=== PATIENT | male | born 1970 | race Caucasian/White ===

== ENCOUNTER 2017-06-06 21:29 | Emergency (ER) | payer MEDICARE, SELFPAY ==
[2017-06-06 21:32] VITALS: BP 166/101; PULSE 103; RESP 14; TEMP 36.6; O2SAT 100; BMI 24.8
--- NOTE | 2017-06-06 21:40 | XR_ITS ---
EXAM: XR cervical spine 5V HISTORY: Neck pain ITS.REASON: pain ORDERING PHYSICIAN: Lebron Pearson MD PATIENT AGE: 46 years COMPARISON: None FINDINGS: Mild degenerative disc disease at C4-C5 with decrease in the disc space and end plate osteophytes. C7 is not well delineated. Swimmer's view shows a faint outline of C7 which is normal in alignment. The foramina are patent. No fracture or dislocation. No lytic or blastic change. There are postsurgical changes of the facial bones. IMPRESSION: Degenerative disc disease C4-C5 otherwise negative cervical spine
--- NOTE | 2017-06-06 21:40 | XR_ITS ---
EXAM: XR lumbar spine min 4V HISTORY: Low back pain ITS.REASON: pain ORDERING PHYSICIAN: Lebron Pearson MD PATIENT AGE: 46 years COMPARISON: None FINDINGS: Normal alignment. No fracture or dislocation. No lytic or blastic change. No significant degenerative change. The disc spaces are preserved. IMPRESSION: Negative lumbar spine
--- NOTE | 2017-06-06 21:40 | XR_ITS ---
EXAM: XR thoracic spine 3V HISTORY: Mid back pain ITS.REASON: pain COMPARISON: None FINDINGS: There is normal alignment. No acute fracture or dislocation is evident. There is mild multilevel degenerative disc disease with ankylosis of the mid thoracic spine anteriorly. No obvious lytic or blastic change. There is increased soft tissue density in the left paratracheal region at the T3 level with mild tracheal deviation to the right. Paratracheal mass or aneurysm is considered. IMPRESSION: 1. Degenerative changes of the thoracic spine with mid thoracic lordosis. 2. Left paratracheal mass versus aneurysm/vascular ectasia. Consider chest CT with contrast for further evaluation.
[2017-06-06 21:53] LABS: Microscopic, Urine URINE MICROSCOPIC (MICROSCOPIC)
--- NOTE | 2017-06-06 21:53 | HMH.EDBACK ---
ED Disposition Clinical Impression: Lumbar radiculopathy Thoracic back pain Qualifiers: Chronicity: acute Back pain laterality: bilateral Qualified Code(s): M54.6 - Pain in thoracic spine Disposition: Home, Self-Care Condition on Discharge: Good Instructions: DI for Back Pain With Sciatica Additional Instructions: call pcp in am Referrals: Ekaterina Hurtado MD [Primary Care Provider] - - Critical Care Critical Care Time: No Attestation: On , the high probability of a clinically significant, sudden or life threatening deterioration of the following system(s) required my full and direct attention, intervention and personal management. The time I documented below is in addition to time spent performing reported procedures but includes the following listed in this critical care notation. Medical Decision Making - Medical Records Medical records reviewed: Yes: I reviewed the patient's medical records. - Scooter Inquiry Pt receiving controlled substance: No Vital Signs: 06/06/17 21:32 Temperature 97.8 F Temperature Source Oral Pulse Rate [Right Radial] 103 H Respiratory Rate 14 Blood Pressure [Right Arm] 166/101 Blood Pressure Mean [Right Arm] 122 Blood Pressure Source [Right Arm] Automatic Cuff Blood Pressure Position [Right Arm] Sitting 02 Sat by Pulse Oximetry 100 Oxygen Delivery Method Room Air - Lab Data Lab Results 06/06/17 21:35: Urine Color Yellow, Urine Appearance Clear, Urine pH 6.0, Ur Specific [place] <= 1.005, Urine Protein Negative, Urine Glucose (UA) 3+, Urine Ketones Negative, Urine Blood Negative, Urine Nitrate Negative, Urine Bilirubin Negative, Urine Urobilinogen 0.2, Ur Leukocyte Esterase Negative, Urine Bacteria Trace Orders (Tests/Meds): ORDERS Category Date Time Status XR cervical spine 5V Stat Exams 06/06/17 21:40 Taken XR lumbar spine min 4V Stat Exams 06/06/17 21:40 Taken XR thoracic spine 3V Stat Exams 06/06/17 21:40 Taken - Radiology Data #1 Image(s): T-Spine, L-Spine Image Reviewed: Yes I reviewed the patient's radiology image Preliminary Findings: No Fracture Seen Back Pain HPI - General Chief Complaint: Back Pain/Injury Stated Complaint: back pain Time Seen by Provider: 06/06/17 21:53 Mode of Arrival: Ambulatory Source of Information: Patient, Medical Record Limitations: No Limitations Description of Symptoms (Recalled from ER Triage Doc. by RN): last night with whole back pain , saw Dr Hurtado and took one dose of steroid he was ordered - History of Present Illness HPI Narrative: pt with bilat back pain w/o fever or rash and no trauma - saw pcp today on medrol dose raghavendra ARANGO Complaint: back pain Onset (ago): day(s) Duration: constant Similar Symptoms Previously: No Location: lumbar spine, thoracic spine Severity: moderate Quality: sharp Radiation: none Exacerbating factors: movement Context: unknown Associated symptoms: denies other symptoms - Related Data Home Medications Medication Instructions Recorded Confirmed Insulin Glargine,Hum.rec.anlog 20 unit SQ HS 06/06/17 06/06/17 [Lantus Insulin 100units/mL 10mL vial] Lisinopril [Lisinopril 5mg Tablet] 5 mg PO DAILY 06/06/17 06/06/17 Metformin HCl [Metformin 500mg 500 mg PO BID 06/06/17 06/06/17 Tablet] Allergies Allergy/AdvReac Type Severity Reaction Status Date / Time Fish Containing Products Allergy Mild Verified 06/06/17 21:41 [FISH CONTAINING PRODUCTS] [facility] History I have reviewed the patient's past medical history: Yes Medical History: Reports:: Diabetes Mellitus Type 2 Denies:: Cancer, Diabetes Mellitus Type 1, MRSA Amputation: No Fractures: No - Social History Smoking Status: Current every day smoker Tobacco Type: cigarettes # Packs/Day (cigarettes): 2 Alcohol Intake: never - Psychiatric History Expresses thoughts of harming self/others: None Suicide Plan Description: No Plan ROS Obtained: Yes All systems reviewed & no additi
[2017-06-06 21:54] LABS: Appearance,Urine CLEAR (Clear); Bilirubin,Urine Negative (Negative); Blood, Urine Negative (Negative); Color,Urine YELLOW (Yellow); Glucose,Urine (UA) 3+ (Negative); Ketones,Urine Negative (Negative); Leukocyte Esterase,Urine Negative (Negative); Nitrate,Urine Negative (Negative); Protein,Urine Negative (Negative); Specific Gravity, Urine <= 1.005 (1.005-1.030); Urobilinogen,Urine 0.2 EU/dl (0.2)
[2017-06-06 22:00] LABS: Bacteria,Urine Trace /lpf
[2017-06-06 22:46] VITALS: BP 158/96; PULSE 95; RESP 15; TEMP 37; O2SAT 94
== END 2017-06-06 22:49 | disposition home or self-care (01) ==
PROVIDERS: Emergency Provider Emergency Medicine; Family Provider Family Medicine; PCP Family Medicine
DX: M54.16 Radiculopathy, lumbar region (principal); M54.6 Pain in thoracic spine; E11.9 Type 2 diabetes mellitus without complications; Z79.4 Long term (current) use of insulin; Z79.84 Long term (current) use of oral hypoglycemic drugs; F17.210 Nicotine dependence, cigarettes, uncomplicated
CPT/HCPCS: 72050; 72072; 72110; 81001; 99282

== ENCOUNTER → 2018-04-11 12:03 | Outpatient (CLI) | payer MEDICARE, MEDICAID, SELFPAY ==
--- NOTE | 2018-04-11 12:06 | CA_ITS ---
PROCEDURE: 2-D M-mode and color Doppler study INDICATIONS FOR THE TEST: Chest pain COPD Heart Murmur Tobacco SmokingX Palpitations Fatigue Syncope Edema HypertensionXDiabetes Mellitus Rheumatic Fever SOB DOEXObesity HyperlipidemiaX Family History HD Additional History CVA L SIDED PARALYSIS LIMITED VIEWS IN PSAX SECONDARY TO IMMOBILITY PATIENT INFORMATION HEIGHT: 72 WEIGHT:160 GENDER: Male B/P:159/96 2-D/M-MODE INTERPRETATION: 2-D MEASUREMENTS OBSERVED VALUES IN CMS Right Ventricular Dimension (RVDd) 1.7 Interventricular Septum (Thickness)(IVsd) 1.0 Left Ventricular Internal Dimensions(LVIDd) 5.8 Left Ventricular Posterior Wall (Thickness)(LVPWd) 1.1 Aortic Root 4.3 Aortic Cusp Separation 1.9 Left Atrial Dimensions (LAD) 2.3 2D 1. Technically difficult study because of the patient's factor and poor acoustic windows 2. The left atrium is mildly enlarged, left ventricle is mildly dilated, there is reduced left ventricular systolic function, visually estimated ejection fraction approximately 30%, there is marked hypokinesis involving the mid to distal septum, anteroapical and apical wall. 3. The right atrium and right ventricle are normal size and contractility. 4. The aortic valve is minimally thickened and fibrosed. 5. The mitral and tricuspid valve leaflets are minimally thickened 6. The pulmonic valve is poorly visualized. 7. No significant pericardial effusion noted. DOPPLER INTERROGATION: Doppler interrogation of the aortic, mitral and tricuspid valvular presence of mild mitral and tricuspid regurgitation, tricuspid regurgitation jet velocity is inadequate for calculation of the right ventricular systolic pressure, grade 1 diastolic dysfunction seen with tissue Doppler evidence of raised left atrial pressure. CONCLUSION: 1. Technically difficult study because of the patient's factor and poor acoustic windows 2. Mildly left atrium, mildly dilated left ventricle, there is reduced left ventricular systolic function, visually estimated ejection fraction approximately 30% with segmental wall motion abnormality described above, grade 1 diastolic dysfunction seen with tissue Doppler evidence of raised left atrial pressure. 3. Mild mitral and tricuspid regurgitation 4. No significant pericardial effusion noted.
[2018-04-11 13:50] LABS: Anion Gap 14.6 mEq/L (5-15); Blood Urea Nitrogen 10 mg/dL (7-18); Calcium 9.3 mg/dL (8.5-10.1); Carbon Dioxide 26 mmol/L (21.0-32.0); Chloride 96 mmol/L (98-107); Creatinine,Serum 0.63 mg/dL (0.70-1.30); Estimated Glomerular Filt Rate 137 ml/min (>60); GFR (African American) 165 ML/MIN (>60); Glucose 255 mg/dL (74-106); Potassium 4.6 mmoL/L (3.5-5.1); Sodium 132 mmol/L (136-145)
[2018-04-12 10:23] LABS: Basophils # 0.1 K/mm3 (0-0.2); Basophils % 0.5 % (0.1-2.0); Eosinophils # 0.3 K/mm3 (0.0-0.4); Eosinophils % 3.1 % (0.1-12.0); Hematocrit 39.2 % (42.0-52.0); Hemoglobin 12.4 g/dL (14.1-18.0); Lymphocytes # 1.7 K/mm3 (0.7-4.5); Lymphocytes % 15.7 % (10-50); Mean Corpuscular HGB Conc 31.8 g/dL (31.8-35.4); Mean Corpuscular Hemoglobin 30.5 pg (27.0-31.2); Mean Platelet Volume 8.8 fl (7.4-10.4); Monocytes # 0.8 K/mm3 (0.1-1.0); Monocytes % 7.1 % (1.7-9.3); Neutrophils # 8.2 K/mm3 (1.8-7.8); Neutrophils % 73.6 % (37.0-80.0); Platelet Count 303 K/mm3 (142-424); Red Blood Count 4.08 M/mm3 (4.60-6.20); Red Cell Distribution Width 15.1 % (11.5-17.5); White Blood Count 11.1 K/mm3 (4.8-10.8)
== END ==
PROVIDERS: PCP Emergency Medicine; Visit Provider Internal Medicine Cardiovascular Disease
DX: I50.9 Heart failure, unspecified; E11.8 Type 2 diabetes mellitus with unspecified complications; R06.09 Other forms of dyspnea; I63.531 Cerebral infarction due to unspecified occlusion or stenosis of right posterior cerebral artery; I63.9 Cerebral infarction, unspecified; R53.1 Weakness
CPT/HCPCS: 36415; 80048; 83880; 85025; 93306

== ENCOUNTER → 2018-04-22 10:27 | Outpatient (CLI) | payer MEDICARE, MEDICAID, SELFPAY ==
--- NOTE | 2018-04-22 | US_ITS ---
US Arterial Ankle Brachial Ind History: Pulseless right arm, CVA, current smoker, diabetes ORDERING PHYSICIAN: Madelaine Norman PATIENT AGE: 47 years TECHNIQUE: Segmental pressures obtained of both right and left leg. These are compared to brachial blood pressure to yield index at each level sampled including summary ZHANE. The data sheets from the procedure are available in PACS FINDINGS Rest study only performed today No prior studies available for comparison. Blood pressures reported are in millimeters mercury. RIGHT ARM RBI = 1.0 . RIGHT ARM DBI=1.0 Brachial BP: 77 Forearm BP: 70 Radial BP: 73 Ulnar BP: 84 Digit =77 LEFT upper extremity not performed due to patient's spouse request Pulses and waveforms: Diminished IMPRESSION: The right radial brachial index is normal at 1.0. Left side was not performed. Pulses and waveforms are diminished. The brachial pressure is low at 77. Recommend correlation with patient's left side. If the left-sided is normal then, a stenosis in the right subclavian or axillary artery would be considered
== END ==
PROVIDERS: PCP Emergency Medicine; Visit Provider Nurse Practitioner Family
DX: R09.89 Other specified symptoms and signs involving the circulatory and respiratory systems (principal)
CPT/HCPCS: 93922

== ENCOUNTER → 2018-05-01 14:58 | Outpatient (POV) | payer MEDICARE, SELFPAY | PROVIDERS: Visit Provider Emergency Medicine | DX: Z00.00 Encounter for general adult medical examination without abnormal findings (principal) ==

== ENCOUNTER → 2018-05-14 14:03 | Outpatient (CLI) | payer MEDICARE, SELFPAY | PROVIDERS: Visit Provider Urology | DX: R33.9 Retention of urine, unspecified (principal) | CPT/HCPCS: 87077; 87086; 87088; 87186 ==

== ENCOUNTER → 2018-07-15 07:15 | Outpatient (CLI) | payer MEDICARE, MEDICAID, SELFPAY ==
--- NOTE | 2018-07-15 07:18 | CA_ITS ---
PROCEDURE: Limited echocardiogram was performed INDICATIONS FOR THE TEST: Chest pain + COPD Heart Murmur Tobacco Smoking+ Palpitations Fatigue Syncope Edema Hypertension+Diabetes Mellitus+ Rheumatic Fever SOB+FIELDS Obesity Hyperlipidemia Family History HD Additional History ABN EKG, CVA, WHEELCHAIR BOUND, LIMITED US WINDOWS PATIENT INFORMATION HEIGHT: 72 WEIGHT:178 GENDER: Male B/P:83/56 2-D/M-MODE INTERPRETATION: 2-D MEASUREMENTS OBSERVED VALUES IN CMS Right Ventricular Dimension (RVDd) Interventricular Septum (Thickness)(IVsd) Left Ventricular Internal Dimensions(LVIDd) Left Ventricular Posterior Wall (Thickness)(LVPWd) Aortic Root Aortic Cusp Separation Left Atrial Dimensions (LAD) 2D 1. Technically very difficult study, because of the patient's factors and poor acoustic windows 2. Left atrium is normal size, left ventricle is normal size, mild concentric left ventricular hypertrophy, visually estimated ejection fraction approximately 40-45% in the obtained views, left ventricle appears to be globally hypokinetic. 3. The right atrium and right ventricle are relatively normal size and function. 4. The aortic valve is minimally thickened and fibrosed. 5. The mitral and tricuspid valve leaflets are minimally thickened . 6. No significant pericardial effusion noted. DOPPLER INTERROGATION: Doppler interrogation of the aortic, mitral and tricuspid valvular presence of mild mitral and tricuspid regurgitation, tricuspid regurgitation jet velocity is inadequate for calculation of the right ventricular systolic pressure, grade 1 diastolic dysfunction seen with tissue Doppler evidence of raised left atrial pressure. CONCLUSION: 1. Technically very difficult study as described above, limited views were obtained. 2. Normal left ventricular size, mild concentric left ventricular hypertrophy, visually estimated ejection fraction 40-45% in the obtained views, left ventricle is globally hypokinetic, Doppler evidence of raised left atrial pressure. Grade 1 diastolic dysfunction seen. 3. Mild mitral and tricuspid regurgitation 4. No significant pericardial effusion noted.
== END ==
PROVIDERS: PCP Emergency Medicine; Visit Provider Internal Medicine Cardiovascular Disease
DX: I63.9 Cerebral infarction, unspecified (principal); I11.9 Hypertensive heart disease without heart failure; I42.9 Cardiomyopathy, unspecified; I25.10 Atherosclerotic heart disease of native coronary artery without angina pectoris; I63.531 Cerebral infarction due to unspecified occlusion or stenosis of right posterior cerebral artery; I50.20 Unspecified systolic (congestive) heart failure
CPT/HCPCS: 93306; 93308

== ENCOUNTER → 2018-11-06 14:30 | Outpatient (POV) | payer MEDICARE, MEDICAID, SELFPAY | DX: Z00.00 Encounter for general adult medical examination without abnormal findings (principal) ==

== ENCOUNTER → 2019-02-03 10:15 | Outpatient (CLI) | payer MEDICARE, MEDICAID, SELFPAY ==
--- NOTE | 2019-02-03 10:19 | MR_ITS ---
PROCEDURE: MR LUMBAR SPINE WO CON CLINICAL INDICATION: LOW BACK PAIN Low back pain COMPARISON: [id number] XR lumbar spine min 4V from 06/06/2017 TECHNIQUE: Standard multiplanar multiecho sequences are performed without contrast. 3-D MIP and myelographic images are also rendered and reviewed FINDINGS: There is normal alignment. The spinal cord ends at the T12-L1 level. There is a moderate amount of motion artifact on the axial images. T12-L5 has an unremarkable appearance. L5-S1: There is some mild disc desiccation with slight decrease in the disc height. There is a mild concentric bulging disc eccentric to the right with a small right paracentral disc osteophyte complex. This abuts the right S1 nerve root with mild right lateral recess narrowing and minimal left lateral recess narrowing. There is mild facet hypertrophic change with mild bilateral foraminal narrowing. No extruded herniated disc evident. IMPRESSION: 1. Degenerative disc disease at L5-S1 with bulging disc and small right paracentral disc osteophyte complex abutting the right S1 nerve root along with facet ligamentum hypertrophy with bilateral lateral recess and foraminal narrowing right greater than left 2. No extruded herniated disc. Dictated by: Hudson Magaña MD 02/05/2019 06:07 Electronically signed by Hudson Magaña MD in [place] 02/05/2019 06:07
== END ==
PROVIDERS: PCP Emergency Medicine; Visit Provider Orthopaedic Surgery
DX: M54.5 Low back pain (principal)
CPT/HCPCS: 72148; 76376

== ENCOUNTER → 2019-04-03 11:45 | Outpatient (CLI) | payer MEDICARE, MEDICAID, SELFPAY ==
[2019-04-03 12:59] LABS: Occult Blood,Stool Negative (Negative)
== END ==
PROVIDERS: Visit Provider Emergency Medicine
DX: Z12.11 Encounter for screening for malignant neoplasm of colon (principal)
CPT/HCPCS: 82272; G0328

== ENCOUNTER → 2019-04-24 22:41 | Outpatient (CLI) | payer MEDICARE, MEDICAID, SELFPAY | PROVIDERS: PCP Emergency Medicine; Visit Provider Emergency Medicine | DX: J11.1 Influenza due to unidentified influenza virus with other respiratory manifestations (principal) | CPT/HCPCS: 87275; 87276 ==

== ENCOUNTER 2019-04-25 15:31 | Observation (INO) ==
--- NOTE | 2019-04-25 16:02 | Emergency Department Note ---
ED Disposition Clinical Impression: Viral infection, Bronchitis, Viral pneumonitis, Persistent cough, Dehydration, Elevated lactic acid level, SOB (shortness of breath) Disposition: Admitted as Observation Condition on Discharge: Fair Referrals: Lebron Pearson MD [Primary Care Provider] - Time of Disposition: 19:53 - Critical Care Critical Care Time: No Attestation: On 04/25/19, the high probability of a clinically significant, sudden or life threatening deterioration of the following system(s) required my full and direct attention, intervention and personal management. The time I documented below is in addition to time spent performing reported procedures but includes the following listed in this critical care notation. Medical Decision Making - Scooter Inquiry Pt receiving controlled substance: No Vital Signs: 04/25/19 15:31 04/25/19 17:00 04/25/19 17:30 Temperature 98.9 F Temperature Source Oral Pulse Rate Pulse Rate [Right Radial] 94 H 86 Respiratory Rate 16 Blood Pressure [Right Arm] 101/61 L 129/74 160/81 H Blood Pressure Mean [Right Arm] 74 92 107 Blood Pressure Source [Right Arm] Automatic Cuff Automatic Cuff Automatic Cuff Blood Pressure Position [Right Arm] Sitting Sitting Sitting 02 Sat by Pulse Oximetry 94 L 96 Oxygen Delivery Method Room Air Room Air 04/25/19 17:52 04/25/19 18:30 Temperature Temperature Source Pulse Rate 96 H Pulse Rate [Right Radial] 107 H Respiratory Rate 22 Blood Pressure [Right Arm] 167/83 H Blood Pressure Mean [Right Arm] 111 Blood Pressure Source [Right Arm] Automatic Cuff Blood Pressure Position [Right Arm] Sitting 02 Sat by Pulse Oximetry 92 L Oxygen Delivery Method Room Air - Lab Data Lab results reviewed: Yes: I reviewed the patient's lab results. Lab Results 04/25/19 16:02: VBG pH 7.36, VBG pCO2 46.7, VBG pO2 27.2 L, VBG HCO3 25.8, VBG Total CO2 27.2 H, VBG O2 Saturation 48.0 L, VBG Base Excess 0.3 04/25/19 17:05: WBC 9.2, RBC 4.46 L, Hgb 14.0 L, Hct 41.4 L, MCV 92.8, MCH 31.3 H, MCHC 33.8, RDW 13.2, Plt Count 210, MPV 7.9, Neut % (Auto) 71.8, Lymph % (Aut o) 11.7, Otoe % (Auto) 14.1 H, Eos % (Auto) 1.2, Baso % (Auto) 1.1, Neut # (Auto) 6.6, Lymph # (Auto) 1.1, Otoe # (Auto) 1.3 H, Eos # (Auto) 0.1, Baso # (Auto) 0.1 04/25/19 17:05: Sodium 128 L, Potassium 4.1, Chloride 92 L, Carbon Dioxide 27, Anion Gap 13.1, BUN 12, Creatinine 1.00, Estimated Creat Clear 104, Estimated GFR 80, Est GFR ( Amer) 97, Glucose 165 H, Calcium 9.1, Total Bilirubin 0.6, AST 45 H, ALT 46, Alkaline Phosphatase 75, Total Protein 6.8, Albumin 3.3 L , Globulin 3.5 H, Albumin/Globulin Ratio 0.9 L 04/25/19 17:05: Lactate 2.8 H 04/25/19 17:05: B-Natriuretic Peptide 21 Result diagrams: 04/25/19 17:05 04/25/19 17:05 Orders (Tests/Meds): ED MEDICATIONS Generic Name Dose Route Start Last Admin Trade Name Freq PRN Reason Stop Dose Admin Sodium Chloride 10 ml 04/25/19 16:22 Saline Flush 10ml Syringe IV 04/26/19 04:23 NEEDED PRN Maintain IV Site Discontinued Medications Generic Name Dose Route Start Last Admin Trade Name Freq PRN Reason Stop Dose Admin Albuterol/Ipratropium 3 ml 04/25/19 17:33 04/25/19 17:48 Duoneb 3ml Neb IH 04/25/19 17:34 3 ml ONCE ONE Administration Sodium Chloride 1,000 mls @ 999 mls/hr 04/25/19 16:30 04/25/19 17:09 Sod Chlor 0.9% 1000ml Bag IV 04/25/19 17:30 999 mls/hr .Q1H1M SAPPHIRE Administration ORDERS Category Date Time Status Blood Culture Stat Micro 04/25/19 17:05 Received - Radiology Data #1 Image(s): Chest Image Reviewed: Yes I reviewed the patient's radiology image INDINGS: The lung arnett are fairly well expanded and appear clear of infiltrate. There is mild generalized cardiomegaly however is no pulmonary congestion and there is no pleural fluid. IMPRESSION: Mild cardiomegaly, no acute chest pathology noted Dictated by: Dr. Ap Mg MD 04/25/2019 16:[address] Ap Mg MD in [place] 04/25/2019 16:5 - Physician Consults Physician Consulted: Dr. Gomez Time: 20:00 Reason -: Admission Comment/Response: D/W Dr. Gomez, regarding the pt and planned to admit the pt to the floor. - Reevaluation(s) Time: 19:30 Reevaluation #1: Pt was still having persistent coughing and was having shortness of breath. Plan to discuss the case with the primary care regarding possible admission for 24 hours observation. General Adult HPI - General Chief complaint: Upper Respiratory Infection Stated complaint: FLU Time Seen by Provider: 04/25/19 16:00 Mode of Arrival: EMS Limitations: No Limitations Description of Symptoms (Recalled from ER Triage Doc. by RN): PT BROUGHT TO ED VIA EMS FROM LONG TERM, WHERE STAFF REPORT THAT PT WAS DX WITH FLU A THIS MORNING AND NURSE IS CONCERNED WITH POSSIBLE ASPIRATION. - History of Present Illness HPI narrative: 48-year-old male was sent in from the long-term having increasing cough and congestion. The nursing staff were concerned that the patient may be having aspiration pneumonia. Patient was in the emergency department yesterday and was positive for influenza A. According to the staff the patient has been coughing a lot today. Patient denies having any acute symptoms otherwise. - Related Data Home Medications Medication Instructions Recorded Confirmed Aspirin [Aspirin 81mg EC Tab] 81 mg PO DAILY 03/25/19 04/21/19 Atorvastatin Calcium [Atorvastatin 40 mg PO HS 03/25/19 04/21/19 40mg Tab] Clopidogrel Bisulfate [Plavix 75mg 75 mg PO DAILY 03/25/19 04/21/19 Tab] Cyclobenzaprine HCl 5 mg PO TID 03/25/19 04/21/19 [Cyclobenzaprine 5mg Tab] Divalproex Sodium [Depakote 500 mg PO TID 03/25/19 04/21/19 Sprinkle 125mg capsule] Fluoxetine HCl 20 mg PO DAILY 03/25/19 04/21/19 Gabapentin 1 tab PO TID 03/25/19 04/21/19 Hydrocodone/Acetaminophen 1 tab PO TID 03/25/19 04/21/19 [Hydrocodone-Acetamin 7.5-325] Insulin Aspart [Novolog] 0 unit SQ TID 03/25/19 04/21/19 Insulin Glargine,Hum.rec.anlog 30 units SQ HS 03/25/19 04/21/19 [Lantus Solostar 100 Units/mL 3mL flexpen] Lactulose [Lactulose 10gm/15ml 10 gm PO DAILY 03/25/19 04/21/19 Oral Soln] Metformin HCl [Metformin 1000mg 1,000 mg PO BID 03/25/19 04/21/19 Tablets] Metoprolol Tartrate 1 tab PO BID 03/25/19 04/21/19 Mirabegron [Myrbetriq] 1 tab PO DAILY 03/25/19 04/21/19 Omeprazole 1 tab PO HS 03/25/19 04/21/19 Pantoprazole Sodium [Protonix 40mg 40 mg PO DAILY 03/25/19 04/21/19 tablet] Sennosides/Docusate Sodium 1 tab PO DAILY 03/25/19 04/21/19 [Senna-S Tablet] Simvastatin 40 mg PO HS 03/25/19 04/21/19 Trazodone HCl 50 mg PO HS 03/25/19 04/21/19 glipiZIDE [Glucotrol] 5 mg PO DAILY 03/25/19 04/21/19 haloperidoL [Haldol 5mg tablet] 1 tab PO HS 03/25/19 04/21/19 hydroCHLOROthiazide 1 tab PO DAILY 03/25/19 04/21/19 [Hydrochlorothiazide] Allergies Allergy/AdvReac Type Severity Reaction Status Date / Time Fish Containing Products Allergy Mild Verified 04/21/19 14:37 [FISH CONTAINING PRODUCTS] [facility] History - Hepatitis A Screen Drug use history?: No High risk sexual behaviors?: No History of sexually transmitted infection?: No Currently employed?: No Childcare worker?: No Do you have indoor plumbing?: Yes Do you have electricity?: Yes Attestation statement:: This patient has been screened for Hepatitis A risk factors. I have reviewed the patient's past medical history: Yes Medical History: Reports:: Congestive Heart Failure, Cerebrovascular Accident, Diabetes Mellitus Type 2, Hypertension, Renal Insufficiency Denies:: Cancer, Diabetes Mellitus Type 1, Internal Pacemaker, MRSA, Seizures Other Medical History: Reports: Other Comment: chronic back pain,schizophrenia Other Surgeries: Yes: Cardiac Catheterization, Cholecystectomy, Other. No: Pacemaker Amputation: No Fractures: No - Social History Smoking Status: Never smoker Tobacco Type: cigarettes # Packs/Day (cigarettes): 1 #Yrs smoked (if former smoker): 20 Alcohol Intake: never Substance Use Type: denies use Occupational Status: disabled Housing: long-term Household Members: caregiver Family Hx:: Coronary Artery Disease, Heart Attack Comment: Paternal Grandparents-CAD, [place]. Maternal Grandfather-CAD ROS Obtained: Yes All systems reviewed & no additional complaints Physical Exam - General General appearance: alert, in no apparent distress, other (Patient keeps on coughing persistently. He sounds congested on the upper airway suggestive of possible postnasal drip induced cough.) - Head Head exam: atraumatic, normocephalic, normal inspection - Eye Eye exam: Present: normal appearance, PERRL, EOMI - ENT ENT exam: Present: normal exam, normal oropharynx, mucous membranes moist, other (Bilateral congested nasal mucosa.) - Neck Neck exam: Present: normal inspection, full ROM, trachea midline - Chest Chest inspection: Present: normal inspection, symmetric chest wall rise. Absent: tenderness - Respiratory Respiratory exam: Present: normal lung sounds bilaterally. Absent: respiratory distress - Cardiovascular Cardiovascular exam: Present: regular rate, normal rhythm. Absent: JVD - Abdominal Exam Abdominal exam: Present: soft, normal bowel sounds. Absent: distention, tendern ess, guarding - Extremities Exam Extremities exam: Present: other (At baseline status) - Back Exam Back exam: Present: normal inspection. Absent: tenderness - Neurological Exam Neurological exam: Present: alert, oriented X3, CN II-XII intact - Psychiatric Psychiatric exam: Present: normal affect, normal mood - Skin Skin exam: Present: warm, dry, intact, normal color
[2019-04-25 17:14] LABS: VBG Base Excess 0.3 mmol/L (-2.4-2.3); VBG HCO3 25.8 mmol/L (23-30); VBG PCO2 46.7 mmol/L (35-51); VBG PH 7.36 mmol/L (7.31-7.41); VBG PO2 27.2 mmol/L (28-40); VBG Total CO2 27.2 mmol/L (23-27)
[2019-04-25 17:20] LABS: Basophils # 0.1 K/mm3 (0-0.2); Basophils % 1.1 % (0.1-2.0); Eosinophils # 0.1 K/mm3 (0.0-0.4); Eosinophils % 1.2 % (0.1-12.0); Hematocrit 41.4 % (42.0-52.0); Lymphocytes # 1.1 K/mm3 (0.7-4.5); Lymphocytes % 11.7 % (10-50); Mean Corpuscular HGB Conc 33.8 g/dL (31.8-35.4); Mean Corpuscular Volume 92.8 fl (80-94); Mean Platelet Volume 7.9 fl (7.4-10.4); Monocytes # 1.3 K/mm3 (0.1-1.0); Monocytes % 14.1 % (1.7-9.3); Neutrophils # 6.6 K/mm3 (1.8-7.8); Neutrophils % 71.8 % (37.0-80.0); Platelet Count 210 K/mm3 (142-424); Red Blood Count 4.46 M/mm3 (4.60-6.20); Red Cell Distribution Width 13.2 % (11.5-17.5); White Blood Count 9.2 K/mm3 (4.8-10.8)
[2019-04-25 17:28] LABS: Albumin Level 3.3 gm/dL (3.4-5.0); Albumin/Globulin Ratio 0.9 (1.1-1.8); Anion Gap 13.1 mEq/L (5-15); Bilirubin,Total 0.6 mg/dL (0.2-1.0); Calcium 9.1 mg/dL (8.5-10.1); Globulin 3.5 gm/dl (1.3-3.2); Total Protein,Serum 6.8 gm/dL (6.4-8.2)
[2019-04-26 07:14] LABS: Basophils % 0.5 % (0.1-2.0); Eosinophils # 0.1 K/mm3 (0.0-0.4); Eosinophils % 0.9 % (0.1-12.0); Hematocrit 37.4 % (42.0-52.0); Hemoglobin 12.8 g/dL (14.1-18.0); Lymphocytes % 15.1 % (10-50); Mean Corpuscular HGB Conc 34.3 g/dL (31.8-35.4); Mean Corpuscular Volume 90.8 fl (80-94); Mean Platelet Volume 7.5 fl (7.4-10.4); Monocytes # 1.1 K/mm3 (0.1-1.0); Monocytes % 16.7 % (1.7-9.3); Neutrophils # 4.5 K/mm3 (1.8-7.8); Neutrophils % 66.7 % (37.0-80.0); Platelet Count 166 K/mm3 (142-424); Red Blood Count 4.11 M/mm3 (4.60-6.20); Red Cell Distribution Width 13.1 % (11.5-17.5); White Blood Count 6.7 K/mm3 (4.8-10.8)
[2019-04-26 07:24] LABS: Calcium 8.9 mg/dL (8.5-10.1)
--- NOTE | 2019-04-26 08:48 | H&P/Discharge Summary ---
General - General Admission date:: 04/25/19 Discharge date: 04/26/19 *Admission Date: 04/25/19 *Chief complaint: Cough/congestion *History of present illness: 48-year-old disabled male who lives at the [facility], who his mother is very involved in his care, had influenza last week at the nursing facility and has finished Tamiflu treatment. He is also been on amoxicillin because of some dental infection issues. He was sent to the emergency department last night because of cough, congestion and worries about aspiration pneumonia. In the ER chest x-ray was unremarkable, but patient was noted to have minimally elevated lactate levels and coughing with some evidence of bronchitis. He was admitted to hospital for further evaluation, diagnostic testing, etc. [facility] History I have reviewed the patient's past medical history: Yes Medical History: Reports:: Congestive Heart Failure, Coronary Artery Disease, Cerebrovascular Accident, Diabetes Mellitus Type 2, Hypertension, Peripheral Vascular Disease, Renal Insufficiency Denies:: Cancer, Diabetes Mellitus Type 1, Internal Pacemaker, MRSA, Seizures *Have you ever received a pneumonia vaccine?: Yes *Have you received a flu vaccine this season?: Yes Other Medical History: Reports: Other Other Surgeries: Yes: Cardiac Catheterization, Cholecystectomy, Other. No: Pacemaker Amputation: No Fractures: No - *Social History Educational Level: Completed High School Smoking Status: Current every day smoker Tobacco Type: cigarettes # Packs/Day (cigarettes): 1 #Yrs smoked (if former smoker): 20 Alcohol Intake: never Substance Use Type: denies use *Occupational Status:: disabled Housing: retirement Household Members: caregiver *Travel in the last 8 weeks: None Family Hx:: Cancer, Coronary Artery Disease, Heart Attack, Hyperlipidemia, Hypertension, Kidney Disease, Thyroid Disorder, Mental illness Review of Systems - Review of Systems Review of systems:: pertinent systems reviewed and negative unless documented below Patient reports that breathing is good, he reports cough that hurts his stomach but otherwise has no complaints of pain. Otherwise review of systems negative except for minimal diarrhea from his antibiotics. Exam Vital signs and Labs for Last 24 Hours: Temp Pulse Resp BP Pulse Ox 97.8 F 92 H 19 108/84 L 91 L 04/26/19 04:00 04/26/19 04:00 04/26/19 04:00 04/26/19 04:00 04/26/19 04:00 Laboratory Results - last 24 hr 04/25/19 16:02: VBG pH 7.36, VBG pCO2 46.7, VBG pO2 27.2 L, VBG HCO3 25.8, VBG Total CO2 27.2 H, VBG O2 Saturation 48.0 L, VBG Base Excess 0.3 04/25/19 17:05: WBC 9.2, RBC 4.46 L, Hgb 14.0 L, Hct 41.4 L, MCV 92.8, MCH 31.3 H, MCHC 33.8, RDW 13.2, Plt Count 210, MPV 7.9, Neut % (Auto) 71.8, Lymph % (Auto) 11.7, [place] % (Auto) 14.1 H, Eos % (Auto) 1.2, Baso % (Auto) 1.1, Neut # (Auto) 6.6, Lymph # (Auto) 1.1, [place] # (Auto) 1.3 H, Eos # (Auto) 0.1, Baso # (Auto) 0.1 04/25/19 17:05: Sodium 128 L, Potassium 4.1, Chloride 92 L, Carbon Dioxide 27, Anion Gap 13.1, BUN 12, Creatinine 1.00, Estimated Creat Clear 104, Estimated GFR 80, Est GFR ( Amer) 97, Glucose 165 H, Calcium 9.1, Total Bilirubin 0.6, AST 45 H, ALT 46, Alkaline Phosphatase 75, Total Protein 6.8, Albumin 3.3 L , Globulin 3.5 H, Albumin/Globulin Ratio 0.9 L 04/25/19 17:05: Lactate 2.8 H 04/25/19 17:05: B-Natriuretic Peptide 21 04/25/19 20:50: Lactate 2.5 H 04/25/19 23:11: Lactate 1.8 04/26/19 06:30: WBC 6.7 D, RBC 4.11 L, Hgb 12.8 L, Hct 37.4 L, MCV 90.8, MCH 31.1, MCHC 34.3, RDW 13.1, Plt Count 166, MPV 7.5, Neut % (Auto) 66.7, Lymph % (Auto) 15.1, [place] % (Auto) 16.7 H, Eos % (Auto) 0.9, Baso % (Auto) 0.5, Neut # (Auto) 4.5, Lymph # (Auto) 1.0, [place] # (Auto) 1.1 H, Eos # (Auto) 0.1, Baso # (Auto) 0.0 04/26/19 06:30: Sodium 134 L, Potassium 4.0, Chloride 98, Carbon Dioxide 26, Anion Gap 14.0, BUN 12, Creatinine 0.85, Estimated Creat Clear 103, Estimated GFR 96, Est GFR ( Amer) 116, Glucose 145 H, Calcium 8.9 04/26/19 06:39: POC Glucose 165 H I & O for Last 24 hours: Intake & Output 04/23/19 04/24/19 04/25/19 04/26/19 11:59 11:59 11:59 11:59 Intake Total 1889 Balance 1889 Weight 151 lb 5 oz Narrative: Previously noted spasticity and hyperreflexia from his hemiplegia from his stroke. Oropharynx moist, dental disease noted. Lungs have good air movement, minimal rhonchi. Heart rate regular. Abdomen soft. Skin turgor is good, no dehydration evident. Hospital Course Hospital Course: Patient was admitted, given 1 dose of Levaquin overnight for the possibility of post influenza pneumonitis. He did well and vital signs were normal. Maintain acceptable oxygen saturations on room air. He will be transferred back to [place] today. I will discontinue amoxicillin, substitute levofloxacin for better lung coverage. Other medications will continue. He will also be prescribed a cough syrup. He will follow-up with his regular providers at [facility]. Results Labs on day of discharge: Labs from last 24 hours 04/26/19 04/26/19 04/26/19 06:39 06:30 06:30 WBC 6.7 D RBC 4.11 L Hgb 12.8 L Hct 37.4 L MCV 90.8 MCH 31.1 MCHC 34.3 RDW 13.1 Plt Count 166 MPV 7.5 Neut % (Auto) 66.7 Lymph % (Auto) 15.1 [place] % (Auto) 16.7 H Eos % (Auto) 0.9 Baso % (Auto) 0.5 Neut # (Auto) 4.5 Lymph # (Auto) 1.0 [place] # (Auto) 1.1 H Eos # (Auto) 0.1 Baso # (Auto) 0.0 VBG pH VBG pCO2 VBG pO2 VBG HCO3 VBG Total CO2 VBG O2 Saturation VBG Base Excess Sodium 134 L Potassium 4.0 Chloride 98 Carbon Dioxide 26 Anion Gap 14.0 BUN 12 Creatinine 0.85 Estimated Creat Clear 103 Estimated GFR 96 Est GFR ( Amer) 116 Glucose 145 H POC Glucose 165 H Lactate Calcium 8.9 Total Bilirubin AST ALT Alkaline Phosphatase B-Natriuretic Peptide Total Protein Albumin Globulin Albumin/Globulin Ratio 04/25/19 04/25/19 04/25/19 23:11 20:50 17:05 WBC RBC Hgb Hct MCV MCH MCHC RDW Plt Count MPV Neut % (Auto) Lymph % (Auto) [place] % (Auto) Eos % (Auto) Baso % (Auto) Neut # (Auto) Lymph # (Auto) [place] # (Auto) Eos # (Auto) Baso # (Auto) VBG pH VBG pCO2 VBG pO2 VBG HCO3 VBG Total CO2 VBG O2 Saturation VBG Base Excess Sodium Potassium Chloride Carbon Dioxide Anion Gap BUN Creatinine Estimated Creat Clear Estimated GFR Est GFR ( Amer) Glucose POC Glucose Lactate 1.8 2.5 H Calcium Total Bilirubin AST ALT Alkaline Phosphatase B-Natriuretic Peptide 21 Total Protein Albumin Globulin Albumin/Globulin Ratio 04/25/19 04/25/19 04/25/19 17:05 17:05 17:05 WBC 9.2 RBC 4.46 L Hgb 14.0 L Hct 41.4 L MCV 92.8 MCH 31.3 H MCHC 33.8 RDW 13.2 Plt Count 210 MPV 7.9 Neut % (Auto) 71.8 Lymph % (Auto) 11.7 [place] % (Auto) 14.1 H Eos % (Auto) 1.2 Baso % (Auto) 1.1 Neut # (Auto) 6.6 Lymph # (Auto) 1.1 [place] # (Auto) 1.3 H Eos # (Auto) 0.1 Baso # (Auto) 0.1 VBG pH VBG pCO2 VBG pO2 VBG HCO3 VBG Total CO2 VBG O2 Saturation VBG Base Excess Sodium 128 L Potassium 4.1 Chloride 92 L Carbon Dioxide 27 Anion Gap 13.1 BUN 12 Creatinine 1.00 Estimated Creat Clear 104 Estimated GFR 80 Est GFR ( Amer) 97 Glucose 165 H POC Glucose Lactate 2.8 H Calcium 9.1 Total Bilirubin 0.6 AST 45 H ALT 46 Alkaline Phosphatase 75 B-Natriuretic Peptide Total Protein 6.8 Albumin 3.3 L Globulin 3.5 H Albumin/Globulin Ratio 0.9 L 04/25/19 16:02 WBC RBC Hgb Hct MCV MCH MCHC RDW Plt Count MPV Neut % (Auto) Lymph % (Auto) [place] % (Auto) Eos % (Auto) Baso % (Auto) Neut # (Auto) Lymph # (Auto) [place] # (Auto) Eos # (Auto) Baso # (Auto) VBG pH 7.36 VBG pCO2 46.7 VBG pO2 27.2 L VBG HCO3 25.8 VBG Total CO2 27.2 H VBG O2 Saturation 48.0 L VBG Base Excess 0.3 Sodium Potassium Chloride Carbon Dioxide Anion Gap BUN Creatinine Estimated Creat Clear Estimated GFR Est GFR ( Amer) Glucose POC Glucose Lactate Calcium Total Bilirubin AST ALT Alkaline Phosphatase B-Natriuretic Peptide Total Protein Albumin Globulin Albumin/Globulin Ratio DS: Diagnosis - Discharge Diagnosis (1) Bronchitis Status: Acute (2) Dehydration Status: Acute (3) Elevated lactic acid level Status: Acute (4) Viral pneumonitis Status: Acute Discharge Plan - Patient Discharge Instructions ACTIVITY: Continue current activity DIET: continue same diet Patient Instructions: DI for Dehydration -- Adult, DI for Acute Bronchitis, DI for Influenza -- Adult, DI for Shortness of Breath - Follow up Plan Follow up with: Rose Marie Garza APRN [Advanced Practice Nurse] - Disposition: er [facility] Home Medications: Home Medications Medication Instructions Recorded Confirmed Type Aspirin [Aspirin 81mg EC Tab] 81 mg PO DAILY 03/25/19 04/25/19 History Atorvastatin Calcium [Atorvastatin 40 mg PO HS 03/25/19 04/25/19 History 40mg Tab] Clopidogrel Bisulfate [Plavix 75mg 75 mg PO DAILY 03/25/19 04/25/19 History Tab] Cyclobenzaprine HCl 5 mg PO TID 03/25/19 04/25/19 History [Cyclobenzaprine 5mg Tab] Divalproex Sodium [Depakote 500 mg PO TID 03/25/19 04/25/19 History Sprinkle 125mg capsule] Gabapentin 800 mg PO TID 03/25/19 04/25/19 History Hydrocodone/Acetaminophen 1 tab PO TID 03/25/19 04/25/19 History [Hydrocodone-Acetamin 7.5-325] Lactulose [Lactulose 10gm/15ml 10 gm PO DAILY 03/25/19 04/25/19 History Oral Soln] Metoprolol Tartrate 1 tab PO BID 03/25/19 04/25/19 History Mirabegron [Myrbetriq] 1 tab PO DAILY 03/25/19 04/25/19 History Omeprazole 1 tab PO HS 03/25/19 04/25/19 History Sennosides/Docusate Sodium 1 tab PO DAILY 03/25/19 04/25/19 History [Senna-S Tablet] haloperidoL [Haldol 5mg tablet] 1 tab PO BID 03/25/19 04/25/19 History hydroCHLOROthiazide 1 tab PO DAILY 03/25/19 04/25/19 History [Hydrochlorothiazide] Acetaminophen 500 mg PO Q4HP PRN 04/25/19 04/25/19 History Acetaminophen [Acetaminophen 325mg 650 mg PO TID 04/25/19 04/25/19 History tab] Amoxicillin [Amoxicillin 500mg Tab] 500 mg PO TID 04/25/19 04/25/19 History Bisacodyl [Bisacodyl 10mg Supp] 10 mg RC DAILYP PRN 04/25/19 04/25/19 History Loperamide HCl [Loperamide] 2 mg PO NEEDED PRN 04/25/19 04/25/19 History Mag Carb/Aluminum Hydrox/Algin 30 ml PO Q4HP PRN 04/25/19 04/25/19 History [Acid Gone Antacid Liquid] Melatonin 5 mg PO HS 04/25/19 04/25/19 History Oseltamivir Phosphate [Tamiflu 75 mg PO BID 04/25/19 04/25/19 History 75mg Capsule] Polyethylene Glycol 3350 [Miralax 17 gm PO DAILYP PRN 04/25/19 04/25/19 History Powder] Sod Phos,M-B/Na Phos,Di-Ba [Fleet 133 ml RC NEEDED PRN 04/25/19 04/25/19 History Enema] Tamsulosin HCl 0.4 mg PO HS 04/25/19 04/25/19 History lisinopriL [Lisinopril 10mg Tab] 10 mg PO DAILY 04/25/19 04/25/19 History Promethazine/Dextromethorphan 5 ml PO Q6HP PRN #240 ml 04/26/19 Rx [Promethazine-Dm Syrup] levoFLOXacin [Levaquin 500mg 500 mg PO DAILY #7 tab 04/26/19 Rx tab] predniSONE [Deltasone 20mg 20 mg PO BID 7 Days #14 tab 04/26/19 Rx tablet] Prescriptions/Medication Reconciliation: New predniSONE [Deltasone 20mg tablet] 20 mg PO BID 7 Days #14 tab levoFLOXacin [Levaquin 500mg tab] 500 mg PO DAILY #7 tab Promethazine/Dextromethorphan [Promethazine-Dm Syrup] 5 ml PO Q6HP PRN #240 ml PRN Reason: Cough Continued Atorvastatin Calcium [Atorvastatin 40mg Tab] 40 mg PO HS Gabapentin 800 mg PO TID Lactulose [Lactulose 10gm/15ml Oral Soln] 10 gm PO DAILY Clopidogrel Bisulfate [Plavix 75mg Tab] 75 mg PO DAILY Loperamide HCl [Loperamide] 2 mg PO NEEDED PRN PRN Reason: . Acetaminophen 500 mg PO Q4HP PRN PRN Reason: Mild Pain,Fever,Headache Acetaminophen [Acetaminophen 325mg tab] 650 mg PO TID Oseltamivir Phosphate [Tamiflu 75mg Capsule] 75 mg PO BID Polyethylene Glycol 3350 [Miralax Powder] 17 gm PO DAILYP PRN PRN Reason: . haloperidoL [Haldol 5mg tablet] 1 tab PO BID Mirabegron [Myrbetriq] 1 tab PO DAILY hydroCHLOROthiazide [Hydrochlorothiazide] 1 tab PO DAILY Hydrocodone/Acetaminophen [Hydrocodone-Acetamin 7.5-325] 1 tab PO TID Omeprazole 1 tab PO HS Metoprolol Tartrate 1 tab PO BID Divalproex Sodium [Depakote Sprinkle 125mg capsule] 500 mg PO TID Sennosides/Docusate Sodium [Senna-S Tablet] 1 tab PO DAILY Cyclobenzaprine HCl [Cyclobenzaprine 5mg Tab] 5 mg PO TID Aspirin [Aspirin 81mg EC Tab] 81 mg PO DAILY Sod Phos,M-B/Na Phos,Di-Ba [Fleet Enema] 133 ml RC NEEDED PRN PRN Reason: Constipation Bisacodyl [Bisacodyl 10mg Supp] 10 mg RC DAILYP PRN PRN Reason: Constipation Mag Carb/Aluminum Hydrox/Algin [Acid Gone Antacid Liquid] 30 ml PO Q4HP PRN PRN Reason: Indigestion Tamsulosin HCl 0.4 mg PO HS Melatonin 5 mg PO HS lisinopriL [Lisinopril 10mg Tab] 10 mg PO DAILY Discontinued Amoxicillin [Amoxicillin 500mg Tab] 500 mg PO TID - Problem Reconciliation Problems Reviewed?: Yes
== END 2019-04-26 12:57 ==
LOC: ER 15:31 → 2ND 15:31
PROVIDERS: ADMIT Internal Medicine Adolescent Medicine; ATTEND Emergency Medicine
DX: I25.10 Atherosclerotic heart disease of native coronary artery without angina pectoris; E86.0 Dehydration; J20.9 Acute bronchitis, unspecified; Z79.899 Other long term (current) drug therapy; J12.89 Other viral pneumonia; J10.08 Influenza due to other identified influenza virus with other specified pneumonia; I50.9 Heart failure, unspecified; I11.0 Hypertensive heart disease with heart failure
CPT/HCPCS: 36415; 71010; 71045; 80048; 80053; 82803; 82962; 83605; 83880; 85025; 87040; 96365; 99284; G0378; J1956

== ENCOUNTER → 2019-06-13 11:14 | Outpatient (CLI) | payer MEDICARE, MEDICAID, SELFPAY ==
[2019-06-13 11:20] LABS: Microscopic, Urine URINE MICROSCOPIC (MICROSCOPIC)
[2019-06-13 11:38] LABS: Basophils # 0.1 K/mm3 (0-0.2); Basophils % 0.8 % (0.1-2.0); Eosinophils # 0.4 K/mm3 (0.0-0.4); Eosinophils % 4.9 % (0.1-12.0); Hematocrit 42.2 % (42.0-52.0); Hemoglobin 14.1 g/dL (14.1-18.0); Lymphocytes # 1.6 K/mm3 (0.7-4.5); Lymphocytes % 18.7 % (10-50); Mean Corpuscular HGB Conc 33.4 g/dL (31.8-35.4); Mean Platelet Volume 7.4 fl (7.4-10.4); Monocytes % 10.9 % (1.7-9.3); Neutrophils # 5.7 K/mm3 (1.8-7.8); Neutrophils % 64.7 % (37.0-80.0); Platelet Count 202 K/mm3 (142-424); Red Blood Count 4.54 M/mm3 (4.60-6.20); White Blood Count 8.8 K/mm3 (4.8-10.8)
[2019-06-13 12:20] LABS: Appearance,Urine CLEAR (Clear); Bilirubin,Urine Negative (Negative); Blood, Urine Negative (Negative); Color,Urine YELLOW (Yellow); Glucose,Urine (UA) Negative (Negative); Ketones,Urine Negative (Negative); Leukocyte Esterase,Urine 1+ (Negative); Nitrate,Urine Negative (Negative); PH,Urine 7.5 (5.0-8.5); Protein,Urine Negative (Negative); Specific Gravity, Urine 1.015 (1.005-1.030); Urobilinogen,Urine 0.2 EU/dl (0.2)
[2019-06-13 12:38] LABS: Bacteria,Urine Trace /lpf; Squamous Epithelial Cell,Urine Occasional #/hpf (0-5)
[2019-06-13 13:12] LABS: Chloride 96 mmol/L (98-107); Sodium 133 mmol/L (136-145)
[2019-06-13 13:13] LABS: Potassium 4.8 mmoL/L (3.5-5.1)
[2019-06-13 13:15] LABS: Alanine Aminotransferase 26 U/L (12-78); Albumin Level 3.8 g/dl (3.5-5.0); Albumin/Globulin Ratio 1.7 (1.1-1.8); Alkaline Phosphatase 73 U/L (38-126); Anion Gap 12.8 mEq/L (5-15); Aspartate Amino Transferase 27 U/L (17-59); Bilirubin,Total 0.3 mg/dl (0.2-1.3); Blood Urea Nitrogen 3 mg/dl (9-20); Carbon Dioxide 29 mmol/L (22.0-30.0); Estimated Glomerular Filt Rate 120 ml/min (>60); GFR (African American) 146 ML/MIN (>60); Globulin 2.3 g/dL (1.3-3.2); Total Protein,Serum 6.1 g/dl (6.3-8.2)
[2019-06-13 13:16] LABS: Calcium 9.8 mg/dl (8.4-10.2); Glucose 142 mg/dl (74-100)
== END ==
PROVIDERS: Visit Provider Emergency Medicine
DX: R05 Cough (principal); M62.81 Muscle weakness (generalized); Z74.09 Other reduced mobility; Z87.820 Personal history of traumatic brain injury; R82.90 Unspecified abnormal findings in urine
CPT/HCPCS: 80053; 81001; 85025; 87086

== ENCOUNTER → 2019-08-27 13:05 | Outpatient (POV) | payer MEDICARE, MEDICAID, SELFPAY | PROVIDERS: PCP Emergency Medicine | DX: Z00.00 Encounter for general adult medical examination without abnormal findings (principal) ==

== ENCOUNTER → 2020-02-12 17:40 | Outpatient (CLI) | payer MEDICARE, MEDICAID, SELFPAY ==
[2020-02-12 17:47] LABS: Microscopic, Urine URINE MICROSCOPIC (MICROSCOPIC)
[2020-02-12 18:24] LABS: Bilirubin,Urine Negative (Negative); Blood, Urine Negative (Negative); Glucose,Urine (UA) Negative (Negative); Ketones,Urine Negative (Negative); Leukocyte Esterase,Urine TRACE (Negative); Nitrate,Urine Negative (Negative); PH,Urine 6.5 (5.0-8.5); Protein,Urine Negative (Negative)
[2020-02-12 18:29] LABS: Appearance,Urine Cloudy (Clear); Color,Urine Dark Yellow (Yellow)
[2020-02-12 18:42] LABS: Bacteria,Urine 1+ /lpf; Mucus,Urine 1+ /lpf; Squamous Epithelial Cell,Urine Occasional #/hpf (0-5)
== END ==
PROVIDERS: Visit Provider Emergency Medicine
DX: N39.0 Urinary tract infection, site not specified (principal)
CPT/HCPCS: 81001; 87086; 87088; 87186

== ENCOUNTER 2020-02-14 14:47 | Observation (INO) | payer MEDICARE, MEDICAID, SELFPAY ==
[2020-02-14] VITALS (7 sets, daily range): BP systolic 66–118; BP diastolic 44–88; PULSE 83–104; RESP 16–20; TEMP 36.7–36.9; O2SAT 94–100; BMI 29.7; BMI 29.8
--- NOTE | 2020-02-14 | ECG_ITS ---
APPROVED REPORT Exam: Resting ECG HR:82 bpm ECG Measurements Heart Rate 82 AXES WI 190 P 35 QRSd 96 QRS 69 QT 410 T 22 QTc 479 Conclusion Normal sinus rhythm Nonspecific IV conductiion delay Poor r wave progression Abnormal ECG Electronically signed by : Mckay Gomez, 02/16/2020 07:25:59
[2020-02-14 15:06] LABS: Basophils # 0.1 K/mm3 (0-0.2); Eosinophils # 0.4 K/mm3 (0.0-0.4); Eosinophils % 4.1 % (0.1-12.0); Hematocrit 42.2 % (42.0-52.0); Hemoglobin 13.6 g/dL (14.1-18.0); Lymphocytes # 2.5 K/mm3 (0.7-4.5); Lymphocytes % 25.7 % (10-50); Mean Corpuscular HGB Conc 32.2 g/dL (31.8-35.4); Mean Corpuscular Volume 93.1 fl (80-94); Monocytes # 1.1 K/mm3 (0.1-1.0); Monocytes % 11.7 % (1.7-9.3); Neutrophils # 5.5 K/mm3 (1.8-7.8); Neutrophils % 57.6 % (37.0-80.0); Platelet Count 206 K/mm3 (142-424); Red Blood Count 4.53 M/mm3 (4.60-6.20); Red Cell Distribution Width 14.5 % (11.5-17.5); White Blood Count 9.6 K/mm3 (4.8-10.8)
[2020-02-14 15:11] LABS: Alanine Aminotransferase 22 U/L (12-78); Albumin/Globulin Ratio 1.5 (1.1-1.8); Alkaline Phosphatase 82 U/L (38-126); Anion Gap 14.3 mEq/L (5-15); Aspartate Amino Transferase 25 U/L (17-59); Bilirubin,Total 0.6 mg/dl (0.2-1.3); Blood Urea Nitrogen 17 mg/dl (9-20); Calcium 9.8 mg/dl (8.4-10.2); Carbon Dioxide 28 mmol/L (22.0-30.0); Chloride 92 mmol/L (98-107); Creatinine Clearance Estimated 115 mL/min (50-200); Estimated Glomerular Filt Rate 71 ml/min (>60); GFR (African American) 86 ML/MIN (>60); Globulin 2.6 g/dL (1.3-3.2); Glucose 162 mg/dl (74-100); Potassium 4.3 mmoL/L (3.5-5.1); Sodium 130 mmol/L (136-145); Total Protein,Serum 6.6 g/dl (6.3-8.2)
[2020-02-14 15:14] LABS: Lactic Acid 2.1 mmol/L (0.7-2.1)
--- NOTE | 2020-02-14 15:30 | HMH.EDAMS ---
ED Disposition Clinical Impression: UTI (urinary tract infection) Qualifiers: Urinary tract infection type: acute cystitis Hematuria presence: with hematuria Qualified Code(s): N30.01 - Acute cystitis with hematuria Disposition: Admitted As Inpatient Condition on Discharge: Serious Instructions: DI for Altered Mental Status Referrals: Provider,Referral, [Referring] - - Critical Care Critical Care Time: No Attestation: On 02/14/20, the high probability of a clinically significant, sudden or life threatening deterioration of the following system(s) required my full and direct attention, intervention and personal management. The time I documented below is in addition to time spent performing reported procedures but includes the following listed in this critical care notation. Medical Decision Making - Medical Records Medical records reviewed: Yes: I reviewed the patient's medical records. - Scooter Inquiry Pt receiving controlled substance: No Vital Signs: 02/14/20 14:47 02/14/20 15:46 02/14/20 16:52 Temperature 98.5 F Temperature Source Oral Pulse Rate [Left Radial] 84 83 85 Respiratory Rate 19 Blood Pressure [Right Arm] 66/44 L 78/48 L 95/66 L Blood Pressure Mean [Right Arm] 51 58 75 Blood Pressure Source [Right Arm] Automatic Cuff Automatic Cuff Automatic Cuff Blood Pressure Position [Right Arm] Sitting Sitting Sitting 02 Sat by Pulse Oximetry 94 L 97 100 Oxygen Delivery Method Room Air Nasal Cannula Room Air - Lab Data Lab results reviewed: Yes: I reviewed the patient's lab results. Lab Results 02/14/20 14:51: WBC 9.6, RBC 4.53 L, Hgb 13.6 L, Hct 42.2, MCV 93.1, MCH 30.0, MCHC 32.2, RDW 14.5, Plt Count 206, MPV 7.0 L, Neut % (Auto) 57.6, Lymph % (Auto) 25.7, [place] % (Auto) 11.7 H, Eos % (Auto) 4.1, Baso % (Auto) 1.0, Neut # (Auto) 5.5, Lymph # (Auto) 2.5, [place] # (Auto) 1.1 H, Eos # (Auto) 0.4, Baso # (Auto) 0.1 02/14/20 14:51: Sodium 130 L, Potassium 4.3, Chloride 92 L, Carbon Dioxide 28, Anion Gap 14.3, BUN 17, Creatinine 1.10, Estimated Creat Clear 115, Estimated GFR 71, Est GFR ( Amer) 86, Glucose 162 H, Calcium 9.8, Total Bilirubin 0.6, AST 25, ALT 22, Alkaline Phosphatase 82, Total Protein 6.6, Albumin 4.0, Globulin 2.6, Albumin/Globulin Ratio 1.5 02/14/20 14:51: Lactate 2.1 02/14/20 14:51: SARS-CoV-2 IgG Ab (Rapid) Positive A, SARS-CoV-2 IgM Ab (Rapid) Negative 02/14/20 15:00: Urine Color Yellow, Urine Appearance Sl cloudy, Urine pH 6.0, Ur Specific [place] 1.020, Urine Protein Negative, Urine Glucose (UA) Negative, Urine Ketones Trace, Urine Blood Negative, Urine Nitrate Negative, Urine Bilirubin Negative, Urine Urobilinogen 1.0, Ur Leukocyte Esterase 2+ A, Urine RBC None, Urine WBC 20-50, Ur Squamous Epith Cells 5-10, Amorphous Sediment 1+, Urine Bacteria None, Urine Sperm 1+ Result diagrams: 02/14/20 14:51 02/14/20 14:51 Orders (Tests/Meds): ED MEDICATIONS Generic Name Dose Route Start Last Admin Trade Name Freq PRN Reason Stop Dose Admin Sodium Chloride 2,000 mls @ 999 mls/hr 02/14/20 15:15 02/14/20 15:11 Sod Chlor 0.9% 1000ml Bag IV 02/14/20 17:15 999 mls/hr .Q2H1M SAPPHIRE Administration ORDERS Category Date Time Status Chest XR -- portable [XR chest portable] Stat Exams 02/14/20 15:35 Taken Blood Culture Stat Micro 02/14/20 14:51 Received Urine Culture Stat Micro 02/14/20 15:00 Received - Radiology Data #1 Image(s): Chest Image Reviewed: Yes I reviewed the patient's radiology image Preliminary Findings: Normal/NAD - ECG Data Tracing #1 ECG initial impression date: 02/14/20 ECG initial impression time: 15:15 ECG normal with no acute: arrhythmias, ischemia, conduction abnormalities, chamber hypertrophy ([id number]) Normal Sinus Rhythm: Yes Altered Mental Status HPI - General Chief Complaint: Altered Mental Status Stated Complaint: AMS Time Seen by Provider: 02/14/20 15:20 Mode of Arrival: EMS Source of Information: Patient, Medical
--- NOTE | 2020-02-14 15:35 | XR_ITS ---
PROCEDURE: XR CHEST PORTABLE Referring Doctor: Lebron Hurd Patient Age:49Y CLINICAL HISTORY: dyspnea short of breath long-term patient unable to take deep inspiration COMPARISON: CR CXR2 XR chest AP from 04/17/2018 CR XR CHEST PORTABLE from 03/25/[address] ANGIO CHEST from 03/25/2019 CR XR CHEST PORTABLE from 04/25/2019 FINDINGS: AP portable supine CXR. Appear to be fairly large patient and there is suboptimal inspiration at both right and left chest but the diaphragm is only down to the anterior 4th rib and bilaterally. Actually at right chest diaphragm is only down but did between the anterior 3rd and 4th rib but this reflects suboptimal inspiration and does account for slight crowding markings bilaterally. Previously the diaphragm is down to the anterior 5th rib on prior portable studies but No definitive pneumonia nor consolidation. However there is slight crowding markings and question subtle appearance at the left infrahilar region more so than right infrahilar region-I favor and suspect this reflects the suboptimal inspiration and mild atelectasis. Doubt but difficult to exclude minimal totally early ground-glass infiltrate. The heart appears upper normal to slightly enlarged but again be accentuated by the suboptimal inspiration. The prominence of central markings again reflecting likely the suboptimal inspiration with upper normal mild prominence appearance of central vascularity likely reflecting the same... I would also note that the supine projection also will accentuate upper lobe vascularity appearance. No pleural effusions no pneumothorax. monitor worker leads are in place. Chest wall unremarkable. [place] and mediastinal structures satisfactory given the supine portable projection IMPRESSION: Suboptimal inspiration limits the study. The diaphragm is only is barely down to the anterior 4th rib end rib. This crowds and accentuates lung markings bilaterally. No definitive pneumonia nor consolidation. More likely the poor inspiration slightly accentuates markings infrahilar regions bilaterally-but difficult to totally exclude subtle early ground-glass infiltrate Mild vascular engorgement-but more likely the generous pulmonary vascularity appearance accentuated by the poor inspiration along with supine positioning. Borderline cardiomegaly Dictated by: Gearrdo Guillen MD 02/14/2020 17:44 Gerardo Guillen MD in [place] 02/14/2020 17:44
[2020-02-14 15:37] LABS: Coronavirus 19 IgG Antibody Positive (Negative); Coronavirus 19 IgM Antibody Negative (Negative)
[2020-02-14 16:43] LABS: Appearance,Urine SL CLOUDY (Clear); Bilirubin,Urine Negative (Negative); Blood, Urine Negative (Negative); Color,Urine YELLOW (Yellow); Glucose,Urine (UA) Negative (Negative); Ketones,Urine TRACE (Negative); Leukocyte Esterase,Urine 2+ (Negative); Microscopic, Urine URINE MICROSCOPIC (MICROSCOPIC); Nitrate,Urine Negative (Negative); Protein,Urine Negative (Negative)
[2020-02-14 16:50] LABS: WBC,Urine 20-50 #/hpf (0-3)
[2020-02-14 16:51] LABS: Amorphous Sediment,Urine 1+ /lpf; Sperm,Urine 1+ /lpf
--- NOTE | 2020-02-14 16:58 | PC.NURSE ---
Dr Hurd speaking with Dr Delarosa who is records section supervisor for Dr Pearson
--- NOTE | 2020-02-14 17:09 | PC.NURSE ---
notified live in housekeeper nanny of admission
[2020-02-14 19:04] LABS: Reflex Lactic Add Lactic Reflex
--- NOTE | 2020-02-14 19:37 | PC.WOUNDNOTE ---
Wound Location: Length: Width: Depth: Undermining Y/N: Tunneling cm: Granulation %: Slough/necrotic tissue %: Inflammation/swelling Y/N: Pain and/or tenderness Y/N: Exudate: Serosanguinous Sanguinous Serosanguinous Seropurulent Purulent Color: Clear [place] Cloudy/milky [place] Red Green Yellow Brown [place] Blue Consistency: Thick Thin Amount: None Scant Small Moderate Large Odor Y/N: right hand
--- NOTE | 2020-02-14 19:39 | PC.WOUNDNOTE ---
Wound Location: Length: Width: Depth: Undermining Y/N: Tunneling cm: Granulation %: Slough/necrotic tissue %: Inflammation/swelling Y/N: Pain and/or tenderness Y/N: Exudate: Serosanguinous Sanguinous Serosanguinous Seropurulent Purulent Color: Clear [place] Cloudy/milky [place] Red Green Yellow Brown [place] Blue Consistency: Thick Thin Amount: None Scant Small Moderate Large Odor Y/N: left toes
--- NOTE | 2020-02-14 19:39 | PC.WOUNDNOTE ---
Wound Location: Length: Width: Depth: Undermining Y/N: Tunneling cm: Granulation %: Slough/necrotic tissue %: Inflammation/swelling Y/N: Pain and/or tenderness Y/N: Exudate: Serosanguinous Sanguinous Serosanguinous Seropurulent Purulent Color: Clear [place] Cloudy/milky [place] Red Green Yellow Brown [place] Blue Consistency: Thick Thin Amount: None Scant Small Moderate Large Odor Y/N: anterior left ankle
[2020-02-14 19:41] LABS: POC Glucose,Bedside 120 (70-110)
[2020-02-14 19:49] LABS: Lactic Acid Follow Up (RFLX 1) 1.4 mmol/L (0.7-2.1)
[2020-02-15 04:00] VITALS: BP 115/64; PULSE 90; RESP 20; TEMP 37.1; O2SAT 95
--- NOTE | 2020-02-15 04:16 | PC.NURSE ---
Addendum entered by Kamini Palma RN 02/15/20 04:49: lung sounds diminished Original Note: no acute changes since prior assessmnt, pt has rested well t/o shift, woodson draining cloudy, yellow urine, pt is AxOx4, is flaccid on left side from previous CVA, pt has had no complaints of SOA, chest pain, N/V/D, or pain, has remained afebrile, HR 90-104, mother has remained at bedside, said she thought pt was SOA at 0400 vitals, pt O2 sat 95% at this time, and respirations were 20, pt did not complain of any SOA
[2020-02-15 04:58] VITALS: BMI 29.7
[2020-02-15 05:39] LABS: POC Glucose,Bedside 121 (70-110)
[2020-02-15 08:00] VITALS: BP 88/68; PULSE 93; RESP 18; TEMP 36.8; O2SAT 94
--- NOTE | 2020-02-15 10:16 | P.CONPHA_ITS ---
[facility] Pharmacy VTE Monitoring - Patient Demographics Admission date: 02/14/20 Report Date: 02/15/20 Time: 10:16 Allergies/Adverse Reactions: Patient Allergies Fish Containing Products [FISH CONTAINING PRODUCTS] Allergy (Mild, Verified 02/15/20 08:22) Unknown allergy reaction Height: 1.83 m Weight: 99.45 kg Patient Problems: Current Active Problems UTI (urinary tract infection) (Acute) - VTE Risk Labs: VTE Related Lab Results Hgb 13.6 g/dL (14.1-18.0) L 02/14/20 14:51 Hct 42.2 % (42.0-52.0) 02/14/20 14:51 Plt Count 206 K/mm3 (142-424) 02/14/20 14:51 BUN 17 mg/dl (9-20) 02/14/20 14:51 Creatinine 1.10 mg/dl (0.66-1.25) 02/14/20 14:51 Estimated Creat Clear 115 mL/min (50-200) 02/14/20 14:51 VTE Score: 4 VTE Risk Level: Low Risk - Prophylaxis VTE Prophylaxis Ordered?: Yes Types of VTE Prophylaxis: TEDS Knee High Location of Applied Device: Bilateral Lower Extremeties
--- NOTE | 2020-02-15 11:23 | HMH.PHAINT ---
HOME MEDICATIONS RECONCILED FROM [facility]
[2020-02-15 11:59] LABS: POC Glucose,Bedside 203 (70-110)
--- NOTE | 2020-02-15 14:09 | HMH.HP ---
*Admission Date: 02/14/20 *Chief complaint: uti and altered mentation *History of present illness: This is a 49-year-old male presents from [facility] facility which he is admitted due to left hemiparesis following a thrombotic CVA. Per nursing report patient has been confused and very somnolent and sleeping most of the day. Also noted blood pressure was low. Initial ported that his SPO2 was in the 80s however upon arrival patient is maintaining saturations in the upper 90s without O2 support. Patient just reports being very somnolent. He is alert and oriented but denies any current pain. He reports no fever or chills. No cough or shortness of breath. No chest pain or orthopnea. Workup included labs and cxr IMPRESSION: Suboptimal inspiration limits the study. The diaphragm is only is barely down to the anterior 4th rib end rib. This crowds and accentuates lung markings bilaterally. No definitive pneumonia nor consolidation. More likely the poor inspiration slightly accentuates markings infrahilar regions bilaterally-but difficult to totally exclude subtle early ground-glass infiltrate Mild vascular engorgement-but more likely the generous pulmonary vascularity appearance accentuated by the poor inspiration along with supine positioning. Borderline cardiomegaly Dictated by: Gerardo Guillen MD 02/14/2020 17:44 Had a recent ua done at [facility]. UA here is suggestive of UTI. Lactic acid borderline at 2.1, subsequently normalized. Holding beta beti this morning. Evelio sbp 66 on arrival. Decent overnite and 88 this morning. Saturations have been good on RA. UC from [facility] from 02-12-20 cultured out Morganella morganii. Resistant to augmentin/amp/cefazolin/macrobid Sensitive to rocephin/cipro/levaquin/ertapenum/bactrim [facility] History Medical History: Reports:: Congestive Heart Failure, Coronary Artery Disease, Cerebrovascular Accident, Diabetes Mellitus Type 2, Hyperlipidemia, Hypertension, Peripheral Vascular Disease, Renal Insufficiency, Transient Ischemic Attacks (TIA) Denies:: Cancer, Diabetes Mellitus Type 1, Internal Pacemaker, MRSA, Seizures *Have you ever received a pneumonia vaccine?: Yes *Have you received a flu vaccine this season?: Yes Other Medical History: Reports: Arthritis, Other Other Surgeries: Yes: No Previous Surgery, Cardiac Catheterization, Cholecystectomy, Other. No: Pacemaker Amputation: No Fractures: No - *Social History Last grade of school completed: High school graduate Smoking Status: Current every day smoker Tobacco Type: cigarettes # Packs/Day (cigarettes): 1 #Yrs smoked (if former smoker): 20 Alcohol Intake: never Substance Use Type: denies use *Occupational Status:: disabled Housing: [facility] Household Members: caregiver *Travel in the last 8 weeks: None Family Hx:: Cancer, Coronary Artery Disease, Heart Attack, Hyperlipidemia, Hypertension, Kidney Disease, Thyroid Disorder, Mental illness Review of Systems - Constitutional Reports daytime sleepiness, Reports malaise, Reports weakness - Eyes Denies change in vision - ENT Denies change in voice - *Cardiovascular Denies chest pain - *Respiratory Denies change in phlegm color, Denies chest congestion - *Gastrointestinal Denies abdominal pain - *Genitourinary Reports difficulty urinating, Reports urinary frequency - *Musculoskeletal Reports abnormal walking, Reports decreased muscle mass, Reports muscle weakness - Integumentary/Breasts Reports lesions, Reports sores Comments: sacral decub, stage 2 near gluteal fold ulcer left anterior distal calf - *Neurologic Reports abnormal walking, Reports behavioral changes, Reports localized weakness, Reports lack of coordination - Psychiatric Reports lack of enjoyment, Reports anxiety - Endocrine Reports increased urination - Hematologic/Lymphatic Denies easy bleeding - Allergic/Immunologic Denies hives Meds Home Medicat
[2020-02-15 15:05] LABS: Ammonia < 9 umol/L (9-30)
[2020-02-15 15:56] VITALS: BP 138/78; PULSE 96; RESP 20; TEMP 36.8; O2SAT 96
[2020-02-15 16:50] LABS: POC Glucose,Bedside 211 (70-110)
--- NOTE | 2020-02-15 17:43 | PC.NURSE ---
PT IS RESTING IN BED. PT DID NOT EAT ANY SUPPER B/C HE STATED HIS STOMACH WAS UPSET. ALERT AND ORIENTED X4. 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 TURNED AND REPOSITIONED IN THE BED. MINIMAL ASSISTANCE WITH FEEDING. ACCORDING TO PT HE CAN USUALLY STAND WITH ASSISTANCE BUT ACCORDING TO A NURSE THAT TAKES CARE OF HIM AT [place] THEY ALWAYS GET HIM IN AND OUT OF BED WITH A LIFT. PT HAS A SMALL AREA NOTED TO THE RT BUTTOCKS. ABRASIONS NOTED TO FINGERS. HEELS ELEVATED WITH PILLOWS. METOROLOL WAS HELD THIS MORNING B/C MANUAL BP WAS LOW. NOTIFIED PHYSICIAN INFRASTRUCTURE TECHNICIAN TO GET PT SOMETHING FOR AN UPSET STOMACH. ZOFRAN 4 MG IV Q6 PRN WAS ORDERED. WILL CONTINUE TO MONITOR.
[2020-02-15 20:00] VITALS: BP 126/77; PULSE 87; RESP 14; TEMP 36.9; O2SAT 97
[2020-02-15 20:30] VITALS: PULSE 87; RESP 14; O2SAT 97
[2020-02-15 20:49] LABS: POC Glucose,Bedside 262 (70-110)
[2020-02-15 23:27] VITALS: BP 108/79
[2020-02-16 03:46] VITALS: BP 108/64; PULSE 74; RESP 16; TEMP 37.1; O2SAT 94
[2020-02-16 05:52] VITALS: BMI 29.2
--- NOTE | 2020-02-16 05:52 | PC.NURSE ---
pt has rested well t/o shift, no acute changes since prior assessment, pt has remained on room air with O2 sats 94-97%, systolic BP 108-126, HR 74-87, patient has not complained of any SOA or chest pain, N/V/D, woodson patent and draining clear yellow urine
[2020-02-16 05:54] LABS: POC Glucose,Bedside 200 (70-110)
[2020-02-16 07:34] LABS: Basophils % 0.4 % (0.1-2.0); Eosinophils # 0.2 K/mm3 (0.0-0.4); Eosinophils % 2.8 % (0.1-12.0); Hematocrit 38.5 % (42.0-52.0); Hemoglobin 13.3 g/dL (14.1-18.0); Lymphocytes # 1.3 K/mm3 (0.7-4.5); Lymphocytes % 16.1 % (10-50); Mean Corpuscular HGB Conc 34.7 g/dL (31.8-35.4); Mean Corpuscular Hemoglobin 31.2 pg (27.0-31.2); Mean Corpuscular Volume 89.8 fl (80-94); Mean Platelet Volume 7.8 fl (7.4-10.4); Monocytes # 0.9 K/mm3 (0.1-1.0); Monocytes % 10.7 % (1.7-9.3); Neutrophils # 5.7 K/mm3 (1.8-7.8); Neutrophils % 69.9 % (37.0-80.0); Platelet Count 198 K/mm3 (142-424); Red Blood Count 4.28 M/mm3 (4.60-6.20); Red Cell Distribution Width 14.5 % (11.5-17.5); White Blood Count 8.1 K/mm3 (4.8-10.8)
[2020-02-16 07:40] LABS: Chloride 97 mmol/L (98-107); Sodium 130 mmol/L (136-145)
[2020-02-16 07:41] VITALS: BP 109/76; PULSE 82; RESP 18; TEMP 36.9; O2SAT 99
[2020-02-16 07:41] LABS: Potassium 4.3 mmoL/L (3.5-5.1)
[2020-02-16 07:43] LABS: Alanine Aminotransferase 20 U/L (12-78); Albumin/Globulin Ratio 1.5 (1.1-1.8); Alkaline Phosphatase 75 U/L (38-126); Aspartate Amino Transferase 26 U/L (17-59); Bilirubin,Total 0.5 mg/dl (0.2-1.3); Blood Urea Nitrogen 5 mg/dl (9-20); Creatinine Clearance Estimated 206 mL/min (50-200); Estimated Glomerular Filt Rate 143 ml/min (>60); GFR (African American) 173 ML/MIN (>60); Globulin 2.6 g/dL (1.3-3.2); Total Protein,Serum 6.6 g/dl (6.3-8.2)
[2020-02-16 07:44] LABS: Anion Gap 10.3 mEq/L (5-15); Calcium 9.3 mg/dl (8.4-10.2); Carbon Dioxide 27 mmol/L (22.0-30.0); Glucose 198 mg/dl (74-100)
--- NOTE | 2020-02-16 09:58 | HMH.PTEV ---
Physical Therapy Evaluation Rehab PT IP Evaluation Start: 02/15/20 14:41 Freq: ONCE Status: Active Protocol: Document 02/16/20 09:52 SABRINA (Rec: 02/16/20 09:57 SBARINA [id number]) Subjective/History History History This is the initial PT eval for Alejandro Craft - eval is for possible decubitus on buttocks. - CWS saw no such wound on sacrum or either gluteal muscles. Pt did have small top layer skin tear measuring 0.5 cm in lenght on sacrum but this was only partial thickness of just top layer of epidermis. Pt also had healed wound on anterior L ankle w/ full epithelialization Subjective Subjective NSG notified to maintain pressure relief for pt - pt instructed to provide self pressure relief every hour - NSG instructed to maintain watch on these wounds and follow up w/ CWS if concerns r changes arise Rehab PT IP Eval Objective Appearance Patient Behavior Appropriate Patient Orientation Person,Place,Time Difficulty following instructions none Speech Pattern Clear Ambulation Patient Able to Ambulate No Balance Ability to Arise Unable Rehab PT IP prob,goals,plan Problems Date of Evaluation: 02/16/20 Discharge Plan PT Discharge Plan Pt to dc back to SNF once medically stable - no wound care needs at this time G -code Required No Eval Complexity Eval Charge Codes 98406 - Low Complexity G Codes PT Current Status Self Care PT Current Status Modifier CL-At least 60% but less than 80% impaired, limited or restricted PT Goal Status Self Care PT Goal Status Modifer CL-At least 60% but less than 80% impaired, limited or restricted PHYSICIAN CERTIFICATION: I certify the specified therapy services for Alejandro Craft JR are required, authorized, and reviewed every 30 days.
--- NOTE | 2020-02-16 10:30 | SW/DCPLANNER ---
Addendum entered by Mary Zavala 02/18/20 11:02: I have informed Sara this patient will be ready for discharge today pending negative COVID swab. COVID swab has been ordered. Addendum entered by Mary Zavala 02/16/20 10:33: This patient will require a COVID swab prior to discharge. Original Note: This patient currently resides at [facility]. I have spoke with Juan at [facility] and she has stated that patient is [facility] level of care and they will accept this patient back once medically stable for discharge.
--- NOTE | 2020-02-16 13:31 | HMH.ACPN2 ---
Internal Medicine - PN: Subj *Date: 02/16/20 *Time: 08:10 Interval history: pt laying in bed, mother at bedside. Mother states pt has been awake all night. pt states he is tired Exam Vital signs and Labs for Last 24 Hours: Temp Pulse Resp BP Pulse Ox 98.5 F 82 18 109/76 L 99 02/16/20 07:41 02/16/20 07:41 02/16/20 07:41 02/16/20 07:41 02/16/20 07:41 Laboratory Results - last 24 hr 02/14/20 15:00: Urine Color Yellow, Urine Appearance Sl cloudy, Urine pH 6.0, Ur Specific [place] 1.020, Urine Protein Negative, Urine Glucose (UA) Negative, Urine Ketones Trace, Urine Blood Negative, Urine Nitrate Negative, Urine Bilirubin Negative, Urine Urobilinogen 1.0, Ur Leukocyte Esterase 2+ A, Urine RBC None, Urine WBC 20-50, Ur Squamous Epith Cells 5-10, Amorphous Sediment 1+, Urine Bacteria None, Urine Sperm 1+ 02/15/20 14:50: Ammonia < 9 L 02/15/20 16:27: POC Glucose 211 H 02/15/20 20:42: POC Glucose 262 H 02/16/20 05:43: POC Glucose 200 H 02/16/20 06:30: WBC 8.1, RBC 4.28 L, Hgb 13.3 L, Hct 38.5 L, MCV 89.8, MCH 31.2, MCHC 34.7, RDW 14.5, Plt Count 198, MPV 7.8, Neut % (Auto) 69.9, Lymph % (Auto) 16.1, [place] % (Auto) 10.7 H, Eos % (Auto) 2.8, Baso % (Auto) 0.4, Neut # (Auto) 5.7, Lymph # (Auto) 1.3, [place] # (Auto) 0.9, Eos # (Auto) 0.2, Baso # (Auto) 0.0 02/16/20 06:30: Sodium 130 L, Potassium 4.3, Chloride 97 L, Carbon Dioxide 27, Anion Gap 10.3, BUN 5 L D, Creatinine 0.60 L D, Estimated Creat Clear 206, Estimated GFR 143, Est GFR ( Amer) 173 D, Glucose 198 H, Calcium 9.3, Total Bilirubin 0.5, AST 26, ALT 20, Alkaline Phosphatase 75, Total Protein 6.6, Albumin 4.0, Globulin 2.6, Albumin/Globulin Ratio 1.5 I & O for Last 24 hours: Intake & Output 02/14/20 02/15/20 02/16/20 02/17/20 11:59 11:59 11:59 11:59 Intake Total 360 / 360 4564 / 4564 480 / 480 Output Total 3575 / 3575 78655 / 25267 2800 / 2800 Balance -3215 / -3215 -6861 / -6861 -2320 / -2320 Weight 219 lb 4 oz 215 lb 9 oz Microbiology Reports for the Last 24 Hours: Microbiology 02/14/20 15:00 Urine,Catheterized Urine Culture - Preliminary Gram Negative Rods - Constitutional no acute distress, chronically ill appearing - *Routine HEENT Exam Head: Present: normocephalic Eye: Present: PERRL ENT: Present: mucous membranes moist - *Routine Neck Exam Present: supple. Absent: lymphadenopathy - *Routine Respiratory Exam Present: CTA bilaterally - *Routine Cardiovascular Exam Present: RRR - *Routine Abdominal Exam Present: soft, normoactive bowel sounds. Absent: tenderness - *Routine Extremities Exam Absent: cyanosis, clubbing, edema - *Routine Skin Exam Present: warm, wounds. Absent: rash Comments: toes on brittany feet black areas - *Routine Neurological Exam Present: alert, oriented X3 weakness to lt side upper and lower Assessment and Plan (1) UTI (urinary tract infection) Status: Acute Qualifiers: Urinary tract infection type: acute cystitis Hematuria presence: with hematuria Qualified Code(s): N30.01 - Acute cystitis with hematuria Category: Medical Code(s): N39.0 - Urinary tract infection, site not specified (2) Elevated lactic acid level Status: Acute Category: Medical Code(s): R79.89 - Other specified abnormal findings of blood chemistry (3) CAD (coronary artery disease) Status: Chronic Qualifiers: Coronary Disease-Associated Artery/Lesion type: [place] artery [place] vs. transplanted heart: [place] heart Associated angina: without angina Qualified Code(s): I25.10 - Atherosclerotic heart disease of [place] coronary artery without angina pectoris Category: Medical Code(s): I25.10 - Atherosclerotic heart disease of [place] coronary artery without angina pectoris (4) Carotid artery stenosis Status: Chronic Qualifiers: Laterality: left Qualified Code(s): I65.22 - Occlusion and stenosis of left carotid artery Category: Medical
[2020-02-16 14:48] VITALS: BMI 29.2
[2020-02-16 16:00] VITALS: BP 127/87; PULSE 86; RESP 18; TEMP 36.8; O2SAT 97
[2020-02-16 17:24] LABS: POC Glucose,Bedside 228 (70-110)
[2020-02-16 17:24] LABS: POC Glucose,Bedside 272 (70-110)
--- NOTE | 2020-02-16 17:26 | PC.NURSE ---
HE IS AO*4. ABLE TO MAKE NEEDS KNOWN TO STAFF, HAS TOLERATED RA WELL WITH NO COMPLAINTS. LUA CATH IN PLACE DRAINING CLEAR YELLOW URINE, CONTACTED DR LEYVA OFFICE REGARDING ELEVATED PT OUTPUT, NO NEW ORDERS, PT IS FLACCID ON LEFT SIDE R/T CVA IN THE PAST, PT CAN FEED SELF AND HAS NO ISSUES WITH SWALLOWING FOOD OR MEDICINE, HE HAS USED THE BEDPAN BUT NO BM NOTED, NO NEEDS AT THIS TIME, WILL CONTINUE TO MONITOR.
[2020-02-16 20:00] VITALS: BP 124/82; PULSE 67; RESP 14; TEMP 36.7; O2SAT 100
[2020-02-16 20:45] VITALS: PULSE 67; RESP 14; O2SAT 100
[2020-02-16 23:17] LABS: POC Glucose,Bedside 255 (70-110)
--- NOTE | 2020-02-17 02:18 | PC.NURSE ---
pt has complained of constipation and requested prn miralax, given per MAY, no complaints of SOA or chest pain, VSS, woodson catheter patent and draining clear pale urine
[2020-02-17 04:00] VITALS: BP 112/75; PULSE 74; RESP 14; TEMP 36.6; O2SAT 99
[2020-02-17 05:48] LABS: POC Glucose,Bedside 221 (70-110)
[2020-02-17 05:50] VITALS: BMI 28.8
[2020-02-17 07:23] LABS: Chloride 93 mmol/L (98-107)
[2020-02-17 07:24] LABS: Potassium 3.8 mmoL/L (3.5-5.1); Sodium 127 mmol/L (136-145)
[2020-02-17 07:26] LABS: Blood Urea Nitrogen 8 mg/dl (9-20); Creatinine Clearance Estimated 175 mL/min (50-200); Estimated Glomerular Filt Rate 120 ml/min (>60); GFR (African American) 145 ML/MIN (>60)
[2020-02-17 07:27] LABS: Anion Gap 12.8 mEq/L (5-15); Calcium 9.3 mg/dl (8.4-10.2); Carbon Dioxide 25 mmol/L (22.0-30.0); Glucose 187 mg/dl (74-100)
[2020-02-17 07:33] LABS: Basophils # 0.1 K/mm3 (0-0.2); Basophils % 0.5 % (0.1-2.0); Eosinophils # 0.3 K/mm3 (0.0-0.4); Eosinophils % 3.8 % (0.1-12.0); Hematocrit 38.6 % (42.0-52.0); Hemoglobin 13.6 g/dL (14.1-18.0); Lymphocytes # 1.4 K/mm3 (0.7-4.5); Lymphocytes % 17.2 % (10-50); Mean Corpuscular HGB Conc 35.3 g/dL (31.8-35.4); Mean Corpuscular Hemoglobin 31.2 pg (27.0-31.2); Mean Corpuscular Volume 88.5 fl (80-94); Mean Platelet Volume 8.1 fl (7.4-10.4); Monocytes % 11.6 % (1.7-9.3); Neutrophils # 5.6 K/mm3 (1.8-7.8); Neutrophils % 66.8 % (37.0-80.0); Platelet Count 213 K/mm3 (142-424); Red Blood Count 4.36 M/mm3 (4.60-6.20); Red Cell Distribution Width 14.1 % (11.5-17.5); White Blood Count 8.3 K/mm3 (4.8-10.8)
[2020-02-17 08:00] VITALS: BP 111/75; PULSE 79; RESP 17; TEMP 36.8; O2SAT 96
--- NOTE | 2020-02-17 09:06 | HMH.ACPN2 ---
Internal Medicine - PN: Subj *Date: 02/17/20 *Time: 09:57 Interval history: 49-year-old male patient sitting up in bed, sister is in room, he reports he is feeling better. Preliminary Urine culture is showing gram-negative rods and he is receiving Rocephin IV, awaiting final culture results. Patient's condition discussed with patient and sister both verbalized understanding Exam Vital signs and Labs for Last 24 Hours: Temp Pulse Resp BP Pulse Ox 98.2 F 79 17 111/75 96 02/17/20 08:00 02/17/20 08:00 02/17/20 08:00 02/17/20 08:00 02/17/20 08:00 Laboratory Results - last 24 hr 02/16/20 11:10: POC Glucose 272 H 02/16/20 17:01: POC Glucose 228 H 02/16/20 21:13: POC Glucose 255 H 02/17/20 05:09: POC Glucose 221 H 02/17/20 06:48: WBC 8.3, RBC 4.36 L, Hgb 13.6 L, Hct 38.6 L, MCV 88.5, MCH 31.2, MCHC 35.3, RDW 14.1, Plt Count 213, MPV 8.1, Neut % (Auto) 66.8, Lymph % (Auto) 17.2, [place] % (Auto) 11.6 H, Eos % (Auto) 3.8, Baso % (Auto) 0.5, Neut # (Auto) 5.6, Lymph # (Auto) 1.4, [place] # (Auto) 1.0, Eos # (Auto) 0.3, Baso # (Auto) 0.1 02/17/20 06:48: Sodium 127 L, Potassium 3.8, Chloride 93 L, Carbon Dioxide 25, Anion Gap 12.8, BUN 8 L D, Creatinine 0.70, Estimated Creat Clear 175, Estimated GFR 120, Est GFR ( Amer) 145, Glucose 187 H, Calcium 9.3 I & O for Last 24 hours: Intake & Output 02/14/20 02/15/20 02/16/20 02/17/20 23:59 23:59 23:59 23:59 Intake Total 3724 / 3724 4400 / 4400 Output Total 1200 / 2350 8125 / 8125 06205 / 39738 2650 / 2650 Balance -1200 / -2350 -4401 / -4401 -9085 / -31993 -2650 / -2650 Weight 219 lb 2 oz 219 lb 4 oz 216 lb 0.848 oz 213 lb 3 oz Microbiology Reports for the Last 24 Hours: Microbiology 02/14/20 14:51 Blood Blood Culture - Preliminary NO GROWTH AFTER 48 HOURS 02/14/20 14:51 Blood Blood Culture - Preliminary NO GROWTH AFTER 48 HOURS 02/14/20 15:00 Urine,Catheterized Urine Culture - Preliminary Gram Negative Rods - Constitutional no acute distress - *Routine HEENT Exam Head: Present: normocephalic Eye: Present: EOMI ENT: Present: mucous membranes moist - *Routine Neck Exam Present: trachea midline. Absent: tracheal deviation - *Routine Respiratory Exam Present: CTA bilaterally. Absent: accessory muscle use - *Routine Cardiovascular Exam Present: RRR - *Routine Abdominal Exam Present: soft, normoactive bowel sounds. Absent: tenderness, firm - *Routine Extremities Exam Present: pulses intact. Absent: clubbing, edema, calf tenderness - *Routine Skin Exam Present: dry, warm. Absent: cyanosis, jaundice - *Routine Neurological Exam Present: alert, oriented X3. Absent: asterixis - Routine Psychiatric Exam Present: normal affect, normal thought process. Absent: auditory hallucinations, visual hallucinations Assessment and Plan (1) UTI (urinary tract infection) Status: Acute Qualifiers: Urinary tract infection type: acute cystitis Hematuria presence: with hematuria Qualified Code(s): N30.01 - Acute cystitis with hematuria Category: Medical Code(s): N39.0 - Urinary tract infection, site not specified (2) Elevated lactic acid level Status: Acute Category: Medical Code(s): R79.89 - Other specified abnormal findings of blood chemistry (3) CAD (coronary artery disease) Status: Chronic Qualifiers: Coronary Disease-Associated Artery/Lesion type: [place] artery [place] vs. transplanted heart: [place] heart Associated angina: without angina Qualified Code(s): I25.10 - Atherosclerotic heart disease of [place] coronary artery without angina pectoris Category: Medical Code(s): I25.10 - Atherosclerotic heart disease of [place] coronary artery without angina pectoris (4) Carotid artery stenosis Status: Chronic Qualifiers: Laterality: left Qualified Code(s): I65.22 - Occlusion and stenosis of left carotid ar
[2020-02-17 10:57] LABS: POC Glucose,Bedside 253 (70-110)
[2020-02-17 16:00] VITALS: BP 122/56; PULSE 82; RESP 20; TEMP 36.8; O2SAT 96
[2020-02-17 16:16] LABS: POC Glucose,Bedside 258 (70-110)
[2020-02-17 20:00] VITALS: BP 112/80; PULSE 77; RESP 22; TEMP 37; O2SAT 97
--- NOTE | 2020-02-17 20:32 | PC.NURSE ---
pt done well today. woodson removed, urinating per urinal and brief. pt turned q2hr. vss. will cont. to monitor
[2020-02-17 20:40] VITALS: PULSE 77; RESP 22; O2SAT 97
[2020-02-17 21:31] LABS: POC Glucose,Bedside 263 (70-110)
[2020-02-18 04:00] VITALS: BP 110/70; PULSE 55; RESP 16; TEMP 36.8; O2SAT 97
[2020-02-18 04:09] LABS: POC Glucose,Bedside 241 (70-110)
--- NOTE | 2020-02-18 05:14 | PC.NURSE ---
pt has rested well this shift, has had an episode of incontinence of urine, has also used urinal with assistance, no complaints of SOA or chest pain, VSS, mother remains at bedside
[2020-02-18 05:19] VITALS: BMI 27.6
[2020-02-18 06:14] LABS: POC Glucose,Bedside 230 (70-110)
[2020-02-18 07:46] LABS: Basophils # 0.1 K/mm3 (0-0.2); Basophils % 0.9 % (0.1-2.0); Eosinophils # 0.3 K/mm3 (0.0-0.4); Eosinophils % 3.7 % (0.1-12.0); Hematocrit 40.4 % (42.0-52.0); Hemoglobin 14.2 g/dL (14.1-18.0); Lymphocytes # 1.4 K/mm3 (0.7-4.5); Lymphocytes % 14.7 % (10-50); Mean Corpuscular HGB Conc 35.2 g/dL (31.8-35.4); Mean Corpuscular Hemoglobin 31.1 pg (27.0-31.2); Mean Corpuscular Volume 88.3 fl (80-94); Monocytes % 10.5 % (1.7-9.3); Neutrophils # 6.4 K/mm3 (1.8-7.8); Neutrophils % 70.1 % (37.0-80.0); Platelet Count 223 K/mm3 (142-424); Red Blood Count 4.57 M/mm3 (4.60-6.20); Red Cell Distribution Width 14.4 % (11.5-17.5); White Blood Count 9.2 K/mm3 (4.8-10.8)
[2020-02-18 08:00] VITALS: BP 98/62; PULSE 80; RESP 20; TEMP 36.8; O2SAT 88
[2020-02-18 08:06] LABS: Chloride 90 mmol/L (98-107); Sodium 126 mmol/L (136-145)
[2020-02-18 08:09] LABS: Anion Gap 12.7 mEq/L (5-15); Blood Urea Nitrogen 10 mg/dl (9-20); Carbon Dioxide 27 mmol/L (22.0-30.0); Creatinine Clearance Estimated 195 mL/min (50-200); Estimated Glomerular Filt Rate 143 ml/min (>60); GFR (African American) 173 ML/MIN (>60); Glucose 219 mg/dl (74-100); Potassium 3.7 mmoL/L (3.5-5.1)
[2020-02-18 08:30] VITALS: O2SAT 97
--- NOTE | 2020-02-18 08:30 | PC.NURSE ---
NOTIFIED DR MARROQUIN OF 9LB WEIGHT LOSS AND LOW BP DURING MORNING ROUNDS. NO NEW ORDERS.
--- NOTE | 2020-02-18 08:47 | HMH.DCSUM ---
General - General Admission date:: 02/14/20 Discharge date: 02/18/20 HPI HPI: This is a 49-year-old male [facility] admitted due to left hemiparesis following a thrombotic CVA. Per nursing report patient has been confused and very somnolent and sleeping most of the day. Also noted blood pressure was low. Initial ported that his SPO2 was in the 80s however upon arrival patient is maintaining saturations in the upper 90s without O2 support. Patient just reports being very somnolent. He is alert and oriented but denies any current pain. He reports no fever or chills. No cough or shortness of breath. No chest pain or orthopnea. Workup included labs and cxr IMPRESSION: Suboptimal inspiration limits the study. The diaphragm is only is barely down to the anterior 4th rib end rib. This crowds and accentuates lung markings bilaterally. No definitive pneumonia nor consolidation. More likely the poor inspiration slightly accentuates markings infrahilar regions bilaterally-but difficult to totally exclude subtle early ground-glass infiltrate Mild vascular engorgement-but more likely the generous pulmonary vascularity appearance accentuated by the poor inspiration along with supine positioning. Borderline cardiomegaly Dictated by: Gerardo Guillen MD 02/14/2020 17:44 Had a recent ua done at [facility]. UA here is suggestive of UTI. Lactic acid borderline at 2.1, subsequently normalized. Holding beta beti this morning. Evelio sbp 66 on arrival. Decent overnite and 88 this morning. Saturations have been good on RA. UC from [facility] from 02-12-20 cultured out Morganella morganii. Resistant to augmentin/amp/cefazolin/macrobid Sensitive to rocephin/cipro/levaquin/ertapenum/bactrim Hospital Course Hospital Course: This is a 49-year-old male presents from [facility] which he is admitted due to left hemiparesis following a thrombotic CVA. Per nursing report patient has been confused and very somnolent and sleeping most of the day. Also noted blood pressure was low. Initial ported that his SPO2 was in the 80s however upon arrival patient is maintaining saturations in the upper 90s without O2 support. Patient just reports being very somnolent. He is alert and oriented but denies any current pain. He reports no fever or chills. No cough or shortness of breath. No chest pain or orthopnea. Workup included labs and cxr 02/14/20 CXR: IMPRESSION: Suboptimal inspiration limits the study. The diaphragm is only is barely down to the anterior 4th rib end rib. This crowds and accentuates lung markings bilaterally. No definitive pneumonia nor consolidation. More likely the poor inspiration slightly accentuates markings infrahilar regions bilaterally-but difficult to totally exclude subtle early ground-glass infiltrate Mild vascular engorgement-but more likely the generous pulmonary vascularity appearance accentuated by the poor inspiration along with supine positioning. Borderline cardiomegaly Dictated by: Mindy, Had a recent ua done at [facility]. UA here is suggestive of UTI. Lactic acid borderline at 2.1, subsequently normalized. Holding beta beti this morning. Evelio sbp 66 on arrival. Decent overnite and 88 this morning. Saturations have been good on RA. Lab work today sodium 126, potassium 3.7, BUN 10, creatinine 0.6, GFR 143, and calcium 9.0 Urinary culture is grew Morganella Morganii and is susceptible to Rocephin as the patient has been on during his stay and Levaquin which she will be discharged with Patient sitting up in bed no respiratory distress noted, he reports he had a very good night mother at bedside. Explained to patient and mother urine culture results are are completed and organism identified, antibiotics will be prescribed accordingly both verbalized understanding. Patient will be disc
--- NOTE | 2020-02-18 09:44 | HMH.ACPN ---
Internal Medicine - PN: Subj *Date: 02/18/20 *Time: 09:44 Exam Vital signs and Labs for Last 24 Hours: Temp Pulse Resp BP Pulse Ox 98.2 F 80 20 98/62 L 88 L 02/18/20 08:00 02/18/20 08:00 02/18/20 08:00 02/18/20 08:00 02/18/20 08:00 Laboratory Results - last 24 hr 02/17/20 10:43: POC Glucose 253 H 02/17/20 16:06: POC Glucose 258 H 02/17/20 20:19: POC Glucose 263 H 02/18/20 03:59: POC Glucose 241 H 02/18/20 05:38: POC Glucose 230 H 02/18/20 07:35: WBC 9.2, RBC 4.57 L, Hgb 14.2, Hct 40.4 L, MCV 88.3, MCH 31.1, MCHC 35.2, RDW 14.4, Plt Count 223, MPV 8.0, Neut % (Auto) 70.1, Lymph % (Auto) 14.7, [place] % (Auto) 10.5 H, Eos % (Auto) 3.7, Baso % (Auto) 0.9, Neut # (Auto) 6.4, Lymph # (Auto) 1.4, [place] # (Auto) 1.0, Eos # (Auto) 0.3, Baso # (Auto) 0.1 02/18/20 07:35: Sodium 126 L, Potassium 3.7, Chloride 90 L, Carbon Dioxide 27, Anion Gap 12.7, BUN 10, Creatinine 0.60 L, Estimated Creat Clear 195, Estimated GFR 143, Est GFR ( Amer) 173, Glucose 219 H, Calcium 9.0 I & O for Last 24 hours: Intake & Output 02/15/20 02/16/20 02/17/20 02/18/20 23:59 23:59 23:59 23:59 Intake Total 3724 / 3724 4400 / 4400 240 / 240 120 / 120 Output Total 8125 / 8125 07647 / 97951 3200 / 3850 650 / 650 Balance -4401 / -4401 -9085 / -22371 -2960 / -3610 -530 / -530 Weight 99.45 kg 98 kg 96.7 kg 92.731 kg Microbiology Reports for the Last 24 Hours: Microbiology 02/14/20 15:00 Urine,Catheterized Urine Culture - Final Morganella morganii Assessment and Plan (1) UTI (urinary tract infection) Start date: 02/14/20 (Morganelli Morganii) Status: Acute Qualifiers: Urinary tract infection type: acute cystitis Hematuria presence: with hematuria Qualified Code(s): N30.01 - Acute cystitis with hematuria Category: Medical Code(s): N39.0 - Urinary tract infection, site not specified (2) Elevated lactic acid level Status: Acute Category: Medical Code(s): R79.89 - Other specified abnormal findings of blood chemistry (3) CAD (coronary artery disease) Status: Chronic Qualifiers: Coronary Disease-Associated Artery/Lesion type: [place] artery [place] vs. transplanted heart: [place] heart Associated angina: without angina Qualified Code(s): I25.10 - Atherosclerotic heart disease of [place] coronary artery without angina pectoris Category: Medical Code(s): I25.10 - Atherosclerotic heart disease of [place] coronary artery without angina pectoris (4) Carotid artery stenosis Status: Chronic Qualifiers: Laterality: left Qualified Code(s): I65.22 - Occlusion and stenosis of left carotid artery Category: Medical Code(s): I65.29 - Occlusion and stenosis of unspecified carotid artery (5) Diabetes Status: Chronic Qualifiers: Diabetes mellitus type: type 2 Diabetes mellitus technology advisor insulin use: with technology advisor use Diabetes mellitus complication status: with other specified complication Qualified Code(s): E11.69 - Type 2 diabetes mellitus with other specified complication; Z79.4 - care home (current) use of insulin Category: Medical Code(s): E11.9 - Type 2 diabetes mellitus without complications (6) HLD (hyperlipidemia) Status: Chronic Qualifiers: Hyperlipidemia type: mixed hyperlipidemia Qualified Code(s): E78.2 - Mixed hyperlipidemia Category: Medical Code(s): E78.5 - Hyperlipidemia, unspecified (7) HTN (hypertension), benign Status: Chronic Category: Medical Code(s): I10 - Essential (primary) hypertension (8) Hx of traumatic brain injury Status: Chronic Category: Medical Code(s): Z87.820 - Personal history of traumatic brain injury (9) Left-sided weakness Status: Chronic Category: Medical Code(s): R53.1 - Weakness (10) Tobacco abuse Status: Chronic Category: Medical Code(s): Z72.0 - Tobacco use (11) Decubital ulcer Status: Chronic Qualifiers: Pressure injury location: [facility]
[2020-02-18 10:57] LABS: Adenovirus,PCR Not Detected (NotDetected); Coronavirus 19, PCR Not Detected (NotDetected); Coronavirus 229E Not Detected (NotDetected); Coronavirus NL63 Not Detected (NotDetected); Coronavirus OC43 Not Detected (NotDetected); Coronovirus HKU1,PCR Not Detected (NotDetected); Human Metapneumovirus Not Detected (NotDetected); Influenza A, PCR Not Detected (NotDetected); Influenza AH1, 2009 Not Detected (NotDetected); Influenza AH1, PCR Not Detected (NotDetected); Influenza AH3,PCR Not Detected (NotDetected); Influenza B, PCR Not Detected (NotDetected); Parainfluenza 1, PCR Not Detected (NotDetected); Parainfluenza 2, PCR Not Detected (NotDetected); Parainfluenza 3, PCR Not Detected (NotDetected); Parainfluenza 4, PCR Not Detected (NotDetected); Respiratory Syncytial Virus Not Detected (NotDetected); Rhinovirus/Enterovirus Not Detected (NotDetected)
[2020-02-18 10:58] LABS: Bordetella Pertussis Not Detected (NotDetected); Chlamydophila Pneumoniae, PCR Not Detected (NotDetected); Mycoplasma Pneumoniae, PCR Not Detected (NotDetected)
[2020-02-18 11:22] LABS: POC Glucose,Bedside 302 (70-110)
--- NOTE | 2020-02-18 12:00 | PC.NURSE ---
Attempted to call [facility] to give report and they said they would call back shortly.
--- NOTE | 2020-02-18 12:37 | PC.NURSE ---
Called report to Tevin Reyes RN at [facility].
--- NOTE | 2020-02-18 12:39 | PC.NURSE ---
Attempted to call [facility] to transfer pt but they didn't answer. Will try again shortly.
--- NOTE | 2020-02-18 13:30 | PC.NURSE ---
IVs removed with catheter intact. Koban and 4x4s applied. Pt tolerated well.
--- NOTE | 2020-02-18 13:45 | PC.NURSE ---
Called [facility] to notify them of transfer to [facility].
== END 2020-02-18 14:10 ==
LOC: ER 17:05 → 2ND 18:35
PROVIDERS: Family Medicine; Nurse Practitioner Family; Admitting Provider Family Medicine; Emergency Provider Emergency Medicine; PCP Emergency Medicine; Visit Provider Emergency Medicine
DX: N39.0 Urinary tract infection, site not specified (principal); I25.10 Atherosclerotic heart disease of native coronary artery without angina pectoris; Z72.0 Tobacco use; I11.0 Hypertensive heart disease with heart failure; I50.9 Heart failure, unspecified; L89.152 Pressure ulcer of sacral region, stage 2; I65.22 Occlusion and stenosis of left carotid artery; M54.16 Radiculopathy, lumbar region; Z79.01 Long term (current) use of anticoagulants; Z79.4 Long term (current) use of insulin; Z79.82 Long term (current) use of aspirin; Z79.899 Other long term (current) drug therapy; I69.359 Hemiplegia and hemiparesis following cerebral infarction affecting unspecified side
CPT/HCPCS: 36415; 71045; 80048; 80053; 80165; 81001; 82140; 82962; 83605; 85025; 86328; 87040; 87086; 87088; 87186; 87581; 87633; 87798; 93005; 96365; 97161; 99284; G0378; J1335; J2405; U0003

== ENCOUNTER 2020-02-28 16:06 | Observation (INO) | payer MEDICARE, MEDICAID, SELFPAY ==
[2020-02-28] VITALS (10 sets, daily range): BP systolic 77–132; BP diastolic 52–89; PULSE 72–92; RESP 16–20; TEMP 36.4–36.7; O2SAT 94–99; BMI 29.8; BMI 29.2
--- NOTE | 2020-02-28 16:10 | XR_ITS ---
PROCEDURE: XR CHEST PORTABLE CLINICAL HISTORY: general weakness COMPARISON: CT CT ANGIO CHEST from 03/25/2019 CR XR CHEST PORTABLE from 03/25/2019 CR XR CHEST PORTABLE from 04/25/2019 CR XR CHEST PORTABLE from 02/14/2020 FINDINGS: Is a poor inspiratory effort. The lung arnett appear grossly clear of infiltrate, there is crowding of the vascular markings at the lung bases. There is borderline cardiomegaly but no pulmonary congestion. There monitor lines overlying the chest. IMPRESSION: Poor inspiration, no definite acute chest pathology noted Dictated by: Dr. Ap Mg MD 02/28/2020 19:04 Dr. Ap Mg MD in [facility] 02/28/2020 19:04
--- NOTE | 2020-02-28 16:10 | ECG_ITS ---
APPROVED REPORT Exam: Resting ECG HR:77 bpm ECG Measurements Heart Rate 77 AXES HI 192 P 45 QRSd 90 QRS 72 QT 418 T 35 QTc 473 Conclusion Normal sinus rhythm Nonspecific LV conduction delay Late r wave progression Abnormal ECG Electronically signed by : Mckay Gomez, 02/29/2020 18:31:28
--- NOTE | 2020-02-28 16:10 | PC.NURSE ---
EMS INFUSED A 500ML BAG OF NS ENROUTE TO HOSPITAL
[2020-02-28 16:36] LABS: Basophils # 0.1 K/mm3 (0-0.2); Basophils % 1.2 % (0.1-2.0); Eosinophils # 0.5 K/mm3 (0.0-0.4); Eosinophils % 5.8 % (0.1-12.0); Hematocrit 41.2 % (42.0-52.0); Hemoglobin 14.2 g/dL (14.1-18.0); Lymphocytes # 2.1 K/mm3 (0.7-4.5); Lymphocytes % 25.7 % (10-50); Mean Corpuscular HGB Conc 34.5 g/dL (31.8-35.4); Mean Corpuscular Hemoglobin 31.6 pg (27.0-31.2); Mean Corpuscular Volume 91.5 fl (80-94); Mean Platelet Volume 8.2 fl (7.4-10.4); Monocytes # 0.8 K/mm3 (0.1-1.0); Monocytes % 9.7 % (1.7-9.3); Neutrophils # 4.7 K/mm3 (1.8-7.8); Neutrophils % 57.6 % (37.0-80.0); Platelet Count 254 K/mm3 (142-424); Red Blood Count 4.51 M/mm3 (4.60-6.20); Red Cell Distribution Width 14.9 % (11.5-17.5); White Blood Count 8.1 K/mm3 (4.8-10.8)
[2020-02-28 16:37] LABS: Microscopic, Urine URINE MICROSCOPIC (MICROSCOPIC)
[2020-02-28 16:39] LABS: Appearance,Urine CLEAR (Clear); Bilirubin,Urine Negative (Negative); Blood, Urine Negative (Negative); Color,Urine YELLOW (Yellow); Glucose,Urine (UA) Negative (Negative); Ketones,Urine Negative (Negative); Leukocyte Esterase,Urine TRACE (Negative); Nitrate,Urine Negative (Negative); PH,Urine 7.5 (5.0-8.5); Protein,Urine Negative (Negative); Specific Gravity, Urine 1.015 (1.005-1.030)
--- NOTE | 2020-02-28 16:39 | HMH.EDGENADL ---
ED Disposition Clinical Impression: Hypotension, Sepsis Disposition: Admitted as Observation Condition on Discharge: Serious - Critical Care Critical Care Time: Yes (45 minutes) Attestation: On 02/28/20, the high probability of a clinically significant, sudden or life threatening deterioration of the following system(s) required my full and direct attention, intervention and personal management. The time I documented below is in addition to time spent performing reported procedures but includes the following listed in this critical care notation. Vital system(s) involved:: Circulatory Failure, Metabolic Failure, Renal Failure, Shock (Septic) My critical care processes included: Assessment & monitoring of V/S, Initial and Re-exams, Data Review/Interpretation, Coordinating Care, Medication Orders and management, Documentation Medical Decision Making - Medical Records Medical records reviewed: Yes: I reviewed the patient's medical records. - Scooter Inquiry Pt receiving controlled substance: No Vital Signs: 02/28/20 16:07 02/28/20 16:33 02/28/20 16:58 Temperature 97.8 F Temperature Source Oral Pulse Rate Pulse Rate [Left Apical] 72 75 73 Respiratory Rate 16 Blood Pressure Blood Pressure [Right Arm] 77/52 L 85/61 L 89/59 L Blood Pressure Mean [Right Arm] 60 69 69 Blood Pressure Source [Right Arm] Automatic Cuff Automatic Cuff Automatic Cuff Blood Pressure Position [Right Arm] Sitting Sitting Sitting 02 Sat by Pulse Oximetry 94 L 94 L 94 L Oxygen Delivery Method Room Air Room Air Room Air 02/28/20 17:31 02/28/20 18:00 02/28/20 18:50 Temperature Temperature Source Pulse Rate Pulse Rate [Left Apical] 72 73 77 Respiratory Rate 20 Blood Pressure Blood Pressure [Right Arm] 99/65 L 114/78 132/89 Blood Pressure Mean [Right Arm] 76 90 103 Blood Pressure Source [Right Arm] Automatic Cuff Automatic Cuff Automatic Cuff Blood Pressure Position [Right Arm] Sitting Sitting Sitting 02 Sat by Pulse Oximetry 96 96 98 Oxygen Delivery Method Room Air Room Air Room Air 02/28/20 19:44 Temperature 97.8 F Temperature Source Pulse Rate 76 Pulse Rate [Left Apical] Respiratory Rate 16 Blood Pressure 128/76 Blood Pressure [Right Arm] Blood Pressure Mean [Right Arm] Blood Pressure Source [Right Arm] Blood Pressure Position [Right Arm] 02 Sat by Pulse Oximetry Oxygen Delivery Method Room Air - Lab Data Lab Results 02/28/20 16:20: WBC 8.1, RBC 4.51 L, Hgb 14.2, Hct 41.2 L, MCV 91.5, MCH 31.6 H, MCHC 34.5, RDW 14.9, Plt Count 254, MPV 8.2, Neut % (Auto) 57.6, Lymph % (Auto) 25.7, Kingfisher % (Auto) 9.7 H, Eos % (Auto) 5.8, Baso % (Auto) 1.2, Neut # (Auto) 4.7, Lymph # (Auto) 2.1, Kingfisher # (Auto) 0.8, Eos # (Auto) 0.5 H, Baso # (Auto) 0.1 02/28/20 16:20: Sodium 133 L, Potassium 4.4, Chloride 98, Carbon Dioxide 27, Anion Gap 12.4, BUN 11, Creatinine 1.00, Estimated Creat Clear 126, Estimated GFR 79, Est GFR ( Amer) 96, Glucose 89, Calcium 9.2, Troponin I < 0.01 02/28/20 16:20: Lactate 2.1 02/28/20 16:20: SARS-CoV-2 IgG Ab (Rapid) Negative, SARS-CoV-2 IgM Ab (Rapid) Negative 02/28/20 16:30: Urine Color Yellow, Urine Appearance Clear, Urine pH 7.5, Ur Specific Trafford 1.015, Urine Protein Negative, Urine Glucose (UA) Negative, Urine Ketones Negative, Urine Blood Negative, Urine Nitrate Negative, Urine Bilirubin Negative, Urine Urobilinogen 4.0, Ur Leukocyte Esterase Trace, Urine RBC Occasional, Urine WBC Occasional 02/28/20 16:56: VBG pH 7.33, VBG pCO2 46.4, VBG pO2 32.8, VBG HCO3 23.7, VBG Total CO2 25.2, VBG O2 Saturation 56.4, VBG Base Excess -2.2 02/28/20 19:30: Troponin I < 0.01 02/28/20 19:30: Lactate 1.6 Result diagrams: 02/28/20 16:20 02/28/20 16:20 Orders (Tests/Meds): ED MEDICATIONS Generic Name Dose Route Start Last Admin Trade Name Freq PRN Reason Stop Dose Admin Sodium Chloride 1,000 mls @ 999 mls/hr 02/28/20 19:59 Sod Chlor 0.9% 1000ml Bag IV 02/28/20 20:59 .Q1H1M SAPPHIRE
[2020-02-28 16:42] LABS: Chloride 98 mmol/L (98-107); Potassium 4.4 mmoL/L (3.5-5.1); Sodium 133 mmol/L (136-145)
[2020-02-28 16:45] LABS: Anion Gap 12.4 mEq/L (5-15); Blood Urea Nitrogen 11 mg/dl (9-20); Calcium 9.2 mg/dl (8.4-10.2); Carbon Dioxide 27 mmol/L (22.0-30.0); Creatinine Clearance Estimated 126 mL/min (50-200); Estimated Glomerular Filt Rate 79 ml/min (>60); GFR (African American) 96 ML/MIN (>60); Glucose 89 mg/dl (74-100)
[2020-02-28 16:47] LABS: Lactic Acid 2.1 mmol/L (0.7-2.1)
[2020-02-28 16:54] LABS: RBC,Urine Occasional #/hpf (0-3); WBC,Urine Occasional #/hpf (0-3)
[2020-02-28 16:57] LABS: VBG Base Excess -2.2 mmol/L (-2.4-2.3); VBG HCO3 23.7 mmol/L (23-30); VBG Oxygen Saturation 56.4 % (50-70); VBG PCO2 46.4 mmol/L (35-51); VBG PH 7.33 mmol/L (7.31-7.41); VBG PO2 32.8 mmol/L (28-40); VBG Total CO2 25.2 mmol/L (23-27)
[2020-02-28 17:00] LABS: Troponin I < 0.01 ng/ml (0.00-0.034)
--- NOTE | 2020-02-28 18:22 | PC.NURSE ---
copy camera operator paging Dr. Back who is liquefaction plant operator for Dr. Pearson
--- NOTE | 2020-02-28 18:48 | PC.NURSE ---
notified warehouse forklift operator of admission
[2020-02-28 19:13] LABS: Coronavirus 19 IgG Antibody Negative (Negative); Coronavirus 19 IgM Antibody Negative (Negative)
[2020-02-28 19:14] LABS: Reflex Lactic Add Lactic Reflex
--- NOTE | 2020-02-28 19:39 | PC.NURSE ---
patient up to floor via stretcher.
[2020-02-28 19:55] LABS: Lactic Acid Follow Up (RFLX 1) 1.6 mmol/L (0.7-2.1)
[2020-02-28 20:08] LABS: Troponin I < 0.01 ng/ml (0.00-0.034)
[2020-02-28 21:03] LABS: POC Glucose,Bedside 122 (70-110)
[2020-02-29] VITALS (11 sets, daily range): BP systolic 95–126; BP diastolic 71–86; PULSE 89–97; RESP 16–22; TEMP 36.3–36.9; O2SAT 95–99; BMI 292323.4
--- NOTE | 2020-02-29 05:54 | PC.NURSE ---
patient has rested throughout the night after receiving night time medication. breath sounds clear throughout. denies nausea, vomiting or diarrhea. woodson draining draining pale urine. blood pressure has been on lower side of acceptable parameters while sleeping.
[2020-02-29 07:24] LABS: Chloride 101 mmol/L (98-107); Potassium 4.4 mmoL/L (3.5-5.1); Sodium 134 mmol/L (136-145)
[2020-02-29 07:27] LABS: Alanine Aminotransferase 22 U/L (12-78); Albumin Level 3.9 g/dl (3.5-5.0); Albumin/Globulin Ratio 1.4 (1.1-1.8); Alkaline Phosphatase 106 U/L (38-126); Aspartate Amino Transferase 26 U/L (17-59); Bilirubin,Total 0.5 mg/dl (0.2-1.3); Blood Urea Nitrogen 9 mg/dl (9-20); Carbon Dioxide 27 mmol/L (22.0-30.0); Creatinine Clearance Estimated -72 mL/min (50-200); Estimated Glomerular Filt Rate 120 ml/min (>60); GFR (African American) 145 ML/MIN (>60); Globulin 2.8 g/dL (1.3-3.2); Total Protein,Serum 6.7 g/dl (6.3-8.2)
[2020-02-29 07:28] LABS: Anion Gap 10.4 mEq/L (5-15); Calcium 9.3 mg/dl (8.4-10.2); Glucose 179 mg/dl (74-100)
[2020-02-29 07:30] LABS: Basophils # 0.1 K/mm3 (0-0.2); Basophils % 1.1 % (0.1-2.0); Eosinophils # 0.4 K/mm3 (0.0-0.4); Eosinophils % 4.7 % (0.1-12.0); Hematocrit 43.1 % (42.0-52.0); Hemoglobin 14.8 g/dL (14.1-18.0); Lymphocytes # 1.4 K/mm3 (0.7-4.5); Lymphocytes % 16.3 % (10-50); Mean Corpuscular HGB Conc 34.3 g/dL (31.8-35.4); Mean Corpuscular Hemoglobin 31.4 pg (27.0-31.2); Mean Corpuscular Volume 91.5 fl (80-94); Mean Platelet Volume 7.5 fl (7.4-10.4); Monocytes % 11.7 % (1.7-9.3); Neutrophils # 5.7 K/mm3 (1.8-7.8); Neutrophils % 66.1 % (37.0-80.0); Platelet Count 245 K/mm3 (142-424); Red Blood Count 4.71 M/mm3 (4.60-6.20); White Blood Count 8.7 K/mm3 (4.8-10.8)
[2020-02-29 10:16] LABS: POC Glucose,Bedside 180 (70-110)
[2020-02-29 10:44] LABS: POC Glucose,Bedside 222 (70-110)
--- NOTE | 2020-02-29 10:55 | P.CONPHA_ITS ---
[facility] Pharmacy VTE Monitoring - Patient Demographics Admission date: 02/29/20 Report Date: 02/29/20 Time: 10:55 Allergies/Adverse Reactions: Patient Allergies Fish Containing Products Adverse Reaction (Severe, Verified 02/28/20 20:53) Height: 55.78 cm Weight: 97.778 kg Patient Problems: Current Active Problems Hypotension (Acute) Sepsis (Acute) - VTE Risk Labs: VTE Related Lab Results Hgb 14.8 g/dL (14.1-18.0) 02/29/20 07:00 Hct 43.1 % (42.0-52.0) 02/29/20 07:00 Plt Count 245 K/mm3 (142-424) 02/29/20 07:00 BUN 9 mg/dl (9-20) 02/29/20 07:00 Creatinine 0.70 mg/dl (0.66-1.25) D 02/29/20 07:00 Estimated Creat Clear -72 mL/min (50-200) L 02/29/20 07:00 VTE Score: 6 VTE Risk Level: Moderate Risk - Prophylaxis Types of VTE Prophylaxis: TEDS Knee High (FRANKIE HOSE ORDER PLACED) Location of Applied Device: Not Applicable
--- NOTE | 2020-02-29 14:34 | HMH.HP ---
*Admission Date: 02/29/20 *Chief complaint: hypotension and sepsis *History of present illness: The patient is a 49-year-old male with a history of ischemic stroke with significant residual deficits currently [facility] in a prison. Patient was recently seen here at [facility] and was septic from urinary tract infection. He is currently taking Levaquin for this. He was at his prison today when he was found to be diaphoretic and hypotensive. Patient thinks he may have had too much blood pressure medication or pain medication. Currently states he feels generally unwell, however has no specific symptoms. No other complaints. The patient is a 49-year-old male with a history of stroke who resides in a prison who presents the emergency department today with hypotension, weakness, and generally feeling unwell. Primarily concern for sepsis versus overmedication. Broad labs ordered, vancomycin, Zosyn blood cultures, chest x-ray ordered. Given 2 L of IV fluids for hypotension with systolics in the 80s on arrival. No obvious etiology for the patient's hypotension at this time. Septic without a source. Differential still includes infection versus overmedication. Blood pressure improved after IV fluid resuscitation. Admit Above is from ER report. Known to our service from recent admission. Young man with history of cva and residual L hemiparesis. Family relays that this was a vascular occlusive issue and not an embolic issue. He has been followed by Dr Salcido. During most recent admit he cultured morganella, which was sensitive to rocephin and levaquin. He was dc'd on Levaquin at an approp dosage. Blood cultures were negative at last admission. Evelio pressure 77/52 in ER, has been normotensive this morning. He is somnolent at baseline, awakens and answers questions appropriately. He is emotionally labile as a sequel to his cerebrovascular event. Previous cardiac imaging has shown hypokinesis with an ef 30 pct. He has also been cath'd. Of note flomax is on his MAR from the facility. Lactate was normal at 1.6 Previously covid Ig-g positive, now negative IgG/IgM HMH History Medical History: Reports:: Congestive Heart Failure, Coronary Artery Disease, Cerebrovascular Accident, Diabetes Mellitus Type 2, Hyperlipidemia, Hypertension, Peripheral Vascular Disease, Renal Insufficiency, Transient Ischemic Attacks (TIA) Denies:: Cancer, Diabetes Mellitus Type 1, Internal Pacemaker, MRSA, Seizures *Have you ever received a pneumonia vaccine?: Yes *Have you received a flu vaccine this season?: Yes Other Medical History: Reports: Arthritis, Other Other Surgeries: Yes: No Previous Surgery, Cardiac Catheterization, Cholecystectomy, Other. No: Pacemaker Amputation: No Fractures: No - *Social History Last grade of school completed: High school graduate Smoking Status: Current every day smoker Tobacco Type: cigarettes # Packs/Day (cigarettes): 1 #Yrs smoked (if former smoker): 20 Alcohol Intake: never Substance Use Type: denies use *Occupational Status:: disabled Housing: prison Household Members: caregiver *Travel in the last 8 weeks: None Family Hx:: Cancer, Coronary Artery Disease, Heart Attack, Hyperlipidemia, Hypertension, Kidney Disease, Thyroid Disorder, Mental illness Review of Systems - Constitutional Reports lack of energy, Reports malaise, Denies chills - Eyes Denies change in vision - ENT Denies abnormal hearing - *Cardiovascular Reports leg swelling, Reports foot swelling, Denies chest pain, Denies chest pain with activity, Denies shortness of breath when lying down - *Respiratory Denies chest congestion - *Gastrointestinal Denies abdominal pain - *Genitourinary Reports difficulty urinating - *Musculoskeletal Reports decreased muscle mass, Reports limited joint movement, Reports muscle weakness - Integumentary/Breasts Reports lesions, Denies yellowing of the skin, Denies new le
[2020-02-29 15:46] LABS: Ammonia 13 umol/L (9-30)
[2020-02-29 15:55] LABS: NT Pro Brain Natriuretic Pep. 403 pg/mL (0-125)
[2020-02-29 17:22] LABS: POC Glucose,Bedside 240 (70-110)
--- NOTE | 2020-02-29 18:29 | PC.NURSE ---
Pt has slept at intervals. Is A&O x4. Neurologically @ baseline, flaccid to left upper and lower extremities. Remains on room air. Lungs CTA. HR regular. Abdomen soft, non-tender w/ active BS in all quads. Large BM this shift. Epifanio DC'd per MD orders, has not voided yet since removal. Ulcer noted to top of L foot. Pt is total care and requires turning and repositioning Q2H. Has had a good appetite this shift and has finished most of all his trays. Mother remains at bedside throughout shift. Call chiu is w/in reach. No needs voiced.
[2020-02-29 20:23] LABS: POC Glucose,Bedside 238 (70-110)
--- NOTE | 2020-02-29 23:11 | PC.NURSE ---
patient awake, stat order received for lactic acid, blood drawn and sent for analysis. results reviewed.
[2020-03-01] VITALS (9 sets, daily range): BP systolic 105–144; BP diastolic 76–93; PULSE 80–90; RESP 17–20; TEMP 36.3–36.9; O2SAT 95–97; BMI 29.1; BMI 29.2
[2020-03-01 05:24] LABS: POC Glucose,Bedside 172 (70-110)
--- NOTE | 2020-03-01 05:36 | PC.NURSE ---
patient has been much more alert tonight since holding pain medications last pm. complaining of back pain this am. gave pm dose of norco this am. voiding clear yellow urine per urinal. breath sounds clear throughout.
--- NOTE | 2020-03-01 06:00 | CA_ITS ---
APPROVED REPORT EXAM: Comprehensive 2D, Doppler, and color-flow Echocardiogram Senior Living Sales Counselor: Diamond Bowden CRT Ht: 6 ft 0 in Wt: 215lbs BSA: 2.20 BP: 100/50 mmHg Indications: CM,CAD,HYPOTENTION,SEPSIS,H/O CVA,CHF 2D Dimensions LVOT 1.90 cm (M/F) 1.5-2.5 M-Mode Dimensions RVDd 0.81 cm (0.9-2.6) LA Diam 3.79 cm (1.9-4.0) LVDd 5.17 cm (3.5-5.7) Ao Diam 3.43 cm (2.0-3.7) LVDs 3.51 cm (3.5-5.7) IVSd 0.77 cm (0.6-1.1) PWd 0.77 cm (0.6-1.1) EF (Teich) 59.90% FS 32.10% EDV (Teich) 127.80 mL ESV (Teich) 51.20 mL LV Diastology E Decel Time 193.00 (160-240 msec) E/A Ratio 0.7 MED E' 5.10 (< 7 cm/sec) E'/MED E' Ratio 11.18 (>14) LAT E' 5.40 (<10 cm/sec) E/LAT E' Ratio 10.56 (>14) Mitral Valve MV E Max Isiah. 57.00 (40-130 cm/s) MV A Velocity 84.00 (40-130 cm/s) E/A Ratio 0.68 MV Decel. Time 193.00 (160-240 ms) MV PHT 57.00 ms Left Ventricle Technically difficult study because of the patient factors and poor acoustic windows. Left atrium is mildly enlarged, left ventricle is normal size, left ventricle wall thickness is upper limits of the normal, visually estimated ejection fraction approximately 50%, there appears to be moderate hypokinesis involving the distal septum and apical wall. Grade 1 diastolic dysfunction seen without tissue Doppler evidence of raise left atrial pressure. Right Ventricle Right atrium and right ventricle are normal size and contractility. Aortic Valve Aortic valve is minimally thickened and fibrosed, there is no aortic stenosis or aortic insufficiency. Mitral Valve Mitral valve is grossly normal, there is mild mitral regurgitation. Tricuspid Valve Tricuspid valve is grossly normal, there is mild tricuspid regurgitation, tricuspid regurgitation jet velocity is inadequate for calculation of the right ventricular systolic pressure. Pulmonic Valve Pulmonic valve is poorly visualized. Great Vessels Aortic root is normal size. Pericardium No significant pericardial effusion noted. Conclusion 1. Technically difficult study because of the patient factors and poor acoustic windows 2. Mildly enlarged left atrium, normal left ventricular size, visually estimated ejection fraction 50% with segmental wall motion abnormality described above, grade 1 diastolic dysfunction seen without tissue Doppler evidence of raise left atrial pressure. 3. Mild mitral and tricuspid regurgitation. 4. No significant pericardial effusion noted. Electronically signed by : Marcos Roman, 03/02/2020 05:56:44
[2020-03-01 06:02] LABS: Basophils # 0.1 K/mm3 (0-0.2); Basophils % 0.8 % (0.1-2.0); Eosinophils # 0.3 K/mm3 (0.0-0.4); Eosinophils % 4.2 % (0.1-12.0); Hematocrit 39.1 % (42.0-52.0); Lymphocytes # 1.9 K/mm3 (0.7-4.5); Lymphocytes % 23.8 % (10-50); Mean Corpuscular HGB Conc 34.1 g/dL (31.8-35.4); Mean Corpuscular Hemoglobin 31.7 pg (27.0-31.2); Mean Corpuscular Volume 92.9 fl (80-94); Mean Platelet Volume 7.6 fl (7.4-10.4); Monocytes # 0.8 K/mm3 (0.1-1.0); Monocytes % 9.8 % (1.7-9.3); Neutrophils % 61.4 % (37.0-80.0); Platelet Count 223 K/mm3 (142-424); Red Blood Count 4.21 M/mm3 (4.60-6.20); Red Cell Distribution Width 14.7 % (11.5-17.5); White Blood Count 8.1 K/mm3 (4.8-10.8)
[2020-03-01 06:03] LABS: Hemoglobin 13.3 g/dL (14.1-18.0)
[2020-03-01 06:08] LABS: Alanine Aminotransferase 17 U/L (12-78); Albumin Level 3.5 g/dl (3.5-5.0); Albumin/Globulin Ratio 1.3 (1.1-1.8); Alkaline Phosphatase 68 U/L (38-126); Anion Gap 12.9 mEq/L (5-15); Aspartate Amino Transferase 23 U/L (17-59); Bilirubin,Total 0.6 mg/dl (0.2-1.3); Blood Urea Nitrogen 7 mg/dl (9-20); Calcium 8.9 mg/dl (8.4-10.2); Carbon Dioxide 22 mmol/L (22.0-30.0); Chloride 98 mmol/L (98-107); Creatinine Clearance Estimated 247 mL/min (50-200); Estimated Glomerular Filt Rate 177 ml/min (>60); GFR (African American) 214 ML/MIN (>60); Globulin 2.8 g/dL (1.3-3.2); Glucose 168 mg/dl (74-100); Potassium 3.9 mmoL/L (3.5-5.1); Sodium 129 mmol/L (136-145); Total Protein,Serum 6.3 g/dl (6.3-8.2)
--- NOTE | 2020-03-01 09:25 | HMH.CNCARD ---
History of Present Illness Consult date: 03/01/20 Requesting physician: Jamal Copeland Consult reason: hypotension Chief complaint: confusion, low BP Additional Medical History:: 1. Nonischemic cardiomyopathy [facility], 2018,ANGIOGRAPHIC RESULTS: 1. The left main artery normal 2. The left anterior descending artery has proximal 40-50% stenosis which appears more like an anatomical twisted and tortuosity than atherosclerotic plaque. The first diagonal artery system is less than 1 mm in diameter is small vessel and severely diffusely diseased. No identifiable diagonal arteries are present throughout the entire course of the LAD. The LAD does wrap the apex. All septal perforators are very small and vascular 3. The circumflex artery is nondominant and has proximal 20% stenoses with small vessel very distal vasculopathic appearance with no focal stenosis 4. The right coronary artery is a dominant vessel and has proximal 30% stenosis mid vessel 20% stenoses. The posterior descending artery has a proximal 50% and mid vessel 40% stenosis. All vessels are small distally with poor myocardial blushing and small vasculopathic vessels 5. The NEFF ventriculogram reveals left ventricular dilatation with severely reduced ejection fraction estimated at 20% 6. The left ventricular end-diastolic pressure 20 mmHg IMPRESSION: Moderate disease in the proximal LAD which does not account for patient's severe left ventricular dysfunction. 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 Echo, 03/2018, LVEF 30% with mild left atrial enlargement and LV dilatation with grade 1 diastolic dysfunction. C. Limited echo, 06/2018, normal LV size, mild conc LVH. EF 40-45% with global hypokinesis. Grade 1 diastolic dysfunction seen. Mild MR and TR. D. History of CHF 2. Diabetes mellitus 3. History of CVA with left-sided paralysis, 01/2018 A. DAPT with ASA and plavix 4. Tobacco use, continued A. Paraseptal emphysema on CTA of the chest, 03/2019 5. History of UTI and subsequent hospitalization, 01/2020 6. Hypertension 7. Hyperlipidemia 8. Carotid artery stenosis, pt reports one artery over 70% during [facility] evaluation in 2018 9. Abnormal EKG (IVCD, PRWP anteriorly) History of present illness: The patient is a 49-year-old male with a history of ischemic stroke with significant residual deficits currently residing in a [facility]. Patient was recently seen here at [facility] and was septic from urinary tract infection. He is currently taking Levaquin for this. He was at his [facility] today when he was found to be diaphoretic and hypotensive. Patient thinks he may have had too much blood pressure medication or pain medication. Currently states he feels generally unwell, however has no specific symptoms. No other complaints. The patient is a 49-year-old male with a history of stroke who resides in a [facility] who presents the emergency department today with hypotension, weakness, and generally feeling unwell. Primarily concern for sepsis versus overmedication. Broad labs ordered, vancomycin, Zosyn blood cultures, chest x-ray ordered. Given 2 L of IV fluids for hypotension with systolics in the 80s on arrival. No obvious etiology for the patient's hypotension at this time. Septic without a source. Differential still includes infection versus overmedication. Blood pressure improved after IV fluid resuscitation. Admit Above is from ER report. Known to our service from recent admission. Young man with history of cva and residual L hemiparesis. Family relays that this was a vascular occlusive issue and not an embolic issue. He has been followed by Dr Salcido. During most recent admit he cultured morganella, which was sensitive to rocephin and levaquin. He was dc'd on Levaquin at
--- NOTE | 2020-03-01 09:47 | SW/DCPLANNER ---
Addendum entered by Mary Zavala 03/02/20 13:38: NEGATIVE COVID results have been faxed to Sara at [facility]. This patient will discharge back today. Original Note: This patient currently resides at [facility]. I have spoke with Sara at [facility] and she has stated that patient is [facility] level of care. Updated patient information has been faxed to [facility]. I will continue to follow up with Sara until patient is medically stable for discharge.
--- NOTE | 2020-03-01 09:58 | CT_ITS ---
PROCEDURE: CT ANGIO CHEST CLINCIAL INDICATION: Hypotension, confusion Weakness and shortness of air COMPARISON: CT CT ANGIO CHEST from 03/25/2019 CR XR CHEST PORTABLE from 02/28/2020 TECHNIQUE: IV Contrast: 70ML Isovue 370 Axial images obtained with sagittal and coronal reformats. All CT scans at the facility use one or more dose reduction, viz: automated exposure control, ma/kV adjustment per patient size (including targeted exams where dose is matched to indication, i.e. head), or iterative reconstruction technique. FINDINGS: HEART AND MEDIASTINAL STRUCTURES: No evidence of aortic aneurysm or dissection. No evidence of pulmonary embolus. No mediastinal or hilar mass. There are few scattered small mediastinal and hilar lymph nodes not significantly changed. Coronary artery calcifications are noted. There is some minimal thickening of the pericardium LUNGS AND PLEURAL SPACES: In the mid and upper lung zones there is mild diffuse ground-glass attenuation. This could be related to poor inspiration. This is slightly more prominent along the posterior aspect of the upper lobes. There are atelectatic changes in both lower lobes posteriorly with trace effusions. BONY STRUCTURES: Degenerative changes thoracic spine UPPER ABDOMEN: Borderline splenomegaly. There are few small nodes in the upper abdomen and portal region. ADDITIONAL FINDINGS: No other significant abnormalities. IMPRESSION: 1. No evidence of pulmonary embolus 2. Poor inspiration/low lung volumes with mild ground-glass attenuation in the upper lobes which may be secondary to the poor inspiration. Small airway disease would also be included in the differential diagnosis. The opacities slightly worse along the posterior aspect of the upper lobes. Cannot exclude underlying infection 3. Bilateral lower lobe atelectasis with trace effusions Dictated by: Hudson Magaña MD 03/01/2020 17:13 Hudson Magaña MD in [facility] 03/01/2020 17:13
--- NOTE | 2020-03-01 10:00 | CA_ITS ---
APPROVED REPORT Caul Dresser: Lilian Juarez RVT Laterality: Bilateral Study Quality: Adequate Indications: confusion, remote CVA Risk Factors Hypertension: TIA/CVA History Hyperlipidemia Diabetes Doppler Spectral Velocity Analysis ECA (R) 157.70/22.30 cm/s ECA (L) 92.90/12.90 cm/s dICA (R) 129.40/12.90 cm/s dICA (L) 134.00/18.80 cm/s Josue (R) 137.10/16.30 cm/s Josue (L) 134.00/25.90 cm/s pICA (R) 55.90/4.50 cm/s pICA (L) 119.90/27.00 cm/s dCCA (R) 80.50/7.70 cm/s dCCA (L) 90.50/17.60 cm/s pCCA (R) 60.80/5.10 cm/s pCCA (L) 104.60/10.60 cm/s Vert (R) 62.30/17.60 cm/s Vert (L) 25.70/9.40 cm/s ICA/CCA 1.70 ICA/CCA 1.48 Findings Study suggests 20-49% stensois of the right internal cartoid artery. Study suggests 20-49% stenosis of the left internal cartoid artery. Antegrade flow seen in the left vertebral artery. Retrograde flow is seen in the right vertebral artery. Conclusion Study suggests 20-49% stensois of the right internal cartoid artery. Study suggests 20-49% stenosis of the left internal cartoid artery. Antegrade flow seen in the left vertebral artery. Retrograde flow is seen in the right vertebral artery. Electronically signed by : Hudson Magaña MD 03/01/2020 17:03:08
--- NOTE | 2020-03-01 13:05 | HMH.ACPN2 ---
Internal Medicine - PN: Subj *Date: 03/02/20 *Time: 06:38 Interval history: doing better -bp improved Exam Vital signs and Labs for Last 24 Hours: Temp Pulse Resp BP Pulse Ox 97.3 F L 86 20 105/76 L 95 03/01/20 11:12 03/01/20 11:12 03/01/20 11:12 03/01/20 11:12 03/01/20 11:12 Laboratory Results - last 24 hr 02/28/20 16:30: Urine Color Yellow, Urine Appearance Clear, Urine pH 7.5, Ur Specific [place] 1.015, Urine Protein Negative, Urine Glucose (UA) Negative, Urine Ketones Negative, Urine Blood Negative, Urine Nitrate Negative, Urine Bilirubin Negative, Urine Urobilinogen 4.0, Ur Leukocyte Esterase Trace, Urine RBC Occasional, Urine WBC Occasional 02/29/20 15:30: Ammonia 13 02/29/20 15:30: NT-Pro-B Natriuret Pep 403 H 02/29/20 15:56: POC Glucose 240 H 02/29/20 20:12: POC Glucose 238 H 02/29/20 22:45: Lactate 2.0 03/01/20 05:09: POC Glucose 172 H 03/01/20 05:31: WBC 8.1, RBC 4.21 L, Hgb 13.3 L D, Hct 39.1 L, MCV 92.9, MCH 31.7 H, MCHC 34.1, RDW 14.7, Plt Count 223, MPV 7.6, Neut % (Auto) 61.4, Lymph % (Auto) 23.8, [place] % (Auto) 9.8 H, Eos % (Auto) 4.2, Baso % (Auto) 0.8, Neut # (Auto) 5.0, Lymph # (Auto) 1.9, [place] # (Auto) 0.8, Eos # (Auto) 0.3, Baso # (Auto) 0.1 03/01/20 05:31: Sodium 129 L, Potassium 3.9, Chloride 98, Carbon Dioxide 22, Anion Gap 12.9, BUN 7 L, Creatinine 0.50 L D, Estimated Creat Clear 247, Estimated GFR 177, Est GFR ( Amer) 214 D, Glucose 168 H, Calcium 8.9, Total Bilirubin 0.6, AST 23, ALT 17, Alkaline Phosphatase 68, Total Protein 6.3, Albumin 3.5 D, Globulin 2.8, Albumin/Globulin Ratio 1.3 I & O for Last 24 hours: Intake & Output 02/28/20 02/29/20 03/01/20 03/02/20 11:59 11:59 11:59 11:59 Intake Total 5000 / 5000 1000 / 1000 Output Total 4625 / 4625 4160 / 4160 Balance 375 / 375 -3160 / -3160 Weight 215 lb 9 oz 215 lb 5 oz Microbiology Reports for the Last 24 Hours: Microbiology 02/28/20 16:30 Urine,Catheterized Urine Culture - Preliminary Gram Positive Bacilli - Constitutional no acute distress - *Routine HEENT Exam Head: Present: normocephalic Eye: Present: EOMI, PERRL ENT: Present: mucous membranes dry - *Routine Neck Exam Absent: JVD - *Routine Respiratory Exam Present: decreased breath sounds - *Routine Cardiovascular Exam Present: RRR - *Routine Abdominal Exam Present: soft - *Routine Extremities Exam Absent: calf tenderness - *Routine Skin Exam Comments: soft rt heel - *Routine Neurological Exam Present: alert - Routine Psychiatric Exam Present: normal affect Assessment and Plan (1) Hypotension Status: Acute Category: Medical Code(s): I95.9 - Hypotension, unspecified (2) CHF (congestive heart failure) Status: Chronic Qualifiers: Heart failure type: unspecified Heart failure chronicity: chronic Qualified Code(s): I50.9 - Heart failure, unspecified Category: Medical Code(s): I50.9 - Heart failure, unspecified (3) CVA (cerebral vascular accident) Status: Chronic Qualifiers: CVA mechanism: unspecified Qualified Code(s): I63.9 - Cerebral infarction, unspecified Category: Medical Code(s): I63.9 - Cerebral infarction, unspecified (4) Cardiomyopathy Status: Chronic Qualifiers: Cardiomyopathy type: unspecified Qualified Code(s): I42.9 - Cardiomyopathy, unspecified Category: Medical Code(s): I42.9 - Cardiomyopathy, unspecified (5) Diabetes Status: Chronic Qualifiers: Diabetes mellitus type: type 2 Diabetes mellitus buttermaker continuous churn insulin use: with buttermaker continuous churn use Diabetes mellitus complication status: with other specified complication Qualified Code(s): E11.69 - Type 2 diabetes mellitus with other specified complication; Z79.4 - exterminator termite (current) use of insulin Category: Medical Code(s): E11.9 - Type 2 diabetes mellitus without complications (6) Edema Status: Chronic Qualifiers: Edema type: localize
[2020-03-01 13:57] LABS: POC Glucose,Bedside 237 (70-110)
[2020-03-01 16:37] LABS: POC Glucose,Bedside 268 (70-110)
--- NOTE | 2020-03-01 19:02 | PC.NURSE ---
Pt alert and oriented x 3 person, place and situation. CB in reach and family member at bedside intermittently. Did hold some of afternoon meds r/t sleeping. VSS. Lungs cta, bs x 4 S1,S2. No c/o at this time. Continue with IV ABT.
--- NOTE | 2020-03-01 20:30 | PC.NURSE ---
nurse made aware of blood pressure
[2020-03-01 21:15] LABS: POC Glucose,Bedside 286 (70-110)
[2020-03-02] VITALS: BP 123/75; PULSE 80; PULSE 85; RESP 18; TEMP 36.9; O2SAT 98
[2020-03-02 04:00] VITALS: BP 130/78; PULSE 83; PULSE 90; RESP 18; TEMP 36.9; O2SAT 94
--- NOTE | 2020-03-02 04:44 | PC.NURSE ---
No acute changes. Pt's heels floated on pillow and pt turned Q2H to prevent skin breakdown. BP has been WDL. Pt A&Ox3. Family present at bedside throughout shift.
[2020-03-02 05:00] VITALS: BMI 28.2
[2020-03-02 06:35] LABS: POC Glucose,Bedside 200 (70-110)
[2020-03-02 07:37] VITALS: BP 121/90; PULSE 84; RESP 16; TEMP 36.4; O2SAT 96
--- NOTE | 2020-03-02 07:43 | HMH.PNCARD ---
Subjective Date: 03/02/20 Time: 07:43 Principal diagnosis: Hypotension Interval history: 49 yo WM in bed in NAD. No complaints of chest pain or SOA. Results of CTA of chest and carotid u/s reviewed with pt and mother. Tolerating low dose lisinopril and metoprolol. Exam Vital signs and Labs for Last 24 Hours: Temp Pulse Resp BP Pulse Ox 97.6 F 84 16 121/90 96 03/02/20 07:37 03/02/20 07:37 03/02/20 07:37 03/02/20 07:37 03/02/20 07:37 Laboratory Results - last 24 hr 02/28/20 16:30: Urine Color Yellow, Urine Appearance Clear, Urine pH 7.5, Ur Specific [place] 1.015, Urine Protein Negative, Urine Glucose (UA) Negative, Urine Ketones Negative, Urine Blood Negative, Urine Nitrate Negative, Urine Bilirubin Negative, Urine Urobilinogen 4.0, Ur Leukocyte Esterase Trace, Urine RBC Occasional, Urine WBC Occasional 03/01/20 11:42: POC Glucose 237 H 03/01/20 16:06: POC Glucose 268 H 03/01/20 21:03: POC Glucose 286 H 03/02/20 06:08: POC Glucose 200 H I & O for Last 24 hours: Intake & Output 02/28/20 02/29/20 03/01/20 03/02/20 11:59 11:59 11:59 11:59 Intake Total 5000 / 5000 1000 / 1000 2222 / 2222 Output Total 4625 / 4625 4160 / 4160 3825 / 3825 Balance 375 / 375 -3160 / -3160 -1603 / -1603 Weight 215 lb 9 oz 215 lb 5 oz 208 lb 5 oz Microbiology Reports for the Last 24 Hours: Microbiology 02/28/20 16:30 Urine,Catheterized Urine Culture - Final Corynebacterium striatum 02/28/20 16:20 Blood Blood Culture - Preliminary NO GROWTH AFTER 48 HOURS 02/28/20 16:20 Blood Blood Culture - Preliminary NO GROWTH AFTER 48 HOURS - Constitutional no acute distress - *Routine HEENT Exam Head: Present: normocephalic Eye: Present: EOMI, PERRL ENT: Present: mucous membranes moist - *Routine Neck Exam Present: supple. Absent: lymphadenopathy - *Routine Respiratory Exam Present: CTA bilaterally - *Routine Cardiovascular Exam Present: RRR - *Routine Abdominal Exam Present: soft, normoactive bowel sounds. Absent: tenderness - *Routine Extremities Exam Absent: cyanosis, clubbing, edema - *Routine Skin Exam Present: warm. Absent: rash - *Routine Neurological Exam Present: alert, oriented X3 Progress Note: A&P (1) Hypotension Status: Acute (2) CHF (congestive heart failure) Status: Chronic (3) CVA (cerebral vascular accident) Status: Chronic (4) Cardiomyopathy Status: Chronic (5) Diabetes Status: Chronic (6) Edema Status: Chronic (7) HHD (hypertensive heart disease) Status: Chronic (8) LV dysfunction Status: Chronic (9) Left-sided weakness Status: Chronic (10) Systolic CHF Status: Chronic (11) Hyponatremia Status: Acute Assessment and Plan for All Diagnoses:: 1. Hypotension, resolved with IVF and holding meds temporarily. Tolerating low dose cardiac meds at this time. 2. NICM with LVEF 50% at this time. Continue low dose lisinopril and metoprolol. Will hold off on diuretic at this time since fluids at minimal dose and he still has negative fluid balance, but ok to use PRN. 3. History of CVA with Left sided weakness, on ASA and plavix. 4. SAMUEL with u/s showing bilateral 20-49% ICA stenosis. 5. DM, per PCP 6. HLD, on statin. Nothing further to add. Please call if needed. Follow up in our office in 2-4 wks.
[2020-03-02 08:00] VITALS: PULSE 90; O2SAT 96
--- NOTE | 2020-03-02 08:32 | HMH.DCSUM ---
General - General Admission date:: 02/28/20 Discharge date: 03/02/20 HPI HPI: The patient is a 49-year-old male with a history of ischemic stroke with significant residual deficits currently residing in a group home. Patient was recently seen here at [facility] and was septic from urinary tract infection. He is currently taking Levaquin for this. He was at his group home today when he was found to be diaphoretic and hypotensive. Patient thinks he may have had too much blood pressure medication or pain medication. Currently states he feels generally unwell, however has no specific symptoms. No other complaints. The patient is a 49-year-old male with a history of stroke who resides in a group home who presents the emergency department today with hypotension, weakness, and generally feeling unwell. Primarily concern for sepsis versus overmedication. Broad labs ordered, vancomycin, Zosyn blood cultures, chest x-ray ordered. Given 2 L of IV fluids for hypotension with systolics in the 80s on arrival. No obvious etiology for the patient's hypotension at this time. Septic without a source. Differential still includes infection versus overmedication. Blood pressure improved after IV fluid resuscitation. Admit Above is from ER report. Known to our service from recent admission. Young man with history of cva and residual L hemiparesis. Family relays that this was a vascular occlusive issue and not an embolic issue. He has been followed by Dr Salcido. During most recent admit he cultured morganella, which was sensitive to rocephin and levaquin. He was dc'd on Levaquin at an approp dosage. Blood cultures were negative at last admission. Evelio pressure 77/52 in ER, has been normotensive this morning. He is somnolent at baseline, awakens and answers questions appropriately. He is emotionally labile as a sequel to his cerebrovascular event. Previous cardiac imaging has shown hypokinesis with an ef 30 pct. He has also been cath'd. Of note flomax is on his MAR from the facility. Lactate was normal at 1.6 Previously covid Ig-g positive, now negative IgG/IgM Hospital Course Hospital Course: The patient is a 49-year-old male with a history of ischemic stroke with significant residual deficits currently residing in a group home. Patient was recently seen here at [facility] and was septic from urinary tract infection. He is currently taking Levaquin for this. He was at his group home today when he was found to be diaphoretic and hypotensive. Patient thinks he may have had too much blood pressure medication or pain medication. Currently states he feels generally unwell, however has no specific symptoms. No other complaints. The patient is a 49-year-old male with a history of stroke who resides in a group home who presents the emergency department today with hypotension, weakness, and generally feeling unwell. Primarily concern for sepsis versus overmedication. Broad labs ordered, vancomycin, Zosyn blood cultures, chest x-ray ordered. Given 2 L of IV fluids for hypotension with systolics in the 80s on arrival. No obvious etiology for the patient's hypotension at this time. Septic without a source. Differential still includes infection versus overmedication. Blood pressure improved after IV fluid resuscitation. Admit Above is from ER report. Known to our service from recent admission. Young man with history of cva and residual L hemiparesis. Family relays that this was a vascular occlusive issue and not an embolic issue. He has been followed by Dr Salcido. During most recent admit he cultured morganella, which was sensitive to rocephin and levaquin. He was dc'd on Levaquin at an approp dosage. Blood cultures were negative at last admission. Evelio pressure 77/52 in ER, has been normotensive this morning. He is somnolent at baseline, awakens and answers questions appropriately. He is
[2020-03-02 09:41] LABS: Adenovirus,PCR Not Detected (NotDetected); Bordetella Pertussis Not Detected (NotDetected); Chlamydophila Pneumoniae, PCR Not Detected (NotDetected); Coronavirus 19, PCR Not Detected (NotDetected); Coronavirus 229E Not Detected (NotDetected); Coronavirus NL63 Not Detected (NotDetected); Coronavirus OC43 Not Detected (NotDetected); Coronovirus HKU1,PCR Not Detected (NotDetected); Human Metapneumovirus Not Detected (NotDetected); Influenza A, PCR Not Detected (NotDetected); Influenza AH1, 2009 Not Detected (NotDetected); Influenza AH1, PCR Not Detected (NotDetected); Influenza AH3,PCR Not Detected (NotDetected); Influenza B, PCR Not Detected (NotDetected); Mycoplasma Pneumoniae, PCR Not Detected (NotDetected); Parainfluenza 1, PCR Not Detected (NotDetected); Parainfluenza 2, PCR Not Detected (NotDetected); Parainfluenza 3, PCR Not Detected (NotDetected); Parainfluenza 4, PCR Not Detected (NotDetected); Respiratory Syncytial Virus Not Detected (NotDetected); Rhinovirus/Enterovirus Not Detected (NotDetected)
[2020-03-02 11:49] VITALS: BP 106/72; PULSE 82; RESP 18; TEMP 36.6; O2SAT 96
[2020-03-03 08:29] LABS: POC Glucose,Bedside 317 (70-110)
[2020-03-04 15:24] LABS: Free Valproic Acid (Depakote) 13.4
== END 2020-03-02 14:30 ==
LOC: ER 16:34 → 2ND 18:56
PROVIDERS: Family Medicine; Nurse Practitioner Family; Admitting Provider Internal Medicine Adolescent Medicine; Emergency Provider Emergency Medicine; PCP Emergency Medicine; Visit Provider Emergency Medicine
DX: I95.9 Hypotension, unspecified (principal); I11.0 Hypertensive heart disease with heart failure; I50.22 Chronic systolic (congestive) heart failure; E78.5 Hyperlipidemia, unspecified; Z72.0 Tobacco use; I25.10 Atherosclerotic heart disease of native coronary artery without angina pectoris; E11.9 Type 2 diabetes mellitus without complications; I42.9 Cardiomyopathy, unspecified; E87.1 Hypo-osmolality and hyponatremia; Z79.4 Long term (current) use of insulin; Z79.02 Long term (current) use of antithrombotics/antiplatelets; Z79.82 Long term (current) use of aspirin; I69.354 Hemiplegia and hemiparesis following cerebral infarction affecting left non-dominant side; N39.0 Urinary tract infection, site not specified; R26.81 Unsteadiness on feet
CPT/HCPCS: 71045; 71275; 80048; 80053; 80165; 81001; 82140; 82803; 82962; 83605; 83880; 84484; 85025; 86328; 87040; 87086; 87088; 87581; 87633; 87798; 93005; 93306; 93880; 96365; 96366; 99285; G0378; Q9967; U0003

== ENCOUNTER → 2020-04-02 20:47 | Outpatient (CLI) | payer MEDICARE, MEDICAID, SELFPAY | PROVIDERS: PCP Emergency Medicine; Visit Provider Emergency Medicine | DX: U07.1 COVID-19 (principal) | CPT/HCPCS: U0003 ==

== ENCOUNTER 2020-04-09 13:24 | Emergency (ER) | payer MEDICARE, MEDICAID, SELFPAY ==
[2020-04-09] VITALS (7 sets, daily range): BP systolic 107–180; BP diastolic 70–98; PULSE 84–98; RESP 18–20; TEMP 36.6; O2SAT 97–99; BMI 25.8
--- NOTE | 2020-04-09 13:27 | HMH.EDGENADL ---
ED Disposition Clinical Impression: Opioid overdose Qualifiers: Encounter type: initial encounter Injury intent: accidental or unintentional Qualified Code(s): T40.2X1A - Poisoning by other opioids, accidental (unintentional), initial encounter Disposition: Xfer Other Condition on Discharge: Good Additional Instructions: Please only use prescribed narcotic pain medicine for breakthrough pain. Return immediately if any new or recurrent symptoms. - Critical Care Critical Care Time: No Attestation: On , the high probability of a clinically significant, sudden or life threatening deterioration of the following system(s) required my full and direct attention, intervention and personal management. The time I documented below is in addition to time spent performing reported procedures but includes the following listed in this critical care notation. Medical Decision Making - Medical Records Medical records reviewed: Yes: I reviewed the patient's medical records. - Scooter Inquiry Pt receiving controlled substance: No Vital Signs: 04/09/20 13:24 Temperature 97.9 F Temperature Source Oral Pulse Rate [Left Radial] 98 H Respiratory Rate 18 Blood Pressure [Right Arm] 166/90 H Blood Pressure Mean [Right Arm] 115 Blood Pressure Source [Right Arm] Automatic Cuff Blood Pressure Position [Right Arm] Sitting 02 Sat by Pulse Oximetry 99 Oxygen Delivery Method Room Air - Lab Data Lab Results 04/09/20 13:25: WBC 6.1, RBC 4.43 L, Hgb 13.7 L, Hct 39.9 L, MCV 89.9, MCH 30.9, MCHC 34.4, RDW 15.0, Plt Count 147, MPV 8.1, Neut % (Auto) 60.0, Lymph % (Auto) 23.5, [place] % (Auto) 12.7 H, Eos % (Auto) 3.1, Baso % (Auto) 0.7, Neut # (Auto) 3.7, Lymph # (Auto) 1.4, [place] # (Auto) 0.8, Eos # (Auto) 0.2, Baso # (Auto) 0.0 04/09/20 13:25: Sodium 131 L, Potassium 3.7, Chloride 95 L, Carbon Dioxide 28, Anion Gap 11.7, BUN 4 L, Creatinine 0.80, Estimated GFR 103, Est GFR ( Amer) 124, Glucose 124 H, Calcium 9.6, Total Bilirubin 0.7, AST 29, ALT 18, Alkaline Phosphatase 66, Total Protein 7.2, Albumin 4.0, Globulin 3.2, Albumin/Globulin Ratio 1.3 Result diagrams: 04/09/20 13:25 04/09/20 13:25 Medical Decision Narrative: Patient is a 49-year-old male presenting after suspected opioid overdose. Patient is prescribed opioid medicine for chronic back pain. He states he may have taken too much earlier today. EMS arrived he did have pinpoint pupils with agonal respiration with immediate response to 2 mg IV Narcan. At this time, patient is hemodynamically stable and will be kept on cardiac monitors and observed throughout emergency department stay. Basic lab test will be checked to ensure no hematologic or metabolic derangement. Lab work unremarkable. Patient observed for 3+ hours in the ER without any decreased respirations/hypoxia. He is fully coherent tolerates p.o. fluids without difficulty. At this time, I do believe patient is safe to be discharged back to his facility. He agrees. He will take his prescribed pain medicine as prescribed only for breakthrough pain. He will immediate return if any new or worsening symptoms. Patient agrees with the above listed plan. Report called to facility and all parties are in agreement for transfer back to facility. Assessment: Opioid overdose Chronic back pain Disposition: Back to [facility] General Adult HPI - General Stated complaint: lethargic Time Seen by Provider: 04/09/20 13:24 - History of Present Illness HPI narrative: Patient is a 49-year-old man history of chronic back pain on oxycodone presenting with lethargy. Patient presents from [facility] after being minimally responsive. He does take oxycodone for pain medicine and on EMS arrival he did have pinpoint pupils and agonal respiration. Patient was given 2 mg of IV Narcan and had immediate improvement in his mental status. He now currently is answering questions and states he thinks he may have taken to
[2020-04-09 13:38] LABS: Basophils % 0.7 % (0.1-2.0); Eosinophils # 0.2 K/mm3 (0.0-0.4); Eosinophils % 3.1 % (0.1-12.0); Hematocrit 39.9 % (42.0-52.0); Hemoglobin 13.7 g/dL (14.1-18.0); Lymphocytes # 1.4 K/mm3 (0.7-4.5); Lymphocytes % 23.5 % (10-50); Mean Corpuscular HGB Conc 34.4 g/dL (31.8-35.4); Mean Corpuscular Hemoglobin 30.9 pg (27.0-31.2); Mean Corpuscular Volume 89.9 fl (80-94); Mean Platelet Volume 8.1 fl (7.4-10.4); Monocytes # 0.8 K/mm3 (0.1-1.0); Monocytes % 12.7 % (1.7-9.3); Neutrophils # 3.7 K/mm3 (1.8-7.8); Platelet Count 147 K/mm3 (142-424); Red Blood Count 4.43 M/mm3 (4.60-6.20); White Blood Count 6.1 K/mm3 (4.8-10.8)
[2020-04-09 13:47] LABS: Chloride 95 mmol/L (98-107); Potassium 3.7 mmoL/L (3.5-5.1); Sodium 131 mmol/L (136-145)
[2020-04-09 13:49] LABS: Alanine Aminotransferase 18 U/L (12-78); Aspartate Amino Transferase 29 U/L (17-59); Blood Urea Nitrogen 4 mg/dl (9-20); Estimated Glomerular Filt Rate 103 ml/min (>60); GFR (African American) 124 ML/MIN (>60)
[2020-04-09 13:50] LABS: Albumin/Globulin Ratio 1.3 (1.1-1.8); Alkaline Phosphatase 66 U/L (38-126); Anion Gap 11.7 mEq/L (5-15); Bilirubin,Total 0.7 mg/dl (0.2-1.3); Calcium 9.6 mg/dl (8.4-10.2); Carbon Dioxide 28 mmol/L (22.0-30.0); Globulin 3.2 g/dL (1.3-3.2); Glucose 124 mg/dl (74-100); Total Protein,Serum 7.2 g/dl (6.3-8.2)
--- NOTE | 2020-04-09 16:00 | PC.NURSE ---
SPOKE WITH PT'S MOTHER (IRINA) AND WENT OVER PT'S D/C INSTRUCTIONS.
--- NOTE | 2020-04-09 16:25 | PC.NURSE ---
Report called to Mirta at [facility]
== END 2020-04-09 17:16 | disposition other institution (70) ==
PROVIDERS: Emergency Provider Emergency Medicine; PCP Emergency Medicine
DX: T40.2X1A Poisoning by other opioids, accidental (unintentional), initial encounter (principal); M54.5 Low back pain; F20.9 Schizophrenia, unspecified; E11.9 Type 2 diabetes mellitus without complications; I25.10 Atherosclerotic heart disease of native coronary artery without angina pectoris; E78.5 Hyperlipidemia, unspecified; I10 Essential (primary) hypertension; Z79.899 Other long term (current) drug therapy; F17.210 Nicotine dependence, cigarettes, uncomplicated
CPT/HCPCS: 80053; 85025; 99284

== ENCOUNTER → 2020-08-10 14:23 | Outpatient (CLI) | payer MEDICARE, MEDICAID, SELFPAY ==
[2020-08-10 14:52] LABS: Hemoglobin A1C 7.9 % (4.0-6.0)
== END ==
PROVIDERS: Visit Provider Emergency Medicine
DX: E11.9 Type 2 diabetes mellitus without complications (principal); Z79.4 Long term (current) use of insulin
CPT/HCPCS: 83036

== ENCOUNTER → 2020-09-28 13:45 | Outpatient (CLI) | payer MEDICARE, MEDICAID, SELFPAY ==
[2020-09-30 12:57] LABS: Adenovirus F 40/41, stool Not Detected (NotDetected); Astrovirus Not Detected (NotDetected); Campylobacter Not Detected (NotDetected); Clostridium Difficile A/B, PCR Not Detected (NotDetected); Cryptosporidium Not Detected (NotDetected); Cyclospora Cayetanesis Not Detected (NotDetected); Entamoeba histolytica Not Detected (NotDetected); Enteroaggregative E coli Not Detected (NotDetected); Enterotoxigenic E coli Not Detected (NotDetected); Giardia lamblia Not Detected (NotDetected); Norovirus Not Detected (NotDetected); Plesimonas Shigalloides, PCR Not Detected (NotDetected); Rotavirus A Not Detected (NotDetected); Salmonella, PCR Not Detected (NotDetected); Sapovirus Not Detected (NotDetected); Shiga-like toxin E coli Not Detected (NotDetected); Shigella Enterovasive E coli Not Detected (NotDetected); Vibrio Cholerae Not Detected (NotDetected); Vibrio, PCR Not Detected (NotDetected); Yersinia Entercolitica, PCR Not Detected (NotDetected)
[2020-10-05 13:37] LABS: Enteropathogenic E coli Detected (NotDetected)
== END ==
PROVIDERS: Visit Provider Emergency Medicine
DX: R19.7 Diarrhea, unspecified (principal); A04.0 Enteropathogenic Escherichia coli infection
CPT/HCPCS: 87506

== ENCOUNTER → 2020-10-06 18:16 | Outpatient (CLI) | payer MEDICARE, MEDICAID, SELFPAY | PROVIDERS: Visit Provider Emergency Medicine | DX: R05 Cough (principal) | CPT/HCPCS: 87070; 87077; 87186; 87205 ==

== ENCOUNTER → 2020-11-24 13:34 | Outpatient (CLI) | payer MEDICARE, MEDICAID, SELFPAY ==
--- NOTE | 2020-11-24 13:38 | XR_ITS ---
PROCEDURE: XR KNEE LT 2V CLINICAL INDICATION: left knee edema COMPARISON: No exams were available for comparison FINDINGS: No fracture or dislocation. No lytic or blastic change. There is normal mineralization. There is slight decrease in the joint space medially and at the patellofemoral joint suggesting minimal or early osteoarthritic change. Other findings:Generalized vascular calcification. IMPRESSION: Minimal osteoarthritic change otherwise negative Dictated by: Hudson Magaña MD 11/24/2020 14:27 Hudson Magaña MD in [place] 11/24/2020 14:27
== END ==
PROVIDERS: PCP Emergency Medicine; Visit Provider Urology
DX: M25.462 Effusion, left knee (principal)
CPT/HCPCS: 73560

== ENCOUNTER → 2020-12-16 14:13 | Outpatient (CLI) | payer MEDICARE, MEDICAID, SELFPAY ==
[2020-12-16 14:18] LABS: Adenovirus F 40/41, stool Not Detected (NotDetected); Astrovirus Not Detected (NotDetected); Campylobacter Not Detected (NotDetected); Clostridium Difficile A/B, PCR Not Detected (NotDetected); Cryptosporidium Not Detected (NotDetected); Cyclospora Cayetanesis Not Detected (NotDetected); Entamoeba histolytica Not Detected (NotDetected); Enteroaggregative E coli Not Detected (NotDetected); Enteropathogenic E coli Not Detected (NotDetected); Enterotoxigenic E coli Not Detected (NotDetected); Giardia lamblia Not Detected (NotDetected); Norovirus Not Detected (NotDetected); Plesimonas Shigalloides, PCR Not Detected (NotDetected); Rotavirus A Not Detected (NotDetected); Salmonella, PCR Not Detected (NotDetected); Sapovirus Not Detected (NotDetected); Shiga-like toxin E coli Not Detected (NotDetected); Shigella Enterovasive E coli Not Detected (NotDetected); Vibrio Cholerae Not Detected (NotDetected); Vibrio, PCR Not Detected (NotDetected); Yersinia Entercolitica, PCR Not Detected (NotDetected)
== END ==
PROVIDERS: Visit Provider Family Medicine
DX: R19.7 Diarrhea, unspecified (principal)
CPT/HCPCS: 87506

== ENCOUNTER → 2020-12-20 12:37 | Outpatient (CLI) | payer MEDICARE, MEDICAID, SELFPAY ==
[2020-12-20 13:09] LABS: Basophils # 0.1 K/mm3 (0-0.2); Basophils % 0.9 % (0.1-2.0); Eosinophils # 0.1 K/mm3 (0.0-0.4); Eosinophils % 0.7 % (0.1-12.0); Hematocrit 47.8 % (42.0-52.0); Hemoglobin 15.9 g/dL (14.1-18.0); Lymphocytes # 1.3 K/mm3 (0.7-4.5); Lymphocytes % 15.7 % (10-50); Mean Corpuscular HGB Conc 33.3 g/dL (31.8-35.4); Mean Corpuscular Hemoglobin 31.2 pg (27.0-31.2); Mean Corpuscular Volume 93.8 fl (80-94); Mean Platelet Volume 7.7 fl (7.4-10.4); Monocytes # 0.8 K/mm3 (0.1-1.0); Monocytes % 9.5 % (1.7-9.3); Neutrophils # 5.9 K/mm3 (1.8-7.8); Neutrophils % 73.3 % (37.0-80.0); Platelet Count 210 K/mm3 (142-424); Red Cell Distribution Width 15.3 % (11.5-17.5)
[2020-12-20 13:54] LABS: Alanine Aminotransferase 153 U/L (12-78); Albumin Level 4.3 g/dl (3.5-5.0); Albumin/Globulin Ratio 1.6 (1.1-1.8); Alkaline Phosphatase 213 U/L (38-126); Amylase 56 U/L (30-110); Anion Gap 17.1 mEq/L (5-15); Aspartate Amino Transferase 80 U/L (17-59); Bilirubin,Total 0.7 mg/dl (0.2-1.3); Blood Urea Nitrogen 10 mg/dl (9-20); Calcium 9.9 mg/dl (8.4-10.2); Carbon Dioxide 27 mmol/L (22.0-30.0); Chloride 102 mmol/L (98-107); Chol/HDL Ratio 6.9 (1-3.5); Cholesterol 111 mg/dl (140-200); Estimated Glomerular Filt Rate 143 ml/min (>60); GFR (African American) 173 ML/MIN (>60); Globulin 2.7 g/dL (1.3-3.2); Glucose 114 mg/dl (74-100); HDL Cholesterol 16 mg/dl (40-60); Lipase 88 U/L (23-300); Potassium 4.1 mmoL/L (3.5-5.1); Sodium 142 mmol/L (136-145)
[2020-12-20 13:58] LABS: Triglycerides 457 mg/dl (30-150)
[2020-12-20 14:05] LABS: Direct LDL Cholesterol 47.91 mg/dL (100-129)
[2020-12-20 15:07] LABS: Hemoglobin A1C 5.5 % (4.0-6.0)
== END ==
PROVIDERS: Visit Provider Family Medicine
DX: E11.9 Type 2 diabetes mellitus without complications (principal); R19.7 Diarrhea, unspecified; Z79.4 Long term (current) use of insulin
CPT/HCPCS: 36415; 80053; 80061; 82150; 83036; 83690; 84443; 85025

== ENCOUNTER 2021-05-08 12:52 | Inpatient (IN) | payer MEDICARE, MEDICAID, SELFPAY ==
[2021-05-08] VITALS (10 sets, daily range): BP systolic 92–157; BP diastolic 57–83; PULSE 79–93; RESP 16–18; TEMP 36.6–36.8; O2SAT 92–97; BMI 30.7; BMI 27.6
--- NOTE | 2021-05-08 13:02 | XR_ITS ---
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 Views: 1 or 2 views. COMPARISON: CR XR KNEE LT 2V 11/24/2020 1:40 PM FINDINGS: Bones/joints: Osteopenia of. Degenerative changes in the tarsal bones and IP joint and 1st metatarsal-phalangeal joint. There is no evidence of acute fracture.There is no evidence of malalignment or dislocation. Soft tissues: Normal. IMPRESSION: There is no evidence of acute fracture.There is no evidence of malalignment or dislocation.
--- NOTE | 2021-05-08 13:02 | XR_ITS ---
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 Views: 2 or more views. COMPARISON: CR [id number] XR shoulder LT min 2V 06/13/2018 6:39 PM FINDINGS: Bones/joints: Degenerative changes in the acromioclavicular joint and glenohumeral joint. There is no evidence of acute fracture.There is no evidence of malalignment or dislocation. Soft tissues: Normal. IMPRESSION: There is no evidence of acute fracture.There is no evidence of malalignment or dislocation.
--- NOTE | 2021-05-08 13:02 | XR_ITS ---
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 Views: 1 view. COMPARISON: CR XR CHEST PORTABLE 02/28/2020 4:34 PM FINDINGS: Lungs: Unremarkable. No consolidation. Pleural spaces: Unremarkable. No pleural effusion. No pneumothorax. Heart/Mediastinum: Unremarkable. No cardiomegaly. Bones/joints: Unremarkable. IMPRESSION: No acute findings.
--- NOTE | 2021-05-08 13:02 | XR_ITS ---
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 Views: 2 or 3 views hip with pelvis when performed. COMPARISON: CR PEL1V XR pelvis 1-2V 04/17/2018 8:03 PM FINDINGS: Bones/joints: The left femoral neck is obscured by overlying greater trochanter. There is lucency intertrochanteric region of the left hip. This may represent nondisplaced fracture Soft tissues: Soft tissue swelling of the left hip IMPRESSION: The left femoral neck is obscured by overlying greater trochanter. There is lucency intertrochanteric region of the left hip. This may represent nondisplaced fracture
--- NOTE | 2021-05-08 13:02 | CT_ITS ---
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 TECHNIQUE: Imaging protocol: Computed tomography of the head without contrast. Radiation optimization: All CT scans at this facility use at least one of these dose optimization techniques: automated exposure control; mA and/or kV adjustment per patient size (includes targeted exams where dose is matched to clinical indication); or iterative reconstruction. COMPARISON: CT CERVICAL SPINE WO CON 05/08/2021 1:24 PM FINDINGS: Brain: There is an old right MCA territory infarct. There is low attenuation abnormality in the periventricular white matter consistent with chronic microvascular ischemic changes. Cerebral ventricles: There are small foci of high density paralleling the lateral margin of the right lateral ventricle consistent with small dystrophic calcifications rather than blood products in this post trauma patient. Paranasal sinuses: There is mild sinus disease. Mastoid air cells: Visualized mastoid air cells are well aerated. Vasculature: There is moderate intracranial vascular calcification. Bones/joints: Postsurgical changes are noted involving the facial bones related to prior fractures. There is a nasal bone fracture which could be acute and should be correlated clinically. Please correlate with surgical history. Soft tissues: Unremarkable. IMPRESSION: 1. There are small foci of high density paralleling the lateral margin of the right lateral ventricle consistent with small dystrophic calcifications. The possibility of small foci of blood products in this post trauma patient is considered much less likely but cannot be reliably excluded without prior studies for comparison purposes. Direct comparison to prior exams is therefore recommended. In the absence of prior studies for comparison purposes, followup imaging is recommended. 2. There is an old right MCA territory infarct. 3. There is low attenuation abnormality in the periventricular white matter consistent with chronic microvascular ischemic changes. If an acute infarct is a clinical concern, follow-up MRI with diffusion imaging is recommended. 4. Nasal bone fracture, chronic or acute. Please correlate clinically. Postsurgical changes facial bones.
--- NOTE | 2021-05-08 13:04 | CT_ITS ---
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 TECHNIQUE: Imaging protocol: Computed tomography images of the cervical spine without contrast. Radiation optimization: All CT scans at this facility use at least one of these dose optimization techniques: automated exposure control; mA and/or kV adjustment per patient size (includes targeted exams where dose is matched to clinical indication); or iterative reconstruction. COMPARISON: CR [id number] XR cervical spine 5V 06/06/2017 9:50 PM FINDINGS: Bones/joints: No acute fracture. Discs/Spinal canal/Neural foramina: There are mild multilevel degenerative changes that include disc space narrowing, uncovertebral joint arthropathy, and hypertrophic spur formation. Lungs: Lung apices are normal. Vasculature: There are calcified atherosclerotic changes of the cervical carotid arteries. Soft tissues: Unremarkable. Other findings: Examination is limited due to patient positioning. IMPRESSION: 1. Examination is limited due to patient positioning. There may also be a degree of cervical scoliosis, please correlate clinically. Within the limitations of this exam, no acute posttraumatic abnormalities are identified. 2. There are mild multilevel degenerative changes that include disc space narrowing, uncovertebral joint arthropathy, and hypertrophic spur formation.
--- NOTE | 2021-05-08 14:00 | HMH.EDGENADL ---
ED Disposition Clinical Impression: Closed left hip fracture Qualifiers: Encounter type: initial encounter Qualified Code(s): S72.002A - Fracture of unspecified part of neck of left femur, initial encounter for closed fracture Contusion of left shoulder Qualifiers: Encounter type: initial encounter Qualified Code(s): S40.012A - Contusion of left shoulder, initial encounter Disposition: Admitted As Inpatient Condition on Discharge: Fair Referrals: Ekaterina Hurtado MD [Primary Care Provider] - - Critical Care Critical Care Time: No Attestation: On 05/08/21, the high probability of a clinically significant, sudden or life threatening deterioration of the following system(s) required my full and direct attention, intervention and personal management. The time I documented below is in addition to time spent performing reported procedures but includes the following listed in this critical care notation. Medical Decision Making - Scooter Inquiry Pt receiving controlled substance: Yes Scooter was queried for this patient: Yes Reason not queried -: Scooter login issues Risks and benefits of using a controlled substance: were not discussed with pt by me Vital Signs: 05/08/21 12:52 05/08/21 14:08 05/08/21 14:15 Temperature 98.2 F Temperature Source Oral Pulse Rate 91 H Pulse Rate [Left Radial] 87 Respiratory Rate 18 Blood Pressure 94/72 L 145/80 H Blood Pressure [Right Arm] 92/57 L Blood Pressure Mean 78 101 Blood Pressure Mean [Right Arm] 68 Blood Pressure Source [Right Arm] Automatic Cuff Blood Pressure Position [Right Arm] Sitting 02 Sat by Pulse Oximetry 93 L 94 L Oxygen Delivery Method Room Air 05/08/21 14:30 05/08/21 15:00 Temperature Temperature Source Pulse Rate Pulse Rate [Left Radial] Respiratory Rate Blood Pressure 144/83 H 139/73 Blood Pressure [Right Arm] Blood Pressure Mean Blood Pressure Mean [Right Arm] Blood Pressure Source [Right Arm] Blood Pressure Position [Right Arm] 02 Sat by Pulse Oximetry Oxygen Delivery Method - Lab Data Lab Results 05/08/21 14:35: WBC 10.6, RBC 4.90, Hgb 15.6, Hct 45.2, MCV 92.2, MCH 31.7 H, MCHC 34.4, RDW 14.1, Plt Count 230, MPV 7.8, Neut % (Auto) 81.9 H, Lymph % (Auto) 8.4 L, [place] % (Auto) 6.7, Eos % (Auto) 2.4, Baso % (Auto) 0.6, Neut # (Auto) 8.7 H, Lymph # (Auto) 0.9, [place] # (Auto) 0.7, Eos # (Auto) 0.3, Baso # (Auto) 0.1 05/08/21 14:35: Sodium 133 L, Potassium 4.1, Chloride 99, Carbon Dioxide 23, Anion Gap 15.1 H, BUN 8 L, Creatinine 0.70, Estimated Creat Clear 164, Estimated GFR 119, Est GFR ( Amer) 144, Glucose 134 H, Calcium 9.5, Total Bilirubin 1.0, AST 31, ALT 37, Alkaline Phosphatase 60, Total Protein 8.6 H, Albumin 5.2 H, Globulin 3.4 H, Albumin/Globulin Ratio 1.5 05/08/21 14:35: SARS-CoV-2 (PCR) Not detected, Influenza A Untype (PCR) Not detected, Influenza Type B (PCR) Not detected 05/08/21 14:35: Urine Color Yellow, Urine Appearance Clear, Urine pH 6.0, Ur Specific [place] 1.010, Urine Protein Negative, Urine Glucose (UA) Negative, Urine Ketones Negative, Urine Blood Negative, Urine Nitrate Negative, Urine Bilirubin Negative, Urine Urobilinogen 1.0, Ur Leukocyte Esterase Negative, Urine RBC None, Urine WBC None, Ur Squamous Epith Cells None, Urine Bacteria None Result diagrams: 05/08/21 14:35 05/08/21 14:35 Orders (Tests/Meds): ED MEDICATIONS Discontinued Medications Generic Name Dose Route Start Last Admin Trade Name Lb PRN Reason Stop Dose Admin Morphine Sulfate 4 mg 05/08/21 15:43 Morphine 4mg/Ml Syringe IV 05/08/21 15:44 ONCE ONE Ondansetron HCl 4 mg 05/08/21 15:43 Ondansetron 4mg/2ml Vial IV 05/08/21 15:44 ONCE ONE ORDERS Category Date Time Status Consult to Orthopedic Surgery [CONS] Stat Cons 05/08/21 15:41 Ordered - Radiology Data #1 Image(s): Chest, Shoulder, Hip, Foot/Toes Image Reviewed: Yes I reviewed the patient's radiology
[2021-05-08 14:42] LABS: Microscopic, Urine URINE MICROSCOPIC (MICROSCOPIC)
[2021-05-08 14:44] LABS: Coronavirus 19, PCR Not Detected (NotDetected); Influenza A, PCR Not Detected (NotDetected); Influenza B, PCR Not Detected (NotDetected)
[2021-05-08 14:49] LABS: Basophils # 0.1 K/mm3 (0-0.2); Basophils % 0.6 % (0.1-2.0); Eosinophils # 0.3 K/mm3 (0.0-0.4); Eosinophils % 2.4 % (0.1-12.0); Hematocrit 45.2 % (42.0-52.0); Hemoglobin 15.6 g/dL (14.1-18.0); Lymphocytes # 0.9 K/mm3 (0.7-4.5); Lymphocytes % 8.4 % (10-50); Mean Corpuscular HGB Conc 34.4 g/dL (31.8-35.4); Mean Corpuscular Hemoglobin 31.7 pg (27.0-31.2); Mean Corpuscular Volume 92.2 fl (80-94); Mean Platelet Volume 7.8 fl (7.4-10.4); Monocytes # 0.7 K/mm3 (0.1-1.0); Monocytes % 6.7 % (1.7-9.3); Neutrophils # 8.7 K/mm3 (1.8-7.8); Neutrophils % 81.9 % (37.0-80.0); Platelet Count 230 K/mm3 (142-424); Red Cell Distribution Width 14.1 % (11.5-17.5); White Blood Count 10.6 K/mm3 (4.8-10.8)
[2021-05-08 14:50] LABS: Chloride 99 mmol/L (98-107); Potassium 4.1 mmoL/L (3.5-5.1); Sodium 133 mmol/L (136-145)
[2021-05-08 14:53] LABS: Alanine Aminotransferase 37 U/L (12-78); Albumin Level 5.2 g/dl (3.5-5.0); Albumin/Globulin Ratio 1.5 (1.1-1.8); Alkaline Phosphatase 60 U/L (38-126); Anion Gap 15.1 mEq/L (5-15); Aspartate Amino Transferase 31 U/L (17-59); Blood Urea Nitrogen 8 mg/dl (9-20); Calcium 9.5 mg/dl (8.4-10.2); Carbon Dioxide 23 mmol/L (22.0-30.0); Creatinine Clearance Estimated 164 mL/min (50-200); Estimated Glomerular Filt Rate 119 ml/min (>60); GFR (African American) 144 ML/MIN (>60); Globulin 3.4 g/dL (1.3-3.2); Glucose 134 mg/dl (74-100); Total Protein,Serum 8.6 g/dl (6.3-8.2)
[2021-05-08 14:58] LABS: Appearance,Urine CLEAR (Clear); Bilirubin,Urine Negative (Negative); Blood, Urine Negative (Negative); Color,Urine YELLOW (Yellow); Glucose,Urine (UA) Negative (Negative); Ketones,Urine Negative (Negative); Leukocyte Esterase,Urine Negative (Negative); Nitrate,Urine Negative (Negative); Protein,Urine Negative (Negative)
--- NOTE | 2021-05-08 15:16 | ECG_ITS ---
APPROVED REPORT Exam: Resting ECG HR:86 bpm ECG Measurements Heart Rate 86 AXES ME 178 P 21 QRSd 98 QRS -10 QT 384 T 66 QTc 427 Conclusion SINUS RHYTHM SEPTAL MYOCARDIAL INFARCTION , OF INDETERMINATE AGE [40+ ms Q WAVE IN V1/V2] POSSIBLE LATERAL MYOCARDIAL INFARCTION , OF INDETERMINATE AGE [30 ms Q WAVE IN I/aVL/V5/V6] ABNORMAL ECG UNCONFIRMED REPORT Electronically signed by : Mckay Gomez MD 05/09/2021 18:00:00
--- NOTE | 2021-05-08 15:27 | PC.NURSE ---
has been paged
--- NOTE | 2021-05-08 15:32 | PC.NURSE ---
[facility] call center ortho called back at this time. Speaking with Dr. Willams
--- NOTE | 2021-05-08 15:39 | PC.NURSE ---
called for whoever is specimen accessioner for Dr. Hurtado. Awaiting call back at this time.
--- NOTE | 2021-05-08 15:42 | PC.NURSE ---
Dr. Hurtado called back at this time and is speaking with Dr. Willams
--- NOTE | 2021-05-08 15:42 | PC.NURSE ---
Spoke with house fellow about admission for Dr. Hurtado
--- NOTE | 2021-05-08 16:17 | PC.NURSE ---
report given to Alexandro MEIER
--- NOTE | 2021-05-08 19:26 | HMH.HP ---
[facility] History Medical History: Reports:: Congestive Heart Failure, Coronary Artery Disease, Cerebrovascular Accident, Diabetes Mellitus Type 2, Hyperlipidemia, Hypertension, Peripheral Vascular Disease, Renal Insufficiency, Transient Ischemic Attacks (TIA) Denies:: Cancer, Diabetes Mellitus Type 1, Internal Pacemaker, MRSA, Seizures *Have you ever received a pneumonia vaccine?: Yes *Have you received a flu vaccine this season?: Yes Other Medical History: Reports: Arthritis, Fibromyalgia, Other Other Surgeries: Yes: No Previous Surgery, Cardiac Catheterization, Cholecystectomy, Other. No: Pacemaker Amputation: No Fractures: No - *Social History Last grade of school completed: 11th or 12th Smoking Status: Current every day smoker Tobacco Type: cigarettes # Packs/Day (cigarettes): 1 #Yrs smoked (if former smoker): 20 Alcohol Intake: never Substance Use Type: denies use *Occupational Status:: disabled Housing: house Household Members: family *Travel in the last 8 weeks: None Family Hx:: Unable to obtain Review of Systems - *Neurologic Reports other (Chronic left hemiparesis) Meds Home Medications Medication Instructions Recorded Confirmed Type Ascorbic Acid [Vitamin C] 1,000 mg PO DAILY 02/29/20 05/08/21 History hydrocodone 5 mg-acetaminophen 325 1 tab PO BID PRN #60 tab 08/13/20 05/08/21 Rx mg tablet melatonin 5 mg tablet 5 mg PO HS #90 tab 10/12/20 05/08/21 Rx tamsulosin 0.4 mg capsule 0.4 mg PO HS #90 cap 10/12/20 05/08/21 Rx Aspirin [Low Dose Aspirin EC] 81 mg PO DAILY 05/08/21 05/08/21 History Atorvastatin Calcium [Lipitor 40mg 40 mg PO DAILY 05/08/21 05/08/21 History Tab] Clopidogrel Bisulfate [Plavix] 75 mg PO DAILY 05/08/21 05/08/21 History Divalproex Sodium 250 mg PO TID 05/08/21 05/08/21 History Furosemide [Furosemide 20mg Tab*] 20 mg PO DAILY 05/08/21 05/08/21 History Insulin Glargine,Hum.rec.anlog 25 unit SQ DAILY 05/08/21 05/08/21 History [Lantus Insulin 100units/mL 10mL vial] Linagliptin [Tradjenta] 5 mg PO DAILY 05/08/21 05/08/21 History Metformin HCl [Metformin 1000mg 1,000 mg PO DAILY 05/08/21 05/08/21 History Tablets] OLANZapine [Olanzapine] 20 mg PO DAILY 05/08/21 05/08/21 History Omeprazole 20 mg PO DAILY 05/08/21 05/08/21 History Trazodone HCl 50 mg PO QHS 05/08/21 05/08/21 History bisoproloL fumarate [Bisoprolol 5 mg PO QDAY 05/08/21 05/08/21 History Fumarate] calcium polycarbophiL [FiberCon 625 mg PO DAILY 05/08/21 05/08/21 History 625mg tablet] Allergies Allergy/AdvReac Type Severity Reaction Status Date / Time Fish Containing Products AdvReac Severe Verified 12/08/20 13:45 Exam Vital signs and Labs for Last 24 Hours: Temp Pulse Resp BP Pulse Ox 98.3 F 89 18 122/69 94 L 05/08/21 17:03 05/08/21 17:03 05/08/21 17:03 05/08/21 17:03 05/08/21 17:03 Laboratory Results - last 24 hr 05/08/21 14:35: WBC 10.6, RBC 4.90, Hgb 15.6, Hct 45.2, MCV 92.2, MCH 31.7 H, MCHC 34.4, RDW 14.1, Plt Count 230, MPV 7.8, Neut % (Auto) 81.9 H, Lymph % (Auto) 8.4 L, [place] % (Auto) 6.7, Eos % (Auto) 2.4, Baso % (Auto) 0.6, Neut # (Auto) 8.7 H, Lymph # (Auto) 0.9, [place] # (Auto) 0.7, Eos # (Auto) 0.3, Baso # (Auto) 0.1 05/08/21 14:35: Sodium 133 L, Potassium 4.1, Chloride 99, Carbon Dioxide 23, Anion Gap 15.1 H, BUN 8 L, Creatinine 0.70, Estimated Creat Clear 164, Estimated GFR 119, Est GFR ( Amer) 144, Glucose 134 H, Calcium 9.5, Total Bilirubin 1.0, AST 31, ALT 37, Alkaline Phosphatase 60, Total Protein 8.6 H, Albumin 5.2 H, Globulin 3.4 H, Albumin/Globulin Ratio 1.5 05/08/21 14:35: SARS-CoV-2 (PCR) Not detected, Influenza A Untype (PCR) Not detected, Influenza Type B (PCR) Not detected 05/08/21 14:35: Urine Color Yellow, Urine Appearance Clear, Urine pH 6.0, Ur Specific [place] 1.010, Urine Protein Negative, Urine Glucose (UA) Negative, Urine Ketones Negative, Urine Blood Negative, Urine Nitrate Negative, Urine Bilirubin Negative, Urine Urobilinogen 1.0, Ur Leukocyte
--- NOTE | 2021-05-08 19:27 | P.PN_ITS ---
Internal Medicine - PN: Subj *Date: 05/08/21 *Time: 19:27 Exam Vital signs and Labs for Last 24 Hours: Temp Pulse Resp BP Pulse Ox 98.3 F 89 18 122/69 94 L 05/08/21 17:03 05/08/21 17:03 05/08/21 17:03 05/08/21 17:03 05/08/21 17:03 Laboratory Results - last 24 hr 05/08/21 14:35: WBC 10.6, RBC 4.90, Hgb 15.6, Hct 45.2, MCV 92.2, MCH 31.7 H, MCHC 34.4, RDW 14.1, Plt Count 230, MPV 7.8, Neut % (Auto) 81.9 H, Lymph % (Auto) 8.4 L, [place] % (Auto) 6.7, Eos % (Auto) 2.4, Baso % (Auto) 0.6, Neut # (Auto) 8.7 H, Lymph # (Auto) 0.9, [place] # (Auto) 0.7, Eos # (Auto) 0.3, Baso # (Auto) 0.1 05/08/21 14:35: Sodium 133 L, Potassium 4.1, Chloride 99, Carbon Dioxide 23, Anion Gap 15.1 H, BUN 8 L, Creatinine 0.70, Estimated Creat Clear 164, Estimated GFR 119, Est GFR ( Amer) 144, Glucose 134 H, Calcium 9.5, Total Bilirubin 1.0, AST 31, ALT 37, Alkaline Phosphatase 60, Total Protein 8.6 H, Albumin 5.2 H , Globulin 3.4 H, Albumin/Globulin Ratio 1.5 05/08/21 14:35: SARS-CoV-2 (PCR) Not detected, Influenza A Untype (PCR) Not detected, Influenza Type B (PCR) Not detected 05/08/21 14:35: Urine Color Yellow, Urine Appearance Clear, Urine pH 6.0, Ur Specific [place] 1.010, Urine Protein Negative, Urine Glucose (UA) Negative, Urine Ketones Negative, Urine Blood Negative, Urine Nitrate Negative, Urine Bilirubin Negative, Urine Urobilinogen 1.0, Ur Leukocyte Esterase Negative, Urine RBC None, Urine WBC None, Ur Squamous Epith Cells None, Urine Bacteria None I & O for Last 24 hours: Intake & Output 05/06/21 05/07/21 05/08/21 05/09/21 11:59 11:59 11:59 11:59 Intake Total 240 / 240 Output Total 1200 / 1200 Balance -960 / -960 Weight 181 lb 8 oz
--- NOTE | 2021-05-08 19:28 | HMH.HP ---
*Admission Date: 05/08/21 *Chief complaint: Hip injury *History of present illness: This 50-year-old white male who has had a CVA with left hemiparesis is admitted from the emergency room with a left hip fracture. Apparently his mother was helping him get into the shower last night and he fell injuring his left shoulder and left hip. He has had pain in the left hip all day and he was brought to the emergency room for evaluation. He had multiple x-rays and scans in the emergency room. There was a nondisplaced intertrochanteric fracture of the left hip. The patient has a history of paranoid schizophrenia. He is on seizure medication though he is not had a seizure for quite some time. There is some uncertainty to his dosing according to our records. I have no member of his family present to verify these medical records at this time. Recently for his schizophrenia we have introduced olanzapine 20 mg a day and this has made a significant difference for him. He is also diabetic and takes Lantus. Lately his dose has been decreased to 25 units due to oral surgery and decreased oral intake. He smokes 8 to 10 cigarettes a day. He has a past history of heavy smoking. [facility] History I have reviewed the patient's past medical history: Yes Medical History: Reports:: Coronary Artery Disease, Cerebrovascular Accident (With left hemiparesis, January 2019), Diabetes Mellitus Type 2, Hyperlipidemia, Hypertension, Peripheral Vascular Disease, Renal Insufficiency, Transient Ischemic Attacks (TIA) Denies:: Cancer, Diabetes Mellitus Type 1, Internal Pacemaker, MRSA, Seizures *Have you ever received a pneumonia vaccine?: Yes *Have you received a flu vaccine this season?: Yes Other Medical History: Reports: Arthritis, Fibromyalgia, Other Other Surgeries: Yes: Cardiac Catheterization, Cholecystectomy, Other (Facial surgery for jaw fracture.). No: Pacemaker Amputation: No Fractures: No - *Social History Last grade of school completed: 11th or 12th Smoking Status: Current every day smoker Tobacco Type: cigarettes (8-10 daily) # Packs/Day (cigarettes): 1 #Yrs smoked (if former smoker): 20 Alcohol Intake: never Substance Use Type: denies use *Occupational Status:: disabled Housing: house Household Members: family (His mother is his caregiver) *Travel in the last 8 weeks: None Family Hx:: Cancer (His father has lung cancer with possible metastasis.), Hypertension (His mother has hypertension.), Stroke (His father suffered a recent stroke.), Mental illness (His father also has schizophrenia.) Review of Systems - Constitutional Denies body ache(s), Denies chills, Denies fever(s) - Eyes Denies change in vision - ENT Reports poor balance, Denies abnormal hearing, Denies change in voice - *Cardiovascular Denies chest pain - *Gastrointestinal Reports constipation, Reports other (Episode of pancreatitis 2017) - *Genitourinary Denies difficulty urinating - *Musculoskeletal Reports muscle weakness - Integumentary/Breasts Reports rash (Recurrent groin rash), Denies yellowing of the skin - *Neurologic Reports localized weakness, Reports other (Chronic left hemiparesis) - Psychiatric Reports hearing things others do not hear (He hears voices talking to him frequently.), Reports sensing things others do not sense - Endocrine Denies cold intolerance, Denies excessive sweating - Hematologic/Lymphatic Denies easy bleeding - Allergic/Immunologic Denies GI upset with certain foods, Denies throat swelling Meds Home Medications Medication Instructions Recorded Confirmed Type Ascorbic Acid [Vitamin C] 1,000 mg PO DAILY 02/29/20 05/08/21 History hydrocodone 5 mg-acetaminophen 325 1 tab PO BID PRN #60 tab 08/13/20 05/08/21 Rx mg tablet melatonin 5 mg tablet 5 mg PO HS #90 tab 10/12/20 05/08/21 Rx tamsulosin 0.4 mg capsule 0.4 mg PO HS #90 cap 10/12/20 05/08/21 Rx Aspirin [Low Dose Aspirin EC] 81 mg PO DAILY 05/08/21 05/08/21 History Atorvast
[2021-05-09] VITALS (22 sets, daily range): BP systolic 93–167; BP diastolic 53–80; PULSE 63–97; RESP 15–24; TEMP 36.3–38.1; O2SAT 90–100; BMI 27.8
--- NOTE | 2021-05-09 05:26 | PC.NURSE ---
No acute changes. Pt has c/o discomfort to (L) hip. Medicated per may. Pt is NPO at this time for consult. VSS. No concerns at this time. Will continue to monitor.
--- NOTE | 2021-05-09 08:23 | HMH.PHAVTE ---
[facility] Pharmacy VTE Monitoring - Patient Demographics Admission date: 05/08/21 Report Date: 05/09/21 Time: 08:24 Allergies/Adverse Reactions: Patient Allergies Fish Containing Products Adverse Reaction (Severe, Verified 12/08/20 13:45) Height: 1.73 m Weight: 83.416 kg Patient Problems: Current Active Problems Closed left hip fracture (Acute) Contusion of left shoulder (Acute) Paranoid schizophrenia (Acute) History of CVA (cerebrovascular accident) (Acute) Hemiparesis affecting left side as late effect of stroke (Acute) care home (current) use of insulin (Acute) Tobacco abuse (Chronic) Diabetes (Chronic) - VTE Risk Labs: VTE Related Lab Results Hgb 15.6 g/dL (14.1-18.0) 05/08/21 14:35 Hct 45.2 % (42.0-52.0) 05/08/21 14:35 Plt Count 230 K/mm3 (142-424) 05/08/21 14:35 BUN 8 mg/dl (9-20) L 05/08/21 14:35 Creatinine 0.70 mg/dl (0.66-1.25) 05/08/21 14:35 Estimated Creat Clear 164 mL/min (50-200) 05/08/21 14:35 VTE Score: 4 VTE Risk Level: Low Risk - Prophylaxis VTE Prophylaxis Ordered?: Yes Types of VTE Prophylaxis: TEDS Knee High, Pharmacological Location of Applied Device: Bilateral Lower Extremeties Pharmacologic Type: Enoxaparin
--- NOTE | 2021-05-09 08:44 | HMH.ACPN2 ---
Internal Medicine - PN: Subj *Date: 05/09/21 *Time: 08:45 Interval history: Left leg hurts. Denies chest pain and shortness of breath. Mother is at bedside side and feels he is warm. He does have a. Temperature. He is n.p.o. for an orthopedic consult. Exam Vital signs and Labs for Last 24 Hours: Temp Pulse Resp BP Pulse Ox 100.5 F H 77 18 125/59 L 98 05/09/21 08:00 05/09/21 08:00 05/09/21 08:00 05/09/21 08:00 05/09/21 08:00 Laboratory Results - last 24 hr 05/08/21 14:35: WBC 10.6, RBC 4.90, Hgb 15.6, Hct 45.2, MCV 92.2, MCH 31.7 H, MCHC 34.4, RDW 14.1, Plt Count 230, MPV 7.8, Neut % (Auto) 81.9 H, Lymph % (Auto) 8.4 L, [place] % (Auto) 6.7, Eos % (Auto) 2.4, Baso % (Auto) 0.6, Neut # (Auto) 8.7 H, Lymph # (Auto) 0.9, [place] # (Auto) 0.7, Eos # (Auto) 0.3, Baso # (Auto) 0.1 05/08/21 14:35: Sodium 133 L, Potassium 4.1, Chloride 99, Carbon Dioxide 23, Anion Gap 15.1 H, BUN 8 L, Creatinine 0.70, Estimated Creat Clear 164, Estimated GFR 119, Est GFR ( Amer) 144, Glucose 134 H, Calcium 9.5, Total Bilirubin 1.0, AST 31, ALT 37, Alkaline Phosphatase 60, Total Protein 8.6 H, Albumin 5.2 H, Globulin 3.4 H, Albumin/Globulin Ratio 1.5 05/08/21 14:35: SARS-CoV-2 (PCR) Not detected, Influenza A Untype (PCR) Not detected, Influenza Type B (PCR) Not detected 05/08/21 14:35: Urine Color Yellow, Urine Appearance Clear, Urine pH 6.0, Ur Specific [place] 1.010, Urine Protein Negative, Urine Glucose (UA) Negative, Urine Ketones Negative, Urine Blood Negative, Urine Nitrate Negative, Urine Bilirubin Negative, Urine Urobilinogen 1.0, Ur Leukocyte Esterase Negative, Urine RBC None, Urine WBC None, Ur Squamous Epith Cells None, Urine Bacteria None I & O for Last 24 hours: Intake & Output 05/06/21 05/07/21 05/08/21 05/09/21 11:59 11:59 11:59 11:59 Intake Total 240 / 240 Output Total 2200 / 2200 Balance -1959 / -1959 Weight 183 lb 14.4 oz - Constitutional no acute distress Comments: Conversant - *Routine Respiratory Exam Present: CTA bilaterally - *Routine Cardiovascular Exam Present: RRR, tachycardia - *Routine Abdominal Exam Present: soft, normoactive bowel sounds. Absent: tenderness - *Routine Extremities Exam Present: pulses intact. Absent: edema, calf tenderness - *Routine Neurological Exam Present: alert, oriented X3 Assessment and Plan (1) Closed left hip fracture Status: Acute Qualifiers: Encounter type: initial encounter Qualified Code(s): S72.002A - Fracture of unspecified part of neck of left femur, initial encounter for closed fracture Category: Medical Code(s): S72.002A - Fracture of unspecified part of neck of left femur, initial encounter for closed fracture (2) Contusion of left shoulder Status: Acute Qualifiers: Encounter type: initial encounter Qualified Code(s): S40.012A - Contusion of left shoulder, initial encounter Category: Medical Code(s): S40.012A - Contusion of left shoulder, initial encounter (3) History of CVA (cerebrovascular accident) Status: Acute Category: Medical Code(s): Z86.73 - Personal history of transient ischemic attack (TIA), and cerebral infarction without residual deficits (4) Hemiparesis affecting left side as late effect of stroke Status: Acute Category: Medical Code(s): I69.354 - Hemiplegia and hemiparesis following cerebral infarction affecting left non-dominant side (5) Paranoid schizophrenia Status: Acute Category: Medical Code(s): F20.0 - Paranoid schizophrenia (6) Diabetes Status: Chronic Qualifiers: Diabetes mellitus type: type 2 Diabetes mellitus fdc insulin use: with fdc use Diabetes mellitus complication status: with other specified complication Qualified Code(s): E11.69 - Type 2 diabetes mellitus with other specified complication Category: Medical Code(s): E11.9 - Type 2 diabetes mellitus without complications (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
--- NOTE | 2021-05-09 09:07 | CT_ITS ---
FINAL REPORT CLINICAL HISTORY: left hip fracture/ surgical planning FINDINGS: CT LEFT HIP WITHOUT CONTRAST Technique: Axial images through the left hip were performed by computed tomography. Sagittal and coronal reconstruction images were performed. This study was performed with techniques to keep radiation doses as low as reasonably achievable (ALARA). Individualized dose reduction techniques using automated exposure control or adjustment of mA and/or kV according to the patient's size were employed. 3D reconstruction images were submitted and reviewed. There is a comminuted, mildly displaced intertrochanteric fracture of the left femur. The lesser trochanter exists as a free fragment. The femoral head is in proper location. The hip joint spaces are preserved. There are mild hypertrophic changes at the acetabular margin. IMPRESSION: Comminuted, mildly displaced intertrochanteric fracture of the proximal left femur. Reviewed, Interpreted and Dictated by Bhanu Wheat MD Transcribed by Bret Kaplan Authenticated by Bhanu Wheat MD on 05/09/2021 11:17:07 AM [facility]
--- NOTE | 2021-05-09 09:38 | HMH.PHAINT ---
Home med rec
--- NOTE | 2021-05-09 10:08 | P.PN_ITS ---
[facility] Anesthesia Checklist - Patient Identification Patient Identification: Arm Band - Structural Data Admitted From: Home Planned Operative Procedure/s: Gamma nail Consent for Planned Operative Procedure(s) Verified: Yes - NPO Status Verified Time NPO: 00:00 - Airway Assessment C-Spine Mobility Assessed: Yes TMJ Mobility Assessed: Yes Dentition: Edentulous - Neurological Assessment Level of Consciousness: Awake Hx Seizures: Yes Numbness or tingling in extremities: No - Anesthesia Plan Anesthesia Risk discussed: Yes Anesthesia Plan: Verified ASA Class: IV Anesthesia Type: General [facility] History I have reviewed the patient's past medical history: Yes Medical History: Reports:: Congestive Heart Failure, Coronary Artery Disease, Cerebrovascular Accident (With left hemiparesis, January 2019), Diabetes Mellitus Type 2, Hyperlipidemia, Hypertension, Peripheral Vascular Disease, Renal Insufficiency, Transient Ischemic Attacks (TIA) Denies:: Cancer, Diabetes Mellitus Type 1, Internal Pacemaker, MRSA, Seizures *Have you ever received a pneumonia vaccine?: Yes *Have you received a flu vaccine this season?: Yes Other Medical History: Reports: Arthritis, Fibromyalgia, Other Anesthesia experience/problems:: None Other Surgeries: Yes: No Previous Surgery, Cardiac Catheterization, Cholecystectomy, Other (Facial surgery for jaw fracture.). No: Pacemaker Amputation: No Fractures: No - *Social History Last grade of school completed: 11th or 12th Smoking Status: Current every day smoker Tobacco Type: cigarettes (8-10 daily) # Packs/Day (cigarettes): 1 #Yrs smoked (if former smoker): 20 Alcohol Intake: never Substance Use Type: denies use *Occupational Status:: disabled Housing: house Household Members: family (His mother is his caregiver) *Travel in the last 8 weeks: None Family Hx:: Cancer (His father has lung cancer with possible metastasis.), Hypertension (His mother has hypertension.), Stroke (His father suffered a recent stroke.), Mental illness (His father also has schizophrenia.)
[2021-05-09 11:37] LABS: Basophils # 0.1 K/mm3 (0-0.2); Basophils % 0.8 % (0.1-2.0); Eosinophils # 0.4 K/mm3 (0.0-0.4); Eosinophils % 3.9 % (0.1-12.0); Hematocrit 38.3 % (42.0-52.0); Lymphocytes # 1.5 K/mm3 (0.7-4.5); Lymphocytes % 13.6 % (10-50); Mean Corpuscular HGB Conc 34.2 g/dL (31.8-35.4); Mean Corpuscular Hemoglobin 31.8 pg (27.0-31.2); Mean Corpuscular Volume 93.1 fl (80-94); Mean Platelet Volume 8.4 fl (7.4-10.4); Monocytes # 0.9 K/mm3 (0.1-1.0); Monocytes % 8.2 % (1.7-9.3); Neutrophils # 8.2 K/mm3 (1.8-7.8); Neutrophils % 73.6 % (37.0-80.0); Platelet Count 214 K/mm3 (142-424); Red Blood Count 4.11 M/mm3 (4.60-6.20); Red Cell Distribution Width 14.1 % (11.5-17.5); White Blood Count 11.2 K/mm3 (4.8-10.8)
--- NOTE | 2021-05-09 11:44 | HMH.ORTHOCON ---
*Admission Date: 05/08/21 <Jazmin Valle 05/09/21 11:44> *Reason for consult:: left hip fracture <Jazmin Valle 05/09/21 11:44> *History of present illness: Patient is a 50-year-old male admitted to the acute inpatient service from the [facility] ED yesterday 05/08/2021 after sustaining a fall at home. This morning his mother is present at the bedside who states that she was helping him get up for a shower and during transfer they both fell. The patient states that he had immediate pain in his left hip and was later brought to the emergency room for evaluation. Evaluation in the [facility] ER revealed a nondisplaced intertrochanteric fracture of the left hip. At baseline he is nonambulatory and lives at home with his mother who helps care for him. Today he continues to report left hip pain with any attempted movements of the left hip/leg that he states is well controlled with pain medication. He denies other injuries, dizziness, chest pain, shortness of breath, palpitations, or distal tingling/numbness. His past medical history is significant for a CVA with left-sided hemiparesis, CHF, CAD, carotid artery stenosis, hyperlipidemia, hypertension, schizophrenia, seizures, diabetes, and tobacco use. He is a smoker. He denies any other symptoms or concerns at this time. <Jazmin Valle 05/09/21 11:52> [facility] History Medical History: Reports:: Congestive Heart Failure, Coronary Artery Disease, Cerebrovascular Accident (With left hemiparesis, January 2019), Diabetes Mellitus Type 2, Hyperlipidemia, Hypertension, Peripheral Vascular Disease, Renal Insufficiency, Seizures, Transient Ischemic Attacks (TIA) Denies:: Cancer, Diabetes Mellitus Type 1, Internal Pacemaker, MRSA <Jazmin Valle 05/09/21 11:44> *Have you ever received a pneumonia vaccine?: Yes <Jazmin Valle 05/09/21 11:44> *Have you received a flu vaccine this season?: Yes <Jazmin Valle 05/09/21 11:44> Other Medical History: Reports: Arthritis, Fibromyalgia, Other <Jazmin Valle 05/09/21 11:44> Anesthesia experience/problems:: None <Jazmin Valle 05/09/21 11:44> Other Surgeries: Yes: No Previous Surgery, Cardiac Catheterization, Cholecystectomy, Other (Facial surgery for jaw fracture.). No: Pacemaker <Jazmin Valle 05/09/21 11:44> Amputation: No <Jazmin Valle 05/09/21 11:44> Fractures: No <Jazmin Valle 05/09/21 11:44> - *Social History Last grade of school completed: 11th or 12th <Jazmin Valle 05/09/21 11:44> Smoking Status: Current every day smoker <Jazmin Valle 05/09/21 11:44> Tobacco Type: cigarettes (8-10 daily) <Jazmin Valle 05/09/21 11:44> # Packs/Day (cigarettes): 1 <Jazmin Valle 05/09/21 11:44> #Yrs smoked (if former smoker): 20 <Jazmin Valle 05/09/21 11:44> Alcohol Intake: never <Jazmin Valle 05/09/21 11:44> Substance Use Type: denies use <Jazmin Valle 05/09/21 11:44> *Occupational Status:: disabled <Jazmin Valle 05/09/21 11:44> Housing: house <Jazmin Valle 05/09/21 11:44> Household Members: family (His mother is his caregiver) <Jazmin Valle 05/09/21 11:44> *Travel in the last 8 weeks: None <Jazmin Valle 05/09/21 11:44> Family Hx:: Cancer (His father has lung cancer with possible metastasis.), Hypertension (His mother has hypertension.), Stroke (His father suffered a recent stroke.), Mental illness (His father also has schizophrenia.) <Jazmin Valle 05/09/21 11:44> Review of Systems - Review of Systems Review of systems:: pertinent systems reviewed and negative unless documented below <Jazmin Valle 05/09/21 11:52> - Constitutional Denies anorexia, Denies body ache(s), Denies chills, Denies fatigue, Denies fever(s), Denies headache(s), Denies weakness <Jazmin aVlle - 05/09/21 11:52> - Eyes Denies blind spots, Denies change in vision, Denies loss of vision <Jazmin Valle - 05/09/21 11:52> - ENT Denies
[2021-05-09 11:46] LABS: Chloride 102 mmol/L (98-107)
[2021-05-09 11:47] LABS: Potassium 3.9 mmoL/L (3.5-5.1); Sodium 133 mmol/L (136-145)
[2021-05-09 11:49] LABS: Alanine Aminotransferase 25 U/L (12-78); Aspartate Amino Transferase 22 U/L (17-59); Blood Urea Nitrogen 13 mg/dl (9-20); Creatinine Clearance Estimated 104 mL/min (50-200); Estimated Glomerular Filt Rate 79 ml/min (>60); GFR (African American) 96 ML/MIN (>60)
[2021-05-09 11:50] LABS: Albumin Level 4.3 g/dl (3.5-5.0); Albumin/Globulin Ratio 1.7 (1.1-1.8); Alkaline Phosphatase 44 U/L (38-126); Anion Gap 10.9 mEq/L (5-15); Bilirubin,Total 1.1 mg/dl (0.2-1.3); Calcium 8.6 mg/dl (8.4-10.2); Carbon Dioxide 24 mmol/L (22.0-30.0); Globulin 2.5 g/dL (1.3-3.2); Glucose 134 mg/dl (74-100); Total Protein,Serum 6.8 g/dl (6.3-8.2)
[2021-05-09 12:26] LABS: Activated Partial Thrombo Time 33.5 seconds (22.8-30.6); INR 1.05 (0.9-1.1); Prothrombin Time 11.8 seconds (10.1-12.5)
--- NOTE | 2021-05-09 15:07 | XR_ITS ---
FINAL REPORT CLINICAL HISTORY: LT GAMMA 1:07 FLUORO TIME FINDINGS: FLUORO TIME PROCEDURE: Fluoroscopy in the operating room. FINDINGS: Fluoroscopy time was provided by the radiology department for the clinical service. Eighty-four films were obtained. Fluoroscopy exposure time: 1.07 minutes IMPRESSION: See above Reviewed, Interpreted and Dictated by Bhanu Wheat MD Transcribed by Carlotta Schultz Authenticated by Bhanu Wheat MD on 05/13/2021 04:00:32 PM [facility]
--- NOTE | 2021-05-09 15:38 | HMH.ANESI ---
[facility] Anesthesia Record Part I Intake, IV Amount: 600 Estimated blood loss (mL): 100 Urine output (mL): 400 Blood Pressure: 106/63 SaO2: 96 Pulse Rate: 85 Respiratory Rate: 20 Temperature: 97.3 F Patient is:: Drowsy, Oral/Nasal airway Stable to PACU at:: 15:35
[2021-05-09 15:48] LABS: POC Glucose,Bedside 165 (70-110)
--- NOTE | 2021-05-09 16:02 | HMH.OPNOTE ---
Date of procedure: 05/09/21 Pre-op Diagnosis:: Closed, comminuted intertrochanteric fracture, left hip Post-op Diagnosis:: Same Procedure performed:: Cephalomedullary nailing, left femur Surgeon:: Marquis Richey MD Mass Spec(s):: Jazmin Valle PA-C AUTO ROLLER:: Holger Orellana Anesthesia: LMA Estimated blood loss (mL): 100 Clinical Note:: Patient is a 50-year-old male who had a mechanical fall at home, sustaining an injury to the left hip yesterday. Following evaluation in the emergency room where x-ray showed a comminuted, nondisplaced intertrochanteric fracture of the left proximal femur, patient was admitted for further management. Patient has left-sided hemiparesis following a CVA few years ago. He is nonambulatory at baseline and has no functional movement in his left upper and lower extremities. However, he is complaining of severe left hip pain since the injury, worse with any attempted movements. After evaluating the patient, I have discussed the diagnosis and management options in detail including nonsurgical and surgical, with the patient. After a detailed discussion with the patient and his mother, a decision was made to fix the fracture internally with a cephalo-medullary nail. I have discussed the procedure, risks and benefits, postoperative recovery and rehabilitation and the expected outcomes. The complications discussed include but are not limited to DVT, PE, infection, bleeding, injury to nerves and blood vessels, screw cut-out/implant failure, loss of fixation, nonunion, malunion/malrotation, osteonecrosis of the femoral head, femoral shaft fracture, painful hardware, heterotopic ossification, stiffness, weakness, incomplete relief of pain, incomplete return of function or motion and the likely need for further surgery in future, and anesthetic/medical complications including heart attack, stroke, transfusion reaction or even . The patient wished to proceed with the surgical remediation. Consent form was reviewed and signed by me. The limb was appropriately marked and initialed by me. Following appropriate preoperative workup and medical clearance, patient is brought to the operating room for surgery. The surgery is indicated to stabilize the fracture, relieve pain. Patient understood the risks, agreed to proceed with surgery, signed the consent form and no guarantees or assurances were given or implied. At baseline he is nonambulatory and lives at home with his mother who helps care for him. His past medical history is significant for a CVA with left-sided hemiparesis, CHF, CAD, carotid artery stenosis, hyperlipidemia, hypertension, schizophrenia, seizures, diabetes, and tobacco use. He is a chronic smoker. He reports no other injuries at this time. Please refer to orthopedic consult note for full details. Operative findings:: Comminuted, nondisplaced intertrochanteric fracture right proximal femur as noted on the preoperative imaging. The fracture is fixed in a stable fashion with an intermediate cephalomedullary nail. Bone quality is osteoporotic/soft. Operative note:: Following appropriate preoperative workup and medical clearance, patient is brought to the operating room and a general anesthesia was administered by the knife grinder. Patient was then positioned supine on the fracture table and all the bony prominences were appropriately padded. The left foot was secured in the footplate and the footplate was attached to the fracture table. The right leg was placed out of the way in a leg harding. Under fluoroscopic guidance the fracture was noted to be nondisplaced with overall good alignment. The left hip and thigh were then prepped and draped in the usual sterile fashion. Administration of prophylactic antibiotics was confirmed with the knife grinder (IV Ancef and vancomycin were administered). We have also administered 2 doses of IV tranexamic acid-the first dose before the incision and second dose after surgery, to reduce the james
--- NOTE | 2021-05-09 16:28 | SUR.PHASEI ---
1540 BS obtained with result of 165. 1615 Detailed report given to RENEA Maravilla. Pt left in stable condition with RENEA Schmidt.
[2021-05-10] VITALS (8 sets, daily range): BP systolic 98–184; BP diastolic 59–73; PULSE 82–103; RESP 18–22; TEMP 36.7–38.8; O2SAT 90–93; BMI 27.7
[2021-05-10 07:01] LABS: Basophils # 0.1 K/mm3 (0-0.2); Basophils % 0.5 % (0.1-2.0); Eosinophils # 0.4 K/mm3 (0.0-0.4); Eosinophils % 4.3 % (0.1-12.0); Lymphocytes # 0.9 K/mm3 (0.7-4.5); Lymphocytes % 9.3 % (10-50); Mean Corpuscular HGB Conc 32.9 g/dL (31.8-35.4); Mean Corpuscular Hemoglobin 31.6 pg (27.0-31.2); Mean Corpuscular Volume 96.1 fl (80-94); Mean Platelet Volume 8.8 fl (7.4-10.4); Monocytes % 9.7 % (1.7-9.3); Neutrophils # 7.5 K/mm3 (1.8-7.8); Neutrophils % 76.3 % (37.0-80.0); Platelet Count 180 K/mm3 (142-424); Red Blood Count 3.44 M/mm3 (4.60-6.20); Red Cell Distribution Width 14.4 % (11.5-17.5); White Blood Count 9.9 K/mm3 (4.8-10.8)
[2021-05-10 07:02] LABS: Chloride 104 mmol/L (98-107); Sodium 132 mmol/L (136-145)
[2021-05-10 07:03] LABS: Potassium 3.5 mmoL/L (3.5-5.1)
[2021-05-10 07:05] LABS: Alanine Aminotransferase 26 U/L (12-78); Albumin Level 3.6 g/dl (3.5-5.0); Albumin/Globulin Ratio 1.4 (1.1-1.8); Alkaline Phosphatase 39 U/L (38-126); Anion Gap 8.5 mEq/L (5-15); Aspartate Amino Transferase 24 U/L (17-59); Bilirubin,Total 0.8 mg/dl (0.2-1.3); Blood Urea Nitrogen 6 mg/dl (9-20); Carbon Dioxide 23 mmol/L (22.0-30.0); Creatinine Clearance Estimated 148 mL/min (50-200); Estimated Glomerular Filt Rate 119 ml/min (>60); GFR (African American) 144 ML/MIN (>60); Globulin 2.6 g/dL (1.3-3.2); Total Protein,Serum 6.2 g/dl (6.3-8.2)
[2021-05-10 07:06] LABS: Calcium 7.9 mg/dl (8.4-10.2); Glucose 136 mg/dl (74-100)
--- NOTE | 2021-05-10 07:12 | P.PN_ITS ---
[facility] Anesthesia Record Part II Discharge Time: 16:18 Destination: Second Floor PACU nurse assessment reviewed?: Yes Patient Condition:: Good Anesthesia Complications:: None Swallowing reflex intact?: Yes Cyanosis?: No Blood Pressure: 98/67 Pulse Rate: 82 Temperature: 98.1 F Mental Status: Alert & Oriented Pain level:: 0 Nausea and/or vomitting:: None Intake, IV Amount: 0
[2021-05-10 07:22] LABS: Hemoglobin 10.9 g/dL (14.1-18.0)
--- NOTE | 2021-05-10 08:36 | XR_ITS ---
FINAL REPORT CLINICAL HISTORY: fever;decrease in O2 sats COMPARISON: 05/08/2021 FINDINGS: SINGLE VIEW CHEST The heart is normal in size. The mediastinum is unremarkable. The lungs are clear. There is no pneumothorax. IMPRESSION: No acute cardiopulmonary process. Reviewed, Interpreted and Dictated by Bhanu Wheat MD Transcribed by Ioana Farrell Authenticated by Bhanu Wheat MD on 05/10/2021 10:14:16 AM [facility]
--- NOTE | 2021-05-10 08:38 | HMH.ACPN2 ---
Internal Medicine - PN: Subj *Date: 05/10/21 *Time: 08:38 Interval history: Patient states he is doing well. Denies chest pain and shortness of breath. He does have an itchy right eye. He states that he is eating without problems. He continues with a Godfrey catheter to bedside drainage. Mother is at bedside and states he had a fever again. She states his O2 sats decreased into the 70s. Exam Vital signs and Labs for Last 24 Hours: Temp Pulse Resp BP Pulse Ox 98.5 F 103 H 19 113/59 L 93 L 05/10/21 08:00 05/10/21 08:00 05/10/21 08:00 05/10/21 08:00 05/10/21 08:00 Laboratory Results - last 24 hr 05/09/21 11:25: WBC 11.2 H, RBC 4.11 L, Hgb 13.0 L D, Hct 38.3 L, MCV 93.1, MCH 31.8 H, MCHC 34.2, RDW 14.1, Plt Count 214, MPV 8.4, Neut % (Auto) 73.6, Lymph % (Auto) 13.6, Cass % (Auto) 8.2, Eos % (Auto) 3.9, Baso % (Auto) 0.8, Neut # (Auto) 8.2 H, Lymph # (Auto) 1.5, Cass # (Auto) 0.9, Eos # (Auto) 0.4, Baso # (Auto) 0.1 05/09/21 11:25: Sodium 133 L, Potassium 3.9, Chloride 102, Carbon Dioxide 24, Anion Gap 10.9, BUN 13 D, Creatinine 1.00 D, Estimated Creat Clear 104, Estimated GFR 79, Est GFR ( Amer) 96 D, Glucose 134 H, Calcium 8.6, Total Bilirubin 1.1, AST 22 D, ALT 25 D, Alkaline Phosphatase 44, Total Protein 6.8, Albumin 4.3 D, Globulin 2.5, Albumin/Globulin Ratio 1.7 05/09/21 11:25: Blood Type O Positive, Antibody Screen Negative 05/09/21 11:25: PT 11.8, INR 1.05, APTT 33.5 H 05/09/21 15:41: POC Glucose 165 H 05/10/21 06:31: WBC 9.9, RBC 3.44 L, Hgb 10.9 L D, Hct 33.0 L, MCV 96.1 H, MCH 31.6 H, MCHC 32.9, RDW 14.4, Plt Count 180, MPV 8.8, Neut % (Auto) 76.3, Lymph % (Auto) 9.3 L, Cass % (Auto) 9.7 H, Eos % (Auto) 4.3, Baso % (Auto) 0.5, Neut # (Auto) 7.5, Lymph # (Auto) 0.9, Cass # (Auto) 1.0, Eos # (Auto) 0.4, Baso # (Auto) 0.1 05/10/21 06:31: Sodium 132 L, Potassium 3.5, Chloride 104, Carbon Dioxide 23, Anion Gap 8.5, BUN 6 L D, Creatinine 0.70 D, Estimated Creat Clear 148, Estimated GFR 119, Est GFR ( Amer) 144 D, Glucose 136 H, Calcium 7.9 L, Total Bilirubin 0.8, AST 24, ALT 26, Alkaline Phosphatase 39, Total Protein 6.2 L, Albumin 3.6 D, Globulin 2.6, Albumin/Globulin Ratio 1.4 I & O for Last 24 hours: Intake & Output 05/07/21 05/08/21 05/09/21 05/10/21 11:59 11:59 11:59 11:59 Intake Total 240 / 240 1703 / 1703 Output Total 2200 / 2200 1850 / 1850 Balance -1960 / -1960 -147 / -147 Weight 183 lb 14.4 oz 183 lb 1.6 oz - Constitutional no acute distress Comments: Awake and appears comfortable. Converses normally - *Routine Respiratory Exam Present: CTA bilaterally - *Routine Cardiovascular Exam Present: RRR Comments: 100/min - *Routine Abdominal Exam Present: soft, normoactive bowel sounds. Absent: tenderness - *Routine Extremities Exam Present: pulses intact. Absent: edema, calf tenderness Comments: Left hip dressing clean and dry. No surrounding erythema - *Routine Neurological Exam Present: alert, oriented X3 Assessment and Plan (1) Closed left hip fracture Status: Acute Qualifiers: Encounter type: initial encounter Qualified Code(s): S72.002A - Fracture of unspecified part of neck of left femur, initial encounter for closed fracture Category: Medical Code(s): S72.002A - Fracture of unspecified part of neck of left femur, initial encounter for closed fracture (2) Contusion of left shoulder Status: Acute Qualifiers: Encounter type: initial encounter Qualified Code(s): S40.012A - Contusion of left shoulder, initial encounter Category: Medical Code(s): S40.012A - Contusion of left shoulder, initial encounter (3) History of CVA (cerebrovascular accident) Status: Acute Category: Medical Code(s): Z86.73 - Personal history of transient ischemic attack (TIA), and cerebral infarction without residual deficits (4) Hemiparesis affecting left side as late effect of stroke Status: Acute Category: Medical Code(s):
--- NOTE | 2021-05-10 09:47 | HMH.OTEV ---
OT Inpatient Evaluation Rehab OT IP Evaluation Start: 05/09/21 15:45 Freq: ONCE Status: Complete Protocol: Document 05/10/21 09:40 GILDA (Rec: [facility]/10/21 09:[id number] Rehab OT IP Assessment Subjective History Pt oriented x 3 on arrival. Pt agreeable to engage in therapy evaluation. Pt was admitted via ED on 05/08/21 due to a fall at home resulting in a L hip fx. The following information was copied from history and physical report: This 50-year-old white male who has had a CVA with left hemiparesis is admitted from the emergency room with a left hip fracture. Apparently his mother was helping him get into the shower last night and he fell injuring his left shoulder and left hip. He has had pain in the left hip all day and he was brought to the emergency room for evaluation. He had multiple x-rays and scans in the emergency room. There was a nondisplaced intertrochanteric fracture of the left hip. The patient has a history of paranoid schizophrenia. He is on seizure medication though he is not had a seizure for quite some time. There is some uncertainty to his dosing according to our records. I have no member of his family present to verify these medical records at this time. Recently for his schizophrenia we have introduced olanzapine 20 mg a day and this has made a significant difference for him. He is also diabetic and takes Lantus. Lately his dose has been decreased to 25 units due to oral surgery and decreased oral intake. He smokes 8 to 10 cigarettes a
--- NOTE | 2021-05-10 11:19 | SW/DCPLANNER ---
Addendum entered by [facility] 05/13/21 09:47: The plan for this patient is to discharge to GRU Unit at [facility] today. This patient will NOT need an additional COVID prior to discharging. Patient will transport via ambulance. Addendum entered by [facility] 05/12/21 13:17: Accepting MD at [facility] is Dr Wharton. Addendum entered by [facility] 05/12/21 12:35: [facility] has stated that she can accept this patient to GRU Unit tomorrow. I will update Dr Hurtado. Addendum entered by [facility] 05/12/21 11:05: Bita with [facility] has stated that she is only waiting on MD signature at this time. I have informed Dr Hurtado: patient is not medically stable for discharge at this time and will still need another day of IV antibiotics. Addendum entered by [facility] 05/11/21 11:09: I have followed up with Bita regarding this patient. Addendum entered by [facility] 05/10/21 14:13: [facility] stated that this patient is a candidate for inpatient rehab and will begin the process for this patient. I will inform patients family and MD. Addendum entered by [facility] 05/10/21 13:00: [facility] is currently reviewing patient information. Original Note: I spoke with this patient and his mother regarding discharge plans once medically stable for discharge. Patient admitted with a hip fx and did have surgery yesterday. Patient stated that he has been to [facility] in the past: his mother prefers that he not return there due to not enough rehab. PT/OT evaluated this patient this AM has recommended placement. Patient and his mother are interested in rehab at [facility]. Patient information will be faxed to [facility] with [facility] this AM. Discharge date is unknown at this time. I did express to patient and his mother the importance of discussing another SNF level of care if [facility] can NOT accept this patient.
--- NOTE | 2021-05-10 11:22 | HMH.ORTHPN ---
Subjective Date: 05/10/21 <Jazmin Valle - 05/10/21 11:22> Time: 08:25 <Jazmin Valle - 05/10/21 11:22> Principal diagnosis: S/p cephalomedullary nailing, left femur <Jazmin Valle - 05/10/21 11:22> Interval history: Patient is a 50-year-old male admitted to the acute inpatient service after undergoing an uneventful left femur cephalomedullary nailing yesterday 05/09/2021. Today the patient is postop day #1. He is lying in bed comfortably this morning and his mother is present at the bedside. He continues to report pain in his left hip but states it is well controlled with pain medication. He states that he was able to get some rest last night and has been eating and drinking without difficulty. He denies any episodes of nausea or vomiting. He denies chest pain, shortness of breath, palpitations, fevers, chills, rigors, or distal tingling/numbness. His past medical history is significant for a CVA with left-sided hemiparesis, CHF, CAD, carotid artery stenosis, hyperlipidemia, hypertension, schizophrenia, seizures, diabetes, and tobacco use. He is a smoker. He denies any other symptoms or concerns at this time. <ValleJazmin bucio - 05/10/21 11:25> PN: Obj Ex Vital signs: Temp Pulse Resp BP Pulse Ox 99.3 F 95 H 18 171/72 H 91 L 05/10/21 11:31 05/10/21 11:31 05/10/21 11:31 05/10/21 11:31 05/10/21 11:31 <Marquis Richey - 05/10/21 11:49> Temp Pulse Resp BP Pulse Ox 98.5 F 103 H 19 113/59 L 93 L 05/10/21 08:00 05/10/21 08:00 05/10/21 08:00 05/10/21 08:00 05/10/21 08:00 <Jazmin Valle - 05/10/21 11:22> Narrative: Laboratory Results - last 24 hr 05/09/21 11:25: WBC 11.2 H, RBC 4.11 L, Hgb 13.0 L D, Hct 38.3 L, MCV 93.1, MCH 31.8 H, MCHC 34.2, RDW 14.1, Plt Count 214, MPV 8.4, Neut % (Auto) 73.6, Lymph % (Auto) 13.6, Bureau % (Auto) 8.2, Eos % (Auto) 3.9, Baso % (Auto) 0.8, Neut # (Auto) 8.2 H, Lymph # (Auto) 1.5, Bureau # (Auto) 0.9, Eos # (Auto) 0.4, Baso # (Auto) 0.1 05/09/21 11:25: Carbon Dioxide 24, Anion Gap 10.9, BUN 13 D, Creatinine 1.00 D, Estimated Creat Clear 104, Estimated GFR 79, Est GFR ( Amer) 96 D, Glucose 134 H, Calcium 8.6, Total Bilirubin 1.1, AST 22 D, ALT 25 D, Alkaline Phosphatase 44, Total Protein 6.8, Albumin 4.3 D, Globulin 2.5, Albumin/Globulin Ratio 1.7 05/09/21 11:25: Blood Type O Positive, Antibody Screen Negative 05/09/21 11:25: PT 11.8, INR 1.05, APTT 33.5 H 05/09/21 15:41: POC Glucose 165 H 05/10/21 06:31: WBC 9.9, RBC 3.44 L, Hgb 10.9 L D, Hct 33.0 L, MCV 96.1 H, MCH 31.6 H, MCHC 32.9, RDW 14.4, Plt Count 180, MPV 8.8, Neut % (Auto) 76.3, Lymph % (Auto) 9.3 L, Bureau % (Auto) 9.7 H, Eos % (Auto) 4.3, Baso % (Auto) 0.5, Neut # (Auto) 7.5, Lymph # (Auto) 0.9, Bureau # (Auto) 1.0, Eos # (Auto) 0.4, Baso # (Auto) 0.1 05/10/21 06:31: Sodium 132 L, Potassium 3.5, Chloride 104, Carbon Dioxide 23, Anion Gap 8.5, BUN 6 L D, Creatinine 0.70 D, Estimated Creat Clear 148, Estimated GFR 119, Est GFR ( Amer) 144 D, Glucose 136 H, Calcium 7.9 L, Total Bilirubin 0.8, AST 24, ALT 26, Alkaline Phosphatase 39, Total Protein 6.2 L, Albumin 3.6 D, Globulin 2.6, Albumin/Globulin Ratio 1.4 05/10/21 11:23: POC Glucose 238 H Intake & Output 05/07/21 05/08/21 05/09/21 05/10/21 11:59 11:59 11:59 11:59 Intake Total 240 / 240 1703 / 1703 Output Total 2200 / 2200 2150 / 2150 Balance -1960 / -1960 -447 / -447 Weight 183 lb 14.4 oz 183 lb 1.6 oz <Marquis Richey - 05/10/21 11:49> - Constitutional no acute distress, average body habitus, cooperative <Jazmin Valle - 05/10/21 11:25> - Routine HEENT Exam Head: Present: normocephalic, atraumatic <Jazmin Valle - 05/10/21 11:25> Eye: Present: EOMI, PERRL <Jazmin Valle 05/10/21 11:25> ENT: Present: mucous membranes moist <Jazmin Valle 05/10/21 11:25> - Routine Neck Exam Present: supple, full ROM, trachea midline. Absent: JVD, lymphadenopathy <Jazmin Valle 05/10/21 11:25> - Routine
--- NOTE | 2021-05-10 11:27 | HMH.PTEV ---
Physical Therapy Evaluation Rehab PT IP Evaluation Start: 05/09/21 15:45 Freq: ONCE Status: Active Protocol: Document 05/10/21 11:23 PHORNE (Rec: 05/10/21 11:27 PHORNE [id number]) Subjective/History History History 50 yowm adm to [facility] after fall at [place] with resulting L hip fx, now S/P L IMN. Pt has hx of prior CVA with L UE and LE hemiparesis and schizophrenia. He lives alone, but has significant help from family. He uses a w/c for all mobility and requires assistance with transfers at baseline. Subjective Subjective He reports pain in the L hip with mobility. Rehab PT IP Eval Objective Appearance Patient Behavior Appropriate Patient Orientation Person,Place,Time Difficulty following instructions none Speech Pattern Clear,Rambling Ambulation Patient Able to Ambulate No Balance Ability to Arise Able, uses arms to help Sitting Balance Leans or slides in chair Standing Balance Unsteady Dynamic Sitting Balance Ability Fair Dynamic Standing Balance Ability Poor Transfers Bed Transfer Ability Moderate x 2 (50% assist) Chair Transfer Ability Moderate x 2 (50% assist) Sit to Stand Bed Transfer Ability Moderate x 2 (50% assist) Sit to Stand Chair Transfer Ability Moderate x 2 (50% assist) Rehab PT IP prob,goals,plan Problems Date of Evaluation: 05/10/21 PT IP Problems Bed Mobility,Transfers,Self care Rehab Potential Rehab Potential Good Plan PT Intervention Plan Bed Mobility,Transfers,Balance ,Self care,Therapeutic Exercise PT Plan Frequency BID Duration LOS Discharge Goals Bed Transfer Ability Minimal x 2 (25% assist) Sit to Stand Chair Transfer Ability Minimal x 2 (25% assist) Discharge Plan PT Discharge Plan Pt is most appropriate for rehab placement at this time. If he does return home he will be at significant risk for further injury, debility, or wounds. G -code Required No Eval Complexity Eval Charge Codes 58295 - Moderate Complexity PHYSICIAN CERTIFICATION: I certify the specified therapy services for Alejandro Elmore Venancio MAHAN are required, aut
[2021-05-10 11:39] LABS: POC Glucose,Bedside 238 (70-110)
[2021-05-10 16:24] LABS: POC Glucose,Bedside 176 (70-110)
--- NOTE | 2021-05-10 18:52 | PC.NURSE ---
Addendum entered by Constance Fierro RN 05/10/21 18:55: Pt has been continuously educated on use of IS. IS @ best is 1000cc's. Original Note: Pt has done fine this shift. No c/o pain. Pt was febrile x1 this shift w/ a temp of 101.9 rectally. Ice packs applied to groin and axillae and PRN tylenol administered per MAY. Upon reassessment, oral temp was 993. No other acute changes or complaints, will continue to monitor.
[2021-05-11] VITALS: BP 106/67; PULSE 95; RESP 18; TEMP 36.9; O2SAT 95
[2021-05-11 04:00] VITALS: BP 104/73; PULSE 90; RESP 16; TEMP 38.3; O2SAT 90
[2021-05-11 05:06] VITALS: BMI 27.9
--- NOTE | 2021-05-11 05:54 | PC.NURSE ---
Pt voiced x2 c/o of pain in lower back and left hip, admin meds per MAR with relief. Pt has had a hard time getting comfortable in the bed, has slept on and off. Pt uses urinal with x1 assist. Pt has used IS t/o shift. Call light within reach.
--- NOTE | 2021-05-11 07:53 | HMH.ACPN2 ---
Internal Medicine - PN: Subj *Date: 05/11/21 *Time: 07:53 Interval history: Patient did not like his breakfast this morning. He feels he slept. He states his left hip hurts. He denies shortness of breath and has an occasional cough. He did work with physical therapy yesterday. He states he sat up in a chair yesterday. Right eye continues to itch. Nursing states his O2 sats dropped to in the 80s when asleep and they placed him on oxygen with increase of O2 sats in the 90s. He tries to use his incentive spirometer. Chest x-ray yesterday showed no acute cardiopulmonary process. Urinalysis was negative. He is still had a low-grade fever.Godfrey catheter was removed yesterday and he is voiding QS. Labs have just been drawn and thus are pending. Exam Vital signs and Labs for Last 24 Hours: Temp Pulse Resp BP Pulse Ox 100.9 F H 90 16 104/73 L 90 L 05/11/21 04:00 05/11/21 04:00 05/11/21 04:00 05/11/21 04:00 05/11/21 04:00 Laboratory Results - last 24 hr 05/08/21 20:25: POC Glucose 176 H 05/10/21 11:23: POC Glucose 238 H I & O for Last 24 hours: Intake & Output 05/08/21 05/09/21 05/10/21 05/11/21 11:59 11:59 11:59 11:59 Intake Total 240 / 240 1703 / 1703 600 / 600 Output Total 2200 / 2200 2150 / 2150 830 / 830 Balance -1960 / -1960 -447 / -447 -230 / -230 Weight 183 lb 14.4 oz 183 lb 1.6 oz 184 lb 8 oz - Constitutional no acute distress Comments: Conversant. Speech is clear. - *Routine HEENT Exam Eye: Present: scleral injection (Less erythema) - *Routine Respiratory Exam Present: crackles (Bibasilar crackles.) - *Routine Cardiovascular Exam Present: RRR - *Routine Abdominal Exam Present: soft, normoactive bowel sounds. Absent: tenderness, distended - *Routine Extremities Exam Present: edema, full ROM (Of the right leg.). Absent: calf tenderness Comments: Postoperative dressing on left outer thigh is clean and dry. No surrounding erythema. - *Routine Neurological Exam Present: alert, oriented X3 Assessment and Plan (1) Closed left hip fracture Status: Acute Qualifiers: Encounter type: initial encounter Qualified Code(s): S72.002A - Fracture of unspecified part of neck of left femur, initial encounter for closed fracture Category: Medical Code(s): S72.002A - Fracture of unspecified part of neck of left femur, initial encounter for closed fracture (2) Contusion of left shoulder Status: Acute Qualifiers: Encounter type: initial encounter Qualified Code(s): S40.012A - Contusion of left shoulder, initial encounter Category: Medical Code(s): S40.012A - Contusion of left shoulder, initial encounter (3) History of CVA (cerebrovascular accident) Status: Acute Category: Medical Code(s): Z86.73 - Personal history of transient ischemic attack (TIA), and cerebral infarction without residual deficits (4) Hemiparesis affecting left side as late effect of stroke Status: Acute Category: Medical Code(s): I69.354 - Hemiplegia and hemiparesis following cerebral infarction affecting left non-dominant side (5) Paranoid schizophrenia Status: Acute Category: Medical Code(s): F20.0 - Paranoid schizophrenia (6) Diabetes Status: Chronic Qualifiers: Diabetes mellitus type: type 2 Diabetes mellitus usp insulin use: with usp use Diabetes mellitus complication status: with other specified complication Qualified Code(s): E11.69 - Type 2 diabetes mellitus with other specified complication Category: Medical Code(s): E11.9 - Type 2 diabetes mellitus without complications (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
[2021-05-11 07:58] VITALS: BP 142/65; PULSE 82; RESP 17; TEMP 37.1; O2SAT 95
[2021-05-11 08:18] LABS: Chloride 100 mmol/L (98-107); Potassium 3.4 mmoL/L (3.5-5.1); Sodium 132 mmol/L (136-145)
[2021-05-11 08:19] LABS: Basophils # 0.1 K/mm3 (0-0.2); Basophils % 0.9 % (0.1-2.0); Eosinophils # 0.3 K/mm3 (0.0-0.4); Eosinophils % 3.8 % (0.1-12.0); Hematocrit 31.9 % (42.0-52.0); Hemoglobin 10.5 g/dL (14.1-18.0); Lymphocytes # 1.3 K/mm3 (0.7-4.5); Lymphocytes % 14.6 % (10-50); Mean Corpuscular Hemoglobin 31.3 pg (27.0-31.2); Mean Platelet Volume 9.3 fl (7.4-10.4); Monocytes # 0.9 K/mm3 (0.1-1.0); Monocytes % 9.8 % (1.7-9.3); Neutrophils # 6.5 K/mm3 (1.8-7.8); Platelet Count 190 K/mm3 (142-424); Red Blood Count 3.35 M/mm3 (4.60-6.20); Red Cell Distribution Width 14.1 % (11.5-17.5); White Blood Count 9.2 K/mm3 (4.8-10.8)
[2021-05-11 08:21] LABS: Anion Gap 11.4 mEq/L (5-15); Blood Urea Nitrogen 5 mg/dl (9-20); Calcium 8.2 mg/dl (8.4-10.2); Carbon Dioxide 24 mmol/L (22.0-30.0); Creatinine Clearance Estimated 149 mL/min (50-200); Estimated Glomerular Filt Rate 119 ml/min (>60); GFR (African American) 144 ML/MIN (>60); Glucose 153 mg/dl (74-100)
--- NOTE | 2021-05-11 09:06 | CT_ITS ---
FINAL REPORT TECHNIQUE: Thin section axial CT images were performed from the lung apices to the upper abdomen after the administration of IV contrast. 3-D and MIP reconstructions performed. This study was performed with techniques to keep radiation doses as low as reasonably achievable (ALARA). Individualized dose reduction techniques using automated exposure control or adjustment of mA and/or kV according to the patient''s size were employed. CLINICAL HISTORY: Hypoxia, LG fever COMPARISON: March 01, 2020 FINDINGS: Mediastinal vasculature is adequately opacified. There is no evidence for pulmonary embolism. The thoracic aorta is patent without evidence of dissection. There is no axillary adenopathy. There are prominent right hilar lymph nodes measuring up to 2.0 cm, favored to be reactive. The heart size is normal. There is no pleural or pericardial effusion. Lung window images demonstrate diffuse ground-glass opacity bilaterally. This appears similar to the prior exam, and may be due to edema. There are patchy airspace infiltrates in the posterior right upper lobe and bilateral lower lobes consistent with acute pneumonia. Limited images of the upper abdomen are unremarkable. IMPRESSION: 1. No evidence of pulmonary embolism or aortic dissection. 2. Stable diffuse ground-glass opacities bilaterally. 3. Patchy airspace infiltrates bilaterally are consistent with acute pneumonia. Reviewed, Interpreted and Dictated by Bhanu Wheat MD Transcribed by HERIBERTO Holden Authenticated by Bhanu Wheat MD on 05/11/2021 02:41:39 PM [facility]
--- NOTE | 2021-05-11 09:08 | HMH.ORTHPN ---
Subjective Date: 05/11/21 <ValleJazmin viveros - 05/11/21 09:12> Time: 08:45 <Jazmin Valle - 05/11/21 09:12> Principal diagnosis: S/p cephalomedullary nailing, left femur <Jazmin Valle - 05/11/21 09:12> Interval history: Patient is a 50-year-old male admitted to the acute inpatient service after undergoing an uneventful left femur cephalomedullary nailing on 05/09/2021. Today the patient is postop day #2. He is lying in bed comfortably this morning and his mother is present at the bedside. He continues to report pain in his left hip but states it is well controlled with pain medication and has improved since yesterday. He states that he has been eating and drinking without difficulty and denies any episodes of nausea or vomiting. He denies chest pain, shortness of breath, palpitations, fevers, chills, rigors, or distal tingling/numbness. His past medical history is significant for a CVA with left-sided hemiparesis, CHF, CAD, carotid artery stenosis, hyperlipidemia, hypertension, schizophrenia, seizures, diabetes, and tobacco use. He is a smoker. He denies any other symptoms or concerns at this time. <Jazmin Valle - 05/11/21 09:12> PN: Obj Ex Vital signs: Temp Pulse Resp BP Pulse Ox 99.3 F 85 18 181/72 H 94 L 05/11/21 15:26 05/11/21 15:26 05/11/21 15:26 05/11/21 15:26 05/11/21 15:26 <Marquis Richey - 05/11/21 18:09> Temp Pulse Resp BP Pulse Ox 98.8 F 82 17 142/65 H 95 05/11/21 07:58 05/11/21 07:58 05/11/21 07:58 05/11/21 07:58 05/11/21 07:58 <Jazmin Valle - 05/11/21 09:12> - Constitutional no acute distress, average body habitus, cooperative <Jazmin Valle - 05/11/21 09:12> - Routine HEENT Exam Head: Present: normocephalic, atraumatic <Jazmin Valle 05/11/21 09:12> Eye: Present: EOMI, PERRL <Jazmin Valle 05/11/21 09:12> ENT: Present: mucous membranes moist <Jazmin Valle 05/11/21 09:12> - Routine Neck Exam Present: supple, full ROM, trachea midline. Absent: JVD <Jazmin Valle 05/11/21 09:12> - Routine Respiratory Exam Absent: accessory muscle use, respiratory distress <Jazmin Valle 05/11/21 09:12> Comments: Symmetric chest movement, able to speak in complete sentences <Jazmin Valle 05/11/21 09:12> - Routine Cardiovascular Exam Present: RRR. Absent: JVD <Jazmin Valle 05/11/21 09:12> Comments: Normal peripheral pulses <Jazmin Valle 05/11/21 09:12> - Routine Abdominal Exam Present: soft. Absent: tenderness <Jazmin Valle 05/11/21 09:12> - Routine Extremities Exam Present: pulses intact. Absent: cyanosis, calf tenderness <Jazmin Valle 05/11/21 09:12> Comments: Upon examination of the lower extremities: The limb lengths are equal. Upon examination of the left hip, dressings present are clean, dry, and intact. No evidence of drainage or bleeding noted. The surgical incision appears clean and healthy. No induration, erythema, purulent drainage, bleeding, or other signs of infection noted. The left hip and proximal femur are tender to palpation. Any attempted movements of the left hip are painful as to be expected at this stage. Thigh and calf are soft nontender; Homans' sign is negative. No clinical evidence of DVT noted. Posterior tibial and dorsalis pedis pulses 1+; capillary refill is brisk. Sensation to light touch is grossly intact. At baseline, patient is unable to mobilize the ankle, foot, and toes. <Jazmin Valle 05/11/21 15:50> - Routine Skin Exam Present: intact, warm, normal turgor. Absent: erythema, jaundice, cracked, ecchymosis <Jazmin Valle 05/11/21 09:12> - Routine Neurological Exam Present: alert, oriented X3, moving all extremities, normal tone, normal speech. Absent: sensory deficit, altered mental status <Jazmin Valle - 05/11/21 09:12> - Routine Psychiatric Exam Present: normal affect, cooperative <Jazmin Valle - 05/11/21 09:12> - Urinary Catheter
--- NOTE | 2021-05-11 10:25 | PC.NURSE ---
Pt is at RAD
[2021-05-11 11:56] VITALS: BP 111/66; PULSE 75; RESP 19; TEMP 36.3; O2SAT 94
--- NOTE | 2021-05-11 12:04 | PC.NURSE ---
late entry. patient was post op day one on 05/10/21 and woodson was removed then.
[2021-05-11 15:26] VITALS: BP 181/72; PULSE 85; RESP 18; TEMP 37.4; O2SAT 94
[2021-05-11 15:30] LABS: Coronavirus 19, PCR Not Detected (NotDetected); Influenza A, PCR Not Detected (NotDetected); Influenza B, PCR Not Detected (NotDetected)
[2021-05-11 16:53] LABS: POC Glucose,Bedside 219 (70-110)
--- NOTE | 2021-05-11 19:24 | PC.NURSE ---
Pt up to chair for approx 15-30 mins this shift and wanted to go to bed soon after. Pt educated on need to sit up for lung status. Pt has been using IS.
[2021-05-11 20:00] VITALS: BP 108/69; PULSE 86; RESP 18; TEMP 37; O2SAT 91
[2021-05-12] VITALS: BP 102/66; PULSE 86; RESP 18; TEMP 37.3; O2SAT 92
[2021-05-12 01:25] LABS: POC Glucose,Bedside 258 (70-110)
[2021-05-12 04:00] VITALS: BP 98/63; PULSE 82; RESP 18; TEMP 37.3; O2SAT 90
[2021-05-12 06:18] LABS: POC Glucose,Bedside 169 (70-110)
[2021-05-12 06:23] LABS: Basophils % 0.3 % (0.1-2.0); Eosinophils # 0.5 K/mm3 (0.0-0.4); Eosinophils % 5.7 % (0.1-12.0); Lymphocytes # 1.2 K/mm3 (0.7-4.5); Lymphocytes % 14.4 % (10-50); Mean Corpuscular HGB Conc 34.5 g/dL (31.8-35.4); Mean Corpuscular Hemoglobin 31.9 pg (27.0-31.2); Mean Corpuscular Volume 92.3 fl (80-94); Mean Platelet Volume 8.4 fl (7.4-10.4); Monocytes # 0.8 K/mm3 (0.1-1.0); Monocytes % 9.3 % (1.7-9.3); Neutrophils # 5.9 K/mm3 (1.8-7.8); Neutrophils % 70.4 % (37.0-80.0); Platelet Count 207 K/mm3 (142-424); Red Blood Count 3.14 M/mm3 (4.60-6.20); Red Cell Distribution Width 13.8 % (11.5-17.5); White Blood Count 8.4 K/mm3 (4.8-10.8)
[2021-05-12 06:28] LABS: Chloride 103 mmol/L (98-107); Sodium 132 mmol/L (136-145)
[2021-05-12 06:29] LABS: Potassium 3.4 mmoL/L (3.5-5.1)
[2021-05-12 06:31] LABS: Blood Urea Nitrogen 5 mg/dl (9-20); Creatinine Clearance Estimated 174 mL/min (50-200); Estimated Glomerular Filt Rate 143 ml/min (>60); GFR (African American) 173 ML/MIN (>60)
[2021-05-12 06:32] LABS: Anion Gap 10.4 mEq/L (5-15); Calcium 8.1 mg/dl (8.4-10.2); Carbon Dioxide 22 mmol/L (22.0-30.0); Glucose 150 mg/dl (74-100)
[2021-05-12 08:00] VITALS: BP 153/75; PULSE 80; RESP 19; TEMP 37; O2SAT 89
--- NOTE | 2021-05-12 08:46 | HMH.ACPN2 ---
Internal Medicine - PN: Subj *Date: 05/12/21 *Time: 08:46 Interval history: Patient states he did eat breakfast this morning and slept well last night. He has complained of left hip and leg pain along with left shoulder pain. He denies any shortness of breath and occasionally coughs. He was able to get up in a chair yesterday with therapy. His right eye continues to itch. His oxygen saturations have been in the 90s on room air. Exam Vital signs and Labs for Last 24 Hours: Temp Pulse Resp BP Pulse Ox 99.1 F 82 18 98/63 L 90 L 05/12/21 04:00 05/12/21 04:00 05/12/21 04:00 05/12/21 04:00 05/12/21 04:00 Laboratory Results - last 24 hr 05/11/21 15:25: SARS-CoV-2 (PCR) Not detected, Influenza A Untype (PCR) Not detected, Influenza Type B (PCR) Not detected 05/11/21 16:41: POC Glucose 219 H 05/11/21 20:57: POC Glucose 258 H 05/12/21 05:44: WBC 8.4, RBC 3.14 L, Hgb 10.0 L, Hct 29.0 L, MCV 92.3, MCH 31.9 H, MCHC 34.5, RDW 13.8, Plt Count 207, MPV 8.4, Neut % (Auto) 70.4, Lymph % (Auto) 14.4, [place] % (Auto) 9.3, Eos % (Auto) 5.7, Baso % (Auto) 0.3, Neut # (Auto) 5.9, Lymph # (Auto) 1.2, [place] # (Auto) 0.8, Eos # (Auto) 0.5 H, Baso # (Auto) 0.0 05/12/21 05:44: Sodium 132 L, Potassium 3.4 L, Chloride 103, Carbon Dioxide 22, Anion Gap 10.4, BUN 5 L, Creatinine 0.60 L, Estimated Creat Clear 174, Estimated GFR 143, Est GFR ( Amer) 173 D, Glucose 150 H, Calcium 8.1 L 05/12/21 06:04: POC Glucose 169 H I & O for Last 24 hours: Intake & Output 05/09/21 05/10/21 05/11/21 02/24/22 11:59 11:59 11:59 11:59 Intake Total 240 / 240 1703 / 1703 840 / 840 480 / 480 Output Total 2200 / 2200 2150 / 2150 2505 / 2505 1800 / 1800 Balance -1960 / -1960 -447 / -447 -1665 / -1665 -1320 / -1320 Weight 183 lb 14.4 oz 183 lb 1.6 oz 184 lb 8 oz Radiology Reports for the Last 24 Hours: Chest CTA 1. No evidence of pulmonary embolism or aortic dissection. 2. Stable diffuse ground-glass opacities bilaterally. 3. Patchy airspace infiltrates bilaterally are consistent with acute pneumonia. - Constitutional no acute distress - *Routine HEENT Exam Head: Present: normocephalic Eye: Present: EOMI, PERRL ENT: Present: mucous membranes moist - *Routine Neck Exam Present: supple. Absent: lymphadenopathy - *Routine Respiratory Exam Present: decreased breath sounds, rhonchi, crackles - *Routine Cardiovascular Exam Present: RRR - *Routine Abdominal Exam Present: soft, normoactive bowel sounds. Absent: tenderness - *Routine Extremities Exam Absent: cyanosis, clubbing, edema - *Routine Skin Exam Present: warm. Absent: rash - *Routine Neurological Exam Present: alert, oriented X3 Assessment and Plan (1) Closed left hip fracture Status: Acute Qualifiers: Encounter type: initial encounter Qualified Code(s): S72.002A - Fracture of unspecified part of neck of left femur, initial encounter for closed fracture Category: Medical Code(s): S72.002A - Fracture of unspecified part of neck of left femur, initial encounter for closed fracture (2) Contusion of left shoulder Status: Acute Qualifiers: Encounter type: initial encounter Qualified Code(s): S40.012A - Contusion of left shoulder, initial encounter Category: Medical Code(s): S40.012A - Contusion of left shoulder, initial encounter (3) History of CVA (cerebrovascular accident) Status: Acute Category: Medical Code(s): Z86.73 - Personal history of transient ischemic attack (TIA), and cerebral infarction without residual deficits (4) Hemiparesis affecting left side as late effect of stroke Status: Acute Category: Medical Code(s): I69.354 - Hemiplegia and hemiparesis following cerebral infarction affecting left non-dominant side (5) Paranoid schizophrenia Status: Acute Category: Medical Code(s): F20.0 - Paranoid schizophrenia (6) Diabetes Status: Chronic Qualifiers: Diabetes mellitus type: type 2 Diabetes
[2021-05-12 12:00] VITALS: BP 134/73; PULSE 72; RESP 20; TEMP 36.8; O2SAT 90
[2021-05-12 12:11] LABS: POC Glucose,Bedside 157 (70-110)
[2021-05-12 12:13] LABS: POC Glucose,Bedside 261 (70-110)
--- NOTE | 2021-05-12 14:16 | PC.WOUNDNOTE ---
Stage 2 pressue ulcer x2. Mother states ulcers present at home. Pt. has not wanted to turn or allow staff to view previously.
[2021-05-12 16:00] VITALS: BP 146/76; PULSE 69; RESP 20; TEMP 36.8; O2SAT 95
--- NOTE | 2021-05-12 17:04 | HMH.ORTHPN ---
Subjective Date: 05/12/21 <ValleJazmin viveros - 05/12/21 17:04> Time: 16:30 <Jazmin Valle - 05/12/21 17:04> Principal diagnosis: S/p cephalomedullary nailing, left femur <Jazmin Valle - 05/12/21 17:04> Interval history: Patient is a 50-year-old male admitted to the acute inpatient service after undergoing an uneventful left femur cephalomedullary nailing on 05/09/2021. Today the patient is postop day #3. He is lying in bed comfortably this afternoon and his mother is present at the bedside. He continues to report pain in his left hip that is well controlled with pain medication. He states that he has been eating and drinking well and denies any episodes of nausea or vomiting. He has been able to get up to a chair at the bedside with the assistance of physical therapy. He denies chest pain, shortness of breath, palpitations, fevers, chills, rigors, or distal tingling/numbness. His past medical history is significant for a CVA with left-sided hemiparesis, CHF, CAD, carotid artery stenosis, hyperlipidemia, hypertension, schizophrenia, seizures, diabetes, and tobacco use. He is a smoker. He reports that his right eye itches but denies any other symptoms or concerns at this time. <Jazmin Valle - 05/12/21 17:11> PN: Obj Ex Vital signs: Temp Pulse Resp BP Pulse Ox 98.3 F 69 20 146/76 H 95 05/12/21 16:00 05/12/21 16:00 05/12/21 16:00 05/12/21 16:00 05/12/21 16:00 <KaidenMarquis Anthony - 05/12/21 20:33> Temp Pulse Resp BP Pulse Ox 98.3 F 72 20 134/73 90 L 05/12/21 12:00 05/12/21 12:00 05/12/21 12:00 05/12/21 12:00 05/12/21 12:00 <Jazmin Valle - 05/12/21 17:04> - Constitutional no acute distress, cooperative <Jazmin Valle 05/12/21 17:07> - Routine HEENT Exam Head: Present: normocephalic, atraumatic <Jazmin Valle 05/12/21 17:07> Eye: Present: EOMI, PERRL <Jazmin Valle 05/12/21 17:07> ENT: Present: mucous membranes moist <Jazmin Valle 05/12/21 17:07> - Routine Neck Exam Present: supple, full ROM, trachea midline. Absent: JVD, lymphadenopathy <Jazmin Valle 05/12/21 17:07> - Routine Respiratory Exam Absent: accessory muscle use, respiratory distress <Jazmin Valle 05/12/21 17:07> Comments: Symmetric chest movement, able to speak in complete sentences <Jazmin Valle 05/12/21 17:07> - Routine Cardiovascular Exam Present: RRR. Absent: JVD <Jazmin Valle 05/12/21 17:07> Comments: Normal peripheral pulses <Jazmin Valle 05/12/21 17:07> - Routine Abdominal Exam Present: soft. Absent: tenderness <Jazmin Valle 05/12/21 17:07> - Routine Extremities Exam Present: pulses intact, normal capillary refill. Absent: calf tenderness <Jazmin Valle 05/12/21 17:07> Comments: Upon examination of the lower extremities: The limb lengths are equal. Upon examination of the left hip, dressings present are clean, dry, and intact. No evidence of drainage or bleeding noted. The left hip and proximal femur are tender to palpation. Any attempted movements of the left hip are painful as to be expected at this stage. Thigh and calf are soft nontender; Homans' sign is negative. No clinical evidence of DVT noted. Posterior tibial and dorsalis pedis pulses 1+; capillary refill is brisk. Sensation to light touch is grossly intact. <ValleJazmin 05/12/21 17:08> - Routine Skin Exam Present: intact, warm, normal turgor. Absent: erythema, lesions, jaundice, ecchymosis <ValleJazmin 05/12/21 17:07> - Routine Neurological Exam Present: alert, oriented X3, moving all extremities, normal tone, normal speech. Absent: sensory deficit, altered mental status <Jazmin Valle - 05/12/21 17:07> - Routine Psychiatric Exam Present: normal affect, cooperative <Jazmin Valle - 05/12/21 17:07> - Urinary Catheter Management Godfrey Cath placed during this visit: no <Marquis Richey - 05/12/21 20:33>
--- NOTE | 2021-05-12 17:19 | PC.NURSE ---
17:00 Routine reassessment completed. FSBS at 247, 7 units insulin given at this time. Pt. reports right eye more itchy. Right eye noted to be red, skin around eye noted to be red and irritated, dry drainage noted to be around eye. Eye drops given. Pt. reports pain at left hip at 6/10 Pain medication available after 1720. Pt. v/u. x2 Stage 2 pressure ulcers noted to coccyx. see previous wound note. Allevyn life dressing applied when wound photos were taken. No further acute changes noted. Blisters remain on left leg near dressing. Lungs remain diminished throughout. Pt. reports he has been using IS. Nurse encouraged pt. to use IS x10 per hour. Pt. v/u. Pt. has not had BM since 05/09/2021, Docusate given see MAR. Nurse encouraged pt to take another this evening as has ordered them BIDPRN. Pt.v/u. No needs noted at this time, Will continue to monitor.
[2021-05-13] VITALS: BP 100/48; PULSE 75; RESP 20; TEMP 37.1; O2SAT 94
[2021-05-13 02:38] LABS: POC Glucose,Bedside 239 (70-110)
[2021-05-13 04:00] VITALS: BP 98/67; PULSE 76; RESP 18; TEMP 36.9; O2SAT 92
[2021-05-13 06:00] VITALS: BMI 28.7
[2021-05-13 08:00] VITALS: BP 155/68; PULSE 74; RESP 18; TEMP 36.8; O2SAT 95
--- NOTE | 2021-05-13 08:55 | HMH.ACPN2 ---
Internal Medicine - PN: Subj *Date: 05/13/21 *Time: 08:55 Interval history: Patient states he is feeling a little bit better this morning. His cough is improved. He denies any shortness of breath. He states he did not sleep due to pain in his hip. His mother says therapy did not get him up in a chair yesterday. Exam Vital signs and Labs for Last 24 Hours: Temp Pulse Resp BP Pulse Ox 98.2 F 74 18 155/68 H 95 05/13/21 08:00 05/13/21 08:00 05/13/21 08:00 05/13/21 08:00 05/13/21 08:00 Laboratory Results - last 24 hr 05/10/21 05:28: POC Glucose 157 H 05/12/21 11:59: POC Glucose 261 H 05/12/21 21:21: POC Glucose 239 H I & O for Last 24 hours: Intake & Output 05/10/21 05/11/21 05/12/21 05/13/21 11:59 11:59 11:59 11:59 Intake Total 1703 / 1703 840 / 840 760 / 760 840 / 840 Output Total 2150 / 2150 2505 / 2505 1800 / 1800 1925 / 1925 Balance -447 / -447 -1665 / -1665 -1040 / -1040 -1085 / -1085 Weight 183 lb 1.6 oz 184 lb 8 oz 189 lb 8 oz - Constitutional no acute distress - *Routine Cardiovascular Exam Present: RRR - *Routine Abdominal Exam Present: soft, normoactive bowel sounds. Absent: tenderness - *Routine Extremities Exam Absent: cyanosis, clubbing, edema - *Routine Skin Exam Present: warm. Absent: rash - *Routine Neurological Exam Present: alert, oriented X3, motor deficit (Left arm and leg) Assessment and Plan (1) Closed left hip fracture Status: Acute Qualifiers: Encounter type: initial encounter Qualified Code(s): S72.002A - Fracture of unspecified part of neck of left femur, initial encounter for closed fracture Category: Medical Code(s): S72.002A - Fracture of unspecified part of neck of left femur, initial encounter for closed fracture (2) Contusion of left shoulder Status: Acute Qualifiers: Encounter type: initial encounter Qualified Code(s): S40.012A - Contusion of left shoulder, initial encounter Category: Medical Code(s): S40.012A - Contusion of left shoulder, initial encounter (3) History of CVA (cerebrovascular accident) Status: Acute Category: Medical Code(s): Z86.73 - Personal history of transient ischemic attack (TIA), and cerebral infarction without residual deficits (4) Hemiparesis affecting left side as late effect of stroke Status: Acute Category: Medical Code(s): I69.354 - Hemiplegia and hemiparesis following cerebral infarction affecting left non-dominant side (5) Paranoid schizophrenia Status: Acute Category: Medical Code(s): F20.0 - Paranoid schizophrenia (6) Diabetes Status: Chronic Qualifiers: Diabetes mellitus type: type 2 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 intermodal yard use Diabetes mellitus complication status: with other specified complication Qualified Code(s): E11.69 - Type 2 diabetes mellitus with other specified complication Category: Medical Code(s): E11.9 - Type 2 diabetes mellitus without complications (7) residential (current) use of insulin Status: Acute Category: Medical Code(s): Z79.4 - residential (current) use of insulin (8) Tobacco abuse Status: Chronic Category: Medical Code(s): Z72.0 - Tobacco use (9) Fever Status: Acute Category: Medical Code(s): R50.9 - Fever, unspecified (10) Conjunctivitis of right eye Status: Acute Category: Medical Code(s): H10.9 - Unspecified conjunctivitis (11) Pneumonia Status: Acute Category: Medical Code(s): J18.9 - Pneumonia, unspecified organism - Assessment and plan all Dx Assessment and Plan for all problems:: We will discuss further care with Dr. Hurtado. Possible discharge to [facility].
--- NOTE | 2021-05-13 09:36 | HMH.DCSUM ---
General - General Admission date:: 05/08/21 Discharge date: 05/13/21 HPI HPI: This 50-year-old white male who has had a CVA with left hemiparesis is admitted from the emergency room with a left hip fracture. Apparently his mother was helping him get into the shower last night and he fell injuring his left shoulder and left hip. He has had pain in the left hip all day and he was brought to the emergency room for evaluation. He had multiple x-rays and scans in the emergency room. There was a nondisplaced intertrochanteric fracture of the left hip. The patient has a history of paranoid schizophrenia. He is on seizure medication though he is not had a seizure for quite some time. There is some uncertainty to his dosing according to our records. I have no member of his family present to verify these medical records at this time. Recently for his schizophrenia we have introduced olanzapine 20 mg a day and this has made a significant difference for him. He is also diabetic and takes Lantus. Lately his dose has been decreased to 25 units due to oral surgery and decreased oral intake. He smokes 8 to 10 cigarettes a day. He has a past history of heavy smoking. Hospital Course Hospital Course: The patient did begin running a fever. He was seen in consultation by Dr. Richey who wanted to perform a cephalomedullary nailing of the femur. He was a given 2 g of IV Ancef for preoperative prophylaxis as well as IV vancomycin and was taken to surgery. The surgery was performed on 05/09/2021 and he tolerated the procedure well. He complained after the procedure of an itchy right eye. He did develop a fever and his oxygen saturations decreased, therefore a chest x-ray was ordered and he was started on incentive spirometry. Antibiotic drops were ordered for his eye. His chest x-ray showed nothing acute. PT was ordered. At his baseline, he was nonambulatory due to his left-sided hemiparesis, but Dr. Richey felt he would need short-term rehabilitation. Physical therapy saw the patient and felt he was most appropriate for rehab. He was able to sit up in a chair. His oxygen saturations dropped into the 80s when he was asleep and oxygen was placed with increased sats into the 90s. He continued to run a low-grade fever, therefore a CTA was ordered to rule out PE from previous surgery. His CTA showed no evidence of PE but stable diffuse groundglass opacities bilaterally and patchy airspace infiltrates bilaterally consistent with acute pneumonia. He was started on Rocephin. He did develop a cough which improved by the time of discharge. By 05/13/2021, his respiratory status had improved. His oxygen saturations were stable on room air and his cough improved. He continued with some left hip pain. A bed was found for him at [facility] for rehab and Dr. Richey and Dr. Hurtado felt he was stable to discharge. He will need to continue DVT prophylaxis for 6 weeks postoperatively and he will need to see Dr. Richey in his office in 2 weeks. Objective Vital signs: Temp Pulse Resp BP Pulse Ox 98.2 F 74 18 155/68 H 95 05/13/21 08:00 05/13/21 08:00 05/13/21 08:00 05/13/21 08:00 05/13/21 08:00 Narrative: - *Routine HEENT Exam Head: Present: normocephalic Eye: Present: EOMI, PERRL ENT: Present: mucous membranes moist - *Routine Neck Exam Present: supple. Absent: lymphadenopathy - *Routine Respiratory Exam Present: decreased breath sounds, CTA bilaterally - *Routine Cardiovascular Exam Present: RRR - *Routine Abdominal Exam Present: soft, normoactive bowel sounds. Absent: tenderness - *Routine Rectal Exam Rectal:: deferred - *Routine Genitalia Exam Genitalia:: deferred - *Routine Extremities Exam Present: normal capillary refill. Absent: cyanosis, clubbing, edema, full ROM (Left leg is externally rotated), calf tenderness - *Routine Skin Exam Present: warm. Absent: rash - *Routine Neurological Exam Present:
--- NOTE | 2021-05-13 09:48 | HMH.ORTHPN ---
Subjective Date: 05/13/21 Time: 08:55 Principal diagnosis: S/p cephalomedullary nailing, left femur Interval history: Patient is a 50-year-old male admitted to the acute inpatient service after undergoing an uneventful left femur cephalomedullary nailing on 05/09/2021. Today the patient is postop day #4. He is lying in bed comfortably this morning and PT is present. His mother is at the bedside. He continues to report pain in his left hip that is well controlled with pain medication. He states that he has been eating and drinking well and denies any episodes of nausea or vomiting. He denies chest pain, shortness of breath, palpitations, fevers, chills, rigors, or distal tingling/numbness. His past medical history is significant for a CVA with left-sided hemiparesis, CHF, CAD, carotid artery stenosis, hyperlipidemia, hypertension, schizophrenia, seizures, diabetes, and tobacco use. He is a smoker. He denies any other symptoms or concerns at this time. PN: Obj Ex Vital signs: Temp Pulse Resp BP Pulse Ox 98.2 F 74 18 155/68 H 95 05/13/21 08:00 05/13/21 08:00 05/13/21 08:00 05/13/21 08:00 05/13/21 08:00 - Constitutional no acute distress, cooperative - Routine HEENT Exam Head: Present: normocephalic, atraumatic Eye: Present: EOMI, PERRL ENT: Present: mucous membranes moist - Routine Neck Exam Present: supple, full ROM, trachea midline. Absent: JVD - Routine Respiratory Exam Absent: accessory muscle use, respiratory distress Comments: symmetric chest movement, able to speak in complete sentences - Routine Cardiovascular Exam Present: RRR Comments: normal peripheral pulses - Routine Abdominal Exam Present: soft. Absent: tenderness - Routine Extremities Exam Present: pulses intact. Absent: calf tenderness Comments: Upon examination of the lower extremities: The limb lengths are equal. Upon examination of the left hip, dressings present are clean, dry, and intact. No evidence of drainage or bleeding noted. Out of the dressings, the surgical incisions appear clean and healthy. No bleeding, induration, erythema, or other signs of infection noted. There are steri-strips in place. The left hip and proximal femur are tender to palpation. Any attempted movements of the left hip are painful as to be expected at this stage. Thigh and calf are soft nontender; Homans' sign is negative. No clinical evidence of DVT noted. Posterior tibial and dorsalis pedis pulses 1+; capillary refill is brisk. Sensation to light touch is grossly intact. - Routine Skin Exam Present: intact, warm, normal turgor. Absent: erythema, jaundice - Routine Neurological Exam Present: alert, oriented X3, moving all extremities, normal tone, normal speech. Absent: sensory deficit, motor deficit, altered mental status - Routine Psychiatric Exam Present: normal affect, cooperative - Urinary Catheter Management Godfrey Cath placed during this visit: no Urethral indwelling: No Progress Note: A&P (1) Closed left hip fracture Status: Acute (2) Contusion of left shoulder Status: Acute (3) History of CVA (cerebrovascular accident) Status: Acute (4) Hemiparesis affecting left side as late effect of stroke Status: Acute (5) Paranoid schizophrenia Status: Acute (6) Diabetes Status: Chronic (7) superintendent terminal (current) use of insulin Status: Acute (8) Tobacco abuse Status: Chronic (9) Fever Status: Acute (10) Conjunctivitis of right eye Status: Acute (11) Pneumonia Status: Acute Assessment and Plan for All Diagnoses:: Overall he is doing well from an orthopedic standpoint and can be discharged when medically appropriate. I removed his surgical dressings and the surgical incisions appear clean, dry, and healthy. No erythema, induration, bleeding, drainage, or other signs of infection noted. There are steri-strips in place; advised the patient that his incisions may be left uncover
--- NOTE | 2021-05-13 12:42 | PC.NURSE ---
1030: Report called to Po Cole at [facility].
[2021-05-13 12:47] LABS: POC Glucose,Bedside 247 (70-110)
[2021-05-13 14:20] LABS: POC Glucose,Bedside 165 (70-110)
== END 2021-05-13 11:15 | DRG 480 ==
LOC: ER 15:40 → 2ND 05-09 07:37
PROVIDERS: Orthopaedic Surgery; Physician Assistant Surgical; Admitting Provider Family Medicine; Emergency Provider Emergency Medicine; PCP Family Medicine; Visit Provider Family Medicine
PROC: 0QS606Z Reposition Right Upper Femur with Intramedullary Internal Fixation Device, Open Approach (ICD-10-PCS; principal; 2021-05-09 12:00)
DX: S72.142A Displaced intertrochanteric fracture of left femur, initial encounter for closed fracture (principal); J18.9 Pneumonia, unspecified organism; I69.354 Hemiplegia and hemiparesis following cerebral infarction affecting left non-dominant side; F20.0 Paranoid schizophrenia; S40.012A Contusion of left shoulder, initial encounter; E11.51 Type 2 diabetes mellitus with diabetic peripheral angiopathy without gangrene; Z79.4 Long term (current) use of insulin; I11.0 Hypertensive heart disease with heart failure; E78.5 Hyperlipidemia, unspecified; M54.9 Dorsalgia, unspecified; G89.29 Other chronic pain; M19.90 Unspecified osteoarthritis, unspecified site; F17.210 Nicotine dependence, cigarettes, uncomplicated; H10.9 Unspecified conjunctivitis
CPT/HCPCS: 27245; 36415; 51702; 70450; 71045; 71275; 72125; 73030; 73502; 73620; 73700; 80048; 80053; 81001; 82962; 85025; 85610; 85730; 86850; 93005; 96374; 96375; 97110; 97162; 97166; 97530; 99285; C1713; C1769; C1776; C9803; J0696; J2405; J3370; Q9967; U0003; U0005

== ENCOUNTER → 2021-06-07 09:35 | Outpatient (CLI) | payer MEDICARE, MEDICAID, SELFPAY ==
--- NOTE | 2021-06-07 09:42 | XR_ITS ---
FINAL REPORT CLINICAL HISTORY: lt hip fracture COMPARISON: May 08, 2021 FINDINGS: LEFT HIP Two views of the left hip with an AP pelvis were obtained. There has been interval placement of an intramedullary coby and compression screw in the proximal left femur. The left hip joint space is preserved. The visualized bony structures are well aligned. No soft tissue abnormality is seen. IMPRESSION: Postoperative changes as described. Reviewed, Interpreted and Dictated by Bhanu Wheat MD Transcribed by Carlotta Schultz Authenticated by Bhanu Wheat MD on 06/07/2021 11:27:02 AM [facility]
== END ==
PROVIDERS: PCP Family Medicine; Visit Provider Physician Assistant Surgical
DX: S72.002A Fracture of unspecified part of neck of left femur, initial encounter for closed fracture (principal)
CPT/HCPCS: 73502

== ENCOUNTER → 2021-07-05 11:58 | Outpatient (CLI) | payer MEDICARE, MEDICAID, SELFPAY ==
--- NOTE | 2021-07-05 12:03 | XR_ITS ---
FINAL REPORT CLINICAL HISTORY: left hip post op FINDINGS: LEFT HIP 2 views were obtained. There are postoperative changes from ORIF of the proximal femur. There is no acute fracture. There are mild degenerative changes. There is no soft tissue abnormality. IMPRESSION: Postoperative changes from ORIF of the proximal femur with no acute process. Reviewed, Interpreted and Dictated by Abel Rousseau III, MD Transcribed by Dalia Boucher Authenticated by Abel Rousseau III, MD on 07/05/2021 02:18:42 PM [facility]
== END ==
PROVIDERS: PCP Family Medicine; Visit Provider Physician Assistant Surgical
DX: S72.002A Fracture of unspecified part of neck of left femur, initial encounter for closed fracture (principal)
CPT/HCPCS: 73502

== ENCOUNTER 2021-07-12 16:19 | Inpatient (IN) | payer MEDICARE, MEDICAID, SELFPAY ==
[2021-07-12] VITALS (9 sets, daily range): BP systolic 91–117; BP diastolic 60–71; PULSE 86–92; RESP 17–28; TEMP 37–37.1; O2SAT 97–99; BMI 24.4; BMI 23.1
--- NOTE | 2021-07-12 16:42 | HMH.EDGENADL ---
ED Disposition Clinical Impression: Diarrhea Qualifiers: Diarrhea type: unspecified type Qualified Code(s): R19.7 - Diarrhea, unspecified Sepsis Qualifiers: Sepsis type: sepsis due to unspecified organism Sepsis acute organ dysfunction status: with acute organ dysfunction Severe sepsis acute organ dysfunction type: acute renal failure Acute renal failure type: unspecified Severe sepsis shock status: without septic shock Qualified Code(s): A41.9 - Sepsis, unspecified organism; R65.20 - Severe sepsis without septic shock; N17.9 - Acute kidney failure, unspecified Disposition: Still a Patient Condition on Discharge: Good Referrals: Ekaterina Hurtado MD [Primary Care Provider] - - Critical Care Critical Care Time: Yes Attestation: On 07/12/21, the high probability of a clinically significant, sudden or life threatening deterioration of the following system(s) required my full and direct attention, intervention and personal management. The time I documented below is in addition to time spent performing reported procedures but includes the following listed in this critical care notation. Vital system(s) involved:: Circulatory Failure, Metabolic Failure, Shock (Septic) My critical care processes included: Assessment & monitoring of V/S, Initial and Re-exams, Data Review/Interpretation, Coordinating Care Medical Decision Making - Medical Records Medical records reviewed: Yes: I reviewed the patient's medical records. - Scooter Inquiry Pt receiving controlled substance: No Vital Signs: 07/12/21 16:41 07/12/21 16:55 Temperature 98.6 F Temperature Source Oral Pulse Rate 89 Pulse Rate [Left Radial] 88 Respiratory Rate 17 Blood Pressure 105/68 L Blood Pressure [Right Arm] 105/71 L Blood Pressure Mean [Right Arm] 82 02 Sat by Pulse Oximetry 98 97 - Lab Data Lab Results 07/12/21 17:27: WBC 21.4 H*, RBC 5.43, Hgb 16.7, Hct 50.1, MCV 92.2, MCH 30.8, MCHC 33.3, RDW 14.1, Plt Count 306, MPV 7.8, Neut % (Auto) 90.1 H, Lymph % (Auto) 3.4 L, [place] % (Auto) 5.3, Eos % (Auto) 0.6, Baso % (Auto) 0.5, Neut # (Auto) 19.3 H, Lymph # (Auto) 0.7, [place] # (Auto) 1.1 H, Eos # (Auto) 0.1, Baso # (Auto) 0.1 07/12/21 17:27: Sodium 135 L, Potassium 5.6 H, Chloride 103, Carbon Dioxide 14 L, Anion Gap 23.6 H, BUN 21 H, Creatinine 1.70 H, Estimated Creat Clear 60, Estimated GFR 43 L, Est GFR ( Amer) 52 L, Glucose 198 H, Calcium 10.6 H, Total Bilirubin 1.2, AST 33, ALT 44, Alkaline Phosphatase 70, Total Protein 8.7 H D, Albumin 5.3 H, Globulin 3.4 H, Albumin/Globulin Ratio 1.6 07/12/21 18:48: Lactate 2.5 H Result diagrams: 07/12/21 17:27 07/12/21 17:27 Orders (Tests/Meds): ED MEDICATIONS Generic Name Dose Route Start Last Admin Trade Name Freq PRN Reason Stop Dose Admin Ceftriaxone Sodium 2 gm/ 100 mls @ 200 mls/hr 07/12/21 18:30 07/12/21 18:53 Sodium Chloride IV 07/26/21 18:29 200 mls/hr Q24H SAPPHIRE Administration Discontinued Medications Generic Name Dose Route Start Last Admin Trade Name Freq PRN Reason Stop Dose Admin Lactated Ringer's 1,000 mls @ 999 mls/hr 07/12/21 18:30 Lactated Ringer's 1000 Ml Bag IV 07/12/21 19:30 .Q1H1M SAPPHIRE Lactated Ringer's 1,000 mls @ 999 mls/hr 07/12/21 18:30 Lactated Ringer's 1000 Ml Bag IV 07/12/21 19:30 .Q1H1M SAPPHIRE Lactated Ringer's 500 mls @ 999 mls/hr 07/12/21 19:30 Lactated Ringer's 1000 Ml Bag IV 07/12/21 20:00 .Q31M SAPPHIRE Ondansetron HCl 8 mg 07/12/21 16:40 07/12/21 16:53 Ondansetron 4mg/2ml Vial IV 07/12/21 16:41 8 mg ONCE ONE Administration ORDERS Category Date Time Status CT abdomen pelvis wo con Stat Cat Scan 07/12/21 18:22 Taken Chest XR -- portable [XR chest portable] Stat Exams 04/26/22 18:22 Taken Complete Blood Count Auto Diff Stat Lab 07/12/21 17:27 Results Diarrhea 23 Panel, PCR Stat Lab 07/12/21 19:19 Received Occult Blood,Stool Stat Lab 07/12/21 16:41 Ordered Urinalysis-Acute [Urinalysis and
[2021-07-12 17:42] LABS: Chloride 103 mmol/L (98-107); Potassium 5.6 mmoL/L (3.5-5.1)
[2021-07-12 17:43] LABS: Sodium 135 mmol/L (136-145)
[2021-07-12 17:45] LABS: Alanine Aminotransferase 44 U/L (12-78); Anion Gap 23.6 mEq/L (5-15); Aspartate Amino Transferase 33 U/L (17-59); Blood Urea Nitrogen 21 mg/dl (9-20); Carbon Dioxide 14 mmol/L (22.0-30.0); Creatinine Clearance Estimated 60 mL/min (50-200); Estimated Glomerular Filt Rate 43 ml/min (>60); GFR (African American) 52 ML/MIN (>60)
[2021-07-12 17:46] LABS: Alkaline Phosphatase 70 U/L (38-126); Bilirubin,Total 1.2 mg/dl (0.2-1.3); Glucose 198 mg/dl (74-100)
[2021-07-12 17:47] LABS: Albumin Level 5.3 g/dl (3.5-5.0); Albumin/Globulin Ratio 1.6 (1.1-1.8); Calcium 10.6 mg/dl (8.4-10.2); Globulin 3.4 g/dL (1.3-3.2); Total Protein,Serum 8.7 g/dl (6.3-8.2)
[2021-07-12 18:00] LABS: Basophils # 0.1 K/mm3 (0-0.2); Basophils % 0.5 % (0.1-2.0); Eosinophils # 0.1 K/mm3 (0.0-0.4); Eosinophils % 0.6 % (0.1-12.0); Hematocrit 50.1 % (42.0-52.0); Hemoglobin 16.7 g/dL (14.1-18.0); Lymphocytes # 0.7 K/mm3 (0.7-4.5); Lymphocytes % 3.4 % (10-50); Mean Corpuscular HGB Conc 33.3 g/dL (31.8-35.4); Mean Corpuscular Hemoglobin 30.8 pg (27.0-31.2); Mean Corpuscular Volume 92.2 fl (80-94); Mean Platelet Volume 7.8 fl (7.4-10.4); Monocytes # 1.1 K/mm3 (0.1-1.0); Monocytes % 5.3 % (1.7-9.3); Neutrophils # 19.3 K/mm3 (1.8-7.8); Neutrophils % 90.1 % (37.0-80.0); Platelet Count 306 K/mm3 (142-424); Red Blood Count 5.43 M/mm3 (4.60-6.20); Red Cell Distribution Width 14.1 % (11.5-17.5); White Blood Count 21.4 K/mm3 (4.8-10.8)
[2021-07-12 18:07] LABS: MANUAL DIFFERENTIAL MANUAL DIFFERENTIAL (MANUAL DIFF)
--- NOTE | 2021-07-12 18:22 | CT_ITS ---
PROCEDURE INFORMATION: Exam: CT Abdomen And Pelvis Without Contrast Exam date and time: 07/12/2021 6:30 PM Age: 50 years old Clinical indication: Nausea; Prior surgery; Additional info: Sepsis TECHNIQUE: Imaging protocol: Computed tomography of the abdomen and pelvis without contrast. Radiation optimization: All CT scans at this facility use at least one of these dose optimization techniques: automated exposure control; mA and/or kV adjustment per patient size (includes targeted exams where dose is matched to clinical indication); or iterative reconstruction. COMPARISON: ABDPELW/O CT ABD PELVIS W/O CONTRAST 06/13/2016 2:32 AM; on 05/09/[address] FINDINGS: Lungs: Bibasal subsegmental atelectasis/scarring. Liver: Fatty liver. Gallbladder and bile ducts: Status post cholecystectomy. Pancreas: Unremarkable. Spleen: Unremarkable. Adrenal glands: Unremarkable. Kidneys and ureters: lobulation vs cortical renal scarring in the bilateral kidneys. Non-specific bilateral symmetric perinephric fat stranding. Stomach and bowel: Stomach, small bowel and right hemicolon are modestly distended with air-fluid levels. Colonic diverticulosis without inflammatory changes. Appendix: Appendix is prominent measuring 8-9 mm in diameter, although unchanged from 06/13/2016 CT and with no evidence of acute inflammation. Intraperitoneal space: No free fluid. No pneumoperitoneum. Arteries: Extensive amount of calcific arterial atherosclerosis. No abdominal aortic aneurysm. Lymph nodes: Unremarkable. Urinary bladder: Bladder is decompressed, limiting evaluation. Reproductive: Unremarkable. Bones/joints: Post-operative changes of prior left femur fixation with intramedullary femoral coby and cannulated cross-locking trochanteric nail. Minimally displaced lesser trochanter avulsion fracture remains ununited, not significantly changed from 05/09/[address] Soft tissues: Unremarkable. IMPRESSION: 1. Stomach, small bowel and right hemicolon are modestly distended with air-fluid levels. Findings are compatible with acute gastroenteritis vs ileus. No evidence of small bowel obstruction or other acute intra-abdominal process. 2. Post-operative changes of prior left femur fixation with minimally displaced lesser trochanter avulsion fracture remaining ununited, not significantly changed from 05/09/[address] 3. Fatty liver. 4. Colonic diverticulosis without evidence of acute diverticulitis. 5. Additional non-acute ancillary findings are detailed above.
--- NOTE | 2021-07-12 18:22 | XR_ITS ---
PROCEDURE INFORMATION: Exam: XR Chest Exam date and time: 07/12/2021 6:37 PM Age: 50 years old Clinical indication: Other: Sepsis TECHNIQUE: Imaging protocol: XR of the chest. Views: 1 view. COMPARISON: CR XR CHEST PORTABLE 05/10/2021 9:31 AM FINDINGS: Lungs: No acute airspace consolidation. No appreciable pulmonary edema. Pleural spaces: No pleural effusion. No pneumothorax. Heart/Mediastinum: Cardiomediastinal silouhette is unchanged. Bones/joints: No acute osseous abnormality. Soft tissues: Unremarkable. IMPRESSION: No acute findings.
--- NOTE | 2021-07-12 18:32 | PC.NURSE ---
lab at bedside
--- NOTE | 2021-07-12 18:41 | PC.NURSE ---
notified that pt did not meet SIRS criteria for sepsis.
--- NOTE | 2021-07-12 19:15 | PC.NURSE ---
MD notified that pt now meets Severe sepsis with organ dysfunction d/t HR, WBC, and lactic. MD report suspected urine infection as source.
--- NOTE | 2021-07-12 19:20 | PC.NURSE ---
Helped change pt's brief. Collected diarrhea sample for diarrhea panel.
[2021-07-12 19:23] LABS: Lactic Acid 2.5 mmol/L (0.7-2.1)
--- NOTE | 2021-07-12 19:25 | PC.NURSE ---
2nd peripheral line placed to LAC, 20g. pt tolerated well. 2nd bag of LR started to this line.
[2021-07-12 19:26] LABS: Adenovirus F 40/41, stool Not Detected (NotDetected); Astrovirus Not Detected (NotDetected); Campylobacter Not Detected (NotDetected); Clostridium Difficile A/B, PCR Not Detected (NotDetected); Cryptosporidium Not Detected (NotDetected); Cyclospora Cayetanesis Not Detected (NotDetected); Entamoeba histolytica Not Detected (NotDetected); Enteroaggregative E coli Not Detected (NotDetected); Enteropathogenic E coli Not Detected (NotDetected); Enterotoxigenic E coli Not Detected (NotDetected); Giardia lamblia Not Detected (NotDetected); Norovirus Not Detected (NotDetected); Plesimonas Shigalloides, PCR Not Detected (NotDetected); Salmonella, PCR Not Detected (NotDetected); Sapovirus Not Detected (NotDetected); Shiga-like toxin E coli Not Detected (NotDetected); Shigella Enterovasive E coli Not Detected (NotDetected); Vibrio Cholerae Not Detected (NotDetected); Vibrio, PCR Not Detected (NotDetected); Yersinia Entercolitica, PCR Not Detected (NotDetected)
[2021-07-12 20:07] LABS: Microscopic, Urine URINE MICROSCOPIC (MICROSCOPIC)
[2021-07-12 20:10] LABS: Appearance,Urine CLEAR (Clear); Blood, Urine TRACE-L (Negative); Color,Urine YELLOW (Yellow); Glucose,Urine (UA) Negative (Negative); Ketones,Urine 1+ (Negative); Leukocyte Esterase,Urine 1+ (Negative); Nitrate,Urine Negative (Negative); Occult Blood,Stool Positive (Negative); Protein,Urine 3+ (Negative); Specific Gravity, Urine >= 1.030 (1.005-1.030); Urobilinogen,Urine 0.2 EU/dl (0.2)
[2021-07-12 20:15] LABS: Bilirubin,Urine 2+ (Negative)
[2021-07-12 20:27] LABS: Bacteria,Urine 4+ /lpf
[2021-07-12 20:49] LABS: Coronavirus 19, PCR Not Detected (NotDetected); Influenza A, PCR Not Detected (NotDetected); Influenza B, PCR Not Detected (NotDetected)
--- NOTE | 2021-07-12 21:19 | PC.NURSE ---
called report to Shefali Mckee RN
[2021-07-12 23:01] LABS: Reflex Lactic Add Lactic Reflex
[2021-07-12 23:26] LABS: Lymphocytes % 3 % (10-50); Monocytes % 1 % (2-9); Neutrophils % 96 % (42-76); Total Cells Counted 100
[2021-07-12 23:27] LABS: Macrocytosis 1+; Platelet Estimate Normal
[2021-07-13] VITALS: RESP 21; O2SAT 97
[2021-07-13 00:10] LABS: Lactic Acid Follow Up (RFLX 1) 1.7 mmol/L (0.7-2.1)
[2021-07-13 02:49] LABS: Rotavirus A Detected (NotDetected)
[2021-07-13 04:00] VITALS: BP 117/57; PULSE 99; RESP 18; TEMP 36.8; O2SAT 98
[2021-07-13 04:54] VITALS: BMI 23.0
[2021-07-13 05:59] LABS: POC Glucose,Bedside 141 (70-110)
[2021-07-13 07:13] LABS: Basophils # 0.1 K/mm3 (0-0.2); Basophils % 0.7 % (0.1-2.0); Eosinophils # 0.1 K/mm3 (0.0-0.4); Eosinophils % 1.5 % (0.1-12.0); Hematocrit 50.5 % (42.0-52.0); Lymphocytes % 13.4 % (10-50); Mean Corpuscular HGB Conc 33.7 g/dL (31.8-35.4); Mean Corpuscular Hemoglobin 30.5 pg (27.0-31.2); Mean Corpuscular Volume 90.4 fl (80-94); Monocytes # 0.9 K/mm3 (0.1-1.0); Monocytes % 11.4 % (1.7-9.3); Neutrophils # 5.5 K/mm3 (1.8-7.8); Neutrophils % 73.1 % (37.0-80.0); Platelet Count 145 K/mm3 (142-424); Red Blood Count 5.58 M/mm3 (4.60-6.20); Red Cell Distribution Width 14.2 % (11.5-17.5); White Blood Count 7.5 K/mm3 (4.8-10.8)
--- NOTE | 2021-07-13 07:15 | P.CONPHA_ITS ---
[facility] Pharmacy VTE Monitoring - Patient Demographics Admission date: 07/12/21 Report Date: 07/13/21 Time: 07:15 Allergies/Adverse Reactions: Patient Allergies Fish Containing Products Adverse Reaction (Severe, Verified 07/05/21 13:14) Height: 1.83 m Weight: 77.111 kg Patient Problems: Current Active Problems Diarrhea (Acute) Severe sepsis with acute organ dysfunction (Acute) Sepsis (Acute) - VTE Risk Labs: VTE Related Lab Results Hgb 17.0 g/dL (14.1-18.0) 07/13/21 05:53 Hct 50.5 % (42.0-52.0) 07/13/21 05:53 Plt Count 145 K/mm3 (142-424) D 07/13/21 05:53 BUN 21 mg/dl (9-20) H 07/12/21 17:27 Creatinine 1.70 mg/dl (0.66-1.25) H 07/12/21 17:27 Estimated Creat Clear 60 mL/min (50-200) 07/12/21 17:27 Was VTE Risk Assessment Performed: Yes VTE Score: 5 VTE Risk Level: Low Risk - Prophylaxis VTE Prophylaxis Ordered?: Yes Types of VTE Prophylaxis: TEDS Knee High Location of Applied Device: Bilateral Lower Extremeties
[2021-07-13 07:19] LABS: Chloride 110 mmol/L (98-107); Potassium 4.5 mmoL/L (3.5-5.1); Sodium 135 mmol/L (136-145)
[2021-07-13 07:22] LABS: Anion Gap 13.5 mEq/L (5-15); Blood Urea Nitrogen 24 mg/dl (9-20); Calcium 8.9 mg/dl (8.4-10.2); Carbon Dioxide 16 mmol/L (22.0-30.0); Creatinine Clearance Estimated 88 mL/min (50-200); Estimated Glomerular Filt Rate 71 ml/min (>60); GFR (African American) 86 ML/MIN (>60); Glucose 117 mg/dl (74-100)
--- NOTE | 2021-07-13 07:36 | HMH.PHAINT ---
MEDICATION RECONCILIATION COMPLETED ON PATIENT USING EXTERNAL FILL HISTORY FROM PHARMACY AND LIST FROM PREVIOUS ADMISSION DISCHARGE SUMMARY. -RITA HAIR, ROSIBELD
[2021-07-13 08:00] VITALS: BP 104/61; PULSE 89; RESP 14; TEMP 36.7; O2SAT 96
--- NOTE | 2021-07-13 09:22 | HMH.ACPN2 ---
Internal Medicine - PN: Subj *Date: 07/13/21 *Time: 09:22 Interval history: Patient was admitted with diarrhea through the emergency room last night. His studies showed rotavirus. There was also evidence of urinary tract infection. His white count was initially 25,000 but has normalized overnight. The patient himself is normalized overnight. He seems quite alert oriented and cogent. He is hydrated. His lungs are clear his heart has regular rate and rhythm. No leg edema. Exam Vital signs and Labs for Last 24 Hours: Temp Pulse Resp BP Pulse Ox 98.1 F 89 14 104/61 L 96 07/13/21 08:00 07/13/21 08:00 07/13/21 08:00 07/13/21 08:00 07/13/21 08:00 Laboratory Results - last 24 hr 07/12/21 17:27: WBC 21.4 H*, RBC 5.43, Hgb 16.7, Hct 50.1, MCV 92.2, MCH 30.8, MCHC 33.3, RDW 14.1, Plt Count 306, MPV 7.8, Neut % (Auto) 90.1 H, Lymph % (Auto) 3.4 L, [place] % (Auto) 5.3, Eos % (Auto) 0.6, Baso % (Auto) 0.5, Neut # (Auto) 19.3 H, Lymph # (Auto) 0.7, [place] # (Auto) 1.1 H, Eos # (Auto) 0.1, Baso # (Auto) 0.1, Total Counted 100, Neutrophils % (Manual) 96 H, Lymphocytes % (Manual) 3 L, Monocytes % (Manual) 1 L, Platelet Estimate Normal, Macrocytosis 1+ 07/12/21 17:27: Sodium 135 L, Potassium 5.6 H, Chloride 103, Carbon Dioxide 14 L, Anion Gap 23.6 H, BUN 21 H, Creatinine 1.70 H, Estimated Creat Clear 60, Estimated GFR 43 L, Est GFR ( Amer) 52 L, Glucose 198 H, Calcium 10.6 H, Total Bilirubin 1.2, AST 33, ALT 44, Alkaline Phosphatase 70, Total Protein 8.7 H D, Albumin 5.3 H, Globulin 3.4 H, Albumin/Globulin Ratio 1.6 07/12/21 18:48: Lactate 2.5 H 07/12/21 19:19: Stl Aeromonas (PCR) Not detected, Stl C. cayetanensis PCR Not detected, Stool Rotavirus (PCR) Detected A, Stl Adenov F 40/41 PCR Not detected, Stool Astrovirus (PCR) Not detected, Stool Campylobacter PCR Not detected, Stl C.difficile Tox PCR Not detected, Stool Cryptosporidium PCR Not detected, Stl E.coli Shiga Tox PCR Not detected, Stool E coli O157 PCR Not detected, Stl Enterotoxigenic E PCR Not detected, Stool EPEC (PCR) Not detected, Stool EAEC (PCR) Not detected, Stl E. histolytica PCR Not detected, Stool Giardia Lamblia PCR Not detected, Stool Salmonella PCR Not detected, Stool Sapovirus (PCR) Not detected, Stl P. shigelloides PCR Not detected, Stl Shigella/EIEC PCR Not detected, St Y.enterocolitica PCR Not detected, Stool Vibrio (PCR) Not detected, Stl Vibrio cholerae PCR Not detected, Stl Norovirus GI/GII PCR Not detected 07/12/21 20:00: Stool Occult Blood Positive A 07/12/21 20:00: Urine Color Yellow, Urine Appearance Clear, Urine pH 5.0, Ur Specific [place] >= 1.030, Urine Protein 3+, Urine Glucose (UA) Negative, Urine Ketones 1+, Urine Blood Trace-l, Urine Nitrate Negative, Urine Bilirubin 2+ A, Urine Urobilinogen 0.2, Ur Leukocyte Esterase 1+ A, Urine RBC 3-5, Urine WBC 5-10, Ur Squamous Epith Cells 3-5, Urine Bacteria 4+ 07/12/21 20:30: SARS-CoV-2 (PCR) Not detected, Influenza A Untype (PCR) Not detected, Influenza Type B (PCR) Not detected 07/12/21 23:51: Lactate 1.7 07/13/21 05:51: POC Glucose 141 H 07/13/21 05:53: WBC 7.5 D, RBC 5.58, Hgb 17.0, Hct 50.5, MCV 90.4, MCH 30.5, MCHC 33.7, RDW 14.2, Plt Count 145 D, MPV 8.0, Neut % (Auto) 73.1, Lymph % (Auto) 13.4, [place] % (Auto) 11.4 H, Eos % (Auto) 1.5, Baso % (Auto) 0.7, Neut # (Auto) 5.5, Lymph # (Auto) 1.0, [place] # (Auto) 0.9, Eos # (Auto) 0.1, Baso # (Auto) 0.1 07/13/21 05:53: Sodium 135 L, Potassium 4.5, Chloride 110 H, Carbon Dioxide 16 L, Anion Gap 13.5, BUN 24 H, Creatinine 1.10 D, Estimated Creat Clear 88, Estimated GFR 71, Est GFR ( Amer) 86 D, Glucose 117 H D, Calcium 8.9 I & O for Last 24 hours: Intake & Output 07/10/21 07/11/21 07/12/21 07/13/21 11:59 11:59 11:59 11:59 Intake Total 2550 / 2550 Output Total 475 / 475 Balance 2074 / 2074 Weight 170 lb - Constitutional no acute distress - *Routine HEENT Exam Head: Present: normocephalic Eye: Present: EOMI, PERRL (Lid lag on the left
--- NOTE | 2021-07-13 09:29 | HMH.HPDC ---
<Ioana Bone - Last Filed: 07/13/21 09:29> General - General Admission date:: 07/12/21 Discharge date: 07/13/21 *Admission Date: 07/12/21 *Chief complaint: Nausea, vomiting, diarrhea. *History of present illness: Mr. 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 He was felt to be dehydrated and received several boluses of IV fluids. He was also started on Rocephin and given Zofran. CT of the abdomen/pelvis revealed small bowel and right heel: Modestly distended with air-fluid levels with findings compatible with acute gastroenteritis versus ileus.: No evidence of small bowel obstruction or acute intra-abdominal process; fatty liver, and colonic diverticulosis without evidence of acute diverticulitis. Chest x-ray revealed no acute findings. Vital signs were stable and he was admitted for further evaluation and treatment with gastroenteritis, renal failure and sepsis. [facility] History Medical History: Reports:: Congestive Heart Failure, Chronic Obstructive Pulmonary Disease (COPD), Coronary Artery Disease, Cerebrovascular Accident, Diabetes Mellitus Type 2, Gastroesophageal Reflux Disease(GERD), Hyperlipidemia, Hypertension, Peripheral Vascular Disease, Renal Insufficiency, Seizures, Transient Ischemic Attacks (TIA) Denies:: Cancer, Diabetes Mellitus Type 1, Internal Pacemaker, MRSA *Have you ever received a pneumonia vaccine?: No *Have you received a flu vaccine this season?: No Other Medical History: Reports: Arthritis, Fibromyalgia, Other Laterality Cases: Left: Arthroscopy Hip Other Surgeries: Yes: Cardiac Catheterization, Cholecystectomy, Other (Jaw surgery). No: Pacemaker Amputation: No Fractures: Yes (Jaw, L Hip) - *Social History Smoking Status: Current every day smoker Tobacco Type: cigarettes # Packs/Day (cigarettes): 1 #Yrs smoked (if former smoker): 20 Alcohol Intake: never Substance Use Type: denies use *Occupational Status:: disabled Housing: house Household Members: family *Travel in the last 8 weeks: None - Psychiatric History Pschychiatric History:: Reports:: Schizophrenia Family Hx:: Cancer, Coronary Artery Disease, Diabetes, Heart Attack, Hypertension, Stroke, Mental illness Review of Systems - Constitutional Denies fever(s), Denies headache(s) - Eyes Denies change in vision - ENT Reports post nasal drip, Denies ear pain, Denies sore throat - *Cardiovascular Denies chest pain, Denies shortness of breath, Denies leg swelling - *Respiratory Denies chest congestion, Denies cough - *Genitourinary Denies difficulty urinating - *Musculoskeletal Reports back pain, Reports muscle weakness (Left hemiparesis), Denies abnormal walking (does not walk) - *Neurologic Denies behavioral changes, Denies confusion, Denies dizziness Exam Vital signs and Labs for Last 24 Hours: Temp Pulse Resp BP Pulse Ox 98.1 F 89 14 104/61 L 96 07/13/21 08:00 07/13/21 08:00 07/13/21 08:00 07/13/21 08:00 07/13/21 08:00 Laboratory Results - last 24 hr 07/12/21 17:27: WBC 21.4 H*, RBC 5.43, Hgb 16.7, Hct 50.1, MCV 92.2, MCH 30.8, MCHC 33.3, RDW 14.1, Plt Count 306, MPV 7.8, Neut % (Auto) 90.1 H, Lymph % (Auto) 3.4 L, [place] % (Auto) 5.3, Eos % (Auto) 0.6, Baso % (Auto) 0.5, Neut # (Auto) 19.3 H, Lymph # (Auto) 0.7, [place] # (Auto) 1.1 H, Eos # (Auto) 0.1, Baso # (Auto) 0.1, Total Counted 100, Neutrophils % (Manual) 96 H, Lymphocytes % (Manual) 3 L, Monocytes % (Manual) 1 L, Platelet Estimate Normal, Macrocytosis 1+ 07/12/21 17:27: Sodium 135 L, Potassium 5.6 H, Chloride 103, Carbon Dioxide 14 L, Anion Gap 23.6 H, BUN 21 H, Creatinine 1.70 H, Estimated Creat Clear 60, Estimated GFR 43 L, Est GFR ( Amer) 52 L, Glucose 198 H, Calcium 10.6 H, Total Bilirubin
[2021-07-13 16:00] VITALS: BP 136/64; PULSE 79; RESP 16; TEMP 36.3; O2SAT 100
--- NOTE | 2021-07-13 18:11 | PC.NURSE ---
Discharge instructions given to pt's mother, Kate Miranda. D/t [employer] being closed for the day, [facility] contacted. Pt does qualify for EMS ride.
--- NOTE | 2021-07-13 18:40 | PC.NURSE ---
Pt has had 10+ loose BM's this shift. Pt has been continent at times and incontinent as well. Pt remains in contact enteric precautions for rotavirus. Pt is awaiting discharge to home, waiting on [facility] at this time.
[2021-07-14 08:04] LABS: POC Glucose,Bedside 144 (70-110)
[2021-07-14 08:04] LABS: POC Glucose,Bedside 147 (70-110)
--- NOTE | 2021-07-14 16:05 | CARE MANAGER ---
Spoke with patient mother in follow-up phone interview and she states that patient is ok following hospital discharge. She states that she will call in the am to get a follow-up appointment with .
--- NOTE | 2021-07-15 09:50 | SW/DCPLANNER ---
Patient information has been faxed to [facility] to resume home health services.
== END 2021-07-13 19:23 | disposition home or self-care (01) | DRG 683 ==
LOC: ER 20:56 → ICU 21:07
PROVIDERS: Admitting Provider Family Medicine; Emergency Provider Emergency Medicine; PCP Family Medicine; Visit Provider Family Medicine
DX: N17.9 Acute kidney failure, unspecified (principal); A08.0 Rotaviral enteritis; I69.354 Hemiplegia and hemiparesis following cerebral infarction affecting left non-dominant side; E86.0 Dehydration; F17.210 Nicotine dependence, cigarettes, uncomplicated; I11.0 Hypertensive heart disease with heart failure; I50.9 Heart failure, unspecified; I25.10 Atherosclerotic heart disease of native coronary artery without angina pectoris; E78.5 Hyperlipidemia, unspecified; M79.7 Fibromyalgia; F20.9 Schizophrenia, unspecified; G89.29 Other chronic pain; E11.51 Type 2 diabetes mellitus with diabetic peripheral angiopathy without gangrene; M19.90 Unspecified osteoarthritis, unspecified site; Z20.822 Contact with and (suspected) exposure to COVID-19; J44.9 Chronic obstructive pulmonary disease, unspecified; Z79.4 Long term (current) use of insulin
CPT/HCPCS: 36415; 51702; 71045; 74176; 80048; 80053; 81001; 82272; 82962; 83605; 85007; 85025; 87040; 87086; 87507; 99285; C9803; G0328; G0378; J0696; J2405; U0003; U0005

== ENCOUNTER → 2021-07-19 09:12 | Outpatient (CLI) | payer MEDICARE, MEDICAID, SELFPAY ==
--- NOTE | 2021-07-19 09:12 | XR_ITS ---
FINAL REPORT TECHNIQUE: Bone mineral density was calculated of the lumbar spine and hip. CLINICAL HISTORY: LT HIP FX FINDINGS: DEXA BONE DENSITY AXIAL SKELETON Using L1-4, the bone mineral density of the spine is 0.893 g/cm2, corresponding to T-score of -1.8. Using the right hip, the bone mineral density of the femoral neck is 0.598 g/cm2, corresponding to a T-score of -2.4. NOTE: T-score: Standard deviation compared with peak bone mass of young adult mean. *Following the recommendations of the International Society of Bone densitometry, classification of hip BMD is based on the lower of two T-scores; total hip or femoral neck. IMPRESSION: Diminished bone mineral density of the lumbar spine and right hip consistent with osteopenia. FRAX 10 year fracture risk is 13 % for major osteoporotic fracture. Reviewed, Interpreted and Dictated by Abel Rousseau III, MD Transcribed by Carlotta Schultz Authenticated by Abel Rousseau III, MD on 07/19/2021 03:25:41 PM [facility]
== END ==
PROVIDERS: PCP Family Medicine; Visit Provider Orthopaedic Surgery
DX: M81.0 Age-related osteoporosis without current pathological fracture (principal)
CPT/HCPCS: 77080

== ENCOUNTER → 2021-08-09 10:11 | Outpatient (CLI) | payer MEDICARE, MEDICAID, SELFPAY ==
--- NOTE | 2021-08-09 | CA_ITS ---
FINAL REPORT TECHNIQUE: Hollis scale, color and spectral doppler images of the bilateral carotid arteries were obtained. CLINICAL HISTORY: .Lt sided hemiplegia, S/p CVA 3 years ago. Old Right MCA infarct COMPARISON: March 01, 2020 FINDINGS: Peak systolic velocity in the right internal carotid artery is 73 cm/sec. The internal carotid to common carotid artery ratio is 1.2. There is no significant carotid artery stenosis and mild plaque formation. The right vertebral artery shows retrograde flow which is unchanged. Peak systolic velocity in the left internal carotid artery is mildly elevated up to 169 cm/sec. The internal carotid to common carotid artery ratio is 1.7. 50-69% carotid artery stenosis and mild plaque formation. The left vertebral artery is normal in direction. IMPRESSION: No ultrasound evidence of hemodynamically significant right carotid artery stenosis. 50-69% left carotid artery stenosis. Retrograde flow in the right vertebral artery, similar to prior. Reviewed, Interpreted and Dictated by Lois Childers MD Transcribed by Carlotta Schultz Authenticated by Lois Childers MD on 08/09/2021 01:54:54 PM [facility]
== END ==
PROVIDERS: PCP Family Medicine; Visit Provider Physician Assistant
DX: I65.23 Occlusion and stenosis of bilateral carotid arteries (principal)
CPT/HCPCS: 93880

== ENCOUNTER → 2021-08-16 09:24 | Outpatient (CLI) | payer MEDICARE, MEDICAID, SELFPAY ==
--- NOTE | 2021-08-16 09:29 | XR_ITS ---
FINAL REPORT CLINICAL HISTORY: lt hip fracture F/U COMPARISON: July 05, 2021 FINDINGS: 2 views of the left hip were obtained. There are postoperative changes of the proximal femur from ORIF that is visually stable. There are mild degenerative changes of the hip. IMPRESSION: Stable postoperative changes. Reviewed, Interpreted and Dictated by Abel Rousseau III, MD Transcribed by Bret Kaplan Authenticated by Abel Rousseau III, MD on 08/16/2021 10:37:53 AM [facility]
== END ==
PROVIDERS: PCP Family Medicine; Visit Provider Orthopaedic Surgery
DX: S72.002A Fracture of unspecified part of neck of left femur, initial encounter for closed fracture (principal)
CPT/HCPCS: 73502

== ENCOUNTER → 2021-10-18 07:42 | Outpatient (CLI) | payer MEDICARE, MEDICAID, SELFPAY ==
--- NOTE | 2021-10-18 07:52 | XR_ITS ---
FINAL REPORT CLINICAL HISTORY: lt hip follow up COMPARISON: August 16, 2021 FINDINGS: 2 views of the left hip and an AP pelvis were obtained. There is no acute fracture or dislocation. There are postoperative changes involving the proximal femur. There is mild degenerative change. IMPRESSION: Postoperative change of the proximal left femur, stable. Reviewed, Interpreted and Dictated by Abel Rousseau III, MD Transcribed by Bret Kaplan Authenticated and [facility]
== END ==
PROVIDERS: PCP Family Medicine; Visit Provider Physician Assistant Surgical
DX: S72.002A Fracture of unspecified part of neck of left femur, initial encounter for closed fracture (principal)
CPT/HCPCS: 73502

== ENCOUNTER → 2021-10-24 10:31 | Outpatient (CLI) | payer MEDICARE, MEDICAID, SELFPAY ==
--- NOTE | 2021-10-24 10:36 | FL_ITS ---
FINAL REPORT CLINICAL HISTORY: FT 1.06 FINDINGS: MODIFIED BARIUM SWALLOW History: Dysphagia FINDINGS: Fluoroscopy was provided for the speech pathologist to evaluate the swallowing mechanism. The patient was given several different consistencies of barium while the swallow was visualized fluoroscopically. The report of the speech pathologist should be consulted prior to making dietary decisions. FLUOROSCOPY TIME:1.06 minutes IMPRESSION: Modified barium swallow under fluoroscopic guidance. Please see the report of the speech pathologist for Dietary recommendations. Films reviewed , interpreted and dictated by Dr. Rousseau Transcribed by Gabe Segal PA-C. Reviewed, Interpreted and Dictated by Abel Rousseau III, MD Transcribed by HERIBERTO Perez Authenticated and [facility]
--- NOTE | 2021-10-24 11:47 | HMH.SLMBS2 ---
Speech & Language Evaluation Speech/Language Mod Barium Swallow Start: 10/24/21 11:18 Freq: once Status: Complete Protocol: Document 10/24/21 11:18 ESTEFANI (Rec: 10/24/21 11:47 ESTEFANI [id number]) General Information General Current Food Consistancy Mechanical Soft,Thin Liquids Dentition Lower Only Oxygen Status Room Air Facial Symmetry Patient Baseline Ability to Follow Directions Excellent Communication Ability Moderate Impairment MBS Recommendations Diet Dietary Recommendations Mechanical Soft,Thin Liquids Treatment/Strategies Strategy/Precaution Recommend Sitting Upright (90 deg),Small Bites and Sips,Alternate Liquids/Solids Mod Barium Swallow Impressions Summary and Impressions Oral Phase Impression Mild Impairment Oral Phase Summary Mildly prolonged masication secondary to lack of dentiton. Did not trial regular solid per pt request. Pharyngeal Phase Impression Minimal Impairment Pharyngeal Phase Summary Mild diffuse oropharyngeal residue with all trials, pt is able to clear with an independent sibsequent swallow . No penetration or aspiration noted with any consistency trialed. Speech/Language MBS Assessment/Goals/Plan Assessment Date of Evaluation: 10/24/21 Evaluation Type Initial Certification Assessment/Problems Dysphagia, hx of CVA. Does Patient Qualify for Service Yes Qualify/Failure Comment Given MBSS results, pt does not qualify for skilled ST services at this time. Recommendations PHYSICIAN CERTIFICATION: The specified therapy services are required, authorized, and reviewed every 30 days. Diet Recommendations Mechanical Soft Liquid Type Recommendations Normal/Thin SL Swallow Guidelines Alt bite w/sip thru meal Dysphagia Swallow Precautions/Strategies Sitting Upright (90 deg),Small Bites and Sips,Alternate Liquids/Solids Plan Pt/Guardian verbally ack understanding Yes of dx/prognosis/goals Pt/Guardian verbally ack understanding Yes of/consent to tx prog G -code Required No Education Instructions provided MBSS results and diet recommendations discussed with pt and family, who expressed understanding. Pt/Caregiver able to recall information Able to recall/restate Reinforcement needed
== END ==
PROVIDERS: PCP Family Medicine; Visit Provider Family Medicine
DX: R13.10 Dysphagia, unspecified (principal)
CPT/HCPCS: 70371; 92611

== ENCOUNTER → 2022-02-02 07:27 | Outpatient (CLI) | payer MEDICARE, MEDICAID, SELFPAY ==
[2022-02-02 08:09] LABS: Basophils # 0.2 K/mm3 (0-0.2); Basophils % 1.8 % (0.1-2.0); Eosinophils # 0.5 K/mm3 (0.0-0.4); Eosinophils % 4.8 % (0.1-12.0); Hematocrit 41.4 % (42.0-52.0); Hemoglobin 13.9 g/dL (14.1-18.0); Lymphocytes # 1.8 K/mm3 (0.7-4.5); Lymphocytes % 17.3 % (10-50); Mean Corpuscular HGB Conc 33.5 g/dL (31.8-35.4); Mean Corpuscular Hemoglobin 31.9 pg (27.0-31.2); Mean Corpuscular Volume 95.2 fl (80-94); Mean Platelet Volume 8.9 fl (7.4-10.4); Monocytes # 0.9 K/mm3 (0.1-1.0); Monocytes % 8.2 % (1.7-9.3); Platelet Count 241 K/mm3 (142-424); Red Blood Count 4.35 M/mm3 (4.60-6.20); Red Cell Distribution Width 14.6 % (11.5-17.5); White Blood Count 10.3 K/mm3 (4.8-10.8)
[2022-02-02 08:35] LABS: Hemoglobin A1C 5.8 % (4.0-6.0)
[2022-02-02 08:44] LABS: Alanine Aminotransferase 30 U/L (12-78); Albumin Level 4.5 g/dl (3.5-5.0); Albumin/Globulin Ratio 2.3 (1.1-1.8); Alkaline Phosphatase 58 U/L (38-126); Anion Gap 16.3 mEq/L (5-15); Aspartate Amino Transferase 22 U/L (17-59); Bilirubin,Total 0.3 mg/dl (0.2-1.3); Blood Urea Nitrogen 15 mg/dl (9-20); Calcium 9.9 mg/dl (8.4-10.2); Carbon Dioxide 28 mmol/L (22.0-30.0); Chloride 93 mmol/L (98-107); Chol/HDL Ratio 4.6 (1-3.5); Cholesterol 106 mg/dl (140-200); Estimated Glomerular Filt Rate 102 ml/min (>60); GFR (African American) 123 ML/MIN (>60); Glucose 118 mg/dl (74-100); HDL Cholesterol 23 mg/dl (40-60); Potassium 4.3 mmoL/L (3.5-5.1); Sodium 133 mmol/L (136-145); Total Protein,Serum 6.5 g/dl (6.3-8.2); Triglycerides 157 mg/dl (30-150); VLDL Cholesterol 31 mg/dL (0-40)
[2022-02-02 08:55] LABS: Direct LDL Cholesterol 57.29 mg/dL (100-129)
[2022-02-02 09:15] LABS: Thyroid Stimulating Hormone 3.09 uIU/mL (0.465-4.68)
[2022-02-19 19:37] LABS: Free Valproic Acid (Depakote) 8.6
== END ==
PROVIDERS: PCP Family Medicine; Visit Provider Psychiatry & Neurology Psychiatry
DX: F20.0 Paranoid schizophrenia (principal); Z79.899 Other long term (current) drug therapy
CPT/HCPCS: 36415; 80053; 80061; 80165; 83036; 84443; 85025

== ENCOUNTER → 2022-02-22 15:28 | Outpatient (CLI) | payer MEDICARE, MEDICAID, SELFPAY ==
--- NOTE | 2022-02-22 15:34 | XR_ITS ---
FINAL REPORT CLINICAL HISTORY: BRONCHITIS COMPARISON: July 12, 2021 FINDINGS: Two views of the chest were obtained. The heart size and pulmonary vascularity are within normal limits. The mediastinum is normal. There are mild bibasilar opacities. There are small pleural effusions. There is no pneumothorax. The bony thorax is intact. IMPRESSION: Mild bibasilar opacities, favor atelectasis. Small pleural effusions. Reviewed, Interpreted and Dictated by Abel Rousseau III, MD Transcribed by Carlotta Schultz Authenticated and . [facility]
== END ==
PROVIDERS: PCP Physician Assistant; Visit Provider Physician Assistant
DX: J40 Bronchitis, not specified as acute or chronic (principal)
CPT/HCPCS: 71046

== ENCOUNTER → 2022-03-09 14:35 | Outpatient (CLI) | payer MEDICARE, MEDICAID, SELFPAY ==
--- NOTE | 2022-03-09 14:40 | CT_ITS ---
FINAL REPORT CLINICAL HISTORY: TOBACCO ABUSE COMPARISON: May 11, 2021 FINDINGS: Low-Dose Chest CT Axial images were obtained from the lung apex to the mid abdomen by computed tomography. Low-dose protocol was utilized. CTDI vol (mGy): 2.90 DLP (mGy-cm): 99.77 There is streak artifact secondary to the patient's arms. There is no axillary adenopathy. There is no hilar adenopathy. There are multiple borderline size mediastinal lymph nodes. The heart is proper size. There are severe coronary artery calcifications, worst in the left anterior descending coronary artery. There is no pericardial or pleural effusion. Lung window images demonstrate mild changes of emphysema with mild pulmonary scarring. There is mild atelectasis. There is a small left pleural effusion. There is a 4 mm nodule in the posterior left lung apex on image 17 which is stable. Limited images of the upper abdomen postoperative changes from cholecystectomy.. IMPRESSION: Stable 4 mm nodule in the posterior left lung apex. Modifier S: Severe coronary artery calcifications. Lung RADS category 2S. Recommend 12 month follow-up low-dose chest CT. Reviewed, Interpreted and Dictated by Abel Rousseau III, MD Transcribed by Carlotta Schultz Authenticated and [facility]
== END ==
PROVIDERS: PCP Physician Assistant; Visit Provider Family Medicine
DX: Z87.891 Personal history of nicotine dependence (principal); Z12.2 Encounter for screening for malignant neoplasm of respiratory organs
CPT/HCPCS: 71271

== ENCOUNTER → 2022-08-10 12:54 | Outpatient (CLI) | payer MEDICARE, MEDICAID, SELFPAY ==
--- NOTE | 2022-08-10 12:55 | CA_ITS ---
FINAL REPORT TECHNIQUE: Color Doppler, duplex Doppler and escobar scale sonography of the bilateral neck arterial vasculature was performed. Velocities were measured in the carotid arteries. Stenosis evaluation based on the validated velocity criteria. CLINICAL HISTORY: SAMUEL, known retrograde flow of Right vertebral artery. CVA 4 years ago with Infarct of Right MCA, Hemiplegic FINDINGS: The peak systolic velocity of the right common carotid artery is 81 cm/s. The peak systolic velocity of the right internal carotid artery is 137 cm/s and end diastolic velocity 16 cm/s. The ICA/CCA ratio is 1.7. A mild to moderate amount of plaque is present. The right external carotid artery is patent. The right vertebral artery is patent with retrograde flow. The peak systolic velocity of the left common carotid artery is 105 cm/s. The peak systolic velocity of the left internal carotid artery is 134 cm/s and end diastolic velocity 26 cm/s. The ICA/CCA ratio is 1.5. A mild to moderate amount of plaque is present. The left external carotid artery is patent.The left vertebral artery is patent with antegrade flow. IMPRESSION: Less than 50% bilateral carotid stenoses. Retrograde flow of the right vertebral artery. If indicated, CTA or MRA could further evaluate. Reviewed, Interpreted and Dictated by Abel Rousseau III, MD Transcribed by Ioana Farrell Authenticated and [facility]
== END ==
PROVIDERS: PCP Family Medicine; Visit Provider Nurse Practitioner
DX: E11.69 Type 2 diabetes mellitus with other specified complication (principal); F20.0 Paranoid schizophrenia; I10 Essential (primary) hypertension; I25.10 Atherosclerotic heart disease of native coronary artery without angina pectoris; I42.9 Cardiomyopathy, unspecified; I50.32 Chronic diastolic (congestive) heart failure; I63.9 Cerebral infarction, unspecified; R06.00 Dyspnea, unspecified; R94.31 Abnormal electrocardiogram [ECG] [EKG]; Z87.820 Personal history of traumatic brain injury; I65.23 Occlusion and stenosis of bilateral carotid arteries; Z79.4 Long term (current) use of insulin
CPT/HCPCS: 93306; 93880

== ENCOUNTER 2022-08-18 08:25 | Day surgery (SDC) | payer MEDICARE, MEDICAID, SELFPAY ==
[2022-08-18] VITALS (9 sets, daily range): BP systolic 100–117; BP diastolic 54–70; PULSE 60–65; RESP 16–20; TEMP 36.9; O2SAT 95–100; BMI 23.0
--- NOTE | 2022-08-18 07:10 | IR_ITS ---
APPROVED REPORT Patient Location: Outpatient PROCEDURES Right femoral arterial access Catheter placement in the right subclavian artery Right subclavian artery retrograde angiogram Right radial arterial access Catheter placement in the right axillary artery Right axillary artery retrograde angiogram Bare-metal stent deployment to the right subclavian artery Bare-metal stent deployment to the innominate artery INDICATION Occluded right subclavian artery, Right subclavian steal, Informed consent was obtained prior to the procedure. COMPLICATIONS None Estimated Blood Loss: Less than 10 mls TECHNIQUE One percent lidocaine was used to anesthetize the right groin. The right femoral artery was accessed via the Seldinger technique. A 5 [place] sheath was placed in the right femoral artery. A JR4 catheter was used to cannulate the innominate artery and then the right subclavian artery where retrograde angiography was performed. Following this therapeutic heparin was administered and the 5 [place] sheath was increased to a 6 [place] and then 8 [place] sheath. A 90 cm 8 [place] sheath was placed into the innominate artery using a 6 [place] JR4 guide catheter for support. An advantage wire was used to attempt pushing through the occlusion however this was unsuccessful. Because of this 1% lidocaine was used anesthetize the right anterior aspect of the wrist and the right radial artery was accessed via the Salinger technique. A 6 [place] hydrophilic sheath was placed in the right radial artery and a 6 [place] HINES guide catheter was used to traverse the right radial and brachial artery. The catheter was placed in the axillary artery where retrograde angiography was performed. An advantage wire was then advanced into the subclavian and innominate artery and eventually this was used to push through the occlusion. The HINES guide catheter was then advanced into the transverse aorta and the down into the descending aorta. A 7 mm snare was used to snare the advantage wire through the radial artery. This wire was then pulled through and into the 8 [place] sheath. The wire was fed and then removed out of the right groin sheath. Following this the dilator was advanced back into the 8 [place] sheath and under fluoroscopic guidance the 8 [place] sheath was pushed into the transverse aorta and innominate artery out the subclavian artery and into the right axillary artery. At this point 300 cm Ke wire was then placed into the 8 [place] sheath. The 6 [place] HINES guide catheter was then removed from the right radial artery. A 10 mm x 40 mm self-expanding stent was placed into the right subclavian artery. A 9 mm x 40 mm balloon was then deployed at 14 pratik to post dilate. A 10 mm x 27 mm balloon mounted stent was then placed proximal to this self-expanding stent yet still overlapping it and placed into the innominate artery where it was deployed at 14 pratik. Excellent angiographic results were obtained. The 100% occluded subclavian artery was recanalized with excellent inline antegrade flow from the innominate artery into the right subclavian and right axillary artery. There was normalization of blood pressure in the radial artery as well as the aorta. At this point the apparatus was removed the groin is reprepped closure change sheath was removed hemostasis was achieved using Perclose device patient transferred to the postop holding in stable condition. The right radial sheath was removed in the [employer] and good hemostasis was achieved using TR banding ANGIOGRAPHIC RESULTS Right subclavian artery proximally occluded IMPRESSION Chronically occluded right subclavian artery Successful stenting of the right subclavian artery
[2022-08-18 09:08] LABS: Basophils # 0.1 K/mm3 (0-0.2); Basophils % 1.1 % (0.1-2.0); Eosinophils # 0.4 K/mm3 (0.0-0.4); Eosinophils % 4.4 % (0.1-12.0); Hematocrit 45.4 % (42.0-52.0); Hemoglobin 14.8 g/dL (14.1-18.0); Lymphocytes # 1.9 K/mm3 (0.7-4.5); Lymphocytes % 19.7 % (10-50); Mean Corpuscular HGB Conc 32.6 g/dL (31.8-35.4); Mean Corpuscular Hemoglobin 30.6 pg (27.0-31.2); Mean Corpuscular Volume 94.1 fl (80-94); Mean Platelet Volume 7.9 fl (7.4-10.4); Monocytes # 0.9 K/mm3 (0.1-1.0); Monocytes % 9.8 % (1.7-9.3); Neutrophils # 6.2 K/mm3 (1.8-7.8); Platelet Count 211 K/mm3 (142-424); Red Blood Count 4.83 M/mm3 (4.60-6.20); Red Cell Distribution Width 13.9 % (11.5-17.5); White Blood Count 9.5 K/mm3 (4.8-10.8)
[2022-08-18 09:15] LABS: Chloride 98 mmol/L (98-107); Potassium 4.3 mmoL/L (3.5-5.1); Sodium 137 mmol/L (136-145)
[2022-08-18 09:18] LABS: Anion Gap 13.3 mEq/L (5-15); Blood Urea Nitrogen 11 mg/dl (9-20); Calcium 9.8 mg/dl (8.4-10.2); Carbon Dioxide 30 mmol/L (22.0-30.0); Creatinine Clearance Estimated 136 mL/min (50-200); Estimated Glomerular Filt Rate 119 ml/min (>60); GFR (African American) 144 ML/MIN (>60); Glucose 179 mg/dl (74-100)
[2022-08-18 15:21] LABS: CATHL Activated Clotting Time 280 SEC (74-125)
[2022-08-18 15:22] LABS: CATHL Activated Clotting Time 300 SEC (74-125)
--- NOTE | 2022-08-18 15:58 | HMH.PHACL ---
PHA Senior Network Security Engineer Discharge Med Procurement Director: Alejandro Craft JR has received discharge medication counseling on the following medications: PERIPHERAL STENT PATIENT IS TAKING CLOPIDOGREL 75 MG DAILY, BISOPROLOL 10 MG DAILY, ASPIRIN 81 MG DAILY, AND ATORVASTATIN 40 MG HS.
== END 2022-08-18 16:35 | disposition home or self-care (01) ==
PROVIDERS: PCP Family Medicine; Visit Provider Internal Medicine
DX: E11.69 Type 2 diabetes mellitus with other specified complication (principal); F20.0 Paranoid schizophrenia; G45.8 Other transient cerebral ischemic attacks and related syndromes; I11.0 Hypertensive heart disease with heart failure; I25.118 Atherosclerotic heart disease of native coronary artery with other forms of angina pectoris; I42.9 Cardiomyopathy, unspecified; I50.32 Chronic diastolic (congestive) heart failure; I65.23 Occlusion and stenosis of bilateral carotid arteries; R06.00 Dyspnea, unspecified; R94.31 Abnormal electrocardiogram [ECG] [EKG]; Z87.820 Personal history of traumatic brain injury; I77.1 Stricture of artery; Z79.899 Other long term (current) drug therapy; Z79.84 Long term (current) use of oral hypoglycemic drugs; F17.210 Nicotine dependence, cigarettes, uncomplicated; I25.2 Old myocardial infarction; I69.354 Hemiplegia and hemiparesis following cerebral infarction affecting left non-dominant side
CPT/HCPCS: 37236; 37237; 80048; 85025; 85347; 99152; 99153; C1725; C1760; C1769; C1876; C1894; J1644; Q9967

== ENCOUNTER → 2022-12-26 14:05 | Outpatient (CLI) | payer MEDICARE, MEDICAID, SELFPAY ==
[2022-12-26 14:27] LABS: Basophils # 0.1 K/mm3 (0-0.2); Basophils % 1.1 % (0.1-2.0); Eosinophils # 0.4 K/mm3 (0.0-0.4); Eosinophils % 4.3 % (0.1-12.0); Hematocrit 45.9 % (42.0-52.0); Lymphocytes # 1.8 K/mm3 (0.7-4.5); Lymphocytes % 20.4 % (10-50); Mean Corpuscular HGB Conc 34.8 g/dL (31.8-35.4); Mean Corpuscular Hemoglobin 31.5 pg (27.0-31.2); Mean Corpuscular Volume 90.3 fl (80-94); Mean Platelet Volume 8.4 fl (7.4-10.4); Monocytes # 0.7 K/mm3 (0.1-1.0); Monocytes % 7.6 % (1.7-9.3); Neutrophils % 66.7 % (37.0-80.0); Platelet Count 218 K/mm3 (142-424); Red Blood Count 5.09 M/mm3 (4.60-6.20)
[2022-12-26 15:54] LABS: Alanine Aminotransferase 43 U/L (12-78); Alkaline Phosphatase 80 U/L (38-126); Anion Gap 19.5 mEq/L (5-15); Aspartate Amino Transferase 34 U/L (17-59); Bilirubin,Direct 0.2 mg/dl (0.0-0.4); Bilirubin,Indirect 0.1 mg/dL (0.0-0.9); Bilirubin,Total 0.3 mg/dl (0.2-1.3); Bilirubin,Unconjugated 0.2 mg/dL (0.0-1.1); Blood Urea Nitrogen 12 mg/dl (9-20); Calcium 10.4 mg/dl (8.4-10.2); Carbon Dioxide 25 mmol/L (22.0-30.0); Chloride 95 mmol/L (98-107); Chol/HDL Ratio 7.1 (1-3.5); Cholesterol 127 mg/dl (140-200); Estimated Glomerular Filt Rate 118 ml/min (>60); GFR (African American) 143 ML/MIN (>60); Glucose 148 mg/dl (74-100); HDL Cholesterol 18 mg/dl (40-60); Potassium 4.5 mmoL/L (3.5-5.1); Sodium 135 mmol/L (136-145); Total Protein,Serum 7.7 g/dl (6.3-8.2)
[2022-12-26 15:56] LABS: Triglycerides 440 mg/dl (30-150)
[2022-12-26 16:05] LABS: Direct LDL Cholesterol 67.67 mg/dL (100-129)
[2022-12-26 16:11] LABS: Free T4 (Free Thyroxine) 1.35 ng/dl (0.78-2.19)
[2022-12-26 16:26] LABS: Thyroid Stimulating Hormone 1.71 uIU/mL (0.465-4.68)
== END ==
PROVIDERS: PCP Family Medicine; Visit Provider Internal Medicine
DX: R06.00 Dyspnea, unspecified (principal); I65.22 Occlusion and stenosis of left carotid artery; I11.0 Hypertensive heart disease with heart failure; I50.32 Chronic diastolic (congestive) heart failure; I25.10 Atherosclerotic heart disease of native coronary artery without angina pectoris; Z79.4 Long term (current) use of insulin; Z79.84 Long term (current) use of oral hypoglycemic drugs; Z72.0 Tobacco use; Z86.73 Personal history of transient ischemic attack (TIA), and cerebral infarction without residual deficits
CPT/HCPCS: 36415; 80048; 80061; 80076; 84439; 84443; 85025

== ENCOUNTER 2023-02-07 18:08 | Emergency (ER) | payer MEDICARE, MEDICAID, SELFPAY ==
[2023-02-07 18:09] VITALS: BP 132/72; PULSE 88; RESP 17; TEMP 36.6; O2SAT 97; BMI 25.5
--- NOTE | 2023-02-07 18:29 | XR_ITS ---
PROCEDURE INFORMATION: Exam: XR Chest Exam date and time: 02/07/2023 6:35 PM Age: 52 years old Clinical indication: Other: Hypoxia TECHNIQUE: Imaging protocol: Radiologic exam of the chest. Views: 1 view. COMPARISON: CT LUNG SCREENING 03/09/2022 2:50 PM FINDINGS: Lungs: Hypoaeration of the lungs with mild bibasilar opacities. Pleural spaces: Possible small left pleural effusion. No pneumothorax. Heart/Mediastinum: Cardiomediastinal silhouette is normal. Right innominate/subclavian stent noted. Bones/joints: No acute abnormality. IMPRESSION: 1. Hypoaeration of the lungs with mild bibasilar opacities which may reflect atelectasis and/or infectious/inflammatory process. 2. Possible small left pleural effusion.
--- NOTE | 2023-02-07 18:29 | HMH.EDGENADL ---
Discharge Plan Disposition Patient Disposition: Home, Self-Care Prescriptions Prescriptions: No Action gabapentin 400 mg capsule PO Patient Comments: TAKE ONE CAPSULE BY MOUTH EVERY DAY AT BEDTIME MAY CAUSE DROWSINESS quetiapine 200 mg tablet PO alendronate 35 mg tablet PO benztropine 1 mg tablet PO escitalopram oxalate 10 mg tablet PO Aristada 1,064 mg/3.9 mL suspension,extended rel syring IM [id number] bisoprolol fumarate 10 mg tablet 10 mg PO BID Qty: 180 3RF nystatin-triamcinolone 100,000-0.1 unit/g-% cream 1 applic topical BID melatonin 5 mg tablet 5 mg PO HS Qty: 90 0RF tamsulosin 0.4 mg capsule 0.4 mg PO HS Qty: 90 0RF lisinopril 20 mg tablet 20 mg PO BID Qty: 60 5RF amlodipine 10 mg tablet 10 mg PO DAILY Qty: 30 2RF atorvastatin 40 mg tablet See Rx Instructions .ROUTE .COMPLEX Rx Instructions: TAKE ONE TABLET BY MOUTH EVERY DAY AT BEDTIME clopidogrel 75 mg tablet See Rx Instructions .ROUTE .COMPLEX Rx Instructions: TAKE ONE TABLET BY MOUTH EVERY DAY aspirin 81 mg tablet,delayed release (DR/EC) See Rx Instructions .ROUTE .COMPLEX Rx Instructions: TAKE ONE TABLET BY MOUTH EVERY DAY metformin 1,000 mg tablet See Rx Instructions .ROUTE .COMPLEX Rx Instructions: TAKE ONE TABLET BY MOUTH TWICE DAILY omeprazole 20 mg capsule,delayed release(DR/EC) See Rx Instructions .ROUTE .COMPLEX Rx Instructions: TAKE ONE CAPSULE BY MOUTH EVERY DAY furosemide 20 mg tablet See Rx Instructions .ROUTE .COMPLEX Rx Instructions: TAKE ONE TABLET BY MOUTH EVERY DAY divalproex 125 mg capsule, delayed rel sprinkle See Rx Instructions .ROUTE .COMPLEX Rx Instructions: TAKE TWO CAPSULES BY MOUTH THREE TIMES DAILY (DME) Dexcom G6 Sensor Device See Rx Instructions MISCELLANEOUS Rx Instructions: As directed (DME) blood-glucose meter,continuous Misc See Rx Instructions MISCELLANEOUS Rx Instructions: As directed Tradjenta 5 mg tablet See Rx Instructions .ROUTE .COMPLEX Rx Instructions: TAKE ONE TABLET BY MOUTH EVERY DAY ascorbic acid (vitamin C) 1,000 MG tablet 1,000 mg PO DAILY trazodone 50 MG tablet 50 mg PO HS fenofibrate 160 MG tablet 160 mg PO DAILY insulin glargine 100 UNIT/ML solution 25 unit SQ HS Referrals Follow up/Referrals: Ekaterina Hurtado MD [Primary Care Provider] - See instructions Activity Restrictions/Add. Instructions Additional Instructions/Restrictions: Alejandro has no acute cardiopulmonary symptoms and had a normal pulse oximeter during his emergency department stay today. Chest x-ray was performed which did not show any definitive acute pulmonary abnormality. Specifically there was concern for a possible small left-sided pleural effusion which was not visualized on bedside ultrasound. There may have been some very scant pulmonary edema and I recommend that he follows up with Dr. Salcido for further evaluation and treatment. Please return with any fevers chills worsening cough shortness of breath or any pulmonary related symptoms. Clinical Impressions Clinical Impression: Encounter for medical screening examination Discharge ED Provider: Amairani Reyes General Adult HPI General Chief complaint: Shortness of Breath/Dyspnea Stated complaint: low oxygen, sent from [facility] Time Seen by Provider: 02/07/23 18:23 History of Present Illness HPI narrative: Patient is a 52-year-old with a history of stroke and residual left-sided paralysis who presents today with his mother for concerns for hypoxemia. She states she has a home pulse oximeter and she has been checking his oxygen levels morning and at night for the last 5 years even when he is without symptoms. She states this morning his oxygen saturations were in the low 90s and is typically in the mi
[2023-02-07 18:30] VITALS: BP 132/72; PULSE 90; O2SAT 96
--- NOTE | 2023-02-07 18:40 | PC.NURSE ---
RAD at for CXR
[2023-02-07 19:00] VITALS: BP 126/56; PULSE 77; O2SAT 95
[2023-02-07 19:25] VITALS: BP 126/56; PULSE 85; RESP 18; TEMP 36.7; O2SAT 95
== END 2023-02-07 19:26 | disposition home or self-care (01) ==
PROVIDERS: Emergency Provider Student in an Organized Health Care Education/Training Program; PCP Family Medicine
DX: R09.02 Hypoxemia (principal); I10 Essential (primary) hypertension; F17.210 Nicotine dependence, cigarettes, uncomplicated
CPT/HCPCS: 71045; 99284

== ENCOUNTER → 2023-02-27 13:43 | Outpatient (CLI) | payer MEDICARE, MEDICAID, SELFPAY ==
--- NOTE | 2023-02-27 13:43 | CA_ITS ---
APPROVED REPORT EXAM: Comprehensive 2D, Doppler, and color-flow Echocardiogram Calender Tender: Diamond Bowden CRT Ht: 6 ft 0 in Wt: 187lbs BSA: 2.07 BP: 128/69 mmHg Indications: Abnormal ECG, Congestive Heart Failure, Shortness of Breath, Diabetes, Hyperlipidemia, Hypertension/HDD, smoker TDE pt in wheelchair and moved thru out exam 2D Dimensions LA Volume 26.60 mL LA Volume Index 12.50 mL/m2 (M/F) 16-34 M-Mode Dimensions RVDd 2.29 cm (0.9-2.6) LA Diam 3.36 cm (1.9-4.0) LVDd 3.97 cm (3.5-5.7) LVDs 2.54 cm (3.5-5.7) IVSd 2.04 cm (0.6-1.1) PWd 0.68 cm (0.6-1.1) EF (Teich) 66.30% FS 36.00% EDV (Teich) 68.80 mL ESV (Teich) 23.20 mL LV Diastology E Decel Time 170 (160-240 msec) E/A Ratio 0.68 MED A' 7.00 cm/s LAT A' 7.40 cm/s Aortic Valve AO Peak GR. 4.40 mmHg Mitral Valve MV E Max Isiah. 64.0 (40-130 cm/s) MV A Velocity 94.0 (40-130 cm/s) E/A Ratio 0.68 MV PHT 50.0 ms Tricuspid Valve TR P. Velocity 147.00 cm/s RAP Estimate 10.00 mmHg RVSP 18.70 mmHg Left Ventricle The left ventricle is normal size. The left ventricular systolic function is normal. The left ventricular ejection fraction is within the normal range. There is increased LV wall thickness. Wall motion is difficult to estimate due to technically difficult study, but grossly no obvious wall motion abnormalities are noted. The left ventricular diastolic function is normal. LVEF is 55%. Right Ventricle The right ventricle is normal size. The right ventricular systolic function is normal. Atria The left atrium size is normal. The right atrium size is normal. Aortic Valve The aortic valve is mildly thickened. There is no aortic valvular stenosis. No aortic regurgitation is present. Mitral Valve The mitral valve leaflets are mildly thickened. No evidence of mitral valve stenosis. Trace mitral regurgitation. Tricuspid Valve The tricuspid valve leaflets are thin and pliable. Trace tricuspid regurgitation. There is insufficient TR jet to estimate RVSP. Pulmonic Valve The pulmonic valve is not well-visualized. Great Vessels The aortic root is not well-visualized. The IVC is not well-visualized. Pericardium There is no pericardial effusion. Other Information Study Quality: Technically Difficult. Technically limited study due to inability to position patient. Conclusion Technically difficult study due to inability to position patient. Normal biventricular systolic function. No significant valvular stenosis or regurgitation in the visualized valves. Electronically signed by : Delia Lakhani MD 03/06/2023 10:13:41
== END ==
PROVIDERS: PCP Psychiatry & Neurology Sleep Medicine; Visit Provider Internal Medicine
DX: I31.39 Other pericardial effusion (noninflammatory) (principal)
CPT/HCPCS: 93306

== ENCOUNTER 2023-05-29 10:26 | Day surgery (SDC) | payer MEDICARE, MEDICAID, SELFPAY ==
[2023-05-29] VITALS (8 sets, daily range): BP systolic 83–105; BP diastolic 45–59; PULSE 61–72; RESP 16–18; TEMP 36.2–36.6; O2SAT 96–100; BMI 25.3
[2023-05-29] MEDS: LACTATED RINGERS 1000ML 1,000 ML 25 ML IV (11:34)
[2023-05-29] MEDS: TETRACAINE 0.5% OPTH SOL 15ML OP ×3 (11:34→11:35)
[2023-05-29] MEDS: CYCLOPENTOLATE 2% OPHTH SOLN 2ML BOTTLE OP ×3 (11:35→11:36)
[2023-05-29] MEDS: PHENYLEPHRINE 2.5% OPHTH SOLN 2ML 0.0500000000000000028 ML OP ×3 (11:36)
[2023-05-29] MEDS: MIDAZOLAM 2MG/2ML VIAL 1 MG IV (12:56)
[2023-05-29] MEDS: SODIUM CHLORIDE 0.9% 10ML FLUSH SYRINGE 10 ML IV (12:57)
[2023-05-29] MEDS: LIDOCAINE 1% PF 2ML AMPULE 2 ML IJ (12:58)
[2023-05-29] MEDS: TIMOLOL 0.5% OPTH SOLN 5ML OP (12:58)
[2023-05-29] MEDS: TRI-MOXI 15MG/1MG/ML 1ML OPHTH VIAL 1 ML OP (12:58)
== END 2023-05-29 13:34 | disposition home or self-care (01) ==
PROVIDERS: PCP Family Medicine; Visit Provider Ophthalmology
PROC: (CPT 66982; principal; 2023-05-29 13:30)
DX: H25.811 Combined forms of age-related cataract, right eye (principal); H53.149 Visual discomfort, unspecified
CPT/HCPCS: 66982; V2632

== ENCOUNTER 2023-05-29 21:23 | Observation (INO) | payer MEDICARE, MEDICAID, SELFPAY ==
[2023-05-29 22:20] VITALS: BP 150/81; PULSE 68; RESP 15; TEMP 36.8; O2SAT 95; BMI 16.8
--- NOTE | 2023-05-29 22:37 | HMH.EDGENADL ---
Discharge Plan Disposition Patient Disposition: Admitted Condition: Fair Prescriptions Prescriptions: No Action gabapentin 400 mg capsule 400 mg PO DAILY Patient Comments: TAKE ONE CAPSULE BY MOUTH EVERY DAY AT BEDTIME MAY CAUSE DROWSINESS alendronate 35 mg tablet 35 mg PO WEEKLY escitalopram oxalate 10 mg tablet 10 mg PO DAILY bisoprolol fumarate 10 mg tablet 10 mg PO BID Qty: 180 3RF quetiapine 400 mg tablet 400 mg PO DAILY melatonin 5 mg tablet 5 mg PO HS Qty: 90 0RF tamsulosin 0.4 mg capsule 0.4 mg PO HS Qty: 90 0RF lisinopril 20 mg tablet 20 mg PO BID Qty: 60 5RF atorvastatin 40 mg tablet See Rx Instructions .ROUTE .COMPLEX Rx Instructions: TAKE ONE TABLET BY MOUTH EVERY DAY AT BEDTIME clopidogrel 75 mg tablet See Rx Instructions .ROUTE .COMPLEX Rx Instructions: TAKE ONE TABLET BY MOUTH EVERY DAY aspirin 81 mg tablet,delayed release (DR/EC) See Rx Instructions .ROUTE .COMPLEX Rx Instructions: TAKE ONE TABLET BY MOUTH EVERY DAY metformin 1,000 mg tablet See Rx Instructions .ROUTE .COMPLEX Rx Instructions: TAKE ONE TABLET BY MOUTH TWICE DAILY furosemide 20 mg tablet See Rx Instructions .ROUTE .COMPLEX Rx Instructions: TAKE ONE TABLET BY MOUTH EVERY DAY (DME) Dexcom G6 Sensor Device See Rx Instructions MISCELLANEOUS Rx Instructions: As directed (DME) blood-glucose meter,continuous Misc See Rx Instructions MISCELLANEOUS Rx Instructions: As directed Tradjenta 5 mg tablet See Rx Instructions .ROUTE .COMPLEX Rx Instructions: TAKE ONE TABLET BY MOUTH EVERY DAY ascorbic acid (vitamin C) 1,000 MG tablet 1,000 mg PO DAILY trazodone 50 MG tablet 50 mg PO HS fenofibrate 160 MG tablet 160 mg PO DAILY insulin glargine 100 UNIT/ML solution 25 unit SQ HS Referrals Follow up/Referrals: Ekaterina Hurtado MD [Primary Care Provider] - See instructions Clinical Impressions Clinical Impression: Back pain, Pancreatitis Instructions Patient Instructions: DI for Low Back Pain Discharge ED Provider: Libby Rome General Adult HPI General Chief complaint: Back Pain/Injury Stated complaint: back pain Time Seen by Provider: 05/29/23 22:22 Mode of Arrival: Family Vehicle Source of Information: Patient and Significant Other Limitations: No Limitations Description of Symptoms (Recalled from ER Triage Doc. by RN): back pain no injury History of Present Illness HPI narrative: 52-year-old male with past medical history significant for CVA with left-sided hemiparesis,, CHF, carotid artery stenosis, HLD, DM2, HTN, lumbar radiculopathy, cardiomyopathy, recent cataract surgery on today, presents with family for evaluation concerning back pain and constipation. Patient states that he has back pain at baseline however today his symptoms have been more pronounced than usual. Has not taken any pain medications to assist as of yet. Also states that he has had constipation over the past few days noting last bowel movement 2 days ago. Has not passed gas today. Denies any nausea or vomiting, fevers, chills, chest pain or shortness of breath. Denies any back trauma. No other complaints Related Data Home Medications Medication Instructions Recorded Confirmed ascorbic acid (vitamin C) 1,000 mg 1,000 mg PO DAILY Supplement 02/29/20 05/29/23 tablet trazodone 50 mg tablet 50 mg PO HS SLEEP 05/08/21 05/29/23 fenofibrate 160 mg tablet 160 mg PO DAILY TRIGLYCERIDES 05/09/21 05/29/23 insulin glargine 100 unit/mL 25 unit SQ HS Diabetes 07/12/21 05/29/23 subcutaneous solution aspirin 81 mg tablet,delayed See Rx Instructions .Route 08/18/22 05/29/23 release .COMPLEX . atorvastatin 40 mg tablet See Rx Instructions .Route 08/18/22 05/29/23 .COMPLEX . blood-glucose meter,continuous 08/18/22 05/29/23 blood-glucose sensor (Dexcom G6 08/18/22 05/29/23 Sensor device) clopidogrel 75 mg tablet See Rx Instructions .Route 08/18/22 05/29/23 .COMPLEX . furosemide 20 mg tablet See Rx Instructions .Route 08/18/22 05/29/23 .COMPLEX . linagliptin 5 mg tablet (Tradjenta) See Rx Instructions .Route 08/18/22 05/29/23 .COMPLEX . metformin 1,000 mg tablet See Rx Instructions .Route 08/18/22 05/29/23 .COMPLEX . alendronate 35 mg tablet 35 mg PO WEEKLY 12/26/22 05/29/23 escitalopram oxalate 10 mg tablet 10 mg PO DAILY 12/26/22 05/29/23 gabapentin 400 mg capsule 400 mg PO DAILY 12/26/22 05/29/23 quetiapine 400 mg tablet 400 mg PO DAILY 04/23/23 05/29/23 Previous Rx's Medication Instructions Recorded melatonin 5 mg tablet 5 mg PO HS Insomnia #90 tabs 10/12/20 tamsulosin 0.4 mg capsule 0.4 mg PO HS PROSTATE #90 caps 10/12/20 bisoprolol fumarate 10 mg tablet 10 mg PO BID Hypertension #180 tabs 12/26/22 lisinopril 20 mg tablet 20 mg PO BID #60 tabs 01/10/23 Allergies Allergy/AdvReac Type Severity Reaction Status Date / Time No Known Drug Allergies Allergy Unknown Verified 05/28/23 13:59 allergy reaction Fish Containing Products AdvReac Severe Unknown Verified 05/29/23 11:21 allergy reaction PFSH PFSH Disclaimer: The information contained in this section may have been updated after the patient was seen, as this information can be updated by other users. 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 Paralysis Pericardial effusion Dyspnea Systolic CHF LV dysfunction SOB (shortness of breath) Angina, class III Recent inferior myocardial infarction Abnormal EKG Carotid artery stenosis Cardiomyopathy Hx of traumatic brain injury HTN (hypertension), benign CHF (congestive heart failure) Left-sided weakness Thoracic back pain Lumbar radiculopathy Surgical History H/O arthroscopy of hip Family History Other Cancer Coronary artery disease Diabetes FHx: mental illness Heart attack Hypertension Stroke Social History Smoking Status: Unknown if ever smoked second hand exposure: No alcohol intake: never substance use type: denies use current occupational status: disabled Travel in the last 8 weeks: None household members: family housing: house number of children: 2 caffeine: Yes ROS Obtained: Yes All systems reviewed & no additional complaints except as documented Physical Exam General General appearance: alert and in no apparent distress Head Head exam: atraumatic and normocephalic Eye Eye exam: Present normal appearance, PERRL and EOMI ENT ENT exam: Present normal oropharynx and mucous membranes moist Neck Neck exam: Present full ROM; Absent meningismus Respiratory Respiratory exam: Absent respiratory distress, wheezes, stridor or accessory muscle use Cardiovascular Cardiovascular exam: Present normal rhythm Abdominal Exam Abdominal exam: Present soft and distention; Absent tenderness, guarding, rebound or rigidity Neurological Exam Neurological exam: Present alert, oriented X3, CN II-XII intact and other (Left-sided hemiparesis at baseline); Absent motor sensory deficit Psychiatric Psychiatric exam: Present normal affect and normal mood Skin Skin exam: Present warm and dry Medical Decision Making Medical Records Medical records reviewed: Yes I reviewed the patient's medical records. Scooter Inquiry Pt receiving controlled substance: No Scooter was queried for this patient: No Vital Signs: 05/29/23 22:20 Temperature 98.2 F Temperature Source Oral Pulse Rate [Right Brachial] 68 Respiratory Rate 15 Blood Pressure [Right Arm] 150/81 H Blood Pressure Mean [Right Arm] 104 Blood Pressure Source [Right Arm] Automatic Cuff Blood Pressure Position [Right Arm] Sitting 02 Sat by Pulse Oximetry 95 Oxygen Delivery Method Room Air Lab Data Lab Results 05/29/23 22:50: WBC 11.6 H, RBC 4.89, Hgb 15.5, Hct 47.7, MCV 97.5 H, MCH 31.6 H, MCHC 32.4, RDW 14.2, Plt Count 275, MPV 8.1, Neut % (Auto) 75.0, Lymph % (Auto) 12.7, Frontier % (Auto) 7.4, Eos % (Auto) 3.6, Baso % (Auto) 1.2, Neut # (Auto) 8.7 H, Lymph # (Auto) 1.5, Frontier # (Auto) 0.9, Eos # (Auto) 0.4, Baso # (Auto) 0.1, Sodium 131 L, Potassium 4.7, Chloride 99, Carbon Dioxide 27, Anion Gap 9.7, BUN 17, Creatinine 0.80, Estimated Creat Clear 112, Estimated GFR 102, Est GFR ( Amer) 123, Glucose 283 H, Calcium 9.7, Total Bilirubin 0.4, AST 41, ALT 66, Alkaline Phosphatase 76, Total Protein 7.5, Albumin 4.5, Globulin 3.0, Albumin/Globulin Ratio 1.5, Lipase 5168 H 05/29/23 22:50 05/29/23 22:50 Orders (Tests/Meds): ED MEDICATIONS Generic Name Dose Route Start Last Admin Trade Name Freq PRN Reason Stop Dose Admin Sodium Chloride 500 mls @ 999 mls/hr 05/29/23 23:24 Sod Chlor 0.9% 1000ml Bag IV 05/29/23 23:54 .Q31M ONE Discontinued Medications Generic Name Dose Route Start Last Admin Trade Name Lb PRN Reason Stop Dose Admin Ketorolac Tromethamine 30 mg 05/29/23 22:34 05/29/23 22:51 Ketorolac 30mg/Ml Vial IV 05/29/23 22:35 30 mg ONCE ONE Administration Lidocaine 1 each 05/29/23 22:34 05/29/23 22:52 Lidocaine 5% Transdermal Patch TP 05/29/23 22:35 1 each ONCE ONE Administration ORDERS Category Date Time Status CT abdomen pelvis wo con Stat Cat Scan 05/29/23 22:41 Taken CBC w/Auto Diff [Complete Blood Count Auto Diff] Stat Lab 05/29/23 22:50 Completed CMP [Comprehensive Metabolic Panel] Stat Lab 05/29/23 22:50 Completed Lipase Stat Lab 05/29/23 22:50 Completed UA [Urinalysis and Microscopic] Stat Lab 05/29/23 22:36 Ordered Medical Decision Narrative: 52-year-old male with past medical history significant for CVA with left-sided hemiparesis,, CHF, carotid artery stenosis, HLD, DM2, HTN, lumbar radiculopathy, cardiomyopathy, recent cataract surgery on today, presents with family for evaluation concerning back pain and constipation. Patient states that he has back pain at baseline however today his symptoms have been more pronounced than usual. Has not taken any pain medications to assist as of yet. Also states that he has had constipation over the past few days noting last bowel movement 2 days ago. Has not passed gas today. On assessment, the patient was hemodynamically stable and in no acute distress. Afebrile. Physical exam was remarkable for abdominal distention without tenderness to palpation. He did not have any midline palpation of the C/T/L-spine. He did have paraspinal tenderness along the thoracic musculature. There were no external signs of trauma. Left-sided hemiparesis at baseline. Other physical exam findings unremarkable. Differential diagnoses include but limited to LBO, SBO, constipation, muscle spasm, among others. Patient's lab workup today is remarkable for a WBC of 11.6. Sodium 131. Glucose 283. Lipase of 5168. On reassessment the patient may clinically stable and in no acute distress. Discussed ED workup results including diagnosis of pancreatitis. Urinalysis pending at this time. CT imaging also pending. Care signed out to oncoming provider. Patient at this time remained stable in no acute distress. Critical Care Critical Care Time Critical Care Time: No
--- NOTE | 2023-05-29 22:41 | CT_ITS ---
PROCEDURE INFORMATION: Exam: CT Abdomen And Pelvis Without Contrast Exam date and time: 05/29/2023 11:26 PM Age: 52 years old Clinical indication: Bloating; Additional info: Abd distention, constipation, not passing gas TECHNIQUE: Imaging protocol: Computed tomography of the abdomen and pelvis without contrast. Radiation optimization: All CT scans at this facility use at least one of these dose optimization techniques: automated exposure control; mA and/or kV adjustment per patient size (includes targeted exams where dose is matched to clinical indication); or iterative reconstruction. COMPARISON: CT ABDOMEN PELVIS WO CON 07/12/2021 6:30 PM FINDINGS: Lungs: Bibasilar atelectasis noted. Heart: Trace pericardial effusion noted measuring 2 mm in thickness. Liver: Normal. No mass. Gallbladder and bile ducts: Cholecystectomy clips noted in the gallbladder fossa. Pancreas: See Intraperitoneal space finding. Spleen: Normal. No splenomegaly. Adrenal glands: Normal. No mass. Kidneys and ureters: Normal. No hydronephrosis. Stomach and bowel: No CT evidence of bowel obstruction. Moderate fecal material noted throughout the colon. Scattered noninflamed colonic diverticuli noted. Appendix: No evidence of appendicitis. Intraperitoneal space: Possible mesenteric stranding noted at the level of the pancreatic head. The lack of intravenous contrast limits evaluation for pancreatitis. Follow-up clinically. Vasculature: Atherosclerosis noted in the aorta and its major branches. No evidence of aneurysm. Lymph nodes: Unremarkable. No enlarged lymph nodes. Urinary bladder: Unremarkable as visualized. Reproductive: Unremarkable as visualized. Bones/joints: Intramedullary coby noted in visualized left proximal femur. Adjacent streak artifact noted. Degenerative changes noted in the spine. Soft tissues: Unremarkable. IMPRESSION: 1. Findings concerning for peripancreatic mesenteric stranding noted near the pancreatic head. Lack of intravenous contrast limits further evaluation. Correlate clinically to evaluate for pancreatitis 2. No bowel obstruction. Moderate fecal burden noted. Follow-up clinically 3. Additional nonacute findings, noted above
[2023-05-29] MEDS: KETOROLAC 30MG/ML VIAL 30 MG IV (22:51)
[2023-05-29] MEDS: LIDOCAINE 5% TRANSDERMAL PATCH 1 EACH TP (22:52)
[2023-05-29 23:01] VITALS: BP 140/83; PULSE 76; O2SAT 97
[2023-05-29 23:02] LABS: Basophils # 0.1 K/mm3 (0-0.2); Basophils % 1.2 % (0.1-2.0); Eosinophils # 0.4 K/mm3 (0.0-0.4); Eosinophils % 3.6 % (0.1-12.0); Hematocrit 47.7 % (42.0-52.0); Hemoglobin 15.5 g/dL (14.1-18.0); Lymphocytes # 1.5 K/mm3 (0.7-4.5); Lymphocytes % 12.7 % (10-50); Mean Corpuscular HGB Conc 32.4 g/dL (31.8-35.4); Mean Corpuscular Hemoglobin 31.6 pg (27.0-31.2); Mean Corpuscular Volume 97.5 fl (80-94); Mean Platelet Volume 8.1 fl (7.4-10.4); Monocytes # 0.9 K/mm3 (0.1-1.0); Monocytes % 7.4 % (1.7-9.3); Neutrophils # 8.7 K/mm3 (1.8-7.8); Platelet Count 275 K/mm3 (142-424); Red Blood Count 4.89 M/mm3 (4.60-6.20); Red Cell Distribution Width 14.2 % (11.5-17.5); White Blood Count 11.6 K/mm3 (4.8-10.8)
[2023-05-29 23:05] LABS: Chloride 99 mmol/L (98-107); Potassium 4.7 mmoL/L (3.5-5.1); Sodium 131 mmol/L (136-145)
[2023-05-29 23:08] LABS: Alanine Aminotransferase 66 U/L (12-78); Albumin Level 4.5 g/dl (3.5-5.0); Albumin/Globulin Ratio 1.5 (1.1-1.8); Alkaline Phosphatase 76 U/L (38-126); Anion Gap 9.7 mEq/L (5-15); Aspartate Amino Transferase 41 U/L (17-59); Bilirubin,Total 0.4 mg/dl (0.2-1.3); Blood Urea Nitrogen 17 mg/dl (9-20); Carbon Dioxide 27 mmol/L (22.0-30.0); Creatinine Clearance Estimated 112 mL/min (50-200); Estimated Glomerular Filt Rate 102 ml/min (>60); GFR (African American) 123 ML/MIN (>60); Glucose 283 mg/dl (74-100); Total Protein,Serum 7.5 g/dl (6.3-8.2)
[2023-05-29 23:09] LABS: Calcium 9.7 mg/dl (8.4-10.2)
[2023-05-29 23:25] LABS: Lipase 5168 U/L (23-300)
[2023-05-30] VITALS (27 sets, daily range): BP systolic 93–172; BP diastolic 55–80; PULSE 60–79; RESP 15–20; TEMP 36.5–37.3; O2SAT 88–99; BMI 20.2
[2023-05-30] MEDS: 0.9 % SODIUM CHLORIDE 1000ML 500 ML 999 ML IV ×2 (00:07→08:09)
--- NOTE | 2023-05-30 00:10 | PC.NURSE ---
Pt provided warm blanket, placed on monitor, family at bedside, no needs at this time
--- NOTE | 2023-05-30 00:50 | PC.NURSE ---
paged dr mackey to [phone] thomas[address]
--- NOTE | 2023-05-30 01:03 | PC.NURSE ---
Pt is resting, IV fluids complete, mother at bedside, no needs at this time
--- NOTE | 2023-05-30 01:05 | PC.NURSE ---
paged dr mackey
--- NOTE | 2023-05-30 01:33 | PC.NURSE ---
paged dr mackey again
--- NOTE | 2023-05-30 01:55 | PC.NURSE ---
contacted chaka seobrick burner for direct dial phone permission of dr mackey by registration
--- NOTE | 2023-05-30 01:56 | PC.NURSE ---
rounded on patient, patient is sleeping and mother at bedside
--- NOTE | 2023-05-30 02:30 | PC.NURSE ---
patient is admitted, but boarding in ed at this time.
--- NOTE | 2023-05-30 02:56 | PC.NURSE ---
Pt mother going home at this time, asked for us to call her when pt gets moved to floor. Wale Miranda [phone]
--- NOTE | 2023-05-30 04:35 | PC.NURSE ---
Pt 0430 BP reading low, Rachel RN checked on pt found him to be diaphoretic. Checked BSG which was 272. Pt had condom cath in place upon arrival, small amount of urine in bag throughout the evening. Pt stated he felt wet, checked him to find condom cath had come loose and was apparently secured to his penis with transport tape. Dr Rome notified of excoriation, Aquaphor applied as well as male external catheter. Pt cleansed, linens changed. All pt clothing, shoes and home sling placed in pt belongings bag.
--- NOTE | 2023-05-30 04:37 | PC.NURSE ---
Addendum entered by Annette Montero RN 05/30/23 04:39: food and beverage order clerk @ [phone] Original Note: contacted [facility] for bed request: diagnosis Pancreatitis, admit to [facility]. Was advised he would be boarding in ED
--- NOTE | 2023-05-30 04:39 | PC.NURSE ---
POC Glucose 272
--- NOTE | 2023-05-30 04:41 | PC.NURSE ---
noted patient's bp has trended downward the last two cycles while he has been sleeping. Dr Rome at bedside. fsbs RE-CHECKED AT this time. Patient is awaake alert and talking to staff.
[2023-05-30] MEDS: AQUAPHOR (PETROLATUM) OINT 85GM TP (05:08)
--- NOTE | 2023-05-30 06:26 | PC.NURSE ---
POC Glucose 246
[2023-05-30] MEDS: humaLOG 100 UNITS/ML 3ML VIAL (SSI) SQ ×4 (06:29→20:49)
--- NOTE | 2023-05-30 07:39 | PC.NURSE ---
CLEAR LIQUID TRAY SET-UP FOR PT, CALL LIGHT WITHIN REACH. NO NEEDS AT THIS TIME
--- NOTE | 2023-05-30 08:04 | PC.NURSE ---
Rounded on pt. He has eating all of his breakfast. Adjusted in bed and placed new male purwick
--- NOTE | 2023-05-30 08:05 | PC.NURSE ---
PT TO LEFT SIDE, CALL LIGHT WITHIN REACH
[2023-05-30] MEDS: 0.9 % SODIUM CHLORIDE 1000ML 1,000 ML 75 ML IV (08:10)
[2023-05-30 08:26] LABS: Microscopic, Urine URINE MICROSCOPIC (MICROSCOPIC)
[2023-05-30 08:29] LABS: Bilirubin,Urine Negative (Negative); Blood, Urine Negative (Negative); Color,Urine YELLOW (Yellow); Glucose,Urine (UA) 3+ (Negative); Ketones,Urine Negative (Negative); Leukocyte Esterase,Urine 1+ (Negative); Nitrate,Urine POSITIVE (Negative); PH,Urine 5.5 (5.0-8.5); Protein,Urine Negative (Negative); Specific Gravity, Urine 1.015 (1.005-1.030); Urobilinogen,Urine 0.2 EU/dl (0.2)
[2023-05-30 08:32] LABS: Appearance,Urine Slightly Cloudy (Clear)
--- NOTE | 2023-05-30 08:43 | PC.NURSE ---
Pt's urine is back and suspicious for infection, reported to Dr. Elise d/t pt not receiving any abx. He ordered Rocephin.
[2023-05-30 08:49] LABS: Squamous Epithelial Cell,Urine Occasional #/hpf (0-5)
[2023-05-30 08:50] LABS: Amorphous Sediment,Urine Trace /lpf; Bacteria,Urine 1+ /lpf; Mucus,Urine Trace /lpf
--- NOTE | 2023-05-30 09:15 | PC.NURSE ---
REPORT GIVEN TO RENEA GIL
[2023-05-30] MEDS: CEFTRIAXONE SODIUM 1 GM in 0.9 % SODIUM CHLORIDE 50 ML IV (09:16)
--- NOTE | 2023-05-30 09:22 | HMH.PHAINT1 ---
Pharmacy Intervention Comments: Verified patient's home medications using external fill history from pharmacy.
[2023-05-30] MEDS: OXYCODONE 5MG IMMEDIATE RELEASE TABLET 5 MG PO ×2 (10:11→16:16)
[2023-05-30] MEDS: ONDANSETRON 4MG/2ML VIAL 4 MG IV (10:12)
--- NOTE | 2023-05-30 10:13 | P.HP_ITS ---
History of Present Illness *History of present illness: 52-year-old male schizophrenic with past medical history significant for CVA with left-sided hemiparesis,, CHF, carotid artery stenosis, HLD, DM2, HTN, lumbar radiculopathy, cardiomyopathy, recent cataract surgery. Presents with family for evaluation concerning back pain and constipation. Patient states that he has back pain at baseline however today his symptoms have been more pronounced than usual. States that he has had constipation over the past few days. Last bowel movement 2 days ago. Has not passed gas today. On assessment in the ER, the patient was hemodynamically stable and in no acute distress. Afebrile. Physical exam was remarkable for abdominal distention, mild tenderness to palpation. He did have paraspinal tenderness along the thoracic musculature. There were no external signs of trauma. Left-sided hemiparesis at baseline. Other physical exam findings unremarkable. Patient's lab workup is remarkable for a WBC of 11.6. Sodium 131. Glucose 283. Lipase of 5168. On reassessment the patient amy clinically stable and in no acute distress. ED points toward diagnosis of pancreatitis. Urinalysis pending at this time. CT imaging showed stranding at head of pancreas. Non contrast study. [facility] Disclaimer: The information contained in this section may have been updated after the patient was seen, as this information can be updated by other users. Medical History (Updated 05/30/23 @ 01:22 by Libby Rome DO) Paralysis due to acute stroke Paralysis Pericardial effusion Dyspnea Systolic CHF LV dysfunction SOB (shortness of breath) Angina, class III Recent inferior myocardial infarction Abnormal EKG Carotid artery stenosis Cardiomyopathy Hx of traumatic brain injury HTN (hypertension), benign CHF (congestive heart failure) Left-sided weakness Thoracic back pain Lumbar radiculopathy Surgical History (Updated 05/30/23 @ 10:27 by Ekaterina Hurtado MD) History of left hip hemiarthroplasty H/O arthroscopy of hip Family History Other Cancer Coronary artery disease Diabetes FHx: mental illness Heart attack Hypertension Stroke Social History Smoking Status: Unknown if ever smoked second hand exposure: No alcohol intake: never substance use type: denies use current occupational status: disabled Travel in the last 8 weeks: None household members: family housing: house number of children: 2 caffeine: Yes Review of Systems Constitutional Constitutional: Reports as per HPI Eyes Eyes: Reports system reviewed and no additional complaints, except as documented ENT Ears, Nose, Mouth, and Throat: Reports system reviewed and no additional complaints, except as documented and Denies dysphagia *Cardiovascular Cardiovascular: Reports system reviewed and no additional complaints, except as documented *Respiratory Respiratory: Reports system reviewed and no additional complaints, except as documented *Gastrointestinal Gastrointestinal: Reports system reviewed and no additional complaints, except as documented and Denies dysphagia *Genitourinary Genitourinary: Reports system reviewed and no additional complaints, except as documented *Musculoskeletal Musculoskeletal: Reports system reviewed and no additional complaints, except as documented and Reports other (Left hemiparesis surgical scar of left hipDue to hip replacement) Integumentary/Breasts Skin/Breast: Reports system reviewed and no additional complaints, except as documented *Neurologic Neurologic: Reports system reviewed and no additional complaints, except as documented, Reports behavioral changes (He has psychosis. He has hallucinations auditory.), Reports confusion and Denies seizure-like activity Psychiatric Psychiatric: Reports anxiety, Reports auditory hallucinations, Reports behavioral changes (He has psychosis. He has hallucinations auditory.), Reports confusion and Reports homicidal ideation Endocrine Endocrine: Reports system reviewed and no additional complaints, except as documented Hematologic/Lymphatic Hematologic/Lymphatic: Reports system reviewed and no additional complaints, except as documented Allergic/Immunologic Allergic/Immunologic: Reports system reviewed and no additional complaints, except as documented Meds Home Medications and Allergies Home Medications Medication Instructions Recorded Confirmed Type ascorbic acid (vitamin C) 1,000 mg 1,000 mg PO DAILY Supplement 02/29/20 05/29/23 History tablet trazodone 50 mg tablet 50 mg PO HS SLEEP 05/08/21 05/29/23 History fenofibrate 160 mg tablet 160 mg PO DAILY 05/09/21 05/29/23 History insulin glargine 100 unit/mL 25 unit SQ HS Diabetes 07/12/21 05/29/23 History subcutaneous solution aspirin 81 mg tablet,delayed 81 mg PO DAILY 08/18/22 05/30/23 History release atorvastatin 40 mg tablet 40 mg PO HS 08/18/22 05/30/23 History blood-glucose meter,continuous 08/18/22 05/29/23 History blood-glucose sensor (Dexcom G6 08/18/22 05/29/23 History Sensor device) clopidogrel 75 mg tablet 75 mg PO DAILY 08/18/22 05/30/23 History furosemide 20 mg tablet 20 mg PO DAILY 08/18/22 05/30/23 History linagliptin 5 mg tablet (Tradjenta) 5 mg PO DAILY 08/18/22 05/30/23 History metformin 1,000 mg tablet 1,000 mg PO BID 08/18/22 05/30/23 History alendronate 35 mg tablet 35 mg PO WEEKLY 12/26/22 05/29/23 History escitalopram oxalate 10 mg tablet 10 mg PO DAILY 12/26/22 05/29/23 History gabapentin 400 mg capsule 400 mg PO HS 12/26/22 05/30/23 History lisinopril 20 mg tablet 20 mg PO BID #60 tabs 01/10/23 05/29/23 Rx quetiapine 400 mg tablet 400 mg PO BID 04/23/23 05/30/23 History amlodipine 10 mg tablet 10 mg PO DAILY 05/30/23 05/30/23 History benztropine 1 mg tablet 1 mg PO BID 05/30/23 05/30/23 History bisoprolol fumarate 10 mg tablet 10 mg PO BID 05/30/23 05/29/23 History fluticasone fur. 100 mcg-umeclid 1 inh inhalation DAILY 05/30/23 05/30/23 History 62.5 mcg-vilant 25 mcg inhalat.powder (Trelegy Ellipta) insulin aspar prot-insulin aspart 15 - 20 unit SQ AM 05/30/23 05/30/23 History 100 unit/mL (70-30) subcutaneous pen (Novolog Mix 70-30FlexPen U-100) melatonin 5 mg tablet 5 mg PO HS 05/30/23 05/29/23 History tamsulosin 0.4 mg capsule 0.4 mg PO HS 05/30/23 05/29/23 History New Prescriptions to Start Prescriptions: Allergies Allergy/AdvReac Type Severity Reaction Status Date / Time No Known Drug Allergies Allergy Unknown Verified 05/28/23 13:59 allergy reaction Fish Containing Products AdvReac Severe Unknown Verified 05/29/23 11:21 allergy reaction Exam Data for Last 24 hours Vital signs and Labs for Last 24 Hours: Temp Pulse Resp BP Pulse Ox O2 Del Method O2 Flow Rate 97.7 F 60 17 140/70 97 Nasal Cannula 2 03/13/24 09:54 05/30/23 09:54 05/30/23 09:54 05/30/23 09:54 05/30/23 09:54 05/30/23 09:54 05/30/23 09:54 Laboratory Results - last 24 hr 05/29/23 08:15: Urine Color Yellow, Urine Appearance Slightly cloudy, Urine pH 5.5, Ur Specific [place] 1.015, Urine Protein Negative, Urine Glucose (UA) 3+, Urine Ketones Negative, Urine Blood Negative, Urine Nitrate Positive, Urine Bilirubin Negative, Urine Urobilinogen 0.2, Ur Leukocyte Esterase 1+ A, Urine RBC None, Urine WBC 3-5, Ur Squamous Epith Cells Occasional, Amorphous Sediment Trace, Urine Bacteria 1+, Urine Mucus Trace 05/29/23 22:50: WBC 11.6 H, RBC 4.89, Hgb 15.5, Hct 47.7, MCV 97.5 H, MCH 31.6 H , MCHC 32.4, RDW 14.2, Plt Count 275, MPV 8.1, Neut % (Auto) 75.0, Lymph % (Auto) 12.7, Edwards % (Auto) 7.4, Eos % (Auto) 3.6, Baso % (Auto) 1.2, Neut # (Auto) 8.7 H, Lymph # (Auto) 1.5, Edwards # (Auto) 0.9, Eos # (Auto) 0.4, Baso # (Auto) 0.1, Sodium 131 L, Potassium 4.7, Chloride 99, Carbon Dioxide 27, Anion Gap 9.7, BUN 17, Creatinine 0.80, Estimated Creat Clear 112, Estimated GFR 102, Est GFR ( Amer) 123, Glucose 283 H, Calcium 9.7, Total Bilirubin 0.4, AST 41, ALT 66, Alkaline Phosphatase 76, Total Protein 7.5, Albumin 4.5, Globulin 3.0, Albumin/Globulin Ratio 1.5, Lipase 5168 H I & O for Last 24 hours: Intake & Output 05/27/23 05/28/23 05/29/23 05/30/23 11:59 11:59 11:59 11:59 Weight 188 lb 9 oz Constitutional Constitutional: mild distress (Complains of some back pain and abdominal distention) *Routine HEENT Exam Head: Present normocephalic Eye: Present EOMI and PERRL ENT: Present mucous membranes moist *Routine Neck Exam Neck: Present supple and full ROM Routine Chest/Breast/Axilla Exam Chest wall: Absent tenderness *Routine Respiratory Exam Respiratory: Present decreased breath sounds *Routine Cardiovascular Exam Cardiovascular: Present RRR *Routine Abdominal Exam Abdominal: Present tenderness and distended; Absent mass *Routine Rectal Exam Rectal:: deferred *Routine Genitalia Exam Genitalia:: normal male *Routine Extremities Exam Extremities: Absent edema Comments: Muscle atrophy left leg. Spastic paresis of the left arm and hand. Routine Back/Spine/Pelvis Exam Back/Spine: Absent CVA tenderness *Routine Skin Exam Skin: Present intact; Absent cyanosis *Routine Neurological Exam Neurological: Present alert and altered mental status (No change from usual status.) Routine Psychiatric Exam Psychiatric: Present auditory hallucinations, anxious and paranoid; Absent normal affect (Blunted) Assessment and Plan *Assessment and plan (1) Pancreatitis: Status: Acute Category: Medical Code(s): K85.90 - Acute pancreatitis without necrosis or infection, unspecified (2) Constipation: Status: Acute Category: Medical Code(s): K59.00 - Constipation, unspecified (3) Back pain: Status: Acute Category: Medical Code(s): M54.9 - Dorsalgia, unspecified (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: Status: Acute Category: Medical Code(s): Z79.4 - nursing home (current) use of insulin (5) Hemiparesis affecting left side as late effect of stroke: Status: Acute Category: Medical Code(s): I69.354 - Hemiplegia and hemiparesis following cerebral infarction affecting left non-dominant side (6) History of CVA (cerebrovascular accident): Status: Acute Category: Medical Code(s): Z86.73 - Personal history of transient ischemic attack (TIA), and cerebral infarction without residual deficits (7) Paranoid schizophrenia: Status: Acute Category: Medical Code(s): F20.0 - Paranoid schizophrenia (8) Diabetes: Status: Chronic Qualifiers: Diabetes mellitus type: type 2 Diabetes mellitus fdc insulin use: with fdc use Diabetes mellitus complication status: with other specified complication Qualified Code(s): E11.69 - Type 2 diabetes mellitus with other specified complication Category: Medical Code(s): E11.9 - Type 2 diabetes mellitus without complications (9) History of left hip hemiarthroplasty: Status: Acute Category: Surgical Code(s): Z96.642 - Presence of left artificial hip joint Plan See orders. Clear liquids. IV fluids.
[2023-05-30 11:33] LABS: Basophils # 0.1 K/mm3 (0-0.2); Basophils % 0.7 % (0.1-2.0); Eosinophils # 0.4 K/mm3 (0.0-0.4); Eosinophils % 4.8 % (0.1-12.0); Hematocrit 40.3 % (42.0-52.0); Lymphocytes # 1.3 K/mm3 (0.7-4.5); Lymphocytes % 16.4 % (10-50); Mean Corpuscular HGB Conc 33.3 g/dL (31.8-35.4); Mean Corpuscular Hemoglobin 31.9 pg (27.0-31.2); Mean Corpuscular Volume 95.8 fl (80-94); Mean Platelet Volume 8.2 fl (7.4-10.4); Monocytes # 0.7 K/mm3 (0.1-1.0); Monocytes % 8.2 % (1.7-9.3); Neutrophils # 5.7 K/mm3 (1.8-7.8); Neutrophils % 69.9 % (37.0-80.0); Platelet Count 233 K/mm3 (142-424); Red Cell Distribution Width 14.1 % (11.5-17.5); White Blood Count 8.1 K/mm3 (4.8-10.8)
[2023-05-30] MEDS: PANTOPRAZOLE 40MG VIAL 40 MG IV ×2 (11:46→20:50)
[2023-05-30 12:21] LABS: Hemoglobin 13.8 g/dL (14.1-18.0)
[2023-05-30] MEDS: CALCIUM CARBONATE 500MG CHEWTAB 1000 MG PO (12:56)
--- NOTE | 2023-05-30 13:22 | PC.NURSE ---
arrived to floor from ICU unit by w/c
--- NOTE | 2023-05-30 13:43 | HMH.PTEV ---
Physical Therapy Evaluation Rehab PT IP Evaluation Start: 05/30/23 11:14 Freq: ONCE Status: Active Protocol: Document 05/30/23 13:38 ZANDRA (Rec: 05/30/23 13:43 ZANDRA [id number]) Subjective/History History History Per H&P: 52-year-old male schizophrenic with past medical history significant for CVA with left-sided hemiparesis,, CHF, carotid artery stenosis, HLD, DM2, HTN , lumbar radiculopathy, cardiomyopathy, recent cataract surgery. Presents with family for evaluation concerning back pain and constipation. Patient states that he has back pain at baseline however today his symptoms have been more pronounced than usual. States that he has had constipation over the past few days. Subjective Subjective PLOF per pt report: Lives alone but next to mother who helps with mobility and dressing as needed. Has an overhead benitez lift, hospital bed, shower chair, and w/c. Pt has been using w/c for mobility since his previous stroke. Pt reports he uses overhead lift for transfers. New diagnosis of cancer in past 12 No months? Rehab PT IP Eval Objective Appearance Patient Behavior Appropriate,Cooperative Patient Orientation Person,Place,Situation Difficulty following instructions none Speech Pattern Clear Ambulation Patient Able to Ambulate No Balance Ability to Arise Unable Sitting Balance Leans or slides in chair Transfers Bed Transfer Ability Maximum x 2 (75% assist) Chair Transfer Ability Maximum x 2 (75% assist) Rehab PT IP prob,goals,plan Problems Date of Evaluation: 05/30/23 Rehab Potential Rehab Potential Innapropriate for Skilled Therapy Discharge Plan PT Discharge Plan Pt safe to d/c home when deemed medically necessary d/t available equipment, home set -up, and family support. Pt not appropriate for skilled acute care PT at this time d/t pt?s mobility being at baseline (Max A-DEP). Eval Complexity Eval Charge Codes 73237 - High Complexity PHYSICIAN CERTIFICATION: I certify the specified therapy services for Alejandro Turpincer JR are required, authorized, and reviewed every 30 days.
--- NOTE | 2023-05-30 13:44 | HMH.OTEV ---
OT Inpatient Evaluation Rehab OT IP Evaluation Start: 05/30/23 11:14 Freq: ONCE Status: Active Protocol: Document 05/30/23 13:39 [facility] (Rec: 05/30/23 13:44 [facility] [id number]) Rehab OT IP Assessment Subjective History Pt oriented x 3 on arrival. Pt agreeable to engage in therapy evaluation. Pt admitted on 05/30/23 for pancreatitis. History and Physical report: 52-year-old male schizophrenic with past medical history significant for CVA with left- sided hemiparesis,, CHF, carotid artery stenosis, HLD, DM2, HTN, lumbar radiculopathy , cardiomyopathy, recent cataract surgery. Presents with family for evaluation concerning back pain and constipation. Patient states that he has back pain at baseline however today his symptoms have been more pronounced than usual. States that he has had constipation over the past few days. Last bowel movement 2 days ago. Has not passed gas today. On assessment in the ER, the patient was hemodynamically stable and in no acute distress. Afebrile. Physical exam was remarkable for abdominal distention, mild tenderness to palpation. He did have paraspinal tenderness along the thoracic musculature. There were no external signs of trauma. Left-sided hemiparesis at baseline. Other physical exam findings unremarkable. Patient's lab workup is remarkable for a WBC of 11.6. Sodium 131. Glucose 283. Lipase of 5168. On reassessment the patient amy clinically stable and in no acute distress. ED points toward diagnosis of pancreatitis. Urinalysis pending at this time. CT imaging showed stranding at head of pancreas. Non contrast study. Subjective No I need help with everything. Pt reports prior to being in the hospital, he lived in a trailer next door to his mother. Pt claims normally his mother assists him with everything including ADLS and transfers. Normally he is in a wheelchair at all times due to left hemiparesis. Pt is dependent upon mother to complete all IADLs. Pt uses a mechanical lift (usually operated by his mother) to get too and from wheelchair. Objective Patient Orientation Person,Place,Birthday Right Upper Extremity Gross ROM WFL Left Upper Extremity Gross ROM Sev Limitation >75% Shoulder ROM Limitations Muscle Weakness,Muscle Tone Elbow ROM Limitations Muscle Weakness,Muscle Tone Wrist Limitations of Range of Motion Muscle Weakness,Muscle Tone Bed Mobility bed mobility-scooting,bed mobility - supine/sit Assist Level Maximum x 2 (75% assist) Transfer Training Sit/Stand/Pivot Transfer Assist Level Total/Dependent (100%) Chair Transfer Ability Total/Dependent (100%) Chair Transfer Technique Squat Pivot Rehab OT IP prob,goals,plan Problems Date of Evaluation: 05/30/23 Rehab Potential Rehab Potential Innapropriate for Skilled Therapy Discharge Plan OT Discharge Plan At this time, pt appears to be his baseline with functional transfers and ADL independence . Pt can return home with mother's assistance once he is medically stable per physician. Therapist recommends OT evaluation as needed. Eval Complexity Eval Charge Codes 79165 - Moderate Complexity PHYSICIAN CERTIFICATION: I certify the specified therapy services for Alejandro De Leonalan Craft JR are required, authorized, and reviewed every 30 days.
[2023-05-30 16:26] LABS: POC Glucose,Bedside 210 (70-110)
--- NOTE | 2023-05-30 17:38 | PC.NURSE ---
A&OX4, TOLERATING RA WELL. PT WAS A X3 MAX ASSIST WHEN MOVING FROM W/C TO BED UPON ARRIVAL TO FLOOR. IS NOT ABLE TO BEAR WEIGHT AT ALL ON LEFT SIDE. PT HAS C/O ABD PAIN X1 THUS FAR, TX PER MAR, EFFECTIVENESS NOTED. PT USING URINAL. NO NA/VO NOTED. VSS.
[2023-05-30] MEDS: ACETAMINOPHEN 325MG TAB 650 MG PO (18:50)
[2023-05-30] MEDS: IBUPROFEN 600 MG TABLET PO (20:49)
[2023-05-30] MEDS: SODIUM CHLORIDE 0.9% 10ML VIAL 10 ML IV (20:50)
[2023-05-30 21:01] LABS: POC Glucose,Bedside 158 (70-110)
[2023-05-31] MEDS: OXYCODONE 5MG IMMEDIATE RELEASE TABLET 5 MG PO (01:10)
[2023-05-31] MEDS: 0.9 % SODIUM CHLORIDE 1000ML 1,000 ML 75 ML IV (02:43)
[2023-05-31 04:00] VITALS: BP 161/83; PULSE 65; RESP 18; TEMP 36.6; O2SAT 97
[2023-05-31] MEDS: humaLOG 100 UNITS/ML 3ML VIAL (SSI) SQ ×2 (06:03→11:21)
[2023-05-31 06:25] LABS: POC Glucose,Bedside 178 (70-110)
--- NOTE | 2023-05-31 06:37 | PC.NURSE ---
Pt is alert and oriented x4, and currently tolerating RA well. Pt has C/O pain multiple times this shift and has been treated per MAR. upon entering room pt is uncovered and naked from the waist down, despite multiple offers to cover pt. Staff continue to knock before entering and have kept the curtain closed. Pt glucose levels have be elevated and required coverage both checks this shift. Pt denies pat and needs at this time
[2023-05-31 07:59] VITALS: BP 162/49; PULSE 71; RESP 18; TEMP 36.5; O2SAT 95
[2023-05-31 08:23] LABS: Basophils # 0.1 K/mm3 (0-0.2); Basophils % 1.1 % (0.1-2.0); Eosinophils # 0.3 K/mm3 (0.0-0.4); Eosinophils % 4.1 % (0.1-12.0); Hematocrit 44.1 % (42.0-52.0); Hemoglobin 14.5 g/dL (14.1-18.0); Lymphocytes # 1.3 K/mm3 (0.7-4.5); Mean Corpuscular HGB Conc 32.8 g/dL (31.8-35.4); Mean Corpuscular Hemoglobin 31.9 pg (27.0-31.2); Mean Corpuscular Volume 97.1 fl (80-94); Mean Platelet Volume 8.5 fl (7.4-10.4); Monocytes # 0.5 K/mm3 (0.1-1.0); Monocytes % 6.6 % (1.7-9.3); Neutrophils # 5.6 K/mm3 (1.8-7.8); Neutrophils % 71.2 % (37.0-80.0); Platelet Count 238 K/mm3 (142-424); Red Blood Count 4.55 M/mm3 (4.60-6.20); White Blood Count 7.8 K/mm3 (4.8-10.8)
--- NOTE | 2023-05-31 08:36 | EXP.ACUTE.PN ---
Subjective *Date: 05/31/23 *Time: 10:59 Interval history: Patient states he is feeling much better today. He was having a lot of heartburn yesterday and was started on protonix IV and given tums. He was drinking a lot of coffee and this was stopped. He only has minimal pain in his epigastric area and his heartburn has resolved. Medical Exam Vital signs and Labs for Last 24 Hours: Vital Signs Temp Pulse Pulse Resp BP BP Pulse Ox 05/31/23 07:59 97.7 F 71 18 162/49 H 95 05/31/23 06:36 05/31/23 05:00 05/31/23 04:00 97.9 F 65 18 161/83 H 97 05/31/23 03:00 05/31/23 00:43 05/30/23 22:58 05/30/23 21:00 05/30/23 20:00 93 L 05/30/23 20:00 98.5 F 76 20 172/72 H 93 L 05/30/23 18:36 05/30/23 17:11 05/30/23 17:00 05/30/23 16:00 97.8 F 78 17 163/71 H 94 L 05/30/23 15:00 05/30/23 13:00 05/30/23 11:58 99.1 F 74 16 162/80 H 94 L 05/30/23 10:58 05/30/23 09:54 97.7 F 60 17 140/70 97 05/30/23 09:20 97.9 F 64 18 134/62 05/30/23 09:00 64 134/62 99 O2 Del Method O2 Flow Rate 05/31/23 07:59 Room Air 05/31/23 06:36 Room Air 05/31/23 05:00 Room Air 05/31/23 04:00 Room Air 05/31/23 03:00 Room Air 05/31/23 00:43 Room Air 05/30/23 22:58 Room Air 05/30/23 21:00 Room Air 05/30/23 20:00 Room Air 05/30/23 20:00 Room Air 05/30/23 18:36 Room Air 05/30/23 17:11 Room Air 05/30/23 17:00 Room Air 05/30/23 16:00 Room Air 05/30/23 15:00 Room Air 05/30/23 13:00 Room Air 05/30/23 11:58 Nasal Cannula 2 05/30/23 10:58 Nasal Cannula 2 05/30/23 09:54 Nasal Cannula 2 05/30/23 09:20 Room Air 05/30/23 09:00 Intake and Output 05/30/23 05/31/23 05/31/23 19:59 03:59 11:59 Intake Total 735 / 975 240 / 975 Output Total 1050 / 2975 1175 / 2975 750 / 2975 Balance -1050 / -1999 -440 / -1999 -510 / -1999 Intake: Intake, Oral Amount 360 / 600 240 / 600 Intake, Total IV Amount 375 / 375 0.9 % Sodium Chloride 1000ML 1, 375 / 375 000 ml @ 75 mls/hr IV .[id number] [facility] Rx#:[id number] Output: Output, Urine Amount 1050 / 2975 1175 / 2975 750 / 2975 Other: Number of Voids 1 Number of Unmeasured Voids 0 Weight 187 lb 12.8 oz Patient Weight 05/31/23 11:59 Weight 187 lb 12.8 oz Laboratory Results - last 24 hr 05/29/23 08:15: Urine RBC None, Urine WBC 3-5, Ur Squamous Epith Cells Occasional, Amorphous Sediment Trace, Urine Bacteria 1+, Urine Mucus Trace 05/30/23 11:20: WBC 8.1 D, RBC 4.20 L, Hgb 13.8 L D, Hct 40.3 L, MCV 95.8 H, MCH 31.9 H, MCHC 33.3, RDW 14.1, Plt Count 233, MPV 8.2, Neut % (Auto) 69.9, Lymph % (Auto) 16.4, [place] % (Auto) 8.2, Eos % (Auto) 4.8, Baso % (Auto) 0.7, Neut # (Auto) 5.7, Lymph # (Auto) 1.3, [place] # (Auto) 0.7, Eos # (Auto) 0.4, Baso # (Auto) 0.1 05/30/23 16:11: POC Glucose 210 H 05/30/23 20:45: POC Glucose 158 H 05/31/23 06:01: POC Glucose 178 H 05/31/23 08:00: WBC 7.8, RBC 4.55 L, Hgb 14.5, Hct 44.1, MCV 97.1 H, MCH 31.9 H, MCHC 32.8, RDW 14.0, Plt Count 238, MPV 8.5, Neut % (Auto) 71.2, Lymph % (Auto) 17.0, [place] % (Auto) 6.6, Eos % (Auto) 4.1, Baso % (Auto) 1.1, Neut # (Auto) 5.6, Lymph # (Auto) 1.3, [place] # (Auto) 0.5, Eos # (Auto) 0.3, Baso # (Auto) 0.1 I & O for Labs for Last 24 Hours: Intake & Output 05/28/23 05/29/23 05/30/23 05/31/23 11:59 11:59 11:59 11:59 Intake Total 975 / 975 Output Total 0 / 0 2975 / 2975 Balance 0 / 0 -1999 / Weight 188 lb 9 oz 187 lb 12.8 oz Constitutional: Present no acute distress Respiratory: Present CTA bilaterally Cardiac: Present Reg Rate and Rhythm GI: Present soft, tenderness (epigastric area) and normal bowel sounds; Absent distention Extremities: Absent edema, clubbing or cyanosis Skin: Present intact Neuro: Present alert and awake Assessment and Plan *Assessment and plan (1) Pancreatitis: Status: Acute Category: Medical Code(s): K85.90 - Acute pancreatitis without necrosis or infection, unspecified (2) Constipation: Status: Acute Category: Medical Code(s): K59.00 - Constipation, unspecified (3) Back pain: Status: Acute Category: Medical Code(s): M54.9 - Dorsalgia, unspecified (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: Status: Acute Category: Medical Code(s): 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 (5) Hemiparesis affecting left side as late effect of stroke: Status: Acute Category: Medical Code(s): I69.354 - Hemiplegia and hemiparesis following cerebral infarction affecting left non-dominant side (6) History of CVA (cerebrovascular accident): Status: Acute Category: Medical Code(s): Z86.73 - Personal history of transient ischemic attack (TIA), and cerebral infarction without residual deficits (7) Paranoid schizophrenia: Status: Acute Category: Medical Code(s): F20.0 - Paranoid schizophrenia (8) Diabetes: Status: Chronic Qualifiers: Diabetes mellitus complication status: with other specified complication Diabetes mellitus long-term insulin use: with long-term use Diabetes mellitus type: type 2 Qualified Code(s): E11.69 - Type 2 diabetes mellitus with other specified complication Category: Medical Code(s): E11.9 - Type 2 diabetes mellitus without complications (9) History of left hip hemiarthroplasty: Status: Acute Category: Surgical Code(s): Z96.642 - Presence of left artificial hip joint Plan Awaiting labs this am. Can likely advance diet. Will discuss with Dr. Hurtado.
[2023-05-31] MEDS: CITALOPRAM 20MG TABLET 20 MG PO (08:39)
[2023-05-31] MEDS: AMLODIPINE 10MG TABLET 10 MG PO (08:39)
[2023-05-31] MEDS: PANTOPRAZOLE 40MG VIAL 40 MG IV (08:39)
[2023-05-31] MEDS: FUROSEMIDE 20MG TABLET 20 MG PO (08:39)
[2023-05-31] MEDS: BENZTROPINE 1MG TABLET 1 MG PO (08:39)
[2023-05-31] MEDS: CLOPIDOGREL 75MG TAB 75 MG PO (08:40)
[2023-05-31] MEDS: BISOPROLOL 5MG TABLET 10 MG PO (08:40)
[2023-05-31] MEDS: LISINOPRIL 20MG TABLET 20 MG PO (08:40)
[2023-05-31] MEDS: METFORMIN 500MG TABLET 1000 MG PO (08:40)
[2023-05-31] MEDS: QUETIAPINE 100MG TABLET 400 MG PO (08:41)
[2023-05-31 08:53] LABS: Lipase 351 U/L (23-300)
[2023-05-31 08:55] LABS: Alanine Aminotransferase 56 U/L (12-78); Albumin Level 4.5 g/dl (3.5-5.0); Albumin/Globulin Ratio 1.8 (1.1-1.8); Alkaline Phosphatase 56 U/L (38-126); Anion Gap 27.7 mEq/L (5-15); Aspartate Amino Transferase 41 U/L (17-59); Bilirubin,Total 0.5 mg/dl (0.2-1.3); Blood Urea Nitrogen 10 mg/dl (9-20); Calcium 9.4 mg/dl (8.4-10.2); Carbon Dioxide 19 mmol/L (22.0-30.0); Chloride 94 mmol/L (98-107); Creatinine Clearance Estimated 174 mL/min (50-200); Estimated Glomerular Filt Rate 141 ml/min (>60); GFR (African American) 171 ML/MIN (>60); Globulin 2.5 g/dL (1.3-3.2); Glucose 211 mg/dl (74-100); Potassium 4.7 mmoL/L (3.5-5.1); Sodium 136 mmol/L (136-145)
[2023-05-31 09:44] LABS: Vitamin B12 208 pg/mL (239-931)
[2023-05-31] MEDS: FLUTICASONE/UMECLIDIN/VILANTER 100/62.5/25MCG INHALER 1 PUFF IH (11:05)
[2023-05-31 11:06] VITALS: O2SAT 93
--- NOTE | 2023-05-31 11:17 | SW/DCPLANNER ---
Addendum entered by Mary Zavala 05/31/23 12:12: Shyann hubbard/ [facility] stated that patient will be accepted to their services. Original Note: CM spoke w/ this patient regarding plans at time of discharge. Patient stated that he lives w/ his mother whom assist him w/ all ADLs. Patient plans to return home later today. Patient is agreeable to home health services and prefers to use [facility]: patient information/order will be faxed.
[2023-05-31 11:23] LABS: POC Glucose,Bedside 227 (70-110)
[2023-05-31] MEDS: VITAMIN B-12 1,000 MCG 1ML VIAL 1000 MCG IM (12:15)
[2023-05-31 18:29] LABS: POC Glucose,Bedside 225 (70-110)
--- NOTE | 2023-06-01 15:10 | CARE MANAGER ---
Contacted patient's mother related to hospital discharge. She states patient is doing ok and denies any questions or concerns. No new medication. Aware of follow up appointment. RENEA Sims
--- NOTE | 2023-06-03 22:37 | P.DS_ITS ---
General Admission date:: 05/30/23 Discharge date: 05/31/23 HPI HPI HPI: 52-year-old male schizophrenic with past medical history significant for CVA with left-sided hemiparesis,, CHF, carotid artery stenosis, HLD, DM2, HTN, lumbar radiculopathy, cardiomyopathy, recent cataract surgery. Presents with family for evaluation concerning back pain and constipation. Patient states that he has back pain at baseline however today his symptoms have been more pronounced than usual. States that he has had constipation over the past few days. Last bowel movement 2 days ago. Has not passed gas today. On assessment in the ER, the patient was hemodynamically stable and in no acute distress. Afebrile. Physical exam was remarkable for abdominal distention, mild tenderness to palpation. He did have paraspinal tenderness along the thoracic musculature. There were no external signs of trauma. Left-sided hemiparesis at baseline. Other physical exam findings unremarkable. Patient's lab workup is remarkable for a WBC of 11.6. Sodium 131. Glucose 283. Lipase of 5168. On reassessment the patient amy clinically stable and in no acute distress. ED points toward diagnosis of pancreatitis. Urinalysis pending at this time. CT imaging showed stranding at head of pancreas. Non contrast study. Hospital Course Hospital Course Hospital Course: The patient was started on clear liquids and IV fluids. By 05/31/2023 he was feeling much better. He had had heartburn and was started on IV Protonix and given Tums. Caffeine was discontinued. He only had minimal pain in his epigastric area. He had a dramatic decline in his lipase from 5168 to 351. It was felt his pancreatitis was resolving and he could be discharged home with home health. Of note, his vitamin B12 level was low. Exam Data for Last 24 hours Vital signs and Labs for Last 24 Hours: Temp Pulse Resp BP Pulse Ox O2 Del Method O2 Flow Rate 97.7 F 71 18 162/49 H 93 L Room Air 2 05/31/23 07:59 05/31/23 07:59 05/31/23 07:59 05/31/23 07:59 05/31/23 11:06 05/31/23 13:00 05/30/23 11:58 I & O for Last 24 hours: Intake & Output 06/01/23 06/02/23 06/03/23 06/04/23 11:59 11:59 11:59 11:59 Intake Total 470 / 470 Balance 470 / 470 Microbiology Reports for the Last 24 Hours: Microbiology 05/29/23 08:15 Urine,Clean Catch Urine Culture - Preliminary 05/30/23 08:55 Blood Blood Culture - Preliminary 05/30/23 09:08 Blood Blood Culture - Preliminary Narrative: Constitutional Constitutional: mild distress (Complains of some back pain and abdominal distention) *Routine HEENT Exam Head: Present normocephalic Eye: Present EOMI and PERRL ENT: Present mucous membranes moist *Routine Neck Exam Neck: Present supple and full ROM Routine Chest/Breast/Axilla Exam Chest wall: Absent tenderness *Routine Respiratory Exam Respiratory: Present decreased breath sounds *Routine Cardiovascular Exam Cardiovascular: Present RRR *Routine Abdominal Exam Abdominal: Present tenderness and distended; Absent mass *Routine Rectal Exam Rectal:: deferred *Routine Genitalia Exam Genitalia:: normal male *Routine Extremities Exam Extremities: Absent edema Comments: Muscle atrophy left leg. Spastic paresis of the left arm and hand. Routine Back/Spine/Pelvis Exam Back/Spine: Absent CVA tenderness *Routine Skin Exam Skin: Present intact; Absent cyanosis *Routine Neurological Exam Neurological: Present alert and altered mental status (No change from usual status.) Routine Psychiatric Exam Psychiatric: Present auditory hallucinations, anxious and paranoid; Absent normal affect (Blunted) Results Data Completed and Pending Labs on day of discharge: Preliminary micro results at discharge 05/29/23 08:15 Urine Culture - Preliminary Urine,Clean Catch 05/30/23 08:55 Blood Culture - Preliminary Blood 05/30/23 09:08 Blood Culture - Preliminary Blood DS: Diagnosis Discharge Diagnosis (1) Pancreatitis: Status: Acute Code(s): K85.90 - Acute pancreatitis without necrosis or infection, unspecified (2) Constipation: Status: Inactive Code(s): K59.00 - Constipation, unspecified (3) Back pain: Status: Resolved Code(s): M54.9 - Dorsalgia, unspecified (4) 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: Status: Acute Code(s): Z79.4 - group home (current) use of insulin (5) Hemiparesis affecting left side as late effect of stroke: Status: Acute Code(s): I69.354 - Hemiplegia and hemiparesis following cerebral infarction affecting left non-dominant side (6) History of CVA (cerebrovascular accident): Status: Acute Code(s): Z86.73 - Personal history of transient ischemic attack (TIA), and cerebral infarction without residual deficits (7) Paranoid schizophrenia: Status: Acute Code(s): F20.0 - Paranoid schizophrenia (8) Diabetes: Status: Chronic Code(s): E11.9 - Type 2 diabetes mellitus without complications Qualifiers: Diabetes mellitus type: type 2 Diabetes mellitus 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 Diabetes mellitus complication status: with other specified complication Qualified Code(s): E11.69 - Type 2 diabetes mellitus with other specified complication (9) History of left hip hemiarthroplasty: Status: Inactive Code(s): Z96.642 - Presence of left artificial hip joint Meds Home Medications and Allergies Home Medications Medication Instructions Recorded Confirmed Type ascorbic acid (vitamin C) 1,000 mg 1,000 mg PO DAILY Supplement 02/29/20 06/02/23 History tablet trazodone 50 mg tablet 50 mg PO HS Sleep 05/08/21 06/02/23 History fenofibrate 160 mg tablet 160 mg PO DAILY 05/09/21 06/02/23 History insulin glargine 100 unit/mL 25 unit SQ HS Diabetes 07/12/21 06/02/23 History subcutaneous solution aspirin 81 mg tablet,delayed 81 mg PO DAILY 08/18/22 06/02/23 History release atorvastatin 40 mg tablet 40 mg PO HS 08/18/22 06/02/23 History blood-glucose meter,continuous 08/18/22 06/02/23 History blood-glucose sensor (Dexcom G6 08/18/22 06/02/23 History Sensor device) clopidogrel 75 mg tablet 75 mg PO DAILY 08/18/22 06/02/23 History furosemide 20 mg tablet 20 mg PO DAILY 08/18/22 06/02/23 History linagliptin 5 mg tablet (Tradjenta) 5 mg PO DAILY 08/18/22 06/02/23 History metformin 1,000 mg tablet 1,000 mg PO BIDWMEAL 08/18/22 06/02/23 History alendronate 35 mg tablet 35 mg PO WEEKLY 12/26/22 06/02/23 History escitalopram oxalate 10 mg tablet 10 mg PO DAILY 12/26/22 06/02/23 History gabapentin 400 mg capsule 400 mg PO HS 12/26/22 06/02/23 History lisinopril 20 mg tablet 20 mg PO BID #60 tabs 01/10/23 06/02/23 Rx quetiapine 400 mg tablet 400 mg PO BID 04/23/23 06/02/23 History amlodipine 10 mg tablet 10 mg PO DAILY 05/30/23 06/02/23 History benztropine 1 mg tablet 1 mg PO BID 05/30/23 06/02/23 History bisoprolol fumarate 10 mg tablet 10 mg PO BID 05/30/23 06/02/23 History fluticasone fur. 100 mcg-umeclid 1 inh inhalation DAILY 05/30/23 06/02/23 History 62.5 mcg-vilant 25 mcg inhalat.powder (Trelegy Ellipta) insulin aspar prot-insulin aspart 15 - 20 unit SQ AM 05/30/23 06/02/23 History 100 unit/mL (70-30) subcutaneous pen (Novolog Mix 70-30FlexPen U-100) melatonin 5 mg tablet 5 mg PO HS 05/30/23 06/02/23 History tamsulosin 0.4 mg capsule 0.4 mg PO HS 05/30/23 06/02/23 History New Prescriptions to Start Prescriptions: Allergies Allergy/AdvReac Type Severity Reaction Status Date / Time amoxicillin Allergy Swelling Verified 05/30/23 11:05 of Lip/Tongue/Throat Fish Containing Products AdvReac Severe Unknown Verified 05/29/23 11:21 allergy reaction Discharge Plan Disposition Patient Disposition: Home Health Service Condition: Fair Discharge Order Discharge Orders: Discharge Order (Routine); Ordered 05/31/23 Ordered By: Ekaterina Hurtado Follow up Plan Follow up with: Ekaterina Hurtado MD [Primary Care Provider] - 06/04/23 10:15 am Prescriptions/Medication Reconciliation: Continued gabapentin 400 mg capsule 400 mg PO HS Patient Comments: TAKE ONE CAPSULE BY MOUTH EVERY DAY AT BEDTIME MAY CAUSE DROWSINESS alendronate 35 mg tablet 35 mg PO WEEKLY escitalopram oxalate 10 mg tablet 10 mg PO DAILY quetiapine 400 mg tablet 400 mg PO BID lisinopril 20 mg tablet 20 mg PO BID Qty: 60 5RF atorvastatin 40 mg tablet 40 mg PO HS clopidogrel 75 mg tablet 75 mg PO DAILY aspirin 81 mg tablet,delayed release (DR/EC) 81 mg PO DAILY metformin 1,000 mg tablet 1,000 mg PO BIDWMEAL furosemide 20 mg tablet 20 mg PO DAILY (DME) Dexcom G6 Sensor Device See Rx Instructions MISCELLANEOUS Rx Instructions: As directed (DME) blood-glucose meter,continuous Misc See Rx Instructions MISCELLANEOUS Rx Instructions: As directed Tradjenta 5 mg tablet 5 mg PO DAILY bisoprolol fumarate 10 mg tablet 10 mg PO BID tamsulosin 0.4 mg capsule 0.4 mg PO HS melatonin 5 mg tablet 5 mg PO HS amlodipine 10 mg tablet 10 mg PO DAILY Patient Comments: TAKE ONE TABLET BY MOUTH EVERY DAY Trelegy Ellipta 100-62.5-25 mcg blister with device 1 inh INHALATION DAILY Patient Comments: INHALE 1 PUFF BY MOUTH EVERY DAY --RINSE MOUTH AFTER USE-- benztropine 1 mg tablet 1 mg PO BID Patient Comments: TAKE ONE TABLET BY MOUTH TWICE DAILY insulin asp prt-insulin aspart [Novolog Mix 70-30FlexPen U-100] 100 unit/mL (70-30) insulin pen 15 - 20 unit SQ AM Patient Comments: INJECT 15-20 UNITS SUBCUTANEOUSLY EVERY DAY IN THE MORNING ascorbic acid (vitamin C) 1,000 MG tablet 1,000 mg PO DAILY trazodone 50 MG tablet 50 mg PO HS fenofibrate 160 MG tablet 160 mg PO DAILY insulin glargine 100 UNIT/ML solution 25 unit SQ HS Problem Reconciliation Problems Reviewed?: Yes Patient Discharge Instructions ACTIVITY: Continue current activity DIET: diabetic diet Patient Instructions: Pancreatitis (Alternative Therapy), DI for Pancreatitis Providers Primary Care Provider: Ekaterina Hurtado Admit Provider: Mckay Gomez Attending Provider: Ekaterina Hurtado
[2023-06-14 10:59] LABS: 1,25 Dihydroxy Vitamin D 60 pg/mL (.); 1,25-Dihydroxy, Vitamin D-2 <10 pg/mL (.); 1,25-Dihydroxy, Vitamin D-3 60 pg/mL (.)
== END 2023-05-31 15:29 | disposition home health service (06) ==
LOC: ER 23:41 → 2ND 05-30 08:14 → ICU 05-30 09:22 → 2ND 05-30 13:00
PROVIDERS: Emergency Medicine; Admitting Provider Internal Medicine Adolescent Medicine; Emergency Provider Emergency Medicine; PCP Family Medicine; Visit Provider Family Medicine
DX: K85.90 Acute pancreatitis without necrosis or infection, unspecified (principal); K59.00 Constipation, unspecified; M54.9 Dorsalgia, unspecified; Z79.4 Long term (current) use of insulin; I69.354 Hemiplegia and hemiparesis following cerebral infarction affecting left non-dominant side; F20.0 Paranoid schizophrenia; E11.69 Type 2 diabetes mellitus with other specified complication; Z96.642 Presence of left artificial hip joint; Z79.899 Other long term (current) drug therapy; I42.9 Cardiomyopathy, unspecified
CPT/HCPCS: 36415; 74176; 80053; 81001; 82607; 82652; 82962; 83690; 85025; 87040; 87086; 94640; 97163; 97166; 99285; G0378; J0696; J2405

== ENCOUNTER 2023-06-02 09:37 | Inpatient (IN) | payer MEDICARE, MEDICAID, SELFPAY ==
[2023-06-02] VITALS (15 sets, daily range): BP systolic 93–148; BP diastolic 55–81; PULSE 71–94; RESP 14–22; TEMP 36.4–37.2; O2SAT 94–99; BMI 23.8; BMI 23.1
--- NOTE | 2023-06-02 09:40 | HMH.EDGENADL ---
Discharge Plan Disposition Patient Disposition: Admitted Clinical Impressions Clinical Impression: Acute kidney injury Discharge ED Provider: Jason Reed General Adult HPI General Chief complaint: Weakness Stated complaint: weakness Time Seen by Provider: 06/02/23 09:40 History of Present Illness HPI narrative: Patient presents with several days of drowsiness, decreased p.o. intake, hypoglycemia, in the absence of trauma, patient denies any pain at this time, patient arrives today due to hypotension noted by mother who is caregiver this morning. This occurred before administration of morning antihypertensives. No reported fevers or chills or nausea or vomiting however patient has had recent diarrheal illness that has been nonbloody. Patient did have recent discontinuation however readministration of antidiabetics due to recent eye surgery. Denies any headaches. Denies any chest pain or palpitations. Denies any shortness of breath. Denies any other medication changes. Please note that above description of symptoms, in this electronic medical record under categorization of recalled from ER triage doctor by RN are reflective of an initial nursing assessment, however, is not reflective of my full history and physical exam that was personally taken and clarified. Consequentially, this preceding description of symptoms, which may include the patient's categorized chief complaint in the EMR, do not reflect my personal clinical impression, and the ultimate description of history of present illness and patient stated complaints should be deferred to this section of the note. Unless stated otherwise or congruent with this section of the note, additional signs, symptoms, or incongruence should be interpreted as inaccurate with my clinical impression. Related Data Home Medications Medication Instructions Recorded Confirmed ascorbic acid (vitamin C) 1,000 mg 1,000 mg PO DAILY Supplement 02/29/20 06/02/23 tablet trazodone 50 mg tablet 50 mg PO HS Sleep 05/08/21 06/02/23 fenofibrate 160 mg tablet 160 mg PO DAILY 05/09/21 06/02/23 insulin glargine 100 unit/mL 25 unit SQ HS Diabetes 07/12/21 06/02/23 subcutaneous solution aspirin 81 mg tablet,delayed 81 mg PO DAILY 08/18/22 06/02/23 release atorvastatin 40 mg tablet 40 mg PO HS 08/18/22 06/02/23 blood-glucose meter,continuous 08/18/22 06/02/23 blood-glucose sensor (Dexcom G6 08/18/22 06/02/23 Sensor device) clopidogrel 75 mg tablet 75 mg PO DAILY 08/18/22 06/02/23 furosemide 20 mg tablet 20 mg PO DAILY 08/18/22 06/02/23 linagliptin 5 mg tablet (Tradjenta) 5 mg PO DAILY 08/18/22 06/02/23 metformin 1,000 mg tablet 1,000 mg PO BIDWMEAL 08/18/22 06/02/23 alendronate 35 mg tablet 35 mg PO WEEKLY 12/26/22 06/02/23 escitalopram oxalate 10 mg tablet 10 mg PO DAILY 12/26/22 06/02/23 gabapentin 400 mg capsule 400 mg PO HS 12/26/22 06/02/23 quetiapine 400 mg tablet 400 mg PO BID 04/23/23 06/02/23 amlodipine 10 mg tablet 10 mg PO DAILY 05/30/23 06/02/23 benztropine 1 mg tablet 1 mg PO BID 05/30/23 06/02/23 bisoprolol fumarate 10 mg tablet 10 mg PO BID 05/30/23 06/02/23 fluticasone fur. 100 mcg-umeclid 1 inh inhalation DAILY 05/30/23 06/02/23 62.5 mcg-vilant 25 mcg inhalat.powder (Trelegy Ellipta) insulin aspar prot-insulin aspart 15 - 20 unit SQ AM 05/30/23 06/02/23 100 unit/mL (70-30) subcutaneous pen (Novolog Mix 70-30FlexPen U-100) melatonin 5 mg tablet 5 mg PO HS 05/30/23 06/02/23 tamsulosin 0.4 mg capsule 0.4 mg PO HS 05/30/23 06/02/23 Previous Rx's Medication Instructions Recorded lisinopril 20 mg tablet 20 mg PO BID #60 tabs 01/10/23 Allergies Allergy/AdvReac Type Severity Reaction Status Date / Time amoxicillin Allergy Swelling Verified 05/30/23 11:05 of Lip/Tongue/Throat Fish Containing Products AdvReac Severe Unknown Verified 05/29/23 11:[address] [facility] Disclaimer: The information contained in this section may have been updated after the patient was seen, as this information can be updated by other users. 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 Paralysis Systolic CHF LV dysfunction Angina, class III Carotid artery stenosis Cardiomyopathy Hx of traumatic brain injury HTN (hypertension), benign CHF (congestive heart failure) Thoracic back pain Lumbar radiculopathy Surgical History History of left hip hemiarthroplasty H/O arthroscopy of hip Family History Other Cancer Coronary artery disease Diabetes FHx: mental illness Heart attack Hypertension Stroke Social History (Updated 06/02/23 @ 14:48 by Yakelin Anna RN) Smoking Status: Current every day smoker tobacco type: cigarettes packs per day: 1 second hand exposure: No alcohol intake: never substance use type: denies use current occupational status: disabled Travel in the last 8 weeks: None household members: family housing: house number of children: 2 caffeine: Yes ROS Obtained: Yes Systems reviewed as appropriate & no additional complaints except as documented As per HPI Physical Exam General General appearance: alert and lethargic Head Head exam: atraumatic and normocephalic Eye Eye exam: Present normal appearance Neck Neck exam: Present normal inspection Chest Chest inspection: Present normal inspection and symmetric chest wall rise Respiratory Respiratory exam: Present normal lung sounds bilaterally; Absent respiratory distress Cardiovascular Cardiovascular exam: Present regular rate and normal rhythm Abdominal Exam Abdominal exam: Present soft; Absent tenderness Neurological Exam Neurological exam: Present alert and other Psychiatric Psychiatric exam: Present normal affect and normal mood Skin Skin exam: Present warm, dry and other (Dry mucous membranes) Medical Decision Making Medical Records Medical records reviewed: Yes I reviewed the patient's medical records. Scooter Inquiry Pt receiving controlled substance: No Vital Signs: 06/02/23 09:38 06/02/23 09:58 06/02/23 10:00 Temperature 97.6 F Temperature Source Oral Pulse Rate 77 75 Pulse Rate [Radial] 78 Respiratory Rate 18 21 22 Blood Pressure 103/58 L 99/55 L Blood Pressure [Right Arm] 100/59 L Blood Pressure Mean 75 Blood Pressure Mean [Right Arm] 72 Blood Pressure Source [Right Arm] Automatic Cuff Blood Pressure Position [Right Arm] Supine 02 Sat by Pulse Oximetry 97 99 98 Oxygen Delivery Method Room Air 06/02/23 10:30 06/02/23 11:02 06/02/23 11:30 Temperature Temperature Source Pulse Rate 76 72 Pulse Rate [Radial] Respiratory Rate 20 19 20 Blood Pressure 93/58 L 98/58 L 105/58 L Blood Pressure [Right Arm] Blood Pressure Mean 72 65 Blood Pressure Mean [Right Arm] Blood Pressure Source [Right Arm] Blood Pressure Position [Right Arm] 02 Sat by Pulse Oximetry 96 94 L Oxygen Delivery Method 06/02/23 12:01 06/02/23 12:30 06/02/23 13:00 Temperature Temperature Source Pulse Rate 74 74 72 Pulse Rate [Radial] Respiratory Rate 17 20 20 Blood Pressure 148/74 H 136/68 148/72 H Blood Pressure [Right Arm] Blood Pressure Mean 96 106 Blood Pressure Mean [Right Arm] Blood Pressure Source [Right Arm] Blood Pressure Position [Right Arm] 02 Sat by Pulse Oximetry 97 94 L 95 Oxygen Delivery Method 06/02/23 13:30 06/02/23 14:00 Temperature Temperature Source Pulse Rate 71 Pulse Rate [Radial] Respiratory Rate 18 14 Blood Pressure 130/81 143/77 H Blood Pressure [Right Arm] Blood Pressure Mean Blood Pressure Mean [Right Arm] Blood Pressure Source [Right Arm] Blood Pressure Position [Right Arm] 02 Sat by Pulse Oximetry 98 Oxygen Delivery Method Room Air Lab Data Lab Results 06/02/23 09:47: WBC 8.3, RBC 4.28 L, Hgb 13.6 L, Hct 41.1 L, MCV 96.0 H, MCH 31.8 H, MCHC 33.1, RDW 14.0, Plt Count 273, MPV 8.6, Neut % (Auto) 65.0, Lymph % (Auto) 21.8, [place] % (Auto) 8.9, Eos % (Auto) 3.2, Baso % (Auto) 1.1, Neut # (Auto) 5.4, Lymph # (Auto) 1.8, [place] # (Auto) 0.7, Eos # (Auto) 0.3, Baso # (Auto) 0.1, Sodium 133 L, Potassium 4.1, Chloride 103, Carbon Dioxide 22, Anion Gap 12.1, BUN 23 H D, Creatinine 1.60 H D, Estimated Creat Clear 56, Estimated GFR 46 L, Est GFR ( Amer) 55 L D, Glucose 171 H, Calcium 9.2, Magnesium 1.7, Total Bilirubin 0.4, AST 31, ALT 40 D, Alkaline Phosphatase 75, Total Creatine Kinase 205 H, Total Protein 6.3, Albumin 3.9, Globulin 2.4, Albumin/Globulin Ratio 1.6, Lipase 397 H, Acetone Level None detected 06/02/23 10:06: VBG pH 7.26 L, VBG pCO2 43.7, VBG pO2 43.1 H, VBG HCO3 19.1 L, VBG Total CO2 20.4 L, VBG O2 Saturation 71.8 H, VBG Base Excess -8.0 L, VBG Lactic Acid 2.9 H 06/02/23 12:51: Urine Color Yellow, Urine Appearance Clear, Urine pH 5.5, Ur Specific [place] 1.010, Urine Protein Negative, Urine Glucose (UA) Negative, Urine Ketones Negative, Urine Blood Negative, Urine Nitrate Negative, Urine Bilirubin Negative, Urine Urobilinogen 0.2, Ur Leukocyte Esterase 1+ A, Urine RBC 3-5, Urine WBC 50-100, Ur Squamous Epith Cells 3-5, Urine Bacteria Trace 06/02/23 09:47 06/02/23 09:47 Orders (Tests/Meds): ED MEDICATIONS Generic Name Dose Route Start Last Admin Trade Name Freq PRN Reason Stop Dose Admin Acetaminophen 650 mg 06/02/23 13:56 Acetaminophen 325mg Tab PO 07/02/23 13:55 Q6HP PRN Fever or Mild Pain (1-3) Sodium Chloride 1,000 mls @ 75 mls/hr 06/02/23 14:00 06/02/23 17:11 Sod Chlor 0.9% 1000ml Bag IV 07/02/23 13:59 75 mls/hr .[id number] SAPPHIRE Administration Insulin Human Lispro 0 unit 06/02/23 16:30 06/02/23 17:11 Humalog 100 Units/Ml 3ml Vial (Ssi) SQ 07/02/23 16:29 2 unit ACHS SAPPHIRE Administration Protocol Sodium Chloride 10 ml 06/02/23 13:56 Sodium Chloride 0.9% 10ml Flush Syringe IV 07/02/23 13:55 NEEDED PRN Maintain IV Site Discontinued Medications Generic Name Dose Route Start Last Admin Trade Name Freq PRN Reason Stop Dose Admin Lactated Ringer's 1,000 mls @ 999 mls/hr 06/02/23 10:05 06/02/23 11:02 Lactated Ringer's 1000 Ml Bag IV 06/02/23 11:05 999 mls/hr .Q1H1M ONE Administration Sodium Chloride 1,000 mls @ 999 mls/hr 06/02/23 12:04 06/02/23 12:30 Sod Chlor 0.9% 1000ml Bag IV 06/02/23 13:04 Not Given .Q1H1M ONE Lactated Ringer's 1,000 mls @ 999 mls/hr 06/02/23 12:30 06/02/23 12:37 Lactated Ringer's 1000 Ml Bag IV 06/02/23 13:30 999 mls/hr .Q1H1M SAPPHIRE Administration ORDERS Category Date Time Status XR chest portable Stat Exams 06/02/23 10:05 Completed Acetone, Serum (Rapid) Stat Lab 06/02/23 09:47 Completed CBC w/Auto Diff [Complete Blood Count Auto Diff] Stat Lab 06/02/23 09:47 Completed CK [Creatine Kinase] Stat Lab 06/02/23 09:47 Completed CMP [Comprehensive Metabolic Panel] Stat Lab 06/02/23 09:47 Completed Diarrhea 6-11 Panel, Cdiff PCR Stat Lab 06/02/23 12:56 Ordered Lipase Stat Lab 06/02/23 09:47 Completed MAG [Magnesium] Stat Lab 06/02/23 09:47 Completed Urinalysis and Microscopic Stat Lab 06/02/23 12:51 Completed Urine Culture Stat Micro 06/02/23 12:51 Received VBG [Venous Blood Gas] Stat RT 06/02/23 10:06 Completed Medical Decision Narrative: Patient with history and exam per above presenting for evaluation of drowsiness, hypotension, hyperglycemia Diagnoses considered include DKA, HHS, electrolyte abnormality, acute kidney injury medication induced hypotension, bacteremia, infectious diarrhea, cystitis, among others ED workup and treatment included: ED MEDICATIONS Generic Name Dose Route Start Last Admin Trade Name Freq PRN Reason Stop Dose Admin Acetaminophen 650 mg 06/02/23 13:56 Acetaminophen 325mg Tab PO 07/02/23 13:55 Q6HP PRN Fever or Mild Pain (1-3) Sodium Chloride 1,000 mls @ 75 mls/hr 06/02/23 14:00 06/02/23 17:11 Sod Chlor 0.9% 1000ml Bag IV 07/02/23 13:59 75 mls/hr .[id number] SAPPHIRE Administration Insulin Human Lispro 0 unit 06/02/23 16:30 06/02/23 17:11 Humalog 100 Units/Ml 3ml Vial (Ssi) SQ 07/02/23 16:29 2 unit ACHS SAPPHIRE Administration Protocol Sodium Chloride 10 ml 06/02/23 13:56 Sodium Chloride 0.9% 10ml Flush Syringe IV 07/02/23 13:55 NEEDED PRN Maintain IV Site Discontinued Medications Generic Name Dose Route Start Last Admin Trade Name Freq PRN Reason Stop Dose Admin Lactated Ringer's 1,000 mls @ 999 mls/hr 06/02/23 10:05 06/02/23 11:02 Lactated Ringer's 1000 Ml Bag IV 06/02/23 11:05 999 mls/hr .Q1H1M ONE Administration Sodium Chloride 1,000 mls @ 999 mls/hr 06/02/23 12:04 06/02/23 12:30 Sod Chlor 0.9% 1000ml Bag IV 06/02/23 13:04 Not Given .Q1H1M ONE Lactated Ringer's 1,000 mls @ 999 mls/hr 06/02/23 12:30 06/02/23 12:37 Lactated Ringer's 1000 Ml Bag IV 06/02/23 13:30 999 mls/hr .Q1H1M SAPPHIRE Administration ORDERS Category Date Time Status XR chest portable Stat Exams 06/02/23 10:05 Completed Acetone, Serum (Rapid) Stat Lab 06/02/23 09:47 Completed CBC w/Auto Diff [Complete Blood Count Auto Diff] Stat Lab 06/02/23 09:47 Completed CK [Creatine Kinase] Stat Lab 06/02/23 09:47 Completed CMP [Comprehensive Metabolic Panel] Stat Lab 06/02/23 09:47 Completed Diarrhea 6-11 Panel, Cdiff PCR Stat Lab 06/02/23 12:56 Ordered Lipase Stat Lab 06/02/23 09:47 Completed MAG [Magnesium] Stat Lab 06/02/23 09:47 Completed Urinalysis and Microscopic Stat Lab 06/02/23 12:51 Completed Urine Culture Stat Micro 06/02/23 12:51 Received VBG [Venous Blood Gas] Stat RT 06/02/23 10:06 Completed Labs were independently interpreted by me, significant for acute kidney injury with creatinine 1.6, metabolic acidosis, anion gap within normal limits, to me suggestive of secondary to diarrheal illness Imaging was independently visualized and interpreted by me, significant for no acute findings. Please refer to radiology report for full details. My clinical impression at this time is most consistent with acute kidney injury, hypovolemia, possible infectious diarrhea. Patient will be admitted to the hospital for further inpatient management. Critical Care Critical Care Time Critical Care Time: No
--- NOTE | 2023-06-02 09:43 | ECG_ITS ---
APPROVED REPORT Exam: Resting ECG HR:76 bpm ECG Measurements Heart Rate 76 AXES SD 170 P 20 QRSd 101 QRS 7 QT 425 T 68 QTc 455 Conclusion SINUS RHYTHM Electronically signed by : CHEVY SNYDER, 06/02/2023 17:22:35
--- NOTE | 2023-06-02 10:01 | PC.NURSE ---
Addendum entered by Yogesh Harmon RN 06/02/23 10:02: pt also provided ice water. Original Note: rounded on pt at this time, pt given warm blanket and provided with urinal.
--- NOTE | 2023-06-02 10:05 | XR_ITS ---
PROCEDURE INFORMATION: Exam: XR Chest Exam date and time: 06/02/2023 10:09 AM Age: 52 years old Clinical indication: Shortness of breath; Additional info: SOA TECHNIQUE: Imaging protocol: Radiologic exam of the chest. Views: 1 view. COMPARISON: CR XR CHEST PORTABLE 02/07/2023 6:35 PM FINDINGS: Lungs: Unremarkable. No consolidation. Pleural spaces: Unremarkable. No pleural effusion. No pneumothorax. Heart/Mediastinum: Unremarkable. No cardiomegaly. Bones/joints: Unremarkable. IMPRESSION: No acute findings.
[2023-06-02 10:18] LABS: Basophils # 0.1 K/mm3 (0-0.2); Basophils % 1.1 % (0.1-2.0); Eosinophils # 0.3 K/mm3 (0.0-0.4); Eosinophils % 3.2 % (0.1-12.0); Hematocrit 41.1 % (42.0-52.0); Hemoglobin 13.6 g/dL (14.1-18.0); Lymphocytes # 1.8 K/mm3 (0.7-4.5); Lymphocytes % 21.8 % (10-50); Mean Corpuscular HGB Conc 33.1 g/dL (31.8-35.4); Mean Corpuscular Hemoglobin 31.8 pg (27.0-31.2); Mean Platelet Volume 8.6 fl (7.4-10.4); Monocytes # 0.7 K/mm3 (0.1-1.0); Monocytes % 8.9 % (1.7-9.3); Neutrophils # 5.4 K/mm3 (1.8-7.8); Platelet Count 273 K/mm3 (142-424); Red Blood Count 4.28 M/mm3 (4.60-6.20); White Blood Count 8.3 K/mm3 (4.8-10.8)
[2023-06-02 10:28] LABS: Chloride 103 mmol/L (98-107)
[2023-06-02 10:29] LABS: Potassium 4.1 mmoL/L (3.5-5.1); Sodium 133 mmol/L (136-145)
[2023-06-02 10:31] LABS: Alanine Aminotransferase 40 U/L (12-78); Alkaline Phosphatase 75 U/L (38-126); Anion Gap 12.1 mEq/L (5-15); Aspartate Amino Transferase 31 U/L (17-59); Bilirubin,Total 0.4 mg/dl (0.2-1.3); Blood Urea Nitrogen 23 mg/dl (9-20); Carbon Dioxide 22 mmol/L (22.0-30.0); Creatine Kinase 205 U/L (55-170); Creatinine Clearance Estimated 56 mL/min (50-200); Estimated Glomerular Filt Rate 46 ml/min (>60); GFR (African American) 55 ML/MIN (>60)
[2023-06-02 10:32] LABS: Albumin Level 3.9 g/dl (3.5-5.0); Albumin/Globulin Ratio 1.6 (1.1-1.8); Calcium 9.2 mg/dl (8.4-10.2); Globulin 2.4 g/dL (1.3-3.2); Glucose 171 mg/dl (74-100); Lipase 397 U/L (23-300); Magnesium 1.7 mg/dl (1.6-2.3); Total Protein,Serum 6.3 g/dl (6.3-8.2)
[2023-06-02 10:47] LABS: Acetone, Serum (Rapid) None Detected (None Detect)
[2023-06-02] MEDS: LACTATED RINGERS 1000ML 1,000 ML 999 ML IV ×2 (11:02→12:37)
[2023-06-02 12:01] LABS: VBG HCO3 19.1 mmol/L (23-30); VBG Oxygen Saturation 71.8 % (50-70); VBG PCO2 43.7 mmol/L (35-51); VBG PH 7.26 mmol/L (7.31-7.41); VBG PO2 43.1 mmol/L (28-40); VBG Total CO2 20.4 mmol/L (23-27)
[2023-06-02 12:02] LABS: Lactate Venous 2.9 mmol/L (0.4-2.0)
--- NOTE | 2023-06-02 12:44 | PC.NURSE ---
amarilys mackey for william segovia
[2023-06-02 12:59] LABS: Microscopic, Urine URINE MICROSCOPIC (MICROSCOPIC)
[2023-06-02 13:03] LABS: Appearance,Urine CLEAR (Clear); Bilirubin,Urine Negative (Negative); Blood, Urine Negative (Negative); Color,Urine YELLOW (Yellow); Glucose,Urine (UA) Negative (Negative); Ketones,Urine Negative (Negative); Leukocyte Esterase,Urine 1+ (Negative); Nitrate,Urine Negative (Negative); PH,Urine 5.5 (5.0-8.5); Protein,Urine Negative (Negative); Urobilinogen,Urine 0.2 EU/dl (0.2)
--- NOTE | 2023-06-02 13:07 | HMH.PHAINT1 ---
Pharmacy Intervention Comments: MEDICATION RECONCILIATION COMPLETED ON PATIENT USING EXTERNAL FILL HISTORY FROM PHARMACY AND DISCHARGE SUMMARY FROM PREVIOUS ADMISSION. -RIAT HAIR, ROSIBELD
[2023-06-02 13:23] LABS: Bacteria,Urine Trace /lpf; WBC,Urine 50-100 #/hpf (0-3)
--- NOTE | 2023-06-02 13:48 | PC.NURSE ---
pt given meal tray
--- NOTE | 2023-06-02 13:55 | PC.NURSE ---
Report called to RENEA Del Rosario.
--- NOTE | 2023-06-02 14:33 | PC.NURSE ---
arrived by stretcher from ED
[2023-06-02 16:02] LABS: Reflex Lactic Add Lactic Reflex
[2023-06-02 16:49] LABS: Lactic Acid Follow Up (RFLX 1) 2.9 mmol/L (0.7-2.1)
[2023-06-02] MEDS: 0.9 % SODIUM CHLORIDE 1000ML 1,000 ML 75 ML IV (17:11)
[2023-06-02] MEDS: humaLOG 100 UNITS/ML 3ML VIAL (SSI) SQ ×2 (17:11→21:43)
[2023-06-02 17:25] LABS: POC Glucose,Bedside 195 (70-110)
[2023-06-02 18:26] LABS: Reflex Lactic (2 hrs) Add Lactic Reflex
[2023-06-02 19:22] LABS: Lactic Acid Follow up (RFLX 2) 2.9 mmol/L (0.7-2.1)
[2023-06-02 20:17] LABS: POC Glucose,Bedside 175 (70-110)
[2023-06-02] MEDS: BISOPROLOL 5MG TABLET 10 MG PO (21:42)
[2023-06-02] MEDS: GABAPENTIN 400MG CAPSULE 400 MG PO (21:42)
[2023-06-02] MEDS: ATORVASTATIN 40MG TABLET 40 MG PO (21:42)
[2023-06-02] MEDS: QUETIAPINE 100MG TABLET 400 MG PO (21:42)
[2023-06-02] MEDS: LISINOPRIL 20MG TABLET 20 MG PO (21:42)
[2023-06-02] MEDS: BENZTROPINE 1MG TABLET 1 MG PO (21:43)
[2023-06-02] MEDS: TRAZODONE 50MG TABLET 50 MG PO (21:43)
[2023-06-03] MEDS: ACETAMINOPHEN 325MG TAB 650 MG PO (01:58)
[2023-06-03] MEDS: CALCIUM CARBONATE 500MG CHEWTAB 500 MG PO ×4 (03:27→20:51)
[2023-06-03 04:00] VITALS: BP 166/81; PULSE 87; RESP 17; TEMP 36.6; O2SAT 95; BMI 23.0
[2023-06-03] MEDS: FAMOTIDINE 20MG TABLET 20 MG PO (05:52)
[2023-06-03] MEDS: ONDANSETRON 4MG/2ML VIAL 4 MG IV ×2 (05:53→22:15)
[2023-06-03] MEDS: humaLOG 100 UNITS/ML 3ML VIAL (SSI) SQ ×4 (06:53→21:57)
[2023-06-03 07:43] LABS: POC Glucose,Bedside 199 (70-110)
[2023-06-03 07:51] LABS: Basophils # 0.1 K/mm3 (0-0.2); Hematocrit 46.1 % (42.0-52.0); Lymphocytes # 1.1 K/mm3 (0.7-4.5); Mean Corpuscular HGB Conc 32.7 g/dL (31.8-35.4); Monocytes # 0.8 K/mm3 (0.1-1.0)
[2023-06-03 08:00] VITALS: BP 147/85; PULSE 85; RESP 18; TEMP 36.8; O2SAT 96
[2023-06-03 08:00] LABS: Basophils % 1.1 % (0.1-2.0); Eosinophils # 0.2 K/mm3 (0.0-0.4); Eosinophils % 2.1 % (0.1-12.0); Lymphocytes % 10.4 % (10-50); Mean Corpuscular Hemoglobin 31.4 pg (27.0-31.2); Mean Corpuscular Volume 95.9 fl (80-94); Mean Platelet Volume 8.3 fl (7.4-10.4); Monocytes % 7.1 % (1.7-9.3); Neutrophils # 8.6 K/mm3 (1.8-7.8); Neutrophils % 79.3 % (37.0-80.0); Platelet Count 278 K/mm3 (142-424); Red Blood Count 4.81 M/mm3 (4.60-6.20); Red Cell Distribution Width 14.1 % (11.5-17.5); White Blood Count 10.9 K/mm3 (4.8-10.8)
[2023-06-03 08:12] LABS: Anion Gap 14.9 mEq/L (5-15); Blood Urea Nitrogen 12 mg/dl (9-20); Calcium 10.4 mg/dl (8.4-10.2); Carbon Dioxide 26 mmol/L (22.0-30.0); Chloride 99 mmol/L (98-107); Creatinine Clearance Estimated 112 mL/min (50-200); Estimated Glomerular Filt Rate 102 ml/min (>60); GFR (African American) 123 ML/MIN (>60); Glucose 247 mg/dl (74-100); Potassium 3.9 mmoL/L (3.5-5.1); Sodium 136 mmol/L (136-145)
[2023-06-03 08:59] LABS: Hemoglobin 15.1 g/dL (14.1-18.0)
[2023-06-03] MEDS: QUETIAPINE 100MG TABLET 400 MG PO ×2 (09:18→20:52)
[2023-06-03] MEDS: BISOPROLOL 5MG TABLET 10 MG PO ×2 (09:18→20:52)
[2023-06-03] MEDS: BENZTROPINE 1MG TABLET 1 MG PO ×2 (09:18→20:52)
[2023-06-03] MEDS: LISINOPRIL 20MG TABLET 20 MG PO ×2 (09:18→20:52)
[2023-06-03] MEDS: 0.9 % SODIUM CHLORIDE 1000ML 1,000 ML 75 ML IV ×2 (09:22→22:15)
[2023-06-03 11:51] LABS: POC Glucose,Bedside 226 (70-110)
--- NOTE | 2023-06-03 13:29 | CT_ITS ---
PROCEDURE INFORMATION: Exam: CT Abdomen Without Contrast Exam date and time: 06/03/2023 1:49 PM Age: 52 years old Clinical indication: Condition or disease; Pancreatic condition; Pancreatitis TECHNIQUE: Imaging protocol: Computed tomography of the abdomen without contrast. Radiation optimization: All CT scans at this facility use at least one of these dose optimization techniques: automated exposure control; mA and/or kV adjustment per patient size (includes targeted exams where dose is matched to clinical indication); or iterative reconstruction. COMPARISON: CT ABDOMEN PELVIS WO CON 05/29/2023 11:26 PM FINDINGS: Pleural spaces: Small pleural effusions bilaterally with bibasilar atelectasis. Liver: Normal. No mass. Gallbladder and bile ducts: Previous cholecystectomy. Pancreas: Decreasing peripancreatic edema along the pancreatic head. Recommend correlation with clinical lab values. Spleen: Normal. No splenomegaly. Adrenal glands: Normal. No mass. Kidneys and ureters: Normal. No hydronephrosis. Stomach and bowel: Marked distension of the stomach with gas and fluid. Distended proximal small bowel loops, with transition zone not evident on submitted imaging. Small bowel obstruction can not be excluded. Intraperitoneal space: Unremarkable. No free air. No significant fluid collection. Vasculature: Unremarkable. No abdominal aortic aneurysm. Lymph nodes: Unremarkable. No enlarged lymph nodes. Bones/joints: Unremarkable. No acute fracture. No dislocation. Soft tissues: Unremarkable. IMPRESSION: 1. Decreasing peripancreatic edema along the pancreatic head. Recommend correlation with clinical lab values. 2. Marked distension of the stomach with gas and fluid. Distended proximal small bowel loops, with transition zone not evident on submitted imaging. Small bowel obstruction can not be excluded. 3. Small pleural effusions bilaterally with bibasilar atelectasis.
--- NOTE | 2023-06-03 13:33 | P.HP_ITS ---
History of Present Illness *Admission Date: 06/03/23 *Reason for visit:: Change in mental status. Heartburn. Recent pancreatitis. *History of present illness: 52-year-old male schizophrenic with recent pancreatitis. He was discharged after treatment on May 30. Initial lipase was 5168 but rapidly declined to 351 on the day of discharge. His mother brought him back to the emergency room yesterday. She was concerned that she was having trouble waking him up. He has complained about heartburn through the night. We must be concerned about recurrent pancreatitis symptoms. Past medical history significant for CVA with left-sided hemiparesis,, CHF, carotid artery stenosis, HLD, DM2, HTN, lumbar radiculopathy, cardiomyopathy, recent cataract surgery. He frequently suffers from constipation but since returning home he has had some diarrhea. Left-sided hemiparesis at baseline. . CT scan at the the previous admission showed stranding at head of pancreas. Non contrast study. [facility] Disclaimer: The information contained in this section may have been updated after the patient was seen, as this information can be updated by other users. 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 Paralysis Systolic CHF LV dysfunction Angina, class III Carotid artery stenosis Cardiomyopathy Hx of traumatic brain injury HTN (hypertension), benign CHF (congestive heart failure) Thoracic back pain Lumbar radiculopathy Surgical History History of left hip hemiarthroplasty H/O arthroscopy of hip Family History Other Cancer Coronary artery disease Diabetes FHx: mental illness Heart attack Hypertension Stroke Social History (Updated 06/02/23 @ 14:48 by Yakelin Anna RN) Smoking Status: Current every day smoker tobacco type: cigarettes packs per day: 1 second hand exposure: No alcohol intake: never substance use type: denies use current occupational status: disabled Travel in the last 8 weeks: None household members: family housing: house number of children: 2 caffeine: Yes Review of Systems Review of Systems Review of systems:: pertinent systems reviewed and negative unless documented below Constitutional Constitutional: Reports system reviewed and no additional complaints, except as documented, Reports daytime sleepiness, Reports fatigue and Denies fever(s) Eyes Eyes: Reports system reviewed and no additional complaints, except as documented and Reports as per HPI (Recent cataract surgery. He had some ecchymoses around the right eye which) ENT Ears, Nose, Mouth, and Throat: Reports system reviewed and no additional complaints, except as documented *Cardiovascular Cardiovascular: Reports system reviewed and no additional complaints, except as documented and Reports chest pain (Epigastric pain which she describes as heartburn.) *Respiratory Respiratory: Denies chest congestion and Denies cough *Gastrointestinal Gastrointestinal: Reports as per HPI, Reports abdominal pain, Reports diarrhea, Reports heartburn and Denies vomiting *Genitourinary Genitourinary: Reports system reviewed and no additional complaints, except as documented *Musculoskeletal Musculoskeletal: Reports system reviewed and no additional complaints, except as documented Integumentary/Breasts Skin/Breast: Reports system reviewed and no additional complaints, except as documented *Neurologic Neurologic: Reports behavioral changes (His hallucinations have been better over the recent past.) and Denies convulsions Psychiatric Psychiatric: Reports behavioral changes (His hallucinations have been better over the recent past.) Endocrine Endocrine: Reports fatigue Hematologic/Lymphatic Hematologic/Lymphatic: Reports as per HPI (See recent labs.) Allergic/Immunologic Allergic/Immunologic: Reports as per HPI Meds Home Medications and Allergies Home Medications Medication Instructions Recorded Confirmed Type ascorbic acid (vitamin C) 1,000 mg 1,000 mg PO DAILY Supplement 02/29/20 06/02/23 History tablet trazodone 50 mg tablet 50 mg PO HS Sleep 05/08/21 06/02/23 History fenofibrate 160 mg tablet 160 mg PO DAILY 05/09/21 06/02/23 History insulin glargine 100 unit/mL 25 unit SQ HS Diabetes 07/12/21 06/02/23 History subcutaneous solution aspirin 81 mg tablet,delayed 81 mg PO DAILY 08/18/22 06/02/23 History release atorvastatin 40 mg tablet 40 mg PO HS 08/18/22 06/02/23 History blood-glucose meter,continuous 08/18/22 06/02/23 History blood-glucose sensor (Dexcom G6 08/18/22 06/02/23 History Sensor device) clopidogrel 75 mg tablet 75 mg PO DAILY 08/18/22 06/02/23 History furosemide 20 mg tablet 20 mg PO DAILY 08/18/22 06/02/23 History linagliptin 5 mg tablet (Tradjenta) 5 mg PO DAILY 08/18/22 06/02/23 History metformin 1,000 mg tablet 1,000 mg PO BIDWMEAL 08/18/22 06/02/23 History alendronate 35 mg tablet 35 mg PO WEEKLY 12/26/22 06/02/23 History escitalopram oxalate 10 mg tablet 10 mg PO DAILY 12/26/22 06/02/23 History gabapentin 400 mg capsule 400 mg PO HS 12/26/22 06/02/23 History lisinopril 20 mg tablet 20 mg PO BID #60 tabs 01/10/23 06/02/23 Rx quetiapine 400 mg tablet 400 mg PO BID 04/23/23 06/02/23 History amlodipine 10 mg tablet 10 mg PO DAILY 05/30/23 06/02/23 History benztropine 1 mg tablet 1 mg PO BID 05/30/23 06/02/23 History bisoprolol fumarate 10 mg tablet 10 mg PO BID 05/30/23 06/02/23 History fluticasone fur. 100 mcg-umeclid 1 inh inhalation DAILY 05/30/23 06/02/23 History 62.5 mcg-vilant 25 mcg inhalat.powder (Trelegy Ellipta) insulin aspar prot-insulin aspart 15 - 20 unit SQ AM 05/30/23 06/02/23 History 100 unit/mL (70-30) subcutaneous pen (Novolog Mix 70-30FlexPen U-100) melatonin 5 mg tablet 5 mg PO HS 05/30/23 06/02/23 History tamsulosin 0.4 mg capsule 0.4 mg PO HS 05/30/23 06/02/23 History New Prescriptions to Start Prescriptions: Allergies Allergy/AdvReac Type Severity Reaction Status Date / Time amoxicillin Allergy Swelling Verified 05/30/23 11:05 of Lip/Tongue/Throat Fish Containing Products AdvReac Severe Unknown Verified 05/29/23 11:21 allergy reaction Exam Data for Last 24 hours Vital signs and Labs for Last 24 Hours: Temp Pulse Resp BP Pulse Ox O2 Del Method 98.3 F 85 18 147/85 H 96 Room Air 06/03/23 08:00 06/03/23 08:00 06/03/23 08:00 06/03/23 08:00 06/03/23 08:00 06/03/23 13:00 Laboratory Results - last 24 hr 06/02/23 16:15: Lactate 2.9 H 06/02/23 17:08: POC Glucose 195 H 06/02/23 18:50: Lactate 2.9 H 06/02/23 20:07: POC Glucose 175 H 06/03/23 05:56: POC Glucose 199 H 06/03/23 07:20: WBC 10.9 H D, RBC 4.81, Hgb 15.1 D, Hct 46.1, MCV 95.9 H, MCH 31.4 H, MCHC 32.7, RDW 14.1, Plt Count 278, MPV 8.3, Neut % (Auto) 79.3, Lymph % (Auto) 10.4, Hendry % (Auto) 7.1, Eos % (Auto) 2.1, Baso % (Auto) 1.1, Neut # (Auto) 8.6 H, Lymph # (Auto) 1.1, Hendry # (Auto) 0.8, Eos # (Auto) 0.2, Baso # (Auto) 0.1, Sodium 136, Potassium 3.9, Chloride 99, Carbon Dioxide 26, Anion Gap 14.9, BUN 12 D, Creatinine 0.80 D, Estimated Creat Clear 112, Estimated GFR 102, Est GFR ( Amer) 123 D, Glucose 247 H D, Calcium 10.4 H 06/03/23 11:33: POC Glucose 226 H I & O for Last 24 hours: Intake & Output 06/01/23 06/02/23 06/03/23 06/04/23 11:59 11:59 11:59 11:59 Intake Total 825 / 825 Output Total 2900 / 2900 Balance -2074 / -2074 Weight 161 lb 160 lb 15.705 oz Constitutional Constitutional: mild distress (Complaining of heartburn) *Routine HEENT Exam Head: Present normocephalic; Absent facial swelling Eye: Absent conjunctival icterus or periorbital tenderness ENT: Present mucous membranes moist *Routine Neck Exam Neck: Absent lymphadenopathy or thyromegaly Routine Chest/Breast/Axilla Exam Chest wall: Absent tenderness Axillae: Absent lymphadenopathy *Routine Respiratory Exam Respiratory: Present decreased breath sounds; Absent respiratory distress, stridor or wheezes *Routine Cardiovascular Exam Cardiovascular: Present RRR *Routine Abdominal Exam Abdominal: Present soft; Absent tenderness, distended or guarding *Routine Rectal Exam Rectal:: deferred *Routine Genitalia Exam Genitalia:: deferred *Routine Extremities Exam Extremities: Absent edema Comments: Left hemiparesis Routine Back/Spine/Pelvis Exam Back/Spine: Absent CVA tenderness *Routine Skin Exam Skin: Present intact *Routine Neurological Exam Neurological: Present alert Comments: Left hemiparesis. 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 (3) Hemiparesis affecting left side as late effect of stroke: Status: Acute Category: Medical Code(s): I69.354 - Hemiplegia and hemiparesis following cerebral infarction affecting left non-dominant side (4) History of CVA (cerebrovascular accident): Status: Acute Category: Medical Code(s): Z86.73 - Personal history of transient ischemic attack (TIA), and cerebral infarction without residual deficits (5) Paranoid schizophrenia: Status: Acute Category: Medical Code(s): F20.0 - Paranoid schizophrenia (6) HHD (hypertensive heart disease): Status: Chronic Qualifiers: Heart failure presence: with heart failure Heart failure type: systolic Heart failure chronicity: chronic Qualified Code(s): I11.0 - Hypertensive heart disease with heart failure; I50.22 - Chronic systolic (congestive) heart failure Category: Medical Code(s): I11.9 - Hypertensive heart disease without heart failure (7) Tobacco abuse: Status: Chronic Category: Medical Code(s): Z72.0 - Tobacco use (8) Diabetes: Status: Chronic Qualifiers: Diabetes mellitus type: type 2 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 His blood work is good this morning. They did not recheck his pancreas or check his lipase. I have ordered that. I suspect we have an exacerbation of the pancreatitis..
[2023-06-03 13:46] LABS: Lipase 137 U/L (23-300)
[2023-06-03] MEDS: PANTOPRAZOLE 40MG TABLET 40 MG PO ×2 (14:10→20:52)
[2023-06-03] MEDS: humaLOG MIX 75/25 3ML FLEXPEN 15 UNIT SQ (14:24)
[2023-06-03] MEDS: CLOPIDOGREL 75MG TAB 75 MG PO (14:24)
[2023-06-03 15:52] VITALS: BP 137/78; PULSE 76; RESP 20; TEMP 37.3; O2SAT 97
[2023-06-03] MEDS: METFORMIN 500MG TABLET 500 MG PO (16:51)
[2023-06-03 17:27] LABS: POC Glucose,Bedside 195 (70-110)
[2023-06-03 20:00] VITALS: BP 147/73; PULSE 73; RESP 16; TEMP 36.8; O2SAT 95; O2SAT 97
[2023-06-03] MEDS: TRAZODONE 50MG TABLET 50 MG PO (20:51)
[2023-06-03] MEDS: GABAPENTIN 400MG CAPSULE 400 MG PO (20:52)
[2023-06-03] MEDS: ATORVASTATIN 40MG TABLET 40 MG PO (20:52)
[2023-06-03] MEDS: BELLADONNA ALKALOIDS 60 ML ML PO (21:30)
--- NOTE | 2023-06-03 21:30 | PC.NURSE ---
Patient c/o acid reflux after Tums given. On-call notified recvd v.o. for GI Cocktail x 1 dose.
[2023-06-03 21:45] LABS: POC Glucose,Bedside 157 (70-110)
[2023-06-04] MEDS: BELLADONNA ALKALOIDS 60 ML ML PO (02:00)
--- NOTE | 2023-06-04 02:00 | PC.NURSE ---
Patient c/o acid reflux. Had relief with GI Cocktail earlier. On-call provider notified; recvd v.o. for GI cocktail now and every 6hrs PRN. Patient recvd dose of GI Cocktail and vomited it right back up; recvd bath and then fell asleep.
[2023-06-04 04:00] VITALS: BP 165/89; PULSE 77; RESP 16; TEMP 36.9; O2SAT 96; BMI 23.0
[2023-06-04] MEDS: humaLOG 100 UNITS/ML 3ML VIAL (SSI) SQ ×3 (06:01→20:15)
[2023-06-04] MEDS: FLUTICASONE/UMECLIDIN/VILANTER 100/62.5/25MCG INHALER 1 PUFF IH (06:10)
[2023-06-04 06:22] LABS: POC Glucose,Bedside 239 (70-110)
[2023-06-04] MEDS: CALCIUM CARBONATE 500MG CHEWTAB 500 MG PO (06:49)
[2023-06-04 08:00] VITALS: BP 142/88; PULSE 78; RESP 22; TEMP 36.9; O2SAT 95
--- NOTE | 2023-06-04 08:37 | P.PN_ITS ---
Subjective *Date: 06/04/23 *Time: 09:31 Interval history: Patient states he does not feel well this morning. He describes nausea ongoing and has vomited several times. He vomited once after eating dinner and after belladonna dosage. His bowels have not moved. He describes ongoing heartburn with reflux. He said he does not believe he slept more than 2 minutes last night. He denies chest pain and shortness of breath. He does have some mild right upper quadrant discomfort. He has not been out of bed. CT of abdomen/pelvis completed 06/03/2023: FINDINGS: Pleural spaces: Small pleural effusions bilaterally with bibasilar atelectasis. Liver: Normal. No mass. Gallbladder and bile ducts: Previous cholecystectomy. Pancreas: Decreasing peripancreatic edema along the pancreatic head. Recommend correlation with clinical lab values. Spleen: Normal. No splenomegaly. Adrenal glands: Normal. No mass. Kidneys and ureters: Normal. No hydronephrosis. Stomach and bowel: Marked distension of the stomach with gas and fluid. Distended proximal small bowel loops, with transition zone not evident on submitted imaging. Small bowel obstruction can not be excluded. Intraperitoneal space: Unremarkable. No free air. No significant fluid collection. Vasculature: Unremarkable. No abdominal aortic aneurysm. Lymph nodes: Unremarkable. No enlarged lymph nodes. Bones/joints: Unremarkable. No acute fracture. No dislocation. Soft tissues: Unremarkable. IMPRESSION: 1. Decreasing peripancreatic edema along the pancreatic head. Recommend correlation with clinical lab values. 2. Marked distension of the stomach with gas and fluid. Distended proximal small bowel loops, with transition zone not evident on submitted imaging. Small bowel obstruction can not be excluded. 3. Small pleural effusions bilaterally with bibasilar atelectasis. Medical Exam Vital signs and Labs for Last 24 Hours: Vital Signs Temp Pulse Resp BP Pulse Ox O2 Del Method 06/04/23 08:00 98.4 F 78 22 142/88 H 95 Room Air 06/04/23 06:25 Room Air 06/04/23 05:00 Room Air 06/04/23 04:00 98.4 F 77 16 165/89 H 96 Room Air 06/04/23 03:00 Room Air 06/04/23 01:00 Room Air 06/03/23 23:00 Room Air 06/03/23 21:00 Room Air 06/03/23 20:00 97 Room Air 06/03/23 20:00 98.2 F 73 16 147/73 H 95 Room Air 06/03/23 18:53 Room Air 06/03/23 17:00 Room Air 06/03/23 15:52 99.2 F 76 20 137/78 97 Room Air 06/03/23 15:00 Room Air 06/03/23 13:00 Room Air 06/03/23 11:00 Room Air 06/03/23 09:00 Room Air Intake and Output 06/03/23 06/04/23 06/04/23 19:59 03:59 11:59 Intake Total 1127 / 1127 / 2026 Output Total 400 / 400 450 / 850 0 / 850 Balance 727 / 727 -450 / 277 900 / 1177 Intake: Intake, Oral Amount 240 / 240 0 / 240 Intake, Total IV Amount 887 / 887 900 / 1787 0.9 % Sodium Chloride 1000ML 1, 887 / 887 900 / 1787 000 ml @ 75 mls/hr IV .[id number] [facility] Rx#:[id number] Output: Output, Urine Amount 400 / 400 450 / 850 0 / 850 Other: Number of Voids 1 Weight 160 lb 15.705 oz Patient Weight 06/04/23 11:59 Weight 160 lb 15.705 oz Laboratory Results - last 24 hr 06/03/23 07:20: Hgb 15.1 D, Lipase 137 06/03/23 11:33: POC Glucose 226 H 06/03/23 16:51: POC Glucose 195 H 06/03/23 20:57: POC Glucose 157 H 06/04/23 05:57: POC Glucose 239 H I & O for Labs for Last 24 Hours: Intake & Output 06/01/23 06/02/23 06/03/23 06/04/23 11:59 11:59 11:59 11:59 Intake Total 825 / 825 2026 Output Total 2900 / 2900 850 / 850 Balance -2074 / -2074 1177 / 1177 Weight 161 lb 160 lb 15.705 oz 160 lb 15.705 oz Constitutional: Present no acute distress Comment:: Lying in bed. He appears uncomfortable. Mom is at bedside. Respiratory: Present CTA bilaterally (Anteriorly and posteriorly) Cardiac: Present Reg Rate and Rhythm GI: Present distention, tenderness (Epigastric and right upper quadrant.) and normal bowel sounds; Absent guarding Extremities: Absent tenderness or edema Neuro: Present alert, awake and oriented x 3 Assessment and Plan *Assessment and plan (1) Pancreatitis: Status: Acute Category: Medical Code(s): K85.90 - Acute pancreatitis without necrosis or infection, unspecified (2) correction (current) use of insulin: Status: Acute Category: Medical Code(s): Z79.4 - correction (current) use of insulin (3) Hemiparesis affecting left side as late effect of stroke: Status: Acute Category: Medical Code(s): I69.354 - Hemiplegia and hemiparesis following cerebral infarction affecting left non-dominant side (4) History of CVA (cerebrovascular accident): Status: Acute Category: Medical Code(s): Z86.73 - Personal history of transient ischemic attack (TIA), and cerebral infarction without residual deficits (5) Paranoid schizophrenia: Status: Acute Category: Medical Code(s): F20.0 - Paranoid schizophrenia (6) HHD (hypertensive heart disease): Status: Chronic Qualifiers: Heart failure chronicity: chronic Heart failure presence: with heart failure Heart failure type: systolic Qualified Code(s): I11.0 - Hypertensive heart disease with heart failure; I50.22 - Chronic systolic (congestive) heart failure Category: Medical Code(s): I11.9 - Hypertensive heart disease without heart failure (7) Tobacco abuse: Status: Chronic Category: Medical Code(s): Z72.0 - Tobacco use (8) Diabetes: Status: Chronic Qualifiers: Diabetes mellitus complication status: with other specified complication Diabetes mellitus senior living insulin use: with terminal press operator use Diabetes mellitus type: type 2 Qualified Code(s): E11.69 - Type 2 diabetes mellitus with other specified complication Category: Medical Code(s): E11.9 - Type 2 diabetes mellitus without complications (9) GERD (gastroesophageal reflux disease): Status: Acute Category: Medical Code(s): K21.9 - Gastro-esophageal reflux disease without esophagitis (10) Nausea and vomiting: Status: Acute Category: Medical Code(s): R11.2 - Nausea with vomiting, unspecified (11) Small bowel obstruction: Status: Acute Category: Medical Code(s): K56.609 - Unspecified intestinal obstruction, unspecified as to partial versus complete obstruction Plan Continue with antiemetics, PPI, and Pepcid. Patient is n.p.o. at present. CT of abdomen showed possible small bowel obstruction. Will consult with surgeon for possible GI procedure.
[2023-06-04] MEDS: CITALOPRAM 20MG TABLET 20 MG PO (09:29)
[2023-06-04] MEDS: METFORMIN 500MG TABLET 500 MG PO ×2 (09:29→17:16)
[2023-06-04] MEDS: AMLODIPINE 10MG TABLET 10 MG PO (09:29)
[2023-06-04] MEDS: BISOPROLOL 5MG TABLET 10 MG PO ×2 (09:29→20:14)
[2023-06-04] MEDS: BENZTROPINE 1MG TABLET 1 MG PO ×2 (09:29→20:13)
[2023-06-04] MEDS: QUETIAPINE 100MG TABLET 400 MG PO ×2 (09:30→20:15)
[2023-06-04] MEDS: PANTOPRAZOLE 40MG TABLET 40 MG PO ×2 (09:30→20:14)
[2023-06-04] MEDS: FENOFIBRATE 134MG CAPSULE 134 MG PO (09:30)
[2023-06-04] MEDS: LISINOPRIL 20MG TABLET 20 MG PO ×2 (09:30→20:22)
[2023-06-04] MEDS: CLOPIDOGREL 75MG TAB 75 MG PO (09:30)
[2023-06-04] MEDS: humaLOG MIX 75/25 3ML FLEXPEN 15 UNIT SQ (09:31)
--- NOTE | 2023-06-04 09:45 | EXP.SURG.CON ---
History of Present Illness *Admission Date: 06/03/23 *Reason for visit:: Possible bowel obstruction *History of present illness: Patient is a 52-year-old male with history of schizophrenia and recent admission for pancreatitis with prior history of CVA with residual left sided hemiparesis. He has a history of congestive heart failure, carotid artery stenosis, hyperlipidemia, diabetes mellitus, hypertension, cardiomyopathy, lumbar radiculopathy. He is on Plavix. He had been recently admitted on 05/30/2023 until 05/31/2023 with abdominal distention and mild tenderness as well as back pain and diagnosed with pancreatitis which quickly had shown improvement. He had previously had a cholecystectomy. Following discharge he had several days of drowsiness, decreased oral intake, diarrhea reportedly. He was brought back to the emergency department on 06/02/2023, a couple days ago. He was found to have evidence of mild renal injury. He was admitted for acute renal injury and possible exacerbation of pancreatitis. Patient was initially given a diet. He had a CT scan without contrast of the abdomen only on 06/03/2023 which revealed decreasing peripancreatic edema along the pancreatic head. There was noted to be marked distention of the stomach with gas and fluid. Distended proximal small bowel loops, with transition zone not evident on submitted imaging. Small bowel obstruction cannot be excluded. Patient has remained feeling ill. He describes nausea and vomiting several times. He has had no bowel movement. Surgical consultation was ordered this morning for possible small bowel obstruction . [facility] Disclaimer: The information contained in this section may have been updated after the patient was seen, as this information can be updated by other users. 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 Paralysis Systolic CHF LV dysfunction Angina, class III Carotid artery stenosis Cardiomyopathy Hx of traumatic brain injury HTN (hypertension), benign CHF (congestive heart failure) Thoracic back pain Lumbar radiculopathy Surgical History (Updated 06/04/23 @ 00:00 by Annalee Wu) History of left hip hemiarthroplasty H/O arthroscopy of hip Family History Other Cancer Coronary artery disease Diabetes FHx: mental illness Heart attack Hypertension Stroke Social History (Updated 06/02/23 @ 14:48 by Yakelin Anna RN) Smoking Status: Current every day smoker tobacco type: cigarettes packs per day: 1 second hand exposure: No alcohol intake: never substance use type: denies use current occupational status: disabled Travel in the last 8 weeks: None household members: family housing: house number of children: 2 caffeine: Yes Review of Systems Review of Systems Review of systems:: unable to obtain *Neurologic Neurologic: Reports behavioral changes (His hallucinations have been better over the recent past.) and Denies convulsions Psychiatric Psychiatric: Reports behavioral changes (His hallucinations have been better over the recent past.) Meds Home Medications and Allergies Home Medications Medication Instructions Recorded Confirmed Type ascorbic acid (vitamin C) 1,000 mg 1,000 mg PO DAILY Supplement 02/29/20 06/02/23 History tablet trazodone 50 mg tablet 50 mg PO HS Sleep 05/08/21 06/02/23 History fenofibrate 160 mg tablet 160 mg PO DAILY 05/09/21 06/02/23 History insulin glargine 100 unit/mL 25 unit SQ HS Diabetes 07/12/21 06/02/23 History subcutaneous solution aspirin 81 mg tablet,delayed 81 mg PO DAILY 08/18/22 06/02/23 History release atorvastatin 40 mg tablet 40 mg PO HS 08/18/22 06/02/23 History blood-glucose meter,continuous 08/18/22 06/02/23 History blood-glucose sensor (Dexcom G6 08/18/22 06/02/23 History Sensor device) clopidogrel 75 mg tablet 75 mg PO DAILY 08/18/22 06/02/23 History furosemide 20 mg tablet 20 mg PO DAILY 08/18/22 06/02/23 History linagliptin 5 mg tablet (Tradjenta) 5 mg PO DAILY 08/18/22 06/02/23 History metformin 1,000 mg tablet 1,000 mg PO BIDWMEAL 08/18/22 06/02/23 History alendronate 35 mg tablet 35 mg PO WEEKLY 12/26/22 06/02/23 History escitalopram oxalate 10 mg tablet 10 mg PO DAILY 12/26/22 06/02/23 History gabapentin 400 mg capsule 400 mg PO HS 12/26/22 06/02/23 History lisinopril 20 mg tablet 20 mg PO BID #60 tabs 01/10/23 06/02/23 Rx quetiapine 400 mg tablet 400 mg PO BID 04/23/23 06/02/23 History amlodipine 10 mg tablet 10 mg PO DAILY 05/30/23 06/02/23 History benztropine 1 mg tablet 1 mg PO BID 05/30/23 06/02/23 History bisoprolol fumarate 10 mg tablet 10 mg PO BID 05/30/23 06/02/23 History fluticasone fur. 100 mcg-umeclid 1 inh inhalation DAILY 05/30/23 06/02/23 History 62.5 mcg-vilant 25 mcg inhalat.powder (Trelegy Ellipta) insulin aspar prot-insulin aspart 15 - 20 unit SQ AM 05/30/23 06/02/23 History 100 unit/mL (70-30) subcutaneous pen (Novolog Mix 70-30FlexPen U-100) melatonin 5 mg tablet 5 mg PO HS 05/30/23 06/02/23 History tamsulosin 0.4 mg capsule 0.4 mg PO HS 05/30/23 06/02/23 History New Prescriptions to Start Prescriptions: Allergies Allergy/AdvReac Type Severity Reaction Status Date / Time amoxicillin Allergy Swelling Verified 05/30/23 11:05 of Lip/Tongue/Throat Fish Containing Products AdvReac Severe Unknown Verified 05/29/23 11:21 allergy reaction Exam (Inpt) Vital signs and Labs for Last 24 Hours: Temp Pulse Resp BP Pulse Ox O2 Del Method 98.4 F 78 22 142/88 H 95 Room Air 06/04/23 08:00 06/04/23 08:00 06/04/23 08:00 06/04/23 08:00 06/04/23 08:00 06/04/23 08:00 Laboratory Results - last 24 hr 06/03/23 07:20: Lipase 137 06/03/23 11:33: POC Glucose 226 H 06/03/23 16:51: POC Glucose 195 H 06/03/23 20:57: POC Glucose 157 H 06/04/23 05:57: POC Glucose 239 H I & O for Labs for Last 24 Hours: Intake & Output 06/01/23 06/02/23 06/03/23 06/04/23 11:59 11:59 11:59 11:59 Intake Total 825 / 825 2026 Output Total 2900 / 2900 850 / 850 Balance -2074 / 1177 / 1177 Weight 161 lb 160 lb 15.705 oz 160 lb 15.705 oz Constitutional: no acute distress and chronically ill appearing Head: Present normocephalic GI: Present soft and distention; Absent tenderness Rectal (male): Present deferred Extremities: Present normal inspection Skin: Present intact Results Labs 06/03/23 07:20 06/03/23 07:20 Labs: Laboratory Results - last 24 hr 06/03/23 07:20: Lipase 137 06/03/23 11:33: POC Glucose 226 H 06/03/23 16:51: POC Glucose 195 H 06/03/23 20:57: POC Glucose 157 H 06/04/23 05:57: POC Glucose 239 H Assessment and Plan *Assessment and plan (1) Small bowel obstruction: Status: Acute Category: Medical Code(s): K56.609 - Unspecified intestinal obstruction, unspecified as to partial versus complete obstruction Plan Possible partial obstruction versus ileus secondary to resolving pancreatitis.. I will obtain an acute abdominal series today. Likely needs nasogastric tube. Plan for attempted nonoperative management initially. Could require small bowel follow-through if diagnosis remains in question in a couple of days.
--- NOTE | 2023-06-04 10:28 | XR_ITS ---
FINAL REPORT CLINICAL HISTORY: Ileus vs. obstruction COMPARISON: CT dated 06/03/2023 FINDINGS: Chest: Single view was obtained. The heart and mediastinum are within normal limits. Left base opacities are favored to represent atelectasis. There is no pneumothorax. Abdomen: 2 views were obtained. There are multiple air-filled bowel loops in a nonspecific pattern. There is a moderate amount of retained stool. There is no free air. There are no abnormal calcifications. There are postoperative changes in the left femur. Degenerative changes are seen in the spine and hips. IMPRESSION: Multiple air-filled bowel loops in a nonspecific pattern. Reviewed, Interpreted and Dictated by Abel Rousseau III, MD Transcribed by Dalia Boucher Authenticated and . [facility]
[2023-06-04 11:07] LABS: POC Glucose,Bedside 202 (70-110)
[2023-06-04] MEDS: 0.9 % SODIUM CHLORIDE 1000ML 1,000 ML 75 ML IV (11:14)
--- NOTE | 2023-06-04 11:54 | XR_ITS ---
FINAL REPORT CLINICAL HISTORY: NG TUBE PLACMENT VERIFICATION COMPARISON: None FINDINGS: SINGLE VIEW ABDOMEN A single view of the abdomen was obtained. The upper abdomen is incompletely imaged. There is NG tube with the tip in the body of the stomach. There are multiple air-filled bowel loops. No abnormal calcifications are identified. IMPRESSION: NG tube tip in the body of the stomach. Multiple air-filled bowel loops. Reviewed, Interpreted and Dictated by Abel Rousseau III, MD Transcribed by Usha Juarez Authenticated and [facility]
[2023-06-04 15:07] VITALS: BMI 23.0
[2023-06-04 16:00] VITALS: BP 134/70; PULSE 69; RESP 18; TEMP 36.6; O2SAT 95
[2023-06-04 16:31] LABS: POC Glucose,Bedside 140 (70-110)
--- NOTE | 2023-06-04 17:22 | PC.NURSE ---
HAS BEEN A&OX4 T/O SHIFT. TOLERATING RA WELL. DID HAVE AN NG PUT DOWN TODAY. AT 57CM IN THE LEFT NARE. DRAINING LARGE AMOUNT OF LIGHT BROWN FLUID FROM NG. PT TOLERATED INSERTION WELL. HAS REMAINED NPO. ORAL SWABS PROVIDED. MOM REMAINS AT BEDSIDE T/O SHIFT HELPING PT. VOIDING PER URINAL. TURNS HIMSELF WELL IN BED. NO NEEDS OR C/O NOTED. VSS.
[2023-06-04 20:00] VITALS: PULSE 72; RESP 20; TEMP 36.9; O2SAT 94
[2023-06-04] MEDS: TRAZODONE 50MG TABLET 50 MG PO (20:13)
[2023-06-04] MEDS: ATORVASTATIN 40MG TABLET 40 MG PO (20:13)
[2023-06-04] MEDS: TAMSULOSIN 0.4MG CAPSULE 0.400000000000000022 MG PO (20:13)
[2023-06-04] MEDS: GABAPENTIN 400MG CAPSULE 400 MG PO (20:14)
[2023-06-04 20:52] LABS: POC Glucose,Bedside 172 (70-110)
[2023-06-04] MEDS: ONDANSETRON 4MG/2ML VIAL 4 MG IV (21:14)
[2023-06-05] VITALS: BP 166/84
[2023-06-05] MEDS: 0.9 % SODIUM CHLORIDE 1000ML 1,000 ML 75 ML IV ×2 (00:34→13:56)
--- NOTE | 2023-06-05 03:07 | PC.NURSE ---
Pt is alert and oriented x4, and tolerating RA well. Pt has rested well for the most part of the shift and has no complaints. Pt asks for water to drink periodically and staff must educate pt about NG tube and advise to use swabs PRN. staff continues to help pt use urinal, Pt NG drainage has had 700ml of light brown liquid out so far this shift of which was emptied and recorded. Pt seems to be tolerating NG tube well.
[2023-06-05 04:00] VITALS: BP 157/77; PULSE 64; RESP 18; TEMP 37; O2SAT 93; BMI 23.0
[2023-06-05 05:15] LABS: POC Glucose,Bedside 158 (70-110)
--- NOTE | 2023-06-05 06:00 | XR_ITS ---
FINAL REPORT CLINICAL HISTORY: Abdominal distension FINDINGS: A PA view of the chest was obtained. The mediastinum is unremarkable. There are mild bibasilar opacities, favor atelectasis. There is no free air beneath the diaphragm. Upright and supine views of the abdomen reveal a nonspecific, nonobstructive bowel gas pattern. No abnormal calcifications are identified. NG tube tip is in the fundus of the stomach. There is a moderate amount of stool throughout the colon. There are postoperative changes in the right abdomen. Vascular calcification is identified. IMPRESSION: Moderate stool burden. Bibasilar atelectasis. Reviewed, Interpreted and Dictated by Abel Rousseau III, MD Transcribed by Ioana Farrell Authenticated and . [facility]
[2023-06-05] MEDS: FLUTICASONE/UMECLIDIN/VILANTER 100/62.5/25MCG INHALER 1 PUFF IH (06:36)
[2023-06-05] MEDS: METFORMIN 500MG TABLET 500 MG PO ×2 (07:00→17:01)
--- NOTE | 2023-06-05 07:58 | EXP.SURG.PN ---
Subjective Narrative: Patient complains mainly of irritated throat. He has less abdominal bloating and less heartburn . He has passed some gas. X-rays have revealed nonspecific bowel gas pattern. Exam Data for Last 24 hours Vital signs and Labs for Last 24 Hours: Temp Pulse Resp BP Pulse Ox O2 Del Method 98.6 F 64 18 157/77 H 93 L Room Air 06/05/23 04:00 06/05/23 04:00 06/05/23 04:00 06/05/23 04:00 06/05/23 04:00 06/05/23 06:31 Laboratory Results - last 24 hr 06/04/23 10:51: POC Glucose 202 H 06/04/23 16:11: POC Glucose 140 H 06/04/23 20:11: POC Glucose 172 H 06/05/23 05:03: POC Glucose 158 H I & O for Last 24 hours: Intake & Output 06/02/23 06/03/23 06/04/23 06/05/23 11:59 11:59 11:59 11:59 Intake Total 825 / 825 2026 / 2026 375 / 375 Output Total 2900 / 2900 1250 / 1250 1700 / 1700 Balance -2075 / -2075 777 / 777 -1325 / -1325 Weight 161 lb 160 lb 15.705 oz 160 lb 15.705 oz 160 lb 14.999 oz Microbiology Reports for the Last 24 Hours: Microbiology 06/02/23 12:51 Urine,Clean Catch Urine Culture - Final *Routine Abdominal Exam Abdominal: Present soft; Absent tenderness Progress Note: A&P Assessment and plan (1) Small bowel obstruction: Status: Acute Assessment and plan: Likely ileus from resolving pancreatitis. He has had diffuse bowel gas from the stomach to the colon. Review of x-rays reveals that he likely does have retained stool in the left colon. I will see if he tolerates removal of nasogastric tube and limit to ice chips. I will order a Dulcolax suppository.
[2023-06-05 08:00] VITALS: BP 175/70; PULSE 63; RESP 18; TEMP 36.6; O2SAT 94
--- NOTE | 2023-06-05 08:54 | P.PN_ITS ---
Subjective *Date: 06/05/23 *Time: 13:47 Interval history: Patient states he feels better and slept some during the night. He has had no further heartburn since NG tube placed. He has had some nausea but no vomiting. He states he has been passing flatus. Spoke with mother and patient normally does not get out of bed. He states it makes his bottom hurt. Patient seen by Dr. Coleman this morning. He noted irritated throat. He felt abdomen was less bloated. X-rays revealed nonspecific bowel gas patterns. Assessment by Dr. Coleman: Likely ileus from resolving pancreatitis with diffuse bowel gas pattern from the stomach to the colon. He feels that he has some retained stool in the left colon. NG tube to be removed and patient started on ice chips. Also he will give him a Dulcolax suppository. Medical Exam Vital signs and Labs for Last 24 Hours: Vital Signs Temp Pulse Resp BP Pulse Ox O2 Del Method 06/05/23 08:00 97.8 F 63 18 175/70 H 94 L Room Air 06/05/23 06:31 Room Air 06/05/23 04:36 Room Air 06/05/23 04:00 98.6 F 64 18 157/77 H 93 L Room Air 06/05/23 02:51 Room Air 06/05/23 01:00 Room Air 06/05/23 00:00 166/84 H 06/04/23 22:51 Room Air 06/04/23 21:00 Room Air 06/04/23 20:00 94 L Room Air 06/04/23 20:00 98.5 F 72 20 94 L Room Air 06/04/23 18:34 Room Air 06/04/23 17:00 Room Air 06/04/23 16:00 97.8 F 69 18 134/70 95 Room Air 06/04/23 15:00 Room Air 06/04/23 13:00 Room Air 06/04/23 11:00 Room Air 06/04/23 09:00 Room Air Intake and Output 06/04/23 06/05/23 06/05/23 19:59 03:59 11:59 Intake Total 0 / 0 375 / 375 0 / 375 Output Total 1000 / 1000 700 / 1700 0 / 1700 Balance -1000 / -1000 -325 / -1325 0 / -1325 Intake: Intake, Oral Amount 0 / 0 0 / 0 0 / 0 Intake, Total IV Amount 375 / 375 0.9 % Sodium Chloride 1000ML 1, 375 / 375 000 ml @ 75 mls/hr IV .[id number] [facility] Rx#:[id number] Output: Output, Urine Amount 250 / 250 0 / 250 Output, Gastric Drainage Amount 750 / 750 700 / 1450 Left 750 / 750 700 / 1450 Other: Number of Unmeasured Voids 1 Weight 160 lb 14.999 oz 160 lb 14.999 oz Patient Weight 06/05/23 11:59 Weight 160 lb 14.999 oz Laboratory Results - last 24 hr 06/04/23 10:51: POC Glucose 202 H 06/04/23 16:11: POC Glucose 140 H 06/04/23 20:11: POC Glucose 172 H 06/05/23 05:03: POC Glucose 158 H I & O for Labs for Last 24 Hours: Intake & Output 06/02/23 06/03/23 06/04/23 06/05/23 11:59 11:59 11:59 11:59 Intake Total 825 / 825 2026 / 2026 375 / 375 Output Total 2900 / 2900 1250 / 1250 1700 / 1700 Balance -2075 / -2075 777 / 777 -1325 / -1325 Weight 161 lb 160 lb 15.705 oz 160 lb 15.705 oz 160 lb 14.999 oz Microbiology Reports for the Last 24 Hours: Microbiology 06/02/23 12:51 Urine,Clean Catch Urine Culture - Final Constitutional: Present no acute distress Comment:: Awake and alert and appears comfortable. Talkative this morning. Respiratory: Present CTA bilaterally Cardiac: Present Reg Rate and Rhythm GI: Present soft and diminished bowel sounds; Absent distention, tenderness or guarding Extremities: Absent tenderness or edema Neuro: Present alert and oriented x 3 Assessment and Plan *Assessment and plan (1) Small bowel obstruction: Status: Acute Category: Medical Code(s): K56.609 - Unspecified intestinal obstruction, unspecified as to partial versus complete obstruction (2) Nausea and vomiting: Status: Acute Category: Medical Code(s): R11.2 - Nausea with vomiting, unspecified (3) GERD (gastroesophageal reflux disease): Status: Acute Category: Medical Code(s): K21.9 - Gastro-esophageal reflux disease without esophagitis (4) Pancreatitis: Status: Acute Category: Medical Code(s): K85.90 - Acute pancreatitis without necrosis or infection, unspecified (5) Hemiparesis: Status: Chronic Category: Medical Code(s): G81.90 - Hemiplegia, unspecified affecting unspecified side (6) Hemiparesis affecting left side as late effect of stroke: Status: Acute Category: Medical Code(s): I69.354 - Hemiplegia and hemiparesis following cerebral infarction affecting left non-dominant side (7) Paranoid schizophrenia: Status: Acute Category: Medical Code(s): F20.0 - Paranoid schizophrenia (8) Diabetes: Status: Chronic Qualifiers: Diabetes mellitus complication status: with other specified complication Diabetes mellitus 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 Coleman.: Possible partial obstruction versus ileus secondary to resolving pancreatitis.. I will obtain an acute abdominal series today. Likely needs nasogastric tube. Plan for attempted nonoperative management initially. Could require small bowel follow-through if diagnosis remains in question in a couple of days. Patient was also seen by Dr. Bryant [email or web address]
[2023-06-05] MEDS: BENZTROPINE 1MG TABLET 1 MG PO ×2 (09:05→20:58)
[2023-06-05] MEDS: AMLODIPINE 10MG TABLET 10 MG PO (09:05)
[2023-06-05] MEDS: CLOPIDOGREL 75MG TAB 75 MG PO (09:06)
[2023-06-05] MEDS: BISOPROLOL 5MG TABLET 10 MG PO ×2 (09:06→20:59)
[2023-06-05] MEDS: FENOFIBRATE 134MG CAPSULE 134 MG PO (09:06)
[2023-06-05] MEDS: CITALOPRAM 20MG TABLET 20 MG PO (09:06)
[2023-06-05] MEDS: PANTOPRAZOLE 40MG TABLET 40 MG PO ×2 (09:07→20:57)
[2023-06-05] MEDS: LISINOPRIL 20MG TABLET 20 MG PO ×2 (09:07→20:56)
[2023-06-05] MEDS: BISACODYL 10MG SUPP 10 MG RC (09:07)
[2023-06-05] MEDS: QUETIAPINE 100MG TABLET 400 MG PO ×2 (09:07→20:57)
[2023-06-05] MEDS: humaLOG MIX 75/25 3ML FLEXPEN 15 UNIT SQ (09:12)
[2023-06-05 09:39] LABS: MANUAL DIFFERENTIAL MANUAL DIFFERENTIAL (MANUAL DIFF)
[2023-06-05 10:12] LABS: Basophils # 0.1 K/mm3 (0-0.2); Basophils % 0.7 % (0.1-2.0); Eosinophils # 0.2 K/mm3 (0.0-0.4); Eosinophils % 2.1 % (0.1-12.0); Hemoglobin 13.8 g/dL (14.1-18.0); Lymphocytes # 1.7 K/mm3 (0.7-4.5); Lymphocytes % 18.9 % (10-50); Mean Corpuscular HGB Conc 33.5 g/dL (31.8-35.4); Mean Corpuscular Volume 95.4 fl (80-94); Mean Platelet Volume 8.2 fl (7.4-10.4); Monocytes # 0.7 K/mm3 (0.1-1.0); Monocytes % 7.4 % (1.7-9.3); Neutrophils # 6.4 K/mm3 (1.8-7.8); Neutrophils % 70.9 % (37.0-80.0); Platelet Count 251 K/mm3 (142-424); Red Cell Distribution Width 13.9 % (11.5-17.5)
[2023-06-05 10:56] LABS: Eosinophils % 2 % (0-3); Lymphocytes % 27 % (10-50); Monocytes % 1 % (2-9); Neutrophils % 70 % (42-76); Total Cells Counted 100
[2023-06-05 10:57] LABS: Platelet Estimate Normal; RBC Morphology Normal
[2023-06-05] MEDS: humaLOG 100 UNITS/ML 3ML VIAL (SSI) SQ ×2 (11:04→20:22)
[2023-06-05 11:21] LABS: POC Glucose,Bedside 188 (70-110)
[2023-06-05 15:19] LABS: Adenovirus F 40/41, stool Not Detected (NotDetected); Astrovirus Not Detected (NotDetected); Campylobacter Not Detected (NotDetected); Clostridium Difficile A/B, PCR Not Detected (NotDetected); Cryptosporidium Not Detected (NotDetected); Cyclospora Cayetanesis Not Detected (NotDetected); Entamoeba histolytica Not Detected (NotDetected); Enteroaggregative E coli Not Detected (NotDetected); Enteropathogenic E coli Not Detected (NotDetected); Enterotoxigenic E coli Not Detected (NotDetected); Giardia lamblia Not Detected (NotDetected); Norovirus Not Detected (NotDetected); Plesimonas Shigalloides, PCR Not Detected (NotDetected); Rotavirus A Not Detected (NotDetected); Salmonella, PCR Not Detected (NotDetected); Sapovirus Not Detected (NotDetected); Shiga-like toxin E coli Not Detected (NotDetected); Shigella Enterovasive E coli Not Detected (NotDetected); Vibrio Cholerae Not Detected (NotDetected); Vibrio, PCR Not Detected (NotDetected); Yersinia Entercolitica, PCR Not Detected (NotDetected)
[2023-06-05 16:25] LABS: POC Glucose,Bedside 148 (70-110)
--- NOTE | 2023-06-05 16:28 | PC.NURSE ---
A&OX4. TOLERATING RA WELL. ORDERED TO HAVE NG REMOVED THIS MORNING-PT TOLERATED WELL. WAS ABLE TO HAVE ICE CHIPS SO FAR, TOLERATED WELL. JUST ORDERED THAT PT MAY HAVE SIPS OF CLEAR LIQUIDS. PT HAS BEEN SLEEPING INTERMITTENTLY T/O SHIFT THUS FAR, MOVING HIMSELF IN BED WELL. IS X2 ASSIST TO BOOST IN THE BED. PT HAS BEEN USING URINAL TO VOID. HAS HAD 1 BM THUS FAR. BM WAS MOSTLY MUCOUS. VERY FOWL SMELLING. SAMPLE COLLECTED AND SENT TO LAB. LAB STATES IT WILL BE SENT OUT THIS EVENING. PT PUT IN CONTACT [employer] PENDING RESULT OF STOOL SAMPLE. PT HAS HAD NO NEEDS OR C/O THUS FAR. HIS MOTHER HAS BEEN IN AND OUT TODAY. VSS.
[2023-06-05 20:00] VITALS: BP 162/85; PULSE 62; RESP 16; TEMP 36.6; O2SAT 96
[2023-06-05 20:51] LABS: POC Glucose,Bedside 157 (70-110)
[2023-06-05] MEDS: ATORVASTATIN 40MG TABLET 40 MG PO (20:56)
[2023-06-05] MEDS: TRAZODONE 50MG TABLET 50 MG PO (20:57)
[2023-06-05] MEDS: TAMSULOSIN 0.4MG CAPSULE 0.400000000000000022 MG PO (20:57)
[2023-06-05] MEDS: GABAPENTIN 400MG CAPSULE 400 MG PO (20:57)
[2023-06-06] MEDS: 0.9 % SODIUM CHLORIDE 1000ML 1,000 ML 75 ML IV (03:15)
--- NOTE | 2023-06-06 03:38 | PC.NURSE ---
Pt is alert and oriented x4, and tolerating RA well. Pt has had sips of clear liquid and has tolerated it well. Nurse must educate pt at times on taking sips not gulps, and when clear liquids he can have. Pt has had no other BM's thus far and has no complaints. Pt tolerated HS meds well and denies pain. Pt remains on contact enteric precautions will stool sample is pending.
[2023-06-06 04:00] VITALS: BP 160/70; PULSE 64; RESP 16; TEMP 36.7; O2SAT 96; BMI 25.8
[2023-06-06] MEDS: humaLOG 100 UNITS/ML 3ML VIAL (SSI) SQ ×2 (05:25→12:24)
[2023-06-06 05:34] LABS: POC Glucose,Bedside 151 (70-110)
--- NOTE | 2023-06-06 06:27 | EXP.SURG.PN ---
Subjective Narrative: Currently resting. Exam Data for Last 24 hours Vital signs and Labs for Last 24 Hours: Temp Pulse Resp BP Pulse Ox O2 Del Method O2 Flow Rate 98.1 F 64 16 160/70 H 96 Room Air 2 06/06/23 04:00 06/06/23 04:00 06/06/23 04:00 06/06/23 04:00 06/06/23 04:00 06/06/23 04:30 06/06/23 00:32 Laboratory Results - last 24 hr 06/05/23 09:20: WBC 9.0, RBC 4.30 L, Hgb 13.8 L, Hct 41.0 L, MCV 95.4 H, MCH 32.0 H, MCHC 33.5, RDW 13.9, Plt Count 251, MPV 8.2, Neut % (Auto) 70.9, Lymph % (Auto) 18.9, [place] % (Auto) 7.4, Eos % (Auto) 2.1, Baso % (Auto) 0.7, Neut # (Auto) 6.4, Lymph # (Auto) 1.7, [place] # (Auto) 0.7, Eos # (Auto) 0.2, Baso # (Auto) 0.1, Total Counted 100, Neutrophils % (Manual) 70, Lymphocytes % (Manual) 27, Monocytes % (Manual) 1 L, Eosinophils % (Manual) 2, Platelet Estimate Normal, RBC Morphology Normal 06/05/23 11:01: POC Glucose 188 H 06/05/23 16:14: POC Glucose 148 H 06/05/23 20:22: POC Glucose 157 H 06/06/23 05:23: POC Glucose 151 H I & O for Last 24 hours: Intake & Output 06/03/23 06/04/23 06/05/23 06/06/23 11:59 11:59 11:59 11:59 Intake Total 825 / 825 2026 / 2026 375 / 375 495 / 495 Output Total 2900 / 2900 1250 / 1250 2300 / 2300 650 / 650 Balance -2074 / -2074 777 / 777 -1925 / -1925 -155 / -155 Weight 160 lb 15.705 oz 160 lb 15.705 oz 160 lb 14.999 oz 180 lb 9.6 oz Microbiology Reports for the Last 24 Hours: Microbiology 06/02/23 12:51 Urine,Clean Catch Urine Culture - Final Constitutional Constitutional: no acute distress *Routine Respiratory Exam Respiratory: Absent respiratory distress *Routine Cardiovascular Exam Cardiovascular: Absent tachycardia Progress Note: A&P Assessment and plan (1) Small bowel obstruction: Status: Acute Assessment and plan: Most likely resolving ileus as opposed to mechanical obstruction. Clear liquid diet without carbonation ordered (2) Nausea and vomiting: Status: Acute (3) GERD (gastroesophageal reflux disease): Status: Acute (4) Pancreatitis: Status: Acute (5) Hemiparesis: Status: Chronic (6) Hemiparesis affecting left side as late effect of stroke: Status: Acute (7) Paranoid schizophrenia: Status: Acute (8) Diabetes: Status: Chronic
[2023-06-06] MEDS: FLUTICASONE/UMECLIDIN/VILANTER 100/62.5/25MCG INHALER 1 PUFF IH (06:38)
[2023-06-06] MEDS: METFORMIN 500MG TABLET 500 MG PO (07:01)
[2023-06-06 08:00] VITALS: BP 136/70; PULSE 66; RESP 21; TEMP 36.8; O2SAT 96
--- NOTE | 2023-06-06 08:22 | P.PN_ITS ---
Subjective *Date: 06/06/23 *Time: 08:22 Interval history: Patient is feeling better this morning. He has had the NG tube removed and is taking clear liquids. He denies any heartburn or abdominal pain. He states he slept well last night. Medical Exam Vital signs and Labs for Last 24 Hours: Vital Signs Temp Pulse Resp BP Pulse Ox O2 Del Method O2 Flow Rate 06/06/23 07:50 Room Air 06/06/23 06:33 Room Air 06/06/23 04:30 Room Air 06/06/23 04:00 98.1 F 64 16 160/70 H 96 06/06/23 03:00 Room Air 06/06/23 00:32 BiPAP 2 06/05/23 23:00 Room Air 06/05/23 21:00 Room Air 06/05/23 20:00 Room Air 06/05/23 20:00 98 F 62 16 162/85 H 96 06/05/23 18:49 Room Air 06/05/23 16:36 Room Air 06/05/23 14:55 Room Air 06/05/23 13:00 Room Air 06/05/23 10:32 Room Air 06/05/23 09:00 Room Air Intake and Output 06/05/23 06/06/23 06/06/23 19:59 03:59 11:59 Intake Total 0 / 495 495 / 495 Output Total 0 / 650 650 / 650 Balance 0 / -155 -155 / -155 Intake: Intake, Oral Amount 0 / 120 120 / 120 Intake, Total IV Amount 375 / 375 0.9 % Sodium Chloride 1000ML 1, 375 / 375 000 ml @ 75 mls/hr IV .[id number] [facility] Rx#:[id number] Output: Output, Urine Amount 0 / 650 650 / 650 Other: Number of Unmeasured Voids 1 1 Number of Bowel Movements 1 Weight 180 lb 9.6 oz Patient Weight 06/06/23 11:59 Weight 180 lb 9.6 oz Laboratory Results - last 24 hr 06/05/23 09:20: WBC 9.0, RBC 4.30 L, Hgb 13.8 L, Hct 41.0 L, MCV 95.4 H, MCH 32.0 H, MCHC 33.5, RDW 13.9, Plt Count 251, MPV 8.2, Neut % (Auto) 70.9, Lymph % (Auto) 18.9, [place] % (Auto) 7.4, Eos % (Auto) 2.1, Baso % (Auto) 0.7, Neut # (Auto) 6.4, Lymph # (Auto) 1.7, [place] # (Auto) 0.7, Eos # (Auto) 0.2, Baso # (Auto) 0.1, Total Counted 100, Neutrophils % (Manual) 70, Lymphocytes % (Manual) 27, Monocytes % (Manual) 1 L, Eosinophils % (Manual) 2, Platelet Estimate Normal, RBC Morphology Normal 06/05/23 11:01: POC Glucose 188 H 06/05/23 16:14: POC Glucose 148 H 06/05/23 20:22: POC Glucose 157 H 06/06/23 05:23: POC Glucose 151 H I & O for Labs for Last 24 Hours: Intake & Output 06/03/23 06/04/23 06/05/23 06/06/23 11:59 11:59 11:59 11:59 Intake Total 825 / 825 2027 / 2027 375 / 375 495 / 495 Output Total 2900 / 2900 1250 / 1250 2300 / 2300 650 / 650 Balance -2075 / -2075 777 / 777 -1925 / -1925 -155 / -155 Weight 160 lb 15.705 oz 160 lb 15.705 oz 160 lb 14.999 oz 180 lb 9.6 oz Microbiology Reports for the Last 24 Hours: Microbiology 06/02/23 12:51 Urine,Clean Catch Urine Culture - Final Radiology Reports for the Last 24 Hours: Abdominal x-ray - Moderate stool burden. Bibasilar atelectasis. Constitutional: Present no acute distress Comment:: Awake and alert and appears comfortable. Talkative this morning. Respiratory: Present CTA bilaterally Cardiac: Present Reg Rate and Rhythm GI: Present soft and diminished bowel sounds; Absent distention, tenderness or guarding Extremities: Absent tenderness or edema Neuro: Present alert, awake and oriented x 3 Assessment and Plan *Assessment and plan (1) Small bowel obstruction: Status: Acute Category: Medical Code(s): K56.609 - Unspecified intestinal obstruction, unspecified as to partial versus complete obstruction (2) Nausea and vomiting: Status: Acute Category: Medical Code(s): R11.2 - Nausea with vomiting, unspecified (3) GERD (gastroesophageal reflux disease): Status: Acute Category: Medical Code(s): K21.9 - Gastro-esophageal reflux disease without esophagitis (4) Pancreatitis: Status: Acute Category: Medical Code(s): K85.90 - Acute pancreatitis without necrosis or infection, unspecified (5) Hemiparesis: Status: Chronic Category: Medical Code(s): G81.90 - Hemiplegia, unspecified affecting unspecified side (6) Hemiparesis affecting left side as late effect of stroke: Status: Acute Category: Medical Code(s): I69.354 - Hemiplegia and hemiparesis following cerebral infarction affecting left non-dominant side (7) Paranoid schizophrenia: Status: Acute Category: Medical Code(s): F20.0 - Paranoid schizophrenia (8) Diabetes: Status: Chronic Qualifiers: Diabetes mellitus type: type 2 Diabetes mellitus senior living insulin use: with 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 He is tolerating clear liquids. X-ray from yesterday showed a moderate stool burden. Awaiting stool studies.
[2023-06-06] MEDS: PANTOPRAZOLE 40MG TABLET 40 MG PO (09:31)
[2023-06-06] MEDS: FENOFIBRATE 134MG CAPSULE 134 MG PO (09:31)
[2023-06-06] MEDS: AMLODIPINE 10MG TABLET 10 MG PO (09:31)
[2023-06-06] MEDS: LISINOPRIL 20MG TABLET 20 MG PO (09:31)
[2023-06-06] MEDS: CITALOPRAM 20MG TABLET 20 MG PO (09:31)
[2023-06-06] MEDS: CLOPIDOGREL 75MG TAB 75 MG PO (09:31)
[2023-06-06] MEDS: BISOPROLOL 5MG TABLET 10 MG PO (09:32)
[2023-06-06] MEDS: QUETIAPINE 100MG TABLET 400 MG PO (09:32)
[2023-06-06] MEDS: BENZTROPINE 1MG TABLET 1 MG PO (09:32)
[2023-06-06] MEDS: humaLOG MIX 75/25 3ML FLEXPEN 15 UNIT SQ (09:36)
--- NOTE | 2023-06-06 09:59 | HMH.PHAINT1 ---
Pharmacy Intervention Comments: Discharge conseling was provided to check if patient had any medication related questions as the patient was not going home on new medication. Patient, nor relative had questions.
[2023-06-06 10:06] LABS: Anion Gap 13.4 mEq/L (5-15); Blood Urea Nitrogen 9 mg/dl (9-20); Calcium 8.9 mg/dl (8.4-10.2); Carbon Dioxide 22 mmol/L (22.0-30.0); Chloride 105 mmol/L (98-107); Creatinine Clearance Estimated 167 mL/min (50-200); Estimated Glomerular Filt Rate 141 ml/min (>60); GFR (African American) 171 ML/MIN (>60); Glucose 171 mg/dl (74-100); Potassium 3.4 mmoL/L (3.5-5.1); Sodium 137 mmol/L (136-145)
--- NOTE | 2023-06-06 11:33 | SW/DCPLANNER ---
Addendum entered by Mary Zavala 06/06/23 12:19: Shyann / [facility] stated that services will start this week. Original Note: This patient was previously set up w/ [facility] prior to hospital re admission. Patient information/order will be faxed to [facility] today. The plan for this patient is to discharge this afternoon pending no setbacks.
[2023-06-06 12:15] LABS: POC Glucose,Bedside 170 (70-110)
--- NOTE | 2023-06-11 15:48 | CARE MANAGER ---
Contacted patient's mother related to hospital discharge. She states he is doing better and home health PT is there currently. He didn't have any new medications and is aware of follow up appointment with PCP. Denies any questions. RENEA Sims
--- NOTE | 2023-06-13 09:05 | EXP.DC.SUM ---
General Admission date:: 06/04/23 Discharge date: 06/06/23 HPI HPI HPI: Patient is a 52-year-old male with history of schizophrenia and recent admission for pancreatitis with prior history of CVA with residual left sided hemiparesis. He has a history of congestive heart failure, carotid artery stenosis, hyperlipidemia, diabetes mellitus, hypertension, cardiomyopathy, lumbar radiculopathy. He is on Plavix. He had been recently admitted on 05/30/2023 until 05/31/2023 with abdominal distention and mild tenderness as well as back pain and diagnosed with pancreatitis which quickly had shown improvement. He had previously had a cholecystectomy. Following discharge he had several days of drowsiness, decreased oral intake, diarrhea reportedly. He was brought back to the emergency department on 06/02/2023, a couple days ago. He was found to have evidence of mild renal injury. He was admitted for acute renal injury and possible exacerbation of pancreatitis. Patient was initially given a diet. He had a CT scan without contrast of the abdomen only on 06/03/2023 which revealed decreasing peripancreatic edema along the pancreatic head. There was noted to be marked distention of the stomach with gas and fluid. Distended proximal small bowel loops, with transition zone not evident on submitted imaging. Small bowel obstruction cannot be excluded. Patient has remained feeling ill. He describes nausea and vomiting several times. He has had no bowel movement. Surgical consultation was ordered this morning for possible small bowel obstruction . Hospital Course Hospital Course Hospital Course: The patient was admitted and started on antiemetics and a PPI. He was kept n.p.o. due to possible small bowel obstruction on imaging. Surgery was consulted. They felt the patient had an ileus rather than a small bowel obstruction but would benefit from an NG tube. This was placed and the patient began having less abdominal pain. He began passing gas. His NG tube was removed and he was started on ice chips and then advanced to clear liquids. He tolerated this well. His pancreatic enzymes were normal. He was stable to be discharged home and will follow-up with Dr. Hurtado. Exam Data for Last 24 hours Vital signs and Labs for Last 24 Hours: Temp Pulse Resp BP Pulse Ox O2 Del Method O2 Flow Rate 98.2 F 66 21 136/70 96 Room Air 2 06/06/23 08:00 06/06/23 08:00 06/06/23 08:00 06/06/23 08:00 06/06/23 08:00 06/06/23 11:00 06/06/23 00:32 Narrative: Constitutional Constitutional: mild distress (Complaining of heartburn) *Routine HEENT Exam Head: Present normocephalic; Absent facial swelling Eye: Absent conjunctival icterus or periorbital tenderness ENT: Present mucous membranes moist *Routine Neck Exam Neck: Absent lymphadenopathy or thyromegaly Routine Chest/Breast/Axilla Exam Chest wall: Absent tenderness Axillae: Absent lymphadenopathy *Routine Respiratory Exam Respiratory: Present decreased breath sounds; Absent respiratory distress, stridor or wheezes *Routine Cardiovascular Exam Cardiovascular: Present RRR *Routine Abdominal Exam Abdominal: Present soft; Absent tenderness, distended or guarding *Routine Rectal Exam Rectal:: deferred *Routine Genitalia Exam Genitalia:: deferred *Routine Extremities Exam Extremities: Absent edema Comments: Left hemiparesis Routine Back/Spine/Pelvis Exam Back/Spine: Absent CVA tenderness *Routine Skin Exam Skin: Present intact *Routine Neurological Exam Neurological: Present alert Comments: Left hemiparesis. Routine Psychiatric Exam Psychiatric: Present auditory hallucinations (These have been better lately.) and anxious DS: Diagnosis Discharge Diagnosis (1) Small bowel obstruction: Status: Resolved Code(s): K56.609 - Unspecified intestinal obstruction, unspecified as to partial versus complete obstruction (2) Nausea and vomiting: Status: Resolved Code(s): R11.2 - Nausea with vomiting, unspecified (3) GERD (gastroesophageal reflux disease): Status: Acute Code(s): K21.9 - Gastro-esophageal reflux disease without esophagitis (4) Pancreatitis: Status: Resolved Code(s): K85.90 - Acute pancreatitis without necrosis or infection, unspecified (5) Hemiparesis: Status: Chronic Code(s): G81.90 - Hemiplegia, unspecified affecting unspecified side (6) Hemiparesis affecting left side as late effect of stroke: Status: Acute Code(s): I69.354 - Hemiplegia and hemiparesis following cerebral infarction affecting left non-dominant side (7) Paranoid schizophrenia: Status: Acute Code(s): F20.0 - Paranoid schizophrenia (8) Diabetes: Status: Chronic Code(s): E11.9 - Type 2 diabetes mellitus without complications Qualifiers: Diabetes mellitus type: type 2 Diabetes mellitus buttermaker continuous churn insulin use: with buttermaker continuous churn use Diabetes mellitus complication status: with other specified complication Qualified Code(s): E11.69 - Type 2 diabetes mellitus with other specified complication Meds Home Medications and Allergies Home Medications Medication Instructions Recorded Confirmed Type ascorbic acid (vitamin C) 1,000 mg 1,000 mg PO DAILY Supplement 02/29/20 06/02/23 History tablet trazodone 50 mg tablet 50 mg PO HS Sleep 05/08/21 06/02/23 History fenofibrate 160 mg tablet 160 mg PO DAILY 05/09/21 06/02/23 History insulin glargine 100 unit/mL 25 unit SQ HS Diabetes 07/12/21 06/02/23 History subcutaneous solution aspirin 81 mg tablet,delayed 81 mg PO DAILY 08/18/22 06/02/23 History release atorvastatin 40 mg tablet 40 mg PO HS 08/18/22 06/02/23 History blood-glucose meter,continuous 08/18/22 06/02/23 History blood-glucose sensor (Dexcom G6 08/18/22 06/02/23 History Sensor device) clopidogrel 75 mg tablet 75 mg PO DAILY 08/18/22 06/02/23 History furosemide 20 mg tablet 20 mg PO DAILY 08/18/22 06/02/23 History linagliptin 5 mg tablet (Tradjenta) 5 mg PO DAILY 08/18/22 06/02/23 History metformin 1,000 mg tablet 1,000 mg PO BIDWMEAL 08/18/22 06/02/23 History alendronate 35 mg tablet 35 mg PO WEEKLY 12/26/22 06/02/23 History escitalopram oxalate 10 mg tablet 10 mg PO DAILY 12/26/22 06/02/23 History gabapentin 400 mg capsule 400 mg PO HS 12/26/22 06/02/23 History lisinopril 20 mg tablet 20 mg PO BID #60 tabs 01/10/23 06/02/23 Rx quetiapine 400 mg tablet 400 mg PO BID 04/23/23 06/02/23 History amlodipine 10 mg tablet 10 mg PO DAILY 05/30/23 06/02/23 History benztropine 1 mg tablet 1 mg PO BID 05/30/23 06/02/23 History bisoprolol fumarate 10 mg tablet 10 mg PO BID 05/30/23 06/02/23 History fluticasone fur. 100 mcg-umeclid 1 inh inhalation DAILY 05/30/23 06/02/23 History 62.5 mcg-vilant 25 mcg inhalat.powder (Trelegy Ellipta) insulin aspar prot-insulin aspart 15 - 20 unit SQ AM 05/30/23 06/02/23 History 100 unit/mL (70-30) subcutaneous pen (Novolog Mix 70-30FlexPen U-100) melatonin 5 mg tablet 5 mg PO HS 05/30/23 06/02/23 History tamsulosin 0.4 mg capsule 0.4 mg PO HS 05/30/23 06/02/23 History New Prescriptions to Start Prescriptions: Allergies Allergy/AdvReac Type Severity Reaction Status Date / Time amoxicillin Allergy Swelling Verified 05/30/23 11:05 of Lip/Tongue/Throat Fish Containing Products AdvReac Severe Unknown Verified 05/29/23 11:21 allergy reaction Discharge Plan Disposition Patient Disposition: Home Health Service Discharge Order Discharge Orders: Discharge Order (Routine); Ordered 06/06/23 Ordered By: Ekaterina Hurtado Follow up Plan Follow up with: Ekaterina Hurtado MD [Staff Physician] - 06/22/23 10:00 am Prescriptions/Medication Reconciliation: Continued gabapentin 400 mg capsule 400 mg PO HS Patient Comments: TAKE ONE CAPSULE BY MOUTH EVERY DAY AT BEDTIME MAY CAUSE DROWSINESS alendronate 35 mg tablet 35 mg PO WEEKLY escitalopram oxalate 10 mg tablet 10 mg PO DAILY quetiapine 400 mg tablet 400 mg PO BID lisinopril 20 mg tablet 20 mg PO BID Qty: 60 5RF atorvastatin 40 mg tablet 40 mg PO HS clopidogrel 75 mg tablet 75 mg PO DAILY aspirin 81 mg tablet,delayed release (DR/EC) 81 mg PO DAILY metformin 1,000 mg tablet 1,000 mg PO BIDWMEAL furosemide 20 mg tablet 20 mg PO DAILY (DME) Dexcom G6 Sensor Device See Rx Instructions MISCELLANEOUS Rx Instructions: As directed (DME) blood-glucose meter,continuous Misc See Rx Instructions MISCELLANEOUS Rx Instructions: As directed Tradjenta 5 mg tablet 5 mg PO DAILY bisoprolol fumarate 10 mg tablet 10 mg PO BID tamsulosin 0.4 mg capsule 0.4 mg PO HS melatonin 5 mg tablet 5 mg PO HS amlodipine 10 mg tablet 10 mg PO DAILY Patient Comments: TAKE ONE TABLET BY MOUTH EVERY DAY Trelegy Ellipta 100-62.5-25 mcg blister with device 1 inh INHALATION DAILY Patient Comments: INHALE 1 PUFF BY MOUTH EVERY DAY --RINSE MOUTH AFTER USE-- benztropine 1 mg tablet 1 mg PO BID Patient Comments: TAKE ONE TABLET BY MOUTH TWICE DAILY insulin asp prt-insulin aspart [Novolog Mix 70-30FlexPen U-100] 100 unit/mL (70-30) insulin pen 15 - 20 unit SQ AM Patient Comments: INJECT 15-20 UNITS SUBCUTANEOUSLY EVERY DAY IN THE MORNING ascorbic acid (vitamin C) 1,000 MG tablet 1,000 mg PO DAILY trazodone 50 MG tablet 50 mg PO HS fenofibrate 160 MG tablet 160 mg PO DAILY insulin glargine 100 UNIT/ML solution 25 unit SQ HS Problem Reconciliation Problems Reviewed?: Yes Patient Discharge Instructions ACTIVITY: Continue current activity DIET: low fat, low cholesterol Patient Instructions: DI for Pancreatitis, Acute Kidney Injury, DI for Acute Kidney Injury Providers Primary Care Provider: Provider,Referral Admit Provider: Mckay Gomez Attending Provider: Ekaterina Hurtado
== END 2023-06-06 13:03 | disposition home health service (06) | DRG 439 ==
LOC: ER 10:11 → 2ND 13:20
PROVIDERS: Nurse Practitioner Family; Admitting Provider Internal Medicine Adolescent Medicine; Emergency Provider Emergency Medicine; Visit Provider Family Medicine
DX: K85.90 Acute pancreatitis without necrosis or infection, unspecified (principal); F20.0 Paranoid schizophrenia; I69.354 Hemiplegia and hemiparesis following cerebral infarction affecting left non-dominant side; I50.22 Chronic systolic (congestive) heart failure; K56.609 Unspecified intestinal obstruction, unspecified as to partial versus complete obstruction; I42.9 Cardiomyopathy, unspecified; Z79.4 Long term (current) use of insulin; I11.0 Hypertensive heart disease with heart failure; E11.69 Type 2 diabetes mellitus with other specified complication; K21.9 Gastro-esophageal reflux disease without esophagitis; Z96.641 Presence of right artificial hip joint; F17.210 Nicotine dependence, cigarettes, uncomplicated
CPT/HCPCS: 36415; 71045; 74018; 74021; 74150; 80048; 80053; 81001; 82009; 82550; 82803; 82962; 83605; 83690; 83735; 85007; 85014; 85018; 85025; 85048; 85049; 87086; 87506; 93005; 99285; G0378; J2405

== ENCOUNTER 2023-06-08 17:46 | Emergency (ER) | payer MEDICARE, MEDICAID, SELFPAY ==
[2023-06-08] VITALS (8 sets, daily range): BP systolic 106–144; BP diastolic 61–81; PULSE 71–92; RESP 15–22; TEMP 36.5–37.4; O2SAT 95–99; BMI 26.8
--- NOTE | 2023-06-08 18:25 | ED_ITS ---
Discharge Plan Disposition Patient Disposition: Home, Self-Care Chief Complaint: PAIN Prescriptions Prescriptions: No Action gabapentin 400 mg capsule 400 mg PO HS Patient Comments: TAKE ONE CAPSULE BY MOUTH EVERY DAY AT BEDTIME MAY CAUSE DROWSINESS alendronate 35 mg tablet 35 mg PO WEEKLY escitalopram oxalate 10 mg tablet 10 mg PO DAILY quetiapine 400 mg tablet 400 mg PO BID lisinopril 20 mg tablet 20 mg PO BID Qty: 60 5RF atorvastatin 40 mg tablet 40 mg PO HS clopidogrel 75 mg tablet 75 mg PO DAILY aspirin 81 mg tablet,delayed release (DR/EC) 81 mg PO DAILY metformin 1,000 mg tablet 1,000 mg PO BIDWMEAL furosemide 20 mg tablet 20 mg PO DAILY (DME) [employer] G6 Sensor Device See Rx Instructions MISCELLANEOUS Rx Instructions: As directed (DME) blood-glucose meter,continuous Misc See Rx Instructions MISCELLANEOUS Rx Instructions: As directed Tradjenta 5 mg tablet 5 mg PO DAILY bisoprolol fumarate 10 mg tablet 10 mg PO BID tamsulosin 0.4 mg capsule 0.4 mg PO HS melatonin 5 mg tablet 5 mg PO HS amlodipine 10 mg tablet 10 mg PO DAILY Patient Comments: TAKE ONE TABLET BY MOUTH EVERY DAY Trelegy Ellipta 100-62.5-25 mcg blister with device 1 inh INHALATION DAILY Patient Comments: INHALE 1 PUFF BY MOUTH EVERY DAY --RINSE MOUTH AFTER USE-- benztropine 1 mg tablet 1 mg PO BID Patient Comments: TAKE ONE TABLET BY MOUTH TWICE DAILY insulin asp prt-insulin aspart [Novolog Mix 70-30FlexPen U-100] 100 unit/mL (70-30) insulin pen 15 - 20 unit SQ AM Patient Comments: INJECT 15-20 UNITS SUBCUTANEOUSLY EVERY DAY IN THE MORNING ascorbic acid (vitamin C) 1,000 MG tablet 1,000 mg PO DAILY trazodone 50 MG tablet 50 mg PO HS fenofibrate 160 MG tablet 160 mg PO DAILY insulin glargine 100 UNIT/ML solution 25 unit SQ HS Referrals Follow up/Referrals: Ekaterina Hurtado MD [Primary Care Provider] - See instructions Activity Restrictions/Add. Instructions Additional Instructions/Restrictions: At this time it was felt you are safe to be discharged home. If new or worsening symptoms please do not hesitate to return the emergency department. There was a lesion that was found on your pancreas that has been seen before. Please follow-up with your family doctor for this to continue to keep an eye on it. Please take omeprazole daily until you follow-up with your family doctor as acid reflux may be the major cause of your symptoms. Clinical Impressions Clinical Impression: Pancreatic lesion, Dyspepsia, Abdominal pain Discharge ED Provider: Enrique Ball General Adult HPI General Chief complaint: PAIN Stated complaint: Acid reflux,no appitite,nausea Time Seen by Provider: 06/08/23 17:50 Mode of Arrival: Wheelchair Source of Information: Patient and Parent(s) Limitations: No Limitations Description of Symptoms (Recalled from ER Triage Doc. by RN): Patient to ED via wheelchair with complaints of increased acid reflux that started this morning. Patient took his daily omeprazole 40mg along with multiple rolaids for issues without relief. Complains of nausea denies vomiting. History of Present Illness HPI narrative: Patient is a 52-year-old male with past medical history of CVA with left-sided residual, recent admission for pancreatitis with subsequent readmission with discharge home Sunday who presents emergency department for evaluation of worsening epigastric pain. Patient has had little p.o. intake since he was discharged on Sunday, has had worsening epigastric discomfort over the course of the day causing him to come here for continued evaluation. Denies chest pain. No other acute complaints at this time. Related Data Home Medications Medication Instructions Recorded Confirmed ascorbic acid (vitamin C) 1,000 mg 1,000 mg PO DAILY Supplement 02/29/20 06/02/23 tablet trazodone 50 mg tablet 50 mg PO HS Sleep 05/08/21 06/02/23 fenofibrate 160 mg tablet 160 mg PO DAILY 05/09/21 06/02/23 insulin glargine 100 unit/mL 25 unit SQ HS Diabetes 07/12/21 06/02/23 subcutaneous solution aspirin 81 mg tablet,delayed 81 mg PO DAILY 08/18/22 06/02/23 release atorvastatin 40 mg tablet 40 mg PO HS 08/18/22 06/02/23 blood-glucose meter,continuous 08/18/22 06/02/23 blood-glucose sensor ([employer] G6 08/18/22 06/02/23 Sensor device) clopidogrel 75 mg tablet 75 mg PO DAILY 08/18/22 06/02/23 furosemide 20 mg tablet 20 mg PO DAILY 08/18/22 06/02/23 linagliptin 5 mg tablet (Tradjenta) 5 mg PO DAILY 08/18/22 06/02/23 metformin 1,000 mg tablet 1,000 mg PO BIDWMEAL 08/18/22 06/02/23 alendronate 35 mg tablet 35 mg PO WEEKLY 12/26/22 06/02/23 escitalopram oxalate 10 mg tablet 10 mg PO DAILY 12/26/22 06/02/23 gabapentin 400 mg capsule 400 mg PO HS 12/26/22 06/02/23 quetiapine 400 mg tablet 400 mg PO BID 04/23/23 06/02/23 amlodipine 10 mg tablet 10 mg PO DAILY 05/30/23 06/02/23 benztropine 1 mg tablet 1 mg PO BID 05/30/23 06/02/23 bisoprolol fumarate 10 mg tablet 10 mg PO BID 05/30/23 06/02/23 fluticasone fur. 100 mcg-umeclid 1 inh inhalation DAILY 05/30/23 06/02/23 62.5 mcg-vilant 25 mcg inhalat.powder (Trelegy Ellipta) insulin aspar prot-insulin aspart 15 - 20 unit SQ AM 05/30/23 06/02/23 100 unit/mL (70-30) subcutaneous pen (Novolog Mix 70-30FlexPen U-100) melatonin 5 mg tablet 5 mg PO HS 05/30/23 06/02/23 tamsulosin 0.4 mg capsule 0.4 mg PO HS 05/30/23 06/02/23 Previous Rx's Medication Instructions Recorded lisinopril 20 mg tablet 20 mg PO BID #60 tabs 01/10/23 Allergies Allergy/AdvReac Type Severity Reaction Status Date / Time amoxicillin Allergy Swelling Verified 05/30/23 11:05 of Lip/Tongue/Throat Fish Containing Products AdvReac Severe Unknown Verified 05/29/23 11:21 allergy reaction [facility] Disclaimer: The information contained in this section may have been updated after the patient was seen, as this information can be updated by other users. 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 Paralysis Systolic CHF LV dysfunction Angina, class III Carotid artery stenosis Cardiomyopathy Hx of traumatic brain injury HTN (hypertension), benign CHF (congestive heart failure) Thoracic back pain Lumbar radiculopathy Surgical History (Updated 06/04/23 @ 00:00 by Annalee Wu) History of left hip hemiarthroplasty H/O arthroscopy of hip Family History Other Cancer Coronary artery disease Diabetes FHx: mental illness Heart attack Hypertension Stroke Social History (Updated 06/02/23 @ 14:48 by Yakelin Anna RN) Smoking Status: Current every day smoker tobacco type: cigarettes packs per day: 1 second hand exposure: No alcohol intake: never substance use type: denies use current occupational status: disabled Travel in the last 8 weeks: None household members: family housing: house number of children: 2 caffeine: Yes ROS Obtained: Yes Systems reviewed as appropriate & no additional complaints except as documented Physical Exam General General appearance: alert and in no apparent distress Head Head exam: atraumatic and normocephalic Eye Eye exam: Present PERRL ENT ENT exam: Present mucous membranes moist Neck Neck exam: Present normal inspection Chest Chest inspection: Present normal inspection and symmetric chest wall rise Respiratory Respiratory exam: Present normal lung sounds bilaterally; Absent respiratory distress Cardiovascular Cardiovascular exam: Present regular rate and normal rhythm Abdominal Exam Abdominal exam: Present soft and tenderness (Epigastric) Extremities Exam Extremities exam: Present normal inspection Neurological Exam Neurological exam: Present alert Psychiatric Psychiatric exam: Present normal affect Skin Skin exam: Present warm and dry Medical Decision Making Scooter Inquiry Pt receiving controlled substance: No Vital Signs: 06/08/23 17:49 06/08/23 18:00 06/08/23 18:30 Temperature 99.4 F Temperature Source Oral Pulse Rate 92 H 90 Pulse Rate [Right] 91 H Respiratory Rate 18 20 20 Blood Pressure 138/71 144/81 H Blood Pressure [Right Arm] 142/67 H Blood Pressure Mean 109 101 Blood Pressure Mean [Right Arm] 92 Blood Pressure Source [Right Arm] Automatic Cuff 02 Sat by Pulse Oximetry 97 96 96 Oxygen Delivery Method Room Air Lab Data Lab Results 06/08/23 18:43: WBC 10.8, RBC 4.62, Hgb 14.5, Hct 44.0, MCV 95.3 H, MCH 31.4 H, MCHC 33.0, RDW 14.0, Plt Count 243, MPV 8.6, Neut % (Auto) 75.7, Lymph % (Auto) 14.4, [place] % (Auto) 6.8, Eos % (Auto) 2.1, Baso % (Auto) 1.0, Neut # (Auto) 8.2 H, Lymph # (Auto) 1.6, [place] # (Auto) 0.7, Eos # (Auto) 0.2, Baso # (Auto) 0.1, Sodium 137, Potassium 3.5, Chloride 102, Carbon Dioxide 29, Anion Gap 9.5, BUN 8 L, Creatinine 0.70, Estimated Creat Clear 148, Estimated GFR 118, Est GFR ( Amer) 143, Glucose 197 H, Calcium 10.1, Total Bilirubin 0.3, AST 27, ALT 36, Alkaline Phosphatase 84, Troponin I < 0.01, Total Protein 6.5, Albumin 4.0, Globulin 2.5, Albumin/Globulin Ratio 1.6, Lipase 67 06/08/23 18:43 06/08/23 18:43 Orders (Tests/Meds): ED MEDICATIONS Generic Name Dose Route Start Last Admin Trade Name Freq PRN Reason Stop Dose Admin Sodium Chloride 10 ml 06/08/23 18:57 06/08/23 18:58 Sodium Chloride 0.9% 10ml Syr (Rad Only) IV 07/08/23 18:56 10 ml NEEDED PRN Administration Maintain IV Site Discontinued Medications Generic Name Dose Route Start Last Admin Trade Name Freq PRN Reason Stop Dose Admin Acetaminophen 1,000 mg 06/08/23 18:28 06/08/23 18:40 Acetaminophen 1,000mg/100ml Vial IV 06/08/23 18:29 1,000 mg ONCE ONE Administration Belladonna Alkaloids 60 ml 06/08/23 18:26 06/08/23 18:40 Belladonna Alkaloids 60 Ml Ml PO 06/08/23 18:27 60 ml ONCE ONE Administration Lactated Ringer's 1,000 mls @ 999 mls/hr 06/08/23 18:26 06/08/23 18:40 Lactated Ringer's 1000 Ml Bag IV 06/08/23 19:26 999 mls/hr .Q1H1M ONE Administration Iopamidol 75 ml 06/08/23 18:57 06/08/23 18:58 Iopamidol-370 (76%);100ml Bottle IV 06/08/23 18:58 75 ml ONCE ONE Administration Ketorolac Tromethamine 30 mg 06/08/23 18:28 06/08/23 18:40 Ketorolac 30mg/Ml Vial IV 06/08/23 18:29 30 mg ONCE ONE Administration Ondansetron HCl 4 mg 06/08/23 18:26 06/08/23 18:40 Ondansetron 4mg/2ml Vial IV 06/08/23 18:27 4 mg ONCE ONE Administration ORDERS Category Date Time Status CT abdomen pelvis w con Stat Cat Scan 06/08/23 18:27 Completed CBC w/Auto Diff [Complete Blood Count Auto Diff] Stat Lab 06/08/23 18:43 Completed CMP [Comprehensive Metabolic Panel] Stat Lab 06/08/23 18:43 Completed Lipase Stat Lab 06/08/23 18:43 Completed Trop I [Troponin I] Stat Lab 06/08/23 18:43 Completed Troponin I Q3H Lab 06/08/23 21:30 Ordered Troponin I Q3H Lab 06/09/23 00:30 Ordered UA [Urinalysis and Microscopic] Stat Lab 06/08/23 18:26 Ordered ECG Data Tracing #1: Independently interpreted by me, rate is 86, rhythm is regular, left axis deviation, no ST elevation in anatomical contiguous leads, QTc 449. Medical Decision Narrative: In summary patient is a 52-year-old male with past medical history described above who presents emergency department for evaluation of epigastric pain in the setting of recent pancreatitis. Patient is hemodynamically stable and nontoxic- appearing upon arrival, appearing in pain, afebrile. It should be a little early for pancreatic pseudocyst formation however patient has had [address] scans over the last week and a half. Workup will be conducted with hematologic labs, urinalysis, CT of the abdomen pelvis IV contrast. Atypical ACS is a consideration although unlikely will be ruled out with a EKG and single troponin. Initial interventions include Tylenol, Toradol, Zofran, GI cocktail. Workup reviewed by me, hematologic labs are nonactionable. No elevated lipase, no significant white count, there is hyperglycemia with a normal anion gap, initial troponin undetectably low. CT imaging of the abdomen and pelvis shows 2.4 cm enhancing oval focus in the pancreatic head unchanged from previous however given patient's recurrent pancreatitis patient will likely benefit from MRI evaluation on a outpatient basis. Patient underwent p.o. trial with successful. Given this patient is appropriate for outpatient management at this time and will take omeprazole daily and continue to follow-up. Mother was given return precautions. Critical Care Critical Care Time Critical Care Time: No
--- NOTE | 2023-06-08 18:27 | CT_ITS ---
PROCEDURE INFORMATION: Exam: CT Abdomen And Pelvis With Contrast Exam date and time: 06/08/2023 6:47 PM Age: 52 years old Clinical indication: Abdominal pain; Additional info: Recent pancreatitis, worsening epigastric pain TECHNIQUE: Imaging protocol: Computed tomography of the abdomen and pelvis with contrast. Radiation optimization: All CT scans at this facility use at least one of these dose optimization techniques: automated exposure control; mA and/or kV adjustment per patient size (includes targeted exams where dose is matched to clinical indication); or iterative reconstruction. Contrast material: ISOVUE; Contrast volume: 75 ml; Contrast route: IV; COMPARISON: CT ABDOMEN WO CON 03/06/2023 13:49 FINDINGS: Lungs: Mild scarring and atelectasis in the lower lungs. Pleural spaces: Small pleural effusions. Heart: Small pericardial effusion, unchanged. Coronary arteries: Moderate to severe coronary arterial calcification, indicating the presence of coronary artery disease. Liver: Probable hepatic steatosis. Gallbladder and bile ducts: Gallbladder is absent. Pancreas: There is 2.4 cm enhancing oval shaped focus in the pancreatic head on image 53 series 3 that is unchanged compared to prior studies dating back to 2016. There is a 13 mm cystic lesion in the pancreatic tail with peripheral calcifications. This is favored to be a pseudocyst, though other etiologies are also possible. This is unchanged since 2021. Spleen: Normal. No splenomegaly. Adrenal glands: Normal. No mass. Kidneys and ureters: Normal. No hydronephrosis. Stomach and bowel: There are mildly dilated segments of small bowel filled with fluid and gas in lower abdomen. There is nonspecific bowel wall thickening and enhancement of portions of small bowel. Liquid fecal contents in the colon are noted. Mild sigmoid diverticulosis without diverticulitis. Appendix: Unremarkable appendix. Intraperitoneal space: Unremarkable. No free air. No significant fluid collection. 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 There are collateral veins around the stomach and retroperitoneum. The arteries demonstrate severe atherosclerotic disease. Lymph nodes: Unremarkable. No enlarged lymph nodes. Urinary bladder: Unremarkable as visualized. Reproductive: Unremarkable as visualized. Bones/joints: Postsurgical changes of the left femur. Hardware appears intact. Soft tissues: Unremarkable. IMPRESSION: 1. Nonspecific findings that suggest enteritis with ileus. 2. There is 2.4 cm enhancing oval shaped focus in the pancreatic head on image 53 series 3 that is unchanged compared to prior studies dating back to 2017. This is favored to be normal variant anatomy. However, if an etiology for recurrent pancreatitis is not already established, consider further evaluation with contrast-enhanced MRI to exclude a benign neoplasm. No findings to correlate with acute pancreatitis on this study. 3. Small pleural effusions. 4. Small pericardial effusion, unchanged. 5. Moderate to severe coronary arterial calcification, indicating the presence of coronary artery disease. If the patient has associated symptoms, recommend management as per chest pain guidelines. If the patient is asymptomatic, consider reviewing modifiable cardiovascular risk factors and managing as per guidelines for primary prevention.
--- NOTE | 2023-06-08 18:36 | ECG_ITS ---
APPROVED REPORT Exam: Resting ECG HR:86 bpm ECG Measurements Heart Rate 86 AXES MA 199 P 65 QRSd 100 QRS -40 QT 406 T 66 QTc 449 Conclusion SINUS RHYTHM INDETERMINATE AXIS ANTEROLATERAL MYOCARDIAL INFARCTION , OF INDETERMINATE AGE [40+ ms Q WAVE IN I/aVL/V3-V6] ABNORMAL ECG Electronically signed by : TRAN CASTILLO, 06/08/2023 22:55:17
[2023-06-08] MEDS: LACTATED RINGERS 1000ML 1,000 ML 999 ML IV (18:40)
[2023-06-08] MEDS: BELLADONNA ALKALOIDS 60 ML ML PO (18:40)
[2023-06-08] MEDS: ONDANSETRON 4MG/2ML VIAL 4 MG IV (18:40)
[2023-06-08] MEDS: ACETAMINOPHEN 1,000MG/100ML VIAL 1000 MG IV (18:40)
[2023-06-08] MEDS: KETOROLAC 30MG/ML VIAL 30 MG IV (18:40)
[2023-06-08 18:55] LABS: Basophils # 0.1 K/mm3 (0-0.2); Eosinophils # 0.2 K/mm3 (0.0-0.4); Eosinophils % 2.1 % (0.1-12.0); Hemoglobin 14.5 g/dL (14.1-18.0); Lymphocytes # 1.6 K/mm3 (0.7-4.5); Lymphocytes % 14.4 % (10-50); Mean Corpuscular Hemoglobin 31.4 pg (27.0-31.2); Mean Corpuscular Volume 95.3 fl (80-94); Mean Platelet Volume 8.6 fl (7.4-10.4); Monocytes # 0.7 K/mm3 (0.1-1.0); Monocytes % 6.8 % (1.7-9.3); Neutrophils # 8.2 K/mm3 (1.8-7.8); Neutrophils % 75.7 % (37.0-80.0); Platelet Count 243 K/mm3 (142-424); Red Blood Count 4.62 M/mm3 (4.60-6.20); White Blood Count 10.8 K/mm3 (4.8-10.8)
[2023-06-08] MEDS: SODIUM CHLORIDE 0.9% 10ML SYR (RAD ONLY) 10 ML IV (18:58)
[2023-06-08] MEDS: IOPAMIDOL-370 (76%);100ML BOTTLE 75 ML IV (18:58)
[2023-06-08 19:03] LABS: Chloride 102 mmol/L (98-107); Potassium 3.5 mmoL/L (3.5-5.1); Sodium 137 mmol/L (136-145)
[2023-06-08 19:06] LABS: Alanine Aminotransferase 36 U/L (12-78); Albumin/Globulin Ratio 1.6 (1.1-1.8); Alkaline Phosphatase 84 U/L (38-126); Anion Gap 9.5 mEq/L (5-15); Aspartate Amino Transferase 27 U/L (17-59); Bilirubin,Total 0.3 mg/dl (0.2-1.3); Blood Urea Nitrogen 8 mg/dl (9-20); Calcium 10.1 mg/dl (8.4-10.2); Carbon Dioxide 29 mmol/L (22.0-30.0); Creatinine Clearance Estimated 148 mL/min (50-200); Estimated Glomerular Filt Rate 118 ml/min (>60); GFR (African American) 143 ML/MIN (>60); Globulin 2.5 g/dL (1.3-3.2); Glucose 197 mg/dl (74-100); Lipase 67 U/L (23-300); Total Protein,Serum 6.5 g/dl (6.3-8.2)
[2023-06-08 19:28] LABS: Troponin I < 0.01 ng/ml (0.00-0.034)
--- NOTE | 2023-06-08 19:36 | PC.NURSE ---
mother gave pt blood pressure meds from home
--- NOTE | 2023-06-08 20:18 | PC.NURSE ---
patient provided saltines and water for PO challenge. Patient tolerated well at this time without complaints of indigestion.
== END 2023-06-08 21:40 | disposition home or self-care (01) ==
PROVIDERS: Emergency Provider Emergency Medicine; PCP Family Medicine
DX: R10.13 Epigastric pain (principal); K86.89 Other specified diseases of pancreas; I69.352 Hemiplegia and hemiparesis following cerebral infarction affecting left dominant side; R11.0 Nausea; I65.29 Occlusion and stenosis of unspecified carotid artery; I11.0 Hypertensive heart disease with heart failure; I50.20 Unspecified systolic (congestive) heart failure; I42.9 Cardiomyopathy, unspecified; I20.9 Angina pectoris, unspecified; F17.210 Nicotine dependence, cigarettes, uncomplicated
CPT/HCPCS: 74177; 80053; 83690; 84484; 85025; 93005; 96361; 96374; 96375; 99285; J0131; J2405; Q9967

== ENCOUNTER 2023-06-27 14:19 | Outpatient (CLI) | payer MEDICARE, MEDICAID, SELFPAY ==
[2023-06-27 14:36] LABS: Basophils # 0.1 K/mm3 (0-0.2); Eosinophils # 0.2 K/mm3 (0.0-0.4); Eosinophils % 1.9 % (0.1-12.0); Hematocrit 41.5 % (42.0-52.0); Hemoglobin 13.4 g/dL (14.1-18.0); Lymphocytes % 8.4 % (10-50); Mean Corpuscular HGB Conc 32.3 g/dL (31.8-35.4); Mean Corpuscular Volume 95.9 fl (80-94); Monocytes # 1.2 K/mm3 (0.1-1.0); Monocytes % 9.7 % (1.7-9.3); Neutrophils # 9.6 K/mm3 (1.8-7.8); Neutrophils % 79.1 % (37.0-80.0); Platelet Count 204 K/mm3 (142-424); Red Blood Count 4.32 M/mm3 (4.60-6.20); Red Cell Distribution Width 14.7 % (11.5-17.5); White Blood Count 12.1 K/mm3 (4.8-10.8)
[2023-06-27 14:54] LABS: D-Dimer 0.41 ug/mL (0.0-0.5)
[2023-06-27 15:38] LABS: Alanine Aminotransferase 32 U/L (12-78); Albumin Level 4.4 g/dl (3.5-5.0); Alkaline Phosphatase 66 U/L (38-126); Anion Gap 12.5 mEq/L (5-15); Aspartate Amino Transferase 28 U/L (17-59); Bilirubin,Direct 0.2 mg/dl (0.0-0.4); Bilirubin,Indirect 0.5 mg/dL (0.0-0.9); Bilirubin,Total 0.7 mg/dl (0.2-1.3); Bilirubin,Unconjugated 0.5 mg/dL (0.0-1.1); Blood Urea Nitrogen 15 mg/dl (9-20); Calcium 9.8 mg/dl (8.4-10.2); Carbon Dioxide 25 mmol/L (22.0-30.0); Chloride 100 mmol/L (98-107); Chol/HDL Ratio 5.2 (1-3.5); Cholesterol 110 mg/dl (140-200); Estimated Glomerular Filt Rate 118 ml/min (>60); GFR (African American) 143 ML/MIN (>60); Glucose 149 mg/dl (74-100); HDL Cholesterol 21 mg/dl (40-60); Magnesium 1.3 mg/dl (1.6-2.3); Potassium 4.5 mmoL/L (3.5-5.1); Sodium 133 mmol/L (136-145); Total Protein,Serum 6.6 g/dl (6.3-8.2); Triglycerides 272 mg/dl (30-150); VLDL Cholesterol 54 mg/dL (0-40)
[2023-06-27 15:54] LABS: Free T4 (Free Thyroxine) 0.86 ng/dl (0.78-2.19)
[2023-06-27 16:06] LABS: Direct LDL Cholesterol 56.56 mg/dL (100-129)
[2023-06-27 16:09] LABS: Thyroid Stimulating Hormone 0.56 uIU/mL (0.465-4.68)
== END 2023-06-27 23:59 | disposition home or self-care (01) ==
LOC: LAB 14:20
PROVIDERS: PCP Family Medicine; Visit Provider Internal Medicine
DX: I10 Essential (primary) hypertension (principal); E11.69 Type 2 diabetes mellitus with other specified complication; E78.2 Mixed hyperlipidemia; I25.10 Atherosclerotic heart disease of native coronary artery without angina pectoris; Z86.73 Personal history of transient ischemic attack (TIA), and cerebral infarction without residual deficits; F17.210 Nicotine dependence, cigarettes, uncomplicated; Z79.4 Long term (current) use of insulin; Z79.84 Long term (current) use of oral hypoglycemic drugs
CPT/HCPCS: 36415; 80048; 80061; 80076; 83735; 84439; 84443; 85025; 85378

== ENCOUNTER 2024-01-28 15:00 | Outpatient (CLI) | payer MEDICARE, MEDICAID, SELFPAY ==
[2024-01-28 15:22] LABS: Basophils # 0.2 K/mm3 (0-0.2); Basophils % 2.2 % (0.1-2.0); Eosinophils # 0.6 K/mm3 (0.0-0.4); Eosinophils % 8.3 % (0.1-12.0); Hematocrit 40.2 % (42.0-52.0); Hemoglobin 13.6 g/dL (14.1-18.0); Lymphocytes # 1.6 K/mm3 (0.7-4.5); Lymphocytes % 20.9 % (10-50); Mean Corpuscular HGB Conc 33.8 g/dL (31.8-35.4); Mean Corpuscular Volume 91.8 fl (80-94); Mean Platelet Volume 7.4 fl (7.4-10.4); Monocytes # 0.7 K/mm3 (0.1-1.0); Monocytes % 9.5 % (1.7-9.3); Neutrophils # 4.5 K/mm3 (1.8-7.8); Neutrophils % 59.1 % (37.0-80.0); Platelet Count 207 K/mm3 (142-424); Red Blood Count 4.38 M/mm3 (4.60-6.20); Red Cell Distribution Width 14.6 % (11.5-17.5); White Blood Count 7.6 K/mm3 (4.8-10.8)
[2024-01-28 15:50] LABS: Alanine Aminotransferase 59 U/L (12-78); Albumin Level 4.3 g/dl (3.5-5.0); Alkaline Phosphatase 70 U/L (38-126); Anion Gap 17.8 mEq/L (5-15); Aspartate Amino Transferase 45 U/L (17-59); Bilirubin,Direct 0.3 mg/dl (0.0-0.4); Bilirubin,Indirect 0.3 mg/dL (0.0-0.9); Bilirubin,Total 0.6 mg/dl (0.2-1.3); Bilirubin,Unconjugated 0.3 mg/dL (0.0-1.1); Blood Urea Nitrogen 14 mg/dl (9-20); Calcium 9.8 mg/dl (8.4-10.2); Carbon Dioxide 24 mmol/L (22.0-30.0); Chloride 92 mmol/L (98-107); Chol/HDL Ratio 5.5 (1-3.5); Cholesterol 115 mg/dl (140-200); Estimated Glomerular Filt Rate 118 ml/min (>60); GFR (African American) 143 ML/MIN (>60); Glucose 179 mg/dl (74-100); HDL Cholesterol 21 mg/dl (40-60); Magnesium 1.3 mg/dl (1.6-2.3); Potassium 4.8 mmoL/L (3.5-5.1); Sodium 129 mmol/L (136-145); Total Protein,Serum 6.6 g/dl (6.3-8.2); Triglycerides 379 mg/dl (30-150); VLDL Cholesterol 76 mg/dL (0-40)
[2024-01-28 16:01] LABS: Direct LDL Cholesterol 55.23 mg/dL (100-129)
== END 2024-01-28 23:59 | disposition home or self-care (01) ==
LOC: LAB 15:02
PROVIDERS: PCP Family Medicine; Visit Provider Internal Medicine
DX: I11.0 Hypertensive heart disease with heart failure (principal); I50.22 Chronic systolic (congestive) heart failure; I25.10 Atherosclerotic heart disease of native coronary artery without angina pectoris; E78.2 Mixed hyperlipidemia; I10 Essential (primary) hypertension
CPT/HCPCS: 36415; 80048; 80061; 80076; 83735; 85025

== ENCOUNTER 2024-06-09 09:37 | Inpatient (IN) | payer MEDICARE, MEDICAID, SELFPAY ==
[2024-06-09] VITALS (35 sets, daily range): BP systolic 68–134; BP diastolic 40–63; PULSE 66–86; RESP 15–27; TEMP 36.5–37; O2SAT 90–100; BMI 27.8
--- NOTE | 2024-06-09 09:47 | PC.NURSE ---
Sotero at for manual bp
--- NOTE | 2024-06-09 10:02 | ECG_ITS ---
APPROVED REPORT Exam: Resting ECG HR:79 bpm ECG Measurements Heart Rate 79 AXES ME 207 P 21 QRSd 101 QRS -27 QT 413 T 61 QTc 448 Conclusion SINUS RHYTHM WITH OCCASIONAL VENTRICULAR PREMATURE COMPLEXES LATERAL MYOCARDIAL INFARCTION , OF INDETERMINATE AGE [40+ ms Q WAVE AND/OR ST/T ABNORMALITY IN I/aVL/V5/V6] ABNORMAL ECG No STEMI Electronically signed by : EDWARD ALAMO, 06/10/2024 03:46:57
--- NOTE | 2024-06-09 10:03 | PC.NURSE ---
FSBS was 128
[2024-06-09] MEDS: LACTATED RINGERS 1000ML 2,260 ML 1130 ML IV (10:09)
[2024-06-09 10:14] LABS: MANUAL DIFFERENTIAL MANUAL DIFFERENTIAL (MANUAL DIFF)
[2024-06-09 10:17] LABS: Basophils % 0.5 % (0.1-2.0); Eosinophils # 0.2 K/mm3 (0.0-0.4); Eosinophils % 2.5 % (0.1-12.0); Hematocrit 36.5 % (42.0-52.0); Hemoglobin 12.4 g/dL (14.1-18.0); Lymphocytes # 0.9 K/mm3 (0.7-4.5); Lymphocytes % 13.1 % (10-50); Mean Corpuscular Volume 88.2 fl (80-94); Mean Platelet Volume 9.4 fl (7.4-10.4); Monocytes # 0.8 K/mm3 (0.1-1.0); Monocytes % 11.6 % (1.7-9.3); Neutrophils # 4.6 K/mm3 (1.8-7.8); Neutrophils % 70.6 % (37.0-80.0); Platelet Count 196 K/mm3 (142-424); Red Blood Count 4.14 M/mm3 (4.60-6.20); Red Cell Distribution Width 14.7 % (11.5-17.5); White Blood Count 6.5 K/mm3 (4.8-10.8)
[2024-06-09 10:18] LABS: Albumin Level 4.1 g/dl (3.5-5.0); Chloride 93 mmol/L (98-107)
[2024-06-09 10:19] LABS: Potassium 4.3 mmoL/L (3.5-5.1); Sodium 125 mmol/L (136-145)
[2024-06-09 10:21] LABS: Alanine Aminotransferase 37 U/L (12-78); Albumin/Globulin Ratio 1.8 (1.1-1.8); Alkaline Phosphatase 49 U/L (38-126); Anion Gap 14.3 mEq/L (5-15); Aspartate Amino Transferase 34 U/L (17-59); Bilirubin,Total 0.9 mg/dl (0.2-1.3); Blood Urea Nitrogen 31 mg/dl (9-20); Carbon Dioxide 22 mmol/L (22.0-30.0); Creatinine Clearance Estimated 64 mL/min (50-200); Estimated Glomerular Filt Rate 42 ml/min (>60); GFR (African American) 51 ML/MIN (>60); Globulin 2.3 g/dL (1.3-3.2); Total Protein,Serum 6.4 g/dl (6.3-8.2)
[2024-06-09 10:22] LABS: Calcium 9.4 mg/dl (8.4-10.2); Glucose 135 mg/dl (74-100); Lipase 38 U/L (23-300); Magnesium 1.3 mg/dl (1.6-2.3)
--- NOTE | 2024-06-09 10:27 | CT_ITS ---
FINAL REPORT TECHNIQUE: Thin section axial images are obtained through the abdomen and pelvis after intravenous contrast. Reconstruction images were obtained from the axial data. Exam was performed using dose reduction techniques. This study was performed with techniques to keep radiation doses as low as reasonably achievable (ALARA). Individualized dose reduction techniques using automated exposure control or adjustment of mA and/or kV according to the patient's size were employed. CLINICAL HISTORY: profuse diarrhea, hypotension, abd distension COMPARISON: 12/24/2023, 06/07/2024 FINDINGS: LUNG BASES: Bilateral lower lobe groundglass opacities and airspace disease are noted, similar to the prior exam of 06/07/2024. The small pleural effusions noted on the prior exam have improved. Heart size is normal. LIVER: Homogeneous. No focal lesion. GALLBLADDER/BILIARY SYSTEM: The gallbladder is surgically absent. No gallstones. No biliary dilatation. SPLEEN: Unremarkable. PANCREAS: There is a hypodense lesion in the tail of the pancreas with some calcification, unchanged since the prior exam of 06/10/2024. ADRENALS: Unremarkable. KIDNEYS/URETERS/BLADDER: No hydronephrosis, renal mass, or renal stone. Unremarkable urinary bladder. GI TRACT: No small bowel obstruction or dilatation. There has been interval improvement in the appearance of small bowel loops, with decreased wall thickening. There continue to be some fluid-filled loops of bowel present. Normal appendix. No acute colon abnormality. PELVIC ORGANS: Unremarkable for age. A Godfrey catheter is present in the bladder. A small amount of free fluid is present in the pelvis. LYMPH NODES/RETROPERITONEUM/MESENTERY: No lymphadenopathy. No abdominal aortic aneurysm. ABDOMINAL WALL: The abdominal wall is intact. FREE FLUID: Small amount of free fluid in the pelvis. BONES: No acute osseous abnormality. IMPRESSION: There is an improved appearance of the fluid-filled small bowel loops, with decreased wall thickening, consistent with improving ileus or enteritis. Improved pleural effusions with persistent lower lobe airspace disease. Stable lesion in the tail of the pancreas again noted. Reviewed, Interpreted and Dictated by Lois Childers MD Transcribed by Marilu Perez Authenticated and [facility]
[2024-06-09 10:39] LABS: Lactic Acid 2.9 mmol/L (0.7-2.1)
[2024-06-09 10:54] LABS: Microscopic, Urine URINE MICROSCOPIC (MICROSCOPIC)
[2024-06-09] MEDS: MAGNESIUM SULFATE IN WATER 2 GM/50 ML PIGGYBACK IV (10:57)
[2024-06-09] MEDS: ONDANSETRON 4MG/2ML VIAL 4 MG IV (10:57)
[2024-06-09 11:02] LABS: Eosinophils % 3 % (0-3); Lymphocytes % 17 % (10-50); Monocytes % 9 % (2-9); Neutrophils % 71 % (42-76); Platelet Estimate Normal; RBC Morphology Normal; Total Cells Counted 100
[2024-06-09] MEDS: IOPAMIDOL-370 (76%);100ML BOTTLE 75 ML IV (11:07)
[2024-06-09] MEDS: SODIUM CHLORIDE 0.9% 10ML SYR (RAD ONLY) 10 ML IV (11:07)
--- NOTE | 2024-06-09 11:10 | HMH.EDGENADL ---
Discharge Plan Disposition Patient Disposition: Admitted Condition: Fair Clinical Impressions Clinical Impression: Enteritis, LUZ (acute kidney injury), Hypomagnesemia, Hypotension, Acute hypoxic respiratory failure, Hyponatremia Discharge ED Provider: Libby Rome [facility] Adult HPI General Chief complaint: Recheck/Abnormal Lab/Rx Stated complaint: low blood pressure diarrhea Time Seen by Provider: 06/09/24 10:01 Mode of Arrival: Wheelchair Source of Information: Relative Description of Symptoms (Recalled from ER Triage Doc. by RN): Reports the patient had the stomach bug yesterday and today his blood pressure has been low. History of Present Illness HPI narrative: This patient is a 53-year-old male with a history of CVA with residual left-sided paralysis, hypertension, CHF, hyperlipidemia, and diabetes presenting to the emergency department for evaluation with concern for low blood pressure reading. Patient lives with his mom who is his caregiver, and they both had a stomach bug over the last 24 to 48 hours. Patient had profuse watery diarrhea with no melena or hematochezia. He had nausea but no vomiting. He also complains of some abdominal distention. No other complaints or concerns, such as fevers, chest pain, shortness of breath, cough, congestion, or other issues. When asked about wounds, he does have a small wound on his left foot but no concerns for infection there. Mom noted that she checked his blood pressure at home and it was very low, so she brought him in for evaluation. She does note he is been taking in some liquids but everything seems to run right through him with these profuse watery diarrhea episodes. Related Data Home Medications ?Medication ?Instructions ?Recorded ?Confirmed ascorbic acid (vitamin C) 1,000 mg 1,000 mg PO DAILY Supplement 02/29/20 06/09/24 tablet trazodone 50 mg tablet 50 mg PO HS Sleep 05/08/21 06/09/24 fenofibrate 160 mg tablet 160 mg PO DAILY 05/09/21 06/09/24 aspirin 81 mg tablet,delayed 81 mg PO DAILY 08/18/22 06/09/24 release blood-glucose meter,continuous 08/18/22 06/09/24 blood-glucose sensor (Dexcom G6 08/18/22 06/09/24 Sensor device) clopidogrel 75 mg tablet 75 mg PO DAILY 08/18/22 06/09/24 furosemide 20 mg tablet 20 mg PO DAILY 08/18/22 06/09/24 linagliptin 5 mg tablet (Tradjenta) 5 mg PO DAILY 08/18/22 06/09/24 metformin 1,000 mg tablet 1,000 mg PO BIDWMEAL 08/18/22 06/09/24 alendronate 35 mg tablet 35 mg PO WEEKLY 12/26/22 06/09/24 escitalopram oxalate 10 mg tablet 10 mg PO DAILY 12/26/22 06/09/24 gabapentin 400 mg capsule 400 mg PO HS 12/26/22 06/09/24 quetiapine 400 mg tablet 400 mg PO BID 04/23/23 06/09/24 melatonin 5 mg tablet 5 mg PO HS 05/30/23 06/09/24 tamsulosin 0.4 mg capsule 0.4 mg PO HS 05/30/23 06/09/24 omeprazole 20 mg capsule,delayed 20 mg PO DAILY 07/26/23 06/09/24 release divalproex 500 mg tablet,extended 1,000 mg PO HS 06/09/24 06/09/24 release 24 hr Previous Rx's ?Medication ?Instructions ?Recorded atorvastatin 40 mg tablet See Rx Instructions .Route 10/30/23 .COMPLEX #90 tabs lisinopril 20 mg tablet See Rx Instructions .Route 01/15/24 .COMPLEX #180 tabs magnesium oxide 400 mg (241.3 mg See Rx Instructions .Route 01/28/24 magnesium) tablet .COMPLEX #30 tabs bisoprolol fumarate 10 mg tablet See Rx Instructions .Route 04/22/24 .COMPLEX #60 tabs verapamil 180 mg 24 hr See Rx Instructions .Route 04/22/24 capsule,extended release .COMPLEX #90 caps Allergies Allergy/AdvReac Type Severity Reaction Status Date / Time amoxicillin Allergy Swelling Verified 01/28/24 14:21 of Lip/Tongue/Throat Fish Containing Products AdvReac Severe Unknown Verified 01/28/24 14:21 allergy reaction [facility] Disclaimer: The information contained in this section may have been updated after the patient was seen, as this information can be updated by other users. 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 Paralysis Systolic CHF LV dysfunction Angina, class III Carotid artery stenosis Cardiomyopathy Hx of traumatic brain injury HTN (hypertension), benign CHF (congestive heart failure) Thoracic back pain Lumbar radiculopathy Surgical History History of left hip hemiarthroplasty H/O arthroscopy of hip Family History Other Cancer Coronary artery disease Diabetes FHx: mental illness Heart attack Hypertension Stroke Social History (Updated 06/09/24 @ 15:32 by Radha Serna RN) Smoking Status: Current every day smoker tobacco type: cigarettes packs per day: 1 second hand exposure: No alcohol intake: never substance use type: denies use current occupational status: disabled Travel in the last 8 weeks: None household members: family housing: house number of children: 2 caffeine: Yes Have you lived/traveled outside [place] in past 30 days?: No Contact w/someone who lives/traveled outside US past 30 days?: No Exposure to someone with infectious disease in past 14 days?: No Do you have a fever (greater than 100.4 F or 38 C)?: No Have you tested positive for COVID-19: No Exposed to someone with COVID-19 in past 14 days?: No Do you have a sore throat?: No Do you have a cough?: No Do you have any weakness?: No Are you experiencing any nausea/vomitting?: Yes Do you have any diarrhea?: Yes Are you experiencing any unusual bleeding?: No Do you have any muscle aches/pain?: No Do you have any abdominal pain?: No Are you experiencing loss of taste or smell?: No Other Medical History Have you received the Flu Vaccine for this season: No Have you received the Pneumonia Vaccine: No ROS Obtained: Yes All systems reviewed & no additional complaints except as documented Physical Exam General General appearance: alert Comment: Ill-appearing, pale Head Head exam: atraumatic and normocephalic Eye Eye exam: Present normal appearance, PERRL and EOMI ENT ENT exam: Present mucous membranes dry and normal external ear exam Neck Neck exam: Present normal inspection, full ROM and trachea midline; Absent tenderness Chest Chest inspection: Present normal inspection and symmetric chest wall rise; Absent tenderness Respiratory Respiratory exam: Present normal lung sounds bilaterally; Absent respiratory distress, wheezes, stridor or accessory muscle use Cardiovascular Cardiovascular exam: Present regular rate and normal rhythm Abdominal Exam Abdominal exam: Present soft and distention (mild); Absent tenderness, guarding, rebound or rigidity Extremities Exam Extremities exam: Present full ROM, normal capillary refill and other (small pressure wound to metatarsal pad of L foot without surrounding erythema, warmth, purulence); Absent tenderness or edema Back Exam Back exam: Present normal inspection and full ROM; Absent tenderness Neurological Exam Neurological exam: Present alert, oriented X3 and other (at his neurologic baseline) Psychiatric Psychiatric exam: Present normal affect and normal mood Skin Skin exam: Present pallor Medical Decision Making Medical Records Medical records reviewed: Yes I reviewed the patient's medical records. Screening: Per USPSTF and CDC recommendations, given the prevalence of disease in our region, it is our hospital?s policy to screen for HIV and viral Hepatitis for all patients aged 18 and over and those with ongoing risk factors. Scooter Inquiry Pt receiving controlled substance: No Vital Signs: 06/09/24 09:45 06/09/24 09:48 06/09/24 09:59 Temperature 98.3 F Temperature Source Oral Pulse Rate 73 Pulse Rate [Radial] 75 Respiratory Rate 18 24 Blood Pressure 82/42 L 69/41 L Blood Pressure [Right Arm] 85/56 L Blood Pressure Mean 46 Blood Pressure Mean [Right Arm] 65 Blood Pressure Source Manual Cuff/ Palpation Blood Pressure Source [Right Arm] Automatic Cuff Blood Pressure Position Sitting Blood Pressure Position [Right Arm] Sitting 02 Sat by Pulse Oximetry 98 95 Oxygen Delivery Method Room Air Oxygen Flow Rate (LPM) 06/09/24 10:06 06/09/24 10:25 06/09/24 10:30 Temperature Temperature Source Pulse Rate 73 77 77 Pulse Rate [Radial] Respiratory Rate 23 15 21 Blood Pressure 68/40 L 84/45 L 90/47 L Blood Pressure [Right Arm] Blood Pressure Mean 45 52 61 Blood Pressure Mean [Right Arm] Blood Pressure Source Blood Pressure Source [Right Arm] Blood Pressure Position Blood Pressure Position [Right Arm] 02 Sat by Pulse Oximetry 96 96 97 Oxygen Delivery Method Oxygen Flow Rate (LPM) 06/09/24 10:58 06/09/24 11:30 06/09/24 11:45 Temperature Temperature Source Pulse Rate 79 80 83 Pulse Rate [Radial] Respiratory Rate 17 19 21 Blood Pressure 94/50 L 76/47 L 77/42 L Blood Pressure [Right Arm] Blood Pressure Mean Blood Pressure Mean [Right Arm] Blood Pressure Source Blood Pressure Source [Right Arm] Blood Pressure Position Blood Pressure Position [Right Arm] 02 Sat by Pulse Oximetry 94 L 92 L 90 L Oxygen Delivery Method Room Air Room Air Room Air Oxygen Flow Rate (LPM) 06/09/24 12:00 06/09/24 12:15 06/09/24 12:24 Temperature Temperature Source Pulse Rate 81 77 80 Pulse Rate [Radial] Respiratory Rate 21 20 21 Blood Pressure 77/48 L 74/46 L 97/50 L Blood Pressure [Right Arm] Blood Pressure Mean Blood Pressure Mean [Right Arm] Blood Pressure Source Blood Pressure Source [Right Arm] Blood Pressure Position Blood Pressure Position [Right Arm] 02 Sat by Pulse Oximetry 90 L 91 L 94 L Oxygen Delivery Method Room Air Room Air Room Air Oxygen Flow Rate (LPM) 06/09/24 12:30 06/09/24 13:00 06/09/24 13:07 Temperature Temperature Source Pulse Rate 79 77 Pulse Rate [Radial] Respiratory Rate 21 21 Blood Pressure 87/52 L 92/56 L Blood Pressure [Right Arm] Blood Pressure Mean Blood Pressure Mean [Right Arm] Blood Pressure Source Blood Pressure Source [Right Arm] Blood Pressure Position Blood Pressure Position [Right Arm] 02 Sat by Pulse Oximetry 93 L 97 Oxygen Delivery Method Room Air Nasal Cannula Nasal Cannula Oxygen Flow Rate (LPM) 2 2 06/09/24 13:15 06/09/24 13:30 06/09/24 13:45 Temperature Temperature Source Pulse Rate 77 76 Pulse Rate [Radial] Respiratory Rate 21 21 Blood Pressure 78/46 L 85/43 L 90/50 L Blood Pressure [Right Arm] Blood Pressure Mean 61 Blood Pressure Mean [Right Arm] Blood Pressure Source Blood Pressure Source [Right Arm] Blood Pressure Position Blood Pressure Position [Right Arm] 02 Sat by Pulse Oximetry 97 97 Oxygen Delivery Method Nasal Cannula Nasal Cannula Oxygen Flow Rate (LPM) 2 2 06/09/24 13:53 06/09/24 14:19 Temperature 98.3 F Temperature Source Oral Pulse Rate 77 Pulse Rate [Radial] Respiratory Rate 16 Blood Pressure 134/63 94/54 L Blood Pressure [Right Arm] Blood Pressure Mean 77 Blood Pressure Mean [Right Arm] Blood Pressure Source Automatic Cuff Blood Pressure Source [Right Arm] Blood Pressure Position Supine Blood Pressure Position [Right Arm] 02 Sat by Pulse Oximetry Oxygen Delivery Method Room Air Oxygen Flow Rate (LPM) Lab Data Lab results reviewed: Yes I reviewed the patient's lab results. Lab Results 06/09/24 09:55: WBC 6.5, RBC 4.14 L, Hgb 12.4 L, Hct 36.5 L, MCV 88.2, MCH 30.0, MCHC 34.0, RDW 14.7, Plt Count 196, MPV 9.4, Neut % (Auto) 70.6, Lymph % (Auto) 13.1, George % (Auto) 11.6 H, Eos % (Auto) 2.5, Baso % (Auto) 0.5, Neut # (Auto) 4.6, Lymph # (Auto) 0.9, George # (Auto) 0.8, Eos # (Auto) 0.2, Baso # (Auto) 0.0, Total Counted 100, Neutrophils % (Manual) 71, Lymphocytes % (Manual) 17, Monocytes % (Manual) 9, Eosinophils % (Manual) 3, Platelet Estimate Normal, RBC Morphology Normal, Sodium 125 L, Potassium 4.3, Chloride 93 L, Carbon Dioxide 22, Anion Gap 14.3, BUN 31 H, Creatinine 1.70 H, Estimated Creat Clear 64, Estimated GFR 42 L, Est GFR ( Amer) 51 L, Glucose 135 H, Lactate 2.9 H, Calcium 9.4, Magnesium 1.3 L, Total Bilirubin 0.9, AST 34, ALT 37, Alkaline Phosphatase 49, Troponin I < 0.01, NT-Pro-B Natriuret Pep 1120 H, Total Protein 6.4, Albumin 4.1, Globulin 2.3, Albumin/Globulin Ratio 1.8, Lipase 38, Procalcitonin 0.506, TSH 1.35, Thyroxine (T4) 3.1 L, HCV Ab DAVIN w/Rflx PCR Qn Negative, HIV Ag/Ab Combo Qual Negative 06/09/24 10:44: Urine Color Yellow, Urine Appearance Clear, Urine pH 6.0, Ur Specific [place] 1.010, Urine Protein Negative, Urine Glucose (UA) Negative, Urine Ketones Negative, Urine Blood Negative, Urine Nitrate Negative, Urine Bilirubin Negative, Urine Urobilinogen 1.0, Ur Leukocyte Esterase Negative, Urine RBC None, Urine WBC None, Ur Squamous Epith Cells Occasional, Urine Bacteria None, Urine Sperm Occ 06/09/24 12:20: SARS-CoV-2 (PCR) Not detected, Influenza A Untype (PCR) Not detected, Influenza Type B (PCR) Not detected 06/09/24 09:55 06/09/24 09:55 Orders (Tests/Meds): ED MEDICATIONS Generic Name Dose Route Start Last Admin Trade Name Fremark PRN Reason Stop Dose Admin Acetaminophen 650 mg 06/09/24 13:03 Acetaminophen 325mg Tab PO 07/09/24 13:02 Q6HP PRN Fever or Mild Pain (1-3) Lactated Ringer's 1,000 mls @ 125 mls/hr 06/09/24 12:00 06/09/24 12:27 Lactated Ringer's 1000 Ml Bag IV 07/09/24 11:59 125 mls/hr .Q8H SAPPHIRE Administration Norepinephrine/Dextrose 8 mg in 250 mls @ 15 mls/hr 06/09/24 13:18 06/09/24 13:31 Levophed 8mg/250ml-D5w Premix IV 07/09/24 13:17 8 mcg/min .[id number] SAPPHIRE 15 mls/hr Administration Protocol 8 MCG/MIN Sodium Chloride 10 ml 06/09/24 11:05 06/09/24 11:07 Sodium Chloride 0.9% 10ml Syr (Rad Only) IV 07/09/24 11:04 10 ml NEEDED PRN Administration Maintain IV Site Discontinued Medications Generic Name Dose Route Start Last Admin Trade Name Lb PRN Reason Stop Dose Admin Lactated Ringer's 2,260 mls @ 1,130 mls/hr 06/09/24 10:08 06/09/24 10:09 Lactated Ringer's 1000 Ml Bag 30 ml/kg infuse over 2 hr (2260 ml) 06/09/24 12:07 1,130 mls/hr IV Administration .Q2H ONE Lactated Ringer's 1,000 mls @ 999 mls/hr 06/09/24 10:09 06/09/24 10:10 Lactated Ringer's 1000 Ml Bag IV 06/09/24 11:09 Not Given .Q1H1M ONE Magnesium Sulfate 2 gm in 50 mls @ 50 mls/hr 06/09/24 10:31 06/09/24 10:57 Magnesium Sulfate 2gm/50ml Premix IV 06/09/24 11:30 50 mls/hr ONCE ONE Administration Vancomycin/PEG/NADA/Lysine/Water 1.75 gm in 350 mls @ 175 mls/hr 06/09/24 12:30 06/09/24 12:17 Vancomycin 1.75gm/350ml (Peg) Premix IV 06/09/24 14:29 175 mls/hr ONCE ONE Administration Meropenem 1 gm/ Sodium 100 mls @ 100 mls/hr 06/09/24 12:10 06/09/24 12:17 Chloride IV 06/09/24 12:11 100 mls/hr ONCE ONE Administration Iopamidol 75 ml 06/09/24 11:05 06/09/24 11:07 Iopamidol-370 (76%);100ml Bottle IV 06/09/24 11:06 75 ml ONCE ONE Administration Miscellaneous 1 each 06/09/24 12:15 Vancomycin Consult Request NOTAPPLIC 07/09/24 12:14 [facility] Ondansetron HCl 4 mg 06/09/24 10:30 06/09/24 10:57 Ondansetron 4mg/2ml Vial IV 06/09/24 10:31 4 mg ONCE ONE Administration ORDERS Category Date Time Status CT abdomen pelvis w con Stat Cat Scan 06/09/24 10:27 Completed CXR --portable [XR chest portable] Stat Exams 06/09/24 12:08 Completed BNP [NT Pro Brain Natriuretic Pep.] Stat Lab 06/09/24 09:55 Completed Complete Blood Count Man Dif Stat Lab 06/09/24 09:55 Completed Comprehensive Metabolic Panel Stat Lab 06/09/24 09:55 Completed Diarrhea 23 Panel, PCR Stat Lab 06/09/24 10:31 Ordered HIV Combo Stat Lab 06/09/24 09:55 Completed Hepatitis C Ab Qual. W/ RFX Stat Lab 06/09/24 09:55 Completed Lactic Acid Stat Lab 06/09/24 09:55 Completed Lipase Stat Lab 06/09/24 09:55 Completed Magnesium Stat Lab 06/09/24 09:55 Completed Procalcitonin Stat Lab 06/09/24 09:55 Completed Rapid PCR Covid and Flu A/B Stat Lab 06/09/24 12:20 Completed T4 (Thyroxine) Stat Lab 06/09/24 09:55 Completed TSH [Thyroid Stimulating Hormone] Stat Lab 06/09/24 09:55 Completed Trop I [Troponin I] Stat Lab 06/09/24 09:55 Completed Troponin I Q3H Lab 06/09/24 15:02 Completed Troponin I Q3H Lab 06/09/24 18:15 Ordered UA [Urinalysis and Microscopic] Stat Lab 06/09/24 10:44 Completed Blood Culture Stat Micro 06/09/24 10:14 Stop Req Blood Culture Stat Micro 06/09/24 12:10 Ordered ECG Data Tracing #1: I reviewed this ECG and interpreted as documented below: Sinus rhythm with a ventricular rate of 79 bpm. No acute STEMI. Motion artifact degrades aVR, aVL, aVF. Normal intervals ECG initial impression date: 06/09/24 ECG initial impression time: 10:08 Medical Decision Narrative: In summary, this patient is a 53-year-old male presenting to the Emergency Department for evaluation of low blood pressure, 24 hours of nausea and diarrhea. Differential diagnoses considered include but are not limited to gastroenteritis, colitis, diverticulitis, sepsis, dehydration, electrolyte derangements, LUZ. Ruling out the most morbid conditions drove assessment. It should be noted patient's history includes prior CVA, hypertension, hyperlipidemia, cardiomyopathy, carotid stenosis which may or may not be at goal therapy. This complicates all aspects of care by increasing patient's risk for morbidity. I reviewed patient's past medical records and noted previous cardiology evaluations with most recent 1 being from January for maintenance. On exam, the patient is pale, ill-appearing, dry mucous membranes. He complains of abdominal distention, nausea but no other concerns or complaints noted at this time. He is severely hypotensive with systolics in the 60s upon arrival. Heart rate normal, O2 saturation normal. Workup included broad lab evaluation to evaluate for infectious and metabolic derangements. I also obtained CT abdomen pelvis with IV contrast. EKG obtained demonstrated no acute STEMI. Patient was given 2 L bolus of IV fluids immediately upon arrival given that he is severely hypotensive and is very dry appearing. He had good response to this with systolic improving from the 60s to the 90s. MAP greater than 65 on subsequent recheck. He was given IV Zofran for the GI upset. I independently interpreted CT scan prior to the radiologist read and noted bibasilar infiltrates as well as bowel wall thickening concerning for enteritis. Please see their read for final interpretation. Labs were obtained that demonstrated reassuring CBC with exception of mild anemia, no significant leukocytosis noted. Chemistry demonstrates LUZ with creatinine up to 1.7 from 0.7, mild hyponatremia with a sodium of 125. He also has mildly elevated lactic acid and hypomagnesemia. IV magnesium repletion was ordered. Urinalysis is not concerning for infection.. On reassessment, patient had initial improvement after administration of 2 L of IV fluids, equivalent of a sepsis bolus. He then had a abrupt drop in his blood pressure again to the 70s after fluid resuscitation had completed. He was started on maintenance IV fluids with improvement in his blood pressure again. He still very ill-appearing, pale, poor perfusion. Perfusion on exam is slightly improved. I ordered IV vancomycin and meropenem for broad-spectrum antibiotic coverage, as he has anaphylaxis to penicillins. Ultimately at this time, I feel he would benefit from admission for further evaluation and management of LUZ, enteritis, possible sepsis, hypotension, dehydration. I had an interactive discussion with Dr. Hurtado who admitted the patient in stable condition. Critical Care Critical Care Time Critical Care Time: Yes Attestation: On 06/09/24, the high probability of a clinically significant, sudden or life threatening deterioration of the following system(s) required my full and direct attention, intervention and personal management. The time I documented below is in addition to time spent performing reported procedures but includes the following listed in this critical care notation. Total Time Total Critical Care Time: 45
--- NOTE | 2024-06-09 11:13 | PC.NURSE ---
PT ARRIVED BACK TO ROOM VIA STRETCHER FROM CT
[2024-06-09 11:16] LABS: HIV Combo NEGATIVE (Negative)
[2024-06-09 11:17] LABS: Appearance,Urine CLEAR (Clear); Bilirubin,Urine Negative (Negative); Blood, Urine Negative (Negative); Color,Urine YELLOW (Yellow); Glucose,Urine (UA) Negative (Negative); Ketones,Urine Negative (Negative); Leukocyte Esterase,Urine Negative (Negative); Nitrate,Urine Negative (Negative); Protein,Urine Negative (Negative)
[2024-06-09 11:23] LABS: Hepatitis C Ab Qual. W/ RFX NEGATIVE (Negative)
[2024-06-09 11:56] LABS: Sperm,Urine OCC /lpf; Squamous Epithelial Cell,Urine Occasional #/hpf (0-5)
--- NOTE | 2024-06-09 12:08 | XR_ITS ---
FINAL REPORT TECHNIQUE: Single view chest CLINICAL HISTORY: possible sepsis, hypotension, AMS COMPARISON: 02/07/2023 FINDINGS: A single view of the chest was obtained. Heart is normal in size. There are low lung volumes. Bibasilar opacities are favored to represent atelectasis. Pneumonia not excluded. There is no pneumothorax. IMPRESSION: Bibasilar opacities, favor atelectasis. Pneumonia not excluded. Reviewed, Interpreted and Dictated by Lois Childers MD Transcribed by Miranda Linares Authenticated and . [facility]
[2024-06-09] MEDS: MEROPENEM 1 GM in 0.9 % SODIUM CHLORIDE 100 ML IV (12:17)
[2024-06-09] MEDS: VANCOMYCIN/WATER FOR INJ (PEG) 1.75 GM/350 ML PIGGYBACK IV (12:17)
[2024-06-09] MEDS: LACTATED RINGERS 1000ML 1,000 ML 125 ML IV ×2 (12:27→18:24)
[2024-06-09 12:40] LABS: Coronavirus 19, PCR Not Detected (NotDetected); Influenza A, PCR Not Detected (NotDetected); Influenza B, PCR Not Detected (NotDetected)
[2024-06-09 12:44] LABS: NT Pro Brain Natriuretic Pep. 1120 pg/mL (0-125)
[2024-06-09 12:48] LABS: Procalcitonin 0.506 ng/mL (0.0-2.0)
[2024-06-09 12:49] LABS: T4 (Thyroxine) 3.1 ug/dl (5.53-11.0)
--- NOTE | 2024-06-09 12:56 | PC.NURSE ---
Dr oRme is s/w Dr Hurtado for possible admission
--- NOTE | 2024-06-09 12:56 | PC.NURSE ---
Applied 2LPM NC d/t pt having apneic episodes that caused spo2 to dip down to 84%. Dr Rome notified of this .
[2024-06-09 12:57] LABS: Troponin I < 0.01 ng/ml (0.00-0.034)
--- NOTE | 2024-06-09 12:58 | PC.NURSE ---
Dr Hurtado agrees to admit pt: LUZ, Hypotension, and Enteritis. 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 Dr Hurtado would like step-down
[2024-06-09 13:02] LABS: Thyroid Stimulating Hormone 1.35 uIU/mL (0.465-4.68)
--- NOTE | 2024-06-09 13:02 | PC.NURSE ---
PT ADMITTED TO [address] STEPDOWN, ALL STAFF NOTIFIED
--- NOTE | 2024-06-09 13:14 | PC.NURSE ---
Report called to RENEA Ellison in the ICU. Spoke with Alejandra related to blood pressures states she will put in medication to fix this problem.
[2024-06-09] MEDS: NOREPINEPHRINE BITARTRATE/D5W 8 MG/250 ML PLAST..BAG 15 MG IV (13:31)
[2024-06-09 14:10] LABS: Reflex Lactic Add Lactic Reflex
--- NOTE | 2024-06-09 14:18 | PC.NURSE ---
Transfer center called with bed assignment. Tre [facility]barra, 2nf fl #12, RM 240. Ph# for report [phone]. Dr Rome aware of bed assignment.
--- NOTE | 2024-06-09 14:50 | PC.NURSE ---
pt arrived to the unit at this time. transported by this nurse and RENEA Bull from ED via stretcher on the monitor. pt tolerated transport well
--- NOTE | 2024-06-09 14:52 | PC.NURSE ---
CRE swab collected at this time and handed off to lab at bedside
[2024-06-09 15:24] LABS: Lactic Acid Follow Up (RFLX 1) 2.7 mmol/L (0.7-2.1)
[2024-06-09 15:35] LABS: Troponin I < 0.01 ng/ml (0.00-0.034)
[2024-06-09 17:06] LABS: Reflex Lactic (2 hrs) Add Lactic Reflex
--- NOTE | 2024-06-09 18:29 | EXP.HP ---
History of Present Illness *Admission Date: 06/09/24 *Reason for visit:: Gastroenteritis *History of present illness: Mr. 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 after suffering with diarrhea for the last 2 to 3 days. He states yesterday the diarrhea was almost constant. He has had some nausea. He states he has had no fever. He denies any upper respiratory symptoms. He denies shortness of breath and chest pain. His caregiver noted a low blood pressure and thus brought him to the emergency room for evaluation. Following are the notes from the emergency room: ECG Data Tracing #1: I reviewed this ECG and interpreted as documented below: Sinus rhythm with a ventricular rate of 79 bpm. No acute STEMI. Motion artifact degrades aVR, aVL, aVF. Normal intervals ECG initial impression date: 06/09/24 ECG initial impression time: 10:08 Medical Decision Narrative: In summary, this patient is a 53-year-old male presenting to the Emergency Department for evaluation of low blood pressure, 24 hours of nausea and diarrhea. Differential diagnoses considered include but are not limited to gastroenteritis, colitis, diverticulitis, sepsis, dehydration, electrolyte derangements, LUZ. Ruling out the most morbid conditions drove assessment. It should be noted patient's history includes prior CVA, hypertension, hyperlipidemia, cardiomyopathy, carotid stenosis which may or may not be at goal therapy. This complicates all aspects of care by increasing patient's risk for morbidity. I reviewed patient's past medical records and noted previous cardiology evaluations with most recent 1 being from January for maintenance. On exam, the patient is pale, ill-appearing, dry mucous membranes. He complains of abdominal distention, nausea but no other concerns or complaints noted at this time. He is severely hypotensive with systolics in the 60s upon arrival. Heart rate normal, O2 saturation normal. Workup included broad lab evaluation to evaluate for infectious and metabolic derangements. I also obtained CT abdomen pelvis with IV contrast. EKG obtained demonstrated no acute STEMI. Patient was given 2 L bolus of IV fluids immediately upon arrival given that he is severely hypotensive and is very dry appearing. He had good response to this with systolic improving from the 60s to the 90s. MAP greater than 65 on subsequent recheck. He was given IV Zofran for the GI upset. I independently interpreted CT scan prior to the radiologist read and noted bibasilar infiltrates as well as bowel wall thickening concerning for enteritis. Please see their read for final interpretation. Labs were obtained that demonstrated reassuring CBC with exception of mild anemia, no significant leukocytosis noted. Chemistry demonstrates LUZ with creatinine up to 1.7 from 0.7, mild hyponatremia with a sodium of 125. He also has mildly elevated lactic acid and hypomagnesemia. IV magnesium repletion was ordered. Urinalysis is not concerning for infection.. On reassessment, patient had initial improvement after administration of 2 L of IV fluids, equivalent of a sepsis bolus. He then had a abrupt drop in his blood pressure again to the 70s after fluid resuscitation had completed. He was started on maintenance IV fluids with improvement in his blood pressure again. He still very ill-appearing, pale, poor perfusion. Perfusion on exam is slightly improved. I ordered IV vancomycin and meropenem for broad-spectrum antibiotic coverage, as he has anaphylaxis to penicillins. Ultimately at this time, I feel he would benefit from admission for further evaluation and management of LUZ, enteritis, possible sepsis, hypotension, dehydration. I had an interactive discussion with Dr. Hurtado who admitted the patient in stable condition. The above as per ER note With this exam patient is comfortable. He denies any abdominal pain. He has had no further stools since admission. [facility] Disclaimer: The information contained in this section may have been updated after the patient was seen, as this information can be updated by other users. Medical History (Updated 06/09/24 @ 18:34 by Ioana Bone APRN) Cholecystectomy planned Acute kidney injury Constipation Stenosis of carotid artery Severe sepsis with acute organ dysfunction Closed left hip fracture UTI (urinary tract infection) Acute right [employer] stroke CVA (cerebral vascular accident) Paralysis due to acute stroke Paralysis Systolic CHF LV dysfunction Angina, class III Carotid artery stenosis Cardiomyopathy Hx of traumatic brain injury HTN (hypertension), benign CHF (congestive heart failure) Thoracic back pain Lumbar radiculopathy Surgical History History of left hip hemiarthroplasty H/O arthroscopy of hip Family History Other Cancer Coronary artery disease Diabetes FHx: mental illness Heart attack Hypertension Stroke Social History (Updated 06/09/24 @ 15:32 by Radha Serna RN) Smoking Status: Current every day smoker tobacco type: cigarettes packs per day: 1 second hand exposure: No alcohol intake: never substance use type: denies use current occupational status: disabled Travel in the last 8 weeks: None household members: family housing: house number of children: 2 caffeine: Yes Have you lived/traveled outside [place] in past 30 days?: No Contact w/someone who lives/traveled outside US past 30 days?: No Exposure to someone with infectious disease in past 14 days?: No Do you have a fever (greater than 100.4 F or 38 C)?: No Have you tested positive for COVID-19: No Exposed to someone with COVID-19 in past 14 days?: No Do you have a sore throat?: No Do you have a cough?: No Do you have any weakness?: No Are you experiencing any nausea/vomitting?: Yes Do you have any diarrhea?: Yes Are you experiencing any unusual bleeding?: No Do you have any muscle aches/pain?: No Do you have any abdominal pain?: No Are you experiencing loss of taste or smell?: No Other Medical History Have you received the Flu Vaccine for this season: Yes Have you received the Pneumonia Vaccine: No Review of Systems Constitutional Constitutional: Denies body ache(s), Denies fever(s) and Denies headache(s) Eyes Eyes: Denies change in vision, Reports loss of vision and Reports other visual disturbances ENT Ears, Nose, Mouth, and Throat: Denies dizziness, Denies otalgia, Denies headache(s) and Denies sore throat *Cardiovascular Cardiovascular: Denies chest pain, Denies dyspnea, Denies leg edema and Denies palpitations *Respiratory Respiratory: Denies chest congestion, Denies cough and Denies dyspnea *Gastrointestinal Gastrointestinal: Denies hematochezia, Reports loose stools, Denies melena, Reports nausea and Reports vomiting *Genitourinary Genitourinary: Denies difficulty urinating *Musculoskeletal Musculoskeletal: Reports other (The patient rarely gets out of bed.He does not walk due to left hemiparesis) *Neurologic Neurologic: Reports abnormal speech (Slurring of words), Denies convulsions, Denies dizziness, Denies headache(s) and Reports loss of vision Psychiatric Psychiatric: Reports depression Endocrine Endocrine: Denies palpitations Meds Home Medications and Allergies Home Medications ?Medication ?Instructions ?Recorded ?Confirmed ?Type ascorbic acid (vitamin C) 1,000 mg 1,000 mg PO DAILY Supplement 02/29/20 06/09/24 History tablet trazodone 50 mg tablet 50 mg PO HS Sleep 05/08/21 06/09/24 History fenofibrate 160 mg tablet 160 mg PO DAILY 05/09/21 06/09/24 History aspirin 81 mg tablet,delayed 81 mg PO DAILY 08/18/22 06/09/24 History release blood-glucose meter,continuous 08/18/22 06/09/24 History blood-glucose sensor (Dexcom G6 08/18/22 06/09/24 History Sensor device) clopidogrel 75 mg tablet 75 mg PO DAILY 08/18/22 06/09/24 History furosemide 20 mg tablet 20 mg PO DAILY 08/18/22 06/09/24 History linagliptin 5 mg tablet (Tradjenta) 5 mg PO DAILY 08/18/22 06/09/24 History metformin 1,000 mg tablet 1,000 mg PO BIDWMEAL 08/18/22 06/09/24 History alendronate 35 mg tablet 35 mg PO WEEKLY 12/26/22 06/09/24 History escitalopram oxalate 10 mg tablet 10 mg PO DAILY 12/26/22 06/09/24 History gabapentin 400 mg capsule 400 mg PO HS 12/26/22 06/09/24 History quetiapine 400 mg tablet 400 mg PO BID 04/23/23 06/09/24 History melatonin 5 mg tablet 5 mg PO HS 05/30/23 06/09/24 History tamsulosin 0.4 mg capsule 0.4 mg PO HS 05/30/23 06/09/24 History omeprazole 20 mg capsule,delayed 20 mg PO DAILY 07/26/23 06/09/24 History release atorvastatin 40 mg tablet See Rx Instructions .Route 10/30/23 06/09/24 Rx .COMPLEX #90 tabs lisinopril 20 mg tablet See Rx Instructions .Route 01/15/24 06/09/24 Rx .COMPLEX #180 tabs magnesium oxide 400 mg (241.3 mg See Rx Instructions .Route 01/28/24 06/09/24 Rx magnesium) tablet .COMPLEX #30 tabs bisoprolol fumarate 10 mg tablet See Rx Instructions .Route 04/22/24 06/09/24 Rx .COMPLEX #60 tabs verapamil 180 mg 24 hr See Rx Instructions .Route 04/22/24 06/09/24 Rx capsule,extended release .COMPLEX #90 caps divalproex 500 mg tablet,extended 1,000 mg PO HS 06/09/24 06/09/24 History release 24 hr New Prescriptions to Start Prescriptions: Allergies Allergy/AdvReac Type Severity Reaction Status Date / Time amoxicillin Allergy Swelling Verified 01/28/24 14:21 of Lip/Tongue/Throat Fish Containing Products AdvReac Severe Unknown Verified 01/28/24 14:21 allergy reaction Exam Data for Last 24 hours Vital signs and Labs for Last 24 Hours: Temp Pulse Resp BP Pulse Ox O2 Del Method O2 Flow Rate 98.3 F 82 17 98/53 L 98 Room Air 2 06/09/24 14:19 06/09/24 18:04 06/09/24 18:04 06/09/24 18:05 06/09/24 18:04 06/09/24 18:04 06/09/24 16:00 Laboratory Results - last 24 hr 06/09/24 09:55: WBC 6.5, RBC 4.14 L, Hgb 12.4 L, Hct 36.5 L, MCV 88.2, MCH 30.0, MCHC 34.0, RDW 14.7, Plt Count 196, MPV 9.4, Neut % (Auto) 70.6, Lymph % (Auto) 13.1, [place] % (Auto) 11.6 H, Eos % (Auto) 2.5, Baso % (Auto) 0.5, Neut # (Auto) 4.6, Lymph # (Auto) 0.9, [place] # (Auto) 0.8, Eos # (Auto) 0.2, Baso # (Auto) 0.0, Total Counted 100, Neutrophils % (Manual) 71, Lymphocytes % (Manual) 17, Monocytes % (Manual) 9, Eosinophils % (Manual) 3, Platelet Estimate Normal, RBC Morphology Normal, Sodium 125 L, Potassium 4.3, Chloride 93 L, Carbon Dioxide 22, Anion Gap 14.3, BUN 31 H, Creatinine 1.70 H, Estimated Creat Clear 64, Estimated GFR 42 L, Est GFR ( Amer) 51 L, Glucose 135 H, Lactate 2.9 H, Calcium 9.4, Magnesium 1.3 L, Total Bilirubin 0.9, AST 34, ALT 37, Alkaline Phosphatase 49, Troponin I < 0.01, NT-Pro-B Natriuret Pep 1120 H, Total Protein 6.4, Albumin 4.1, Globulin 2.3, Albumin/Globulin Ratio 1.8, Lipase 38, Procalcitonin 0.506, TSH 1.35, Thyroxine (T4) 3.1 L, HCV Ab DAVIN w/Rflx PCR Qn Negative, HIV Ag/Ab Combo Qual Negative 06/09/24 10:44: Urine Color Yellow, Urine Appearance Clear, Urine pH 6.0, Ur Specific [place] 1.010, Urine Protein Negative, Urine Glucose (UA) Negative, Urine Ketones Negative, Urine Blood Negative, Urine Nitrate Negative, Urine Bilirubin Negative, Urine Urobilinogen 1.0, Ur Leukocyte Esterase Negative, Urine RBC None, Urine WBC None, Ur Squamous Epith Cells Occasional, Urine Bacteria None, Urine Sperm Occ 06/09/24 12:20: SARS-CoV-2 (PCR) Not detected, Influenza A Untype (PCR) Not detected, Influenza Type B (PCR) Not detected 06/09/24 15:02: Lactate 2.7 H, Troponin I < 0.01 I & O for Last 24 hours: Intake & Output 06/07/24 06/08/24 06/09/24 06/10/24 11:59 11:59 11:59 11:59 Intake Total 450 / 450 Output Total 2250 / 2250 Balance -1800 / -1800 Weight 200 lb Constitutional Constitutional: no acute distress (Awakened for assessment. Appears comfortable.) *Routine HEENT Exam Head: Present normocephalic and atraumatic Eye: Present PERRL; Absent conjunctival icterus, scleral injection or conjunctivae pink ENT: Present mucous membranes moist and oropharynx clear *Routine Neck Exam Neck: Present supple; Absent carotid bruit, lymphadenopathy or thyromegaly *Routine Respiratory Exam Respiratory: Present CTA bilaterally (Anteriorly and posteriorly) *Routine Cardiovascular Exam Cardiovascular: Present RRR; Absent ectopic Comments: Monitor showing sinus rhythm *Routine Abdominal Exam Abdominal: Present soft and normoactive bowel sounds; Absent tenderness or distended Comments: He has a Godfrey catheter to bedside drainage *Routine Rectal Exam Rectal:: deferred *Routine Genitalia Exam Genitalia:: deferred *Routine Extremities Exam Extremities: Absent edema or calf tenderness Comments: Bilateral foot drop *Routine Neurological Exam Neurological: Present alert and oriented X3; Absent normal speech (Slurs his words) Assessment and Plan *Assessment and plan (1) Nausea and vomiting: Status: Resolved Category: Medical Code(s): R11.2 - Nausea with vomiting, unspecified (2) GERD (gastroesophageal reflux disease): Status: Acute Category: Medical Code(s): K21.9 - Gastro-esophageal reflux disease without esophagitis (3) Hemiparesis: Status: Chronic Category: Medical Code(s): G81.90 - Hemiplegia, unspecified affecting unspecified side (4) Hemiparesis affecting left side as late effect of stroke: Status: Acute Category: Medical Code(s): I69.354 - Hemiplegia and hemiparesis following cerebral infarction affecting left non-dominant side (5) Paranoid schizophrenia: Status: Acute Category: Medical Code(s): F20.0 - Paranoid schizophrenia (6) Diabetes: Status: Chronic Qualifiers: Diabetes mellitus type: type 2 Diabetes mellitus correction insulin use: with correction use Diabetes mellitus complication status: with other specified complication Qualified Code(s): E11.69 - Type 2 diabetes mellitus with other specified complication Category: Medical Code(s): E11.9 - Type 2 diabetes mellitus without complications Plan Patient has received fluid boluses in the ER and is now receiving lactated Ringer's at 125 an hour.. He has received a dose of meropenem and and vancomycin. Blood pressure medicines will continue to be held for now. Nurses report soft blood pressure sometimes in the 90s. Will continue to monitor. He has not had a stool since admission and thus the diarrhea panel has not been done.
[2024-06-09 19:12] LABS: Lactic Acid Follow up (RFLX 2) 2.7 mmol/L (0.7-2.1)
[2024-06-09 19:19] LABS: Troponin I < 0.01 ng/ml (0.00-0.034)
[2024-06-09] MEDS: TRAZODONE 50MG TABLET 50 MG PO (20:58)
[2024-06-09] MEDS: QUETIAPINE 100MG TABLET 200 MG PO (20:58)
[2024-06-09] MEDS: ATORVASTATIN 40MG TABLET 40 MG PO (20:58)
[2024-06-09] MEDS: MELATONIN 5MG TABLET 5 MG PO (20:58)
[2024-06-09] MEDS: GABAPENTIN 100MG CAPSULE 400 MG PO (20:59)
[2024-06-09] MEDS: POTASSIUM CHLORIDE 10MEQ TABLET.ER 10 MEQ PO (21:01)
[2024-06-09] MEDS: DIVALPROEX 500MG (Delayed-Release) TABLET 500 MG PO (21:02)
[2024-06-09] MEDS: humaLOG 100 UNITS/ML 10ML VIAL (SSI) SUBCUT (21:11)
[2024-06-09] MEDS: INSULIN GLARGINE 100 UNITS/ML 10ML VIAL 25 UNIT SUBCUT (21:13)
[2024-06-10] VITALS (16 sets, daily range): BP systolic 90–165; BP diastolic 50–85; PULSE 68–93; RESP 15–23; TEMP 36.4–36.6; O2SAT 94–97; BMI 26.4
[2024-06-10] MEDS: LACTATED RINGERS 1000ML 1,000 ML 125 ML IV (02:07)
[2024-06-10 05:54] LABS: Anion Gap 9.3 mEq/L (5-15); Blood Urea Nitrogen 19 mg/dl (9-20); Calcium 8.9 mg/dl (8.4-10.2); Carbon Dioxide 27 mmol/L (22.0-30.0); Chloride 102 mmol/L (98-107); Creatinine Clearance Estimated 122 mL/min (50-200); Estimated Glomerular Filt Rate 88 ml/min (>60); GFR (African American) 107 ML/MIN (>60); Glucose 131 mg/dl (74-100); Potassium 4.3 mmoL/L (3.5-5.1); Sodium 134 mmol/L (136-145)
--- NOTE | 2024-06-10 07:55 | P.PN_ITS ---
Subjective *Date: 06/10/24 *Time: 07:55 Interval history: Patient slept at intervals. He states his stomach is fine. He has been eating and drinking without any problems. He has had no further diarrhea. He denies pain and nausea. He has had a good urinary output. Medical Exam Vital signs and Labs for Last 24 Hours: Vital Signs Temp Pulse Pulse Resp BP BP Pulse Ox 06/10/24 06:00 97.8 F 68 18 108/57 L 96 06/10/24 05:00 06/10/24 04:14 70 06/10/24 04:00 70 18 150/75 H 95 06/10/24 04:00 72 20 150/75 H 95 06/10/24 03:00 06/10/24 02:00 73 18 103/53 L 96 06/10/24 01:59 96 06/10/24 01:00 06/10/24 00:00 70 15 96 06/10/24 00:00 98/63 L 06/09/24 23:59 66 06/09/24 23:45 70 19 96 06/09/24 23:30 70 17 96 06/09/24 23:15 70 18 96 06/09/24 23:00 97.7 F 67 21 110/58 L 95 06/09/24 23:00 06/09/24 22:00 77 27 H 109/63 L 94 L 06/09/24 21:23 80 06/09/24 21:00 06/09/24 21:00 77 22 134/62 95 06/09/24 20:00 96 06/09/24 20:00 97.9 F 72 18 81/49 L 93 L 06/09/24 19:00 86 20 112/61 95 06/09/24 18:31 06/09/24 18:05 98/53 L 06/09/24 18:04 82 17 77/47 L 98 06/09/24 18:00 85 22 84/44 L 96 06/09/24 17:00 71 21 92/52 L 98 06/09/24 17:00 06/09/24 16:00 76 24 98/58 L 94 L 06/09/24 15:00 06/09/24 14:19 98.3 F 77 16 94/54 L 06/09/24 14:00 98.6 F 80 21 111/57 L 100 06/09/24 13:53 134/63 06/09/24 13:45 90/50 L 06/09/24 13:30 76 21 85/43 L 97 06/09/24 13:15 77 21 78/46 L 97 06/09/24 13:07 06/09/24 13:00 77 21 92/56 L 97 06/09/24 12:30 79 21 87/52 L 93 L 06/09/24 12:24 80 21 97/50 L 94 L 06/09/24 12:15 77 20 74/46 L 91 L 06/09/24 12:00 81 21 77/48 L 90 L 06/09/24 11:45 83 21 77/42 L 90 L 06/09/24 11:30 80 19 76/47 L 92 L 06/09/24 10:58 79 17 94/50 L 94 L 06/09/24 10:30 77 21 90/47 L 97 06/09/24 10:25 77 15 84/45 L 96 06/09/24 10:06 73 23 68/40 L 96 06/09/24 09:59 73 24 69/41 L 95 06/09/24 09:48 82/42 L 06/09/24 09:45 98.3 F 75 18 85/56 L 98 O2 Del Method O2 Flow Rate 06/10/24 06:00 Nasal Cannula 2 06/10/24 05:00 Nasal Cannula 2 06/10/24 04:14 06/10/24 04:00 Nasal Cannula 2 06/10/24 04:00 Nasal Cannula 2 06/10/24 03:00 Nasal Cannula 2 06/10/24 02:00 Nasal Cannula 2 06/10/24 01:59 Nasal Cannula 2 06/10/24 01:00 Nasal Cannula 2 06/10/24 00:00 06/10/24 00:00 06/09/24 23:59 06/09/24 23:45 06/09/24 23:30 06/09/24 23:15 06/09/24 23:00 Room Air 06/09/24 23:00 Nasal Cannula 2 06/09/24 22:00 Nasal Cannula 2 06/09/24 21:23 06/09/24 21:00 Nasal Cannula 2 06/09/24 21:00 Nasal Cannula 2 06/09/24 20:00 Room Air 06/09/24 20:00 Room Air 06/09/24 19:00 Room Air 06/09/24 18:31 Room Air 06/09/24 18:05 06/09/24 18:04 Room Air 06/09/24 18:00 Room Air 06/09/24 17:00 Room Air 06/09/24 17:00 Room Air 06/09/24 16:00 Nasal Cannula 2 06/09/24 15:00 Nasal Cannula 2 06/09/24 14:19 Room Air 06/09/24 14:00 Nasal Cannula 2 06/09/24 13:53 06/09/24 13:45 06/09/24 13:30 Nasal Cannula 2 06/09/24 13:15 Nasal Cannula 2 06/09/24 13:07 Nasal Cannula 2 06/09/24 13:00 Nasal Cannula 2 06/09/24 12:30 Room Air 06/09/24 12:24 Room Air 06/09/24 12:15 Room Air 06/09/24 12:00 Room Air 06/09/24 11:45 Room Air 06/09/24 11:30 Room Air 06/09/24 10:58 Room Air 06/09/24 10:30 06/09/24 10:25 06/09/24 10:06 06/09/24 09:59 06/09/24 09:48 06/09/24 09:45 Room Air Intake and Output 06/09/24 06/10/24 06/10/24 19:59 03:59 11:59 Intake Total 650 / 650 1000 / 1650 1460 / 3110 Output Total 2250 / 2250 3185 / 5435 1025 / 6460 Balance -1600 / -1600 -2185 / -3785 435 / -3350 Intake: Intake, Oral Amount 650 / 650 1000 / 1650 Intake, Total IV Amount 1460 / 1460 Lactated Ringers 1000ML 1,000 1460 / 1460 ml @ 125 mls/hr IV .Q8H [facility] Rx# :[id number] Output: Output, Urine Amount 2250 / 2250 3185 / 5435 1025 / 6460 Other: Number of Unmeasured Voids 0 0 2 Weight 184 lb 9.6 oz Patient Weight 06/10/24 11:59 Weight 184 lb 9.6 oz Laboratory Results - last 24 hr 06/09/24 09:55: WBC 6.5, RBC 4.14 L, Hgb 12.4 L, Hct 36.5 L, MCV 88.2, MCH 30.0, MCHC 34.0, RDW 14.7, Plt Count 196, MPV 9.4, Neut % (Auto) 70.6, Lymph % (Auto) 13.1, [place] % (Auto) 11.6 H, Eos % (Auto) 2.5, Baso % (Auto) 0.5, Neut # (Auto) 4 .6, Lymph # (Auto) 0.9, [place] # (Auto) 0.8, Eos # (Auto) 0.2, Baso # (Auto) 0.0, Total Counted 100, Neutrophils % (Manual) 71, Lymphocytes % (Manual) 17, Monocytes % (Manual) 9, Eosinophils % (Manual) 3, Platelet Estimate Normal, RBC Morphology Normal, Sodium 125 L, Potassium 4.3, Chloride 93 L, Carbon Dioxide 22, Anion Gap 14.3, BUN 31 H, Creatinine 1.70 H, Estimated Creat Clear 64, Estimated GFR 42 L, Est GFR ( Amer) 51 L, Glucose 135 H, Lactate 2.9 H, Calcium 9.4, Magnesium 1.3 L, Total Bilirubin 0.9, AST 34, ALT 37, Alkaline Phosphatase 49, Troponin I < 0.01, NT-Pro-B Natriuret Pep 1120 H, Total Protein 6.4, Albumin 4.1, Globulin 2.3, Albumin/Globulin Ratio 1.8, Lipase 38, Procalcitonin 0.506, TSH 1.35, Thyroxine (T4) 3.1 L, HCV Ab DAVIN w/Rflx PCR Qn Negative, HIV Ag/Ab Combo Qual Negative 06/09/24 10:44: Urine Color Yellow, Urine Appearance Clear, Urine pH 6.0, Ur Specific [place] 1.010, Urine Protein Negative, Urine Glucose (UA) Negative, Urine Ketones Negative, Urine Blood Negative, Urine Nitrate Negative, Urine Bilirubin Negative, Urine Urobilinogen 1.0, Ur Leukocyte Esterase Negative, Urine RBC None, Urine WBC None, Ur Squamous Epith Cells Occasional, Urine Bacteria None, Urine Sperm Occ 06/09/24 12:20: SARS-CoV-2 (PCR) Not detected, Influenza A Untype (PCR) Not dete cted, Influenza Type B (PCR) Not detected 06/09/24 15:02: Lactate 2.7 H, Troponin I < 0.01 06/09/24 18:42: Lactate 2.7 H, Troponin I < 0.01 06/10/24 05:31: Sodium 134 L, Potassium 4.3, Chloride 102, Carbon Dioxide 27, Anion Gap 9.3, BUN 19 D, Creatinine 0.90 D, Estimated Creat Clear 122, Estimated GFR 88, Est GFR ( Amer) 107 D, Glucose 131 H, Calcium 8.9 I & O for Labs for Last 24 Hours: Intake & Output 06/07/24 06/08/24 06/09/24 06/10/24 11:59 11:59 11:59 11:59 Intake Total 3110 / 3110 Output Total 6460 / 6460 Balance -3350 / -3350 Weight 200 lb 184 lb 9.6 oz Constitutional: Present no acute distress Respiratory: Present CTA bilaterally Cardiac: Present Reg Rate and Rhythm (Sinus rhythm) GI: Present soft and normal bowel sounds; Absent distention or tenderness Comment:: Godfrey catheter to bedside drainage Extremities: Absent tenderness or edema Comment:: Bilateral foot drop. He does have some scabbing on fourth and fifth toes of the left foot with a scab beneath the left little toe. Neuro: Present alert, awake and oriented x 3; Absent moves all extremities (Left hemiparesis) Assessment and Plan *Assessment and plan (1) Hypotension: Status: Acute Category: Medical Code(s): I95.9 - Hypotension, unspecified (2) Nausea and vomiting: Status: Resolved Category: Medical Code(s): R11.2 - Nausea with vomiting, unspecified (3) GERD (gastroesophageal reflux disease): Status: Acute Category: Medical Code(s): K21.9 - Gastro-esophageal reflux disease without esophagitis (4) Hemiparesis: Status: Chronic Category: Medical Code(s): G81.90 - Hemiplegia, unspecified affecting unspecified side (5) Hemiparesis affecting left side as late effect of stroke: Status: Acute Category: Medical Code(s): I69.354 - Hemiplegia and hemiparesis following cerebral infarction affecting left non-dominant side (6) Paranoid schizophrenia: Status: Acute Category: Medical Code(s): F20.0 - Paranoid schizophrenia (7) Diabetes: Status: Chronic Qualifiers: Diabetes mellitus type: type 2 Diabetes mellitus penitentiary insulin use: with penitentiary use Diabetes mellitus complication status: with other specified complication Qualified Code(s): E11.69 - Type 2 diabetes mellitus with other specified complication Category: Medical Code(s): E11.9 - Type 2 diabetes mellitus without complications (8) Hypomagnesemia: Status: Acute Category: Medical Code(s): E83.42 - Hypomagnesemia Plan Patient remains off of Levophed. Blood pressures much improved. Repeated labs this morning showed improved sodium at 134. Renal function is normal today. Magnesium is pending. Saline lock
[2024-06-10] MEDS: humaLOG 100 UNITS/ML 10ML VIAL (SSI) SUBCUT ×2 (08:38→14:49)
[2024-06-10] MEDS: CLOPIDOGREL 75MG TAB 75 MG PO (08:39)
[2024-06-10] MEDS: DIVALPROEX 500MG (Delayed-Release) TABLET 500 MG PO (08:39)
[2024-06-10] MEDS: LISINOPRIL 10MG TABLET 10 MG PO (08:39)
[2024-06-10] MEDS: ESCITALOPRAM 10MG TABLET 10 MG PO (08:39)
[2024-06-10] MEDS: ASPIRIN EC 81MG TABLET 81 MG PO (08:39)
[2024-06-10] MEDS: VERAPAMIL SR 180MG TABLET 180 MG PO (08:39)
[2024-06-10] MEDS: POTASSIUM CHLORIDE 10MEQ TABLET.ER 10 MEQ PO (08:39)
[2024-06-10] MEDS: QUETIAPINE 100MG TABLET 200 MG PO (08:40)
[2024-06-10] MEDS: METFORMIN 500MG TABLET 1000 MG PO (08:40)
[2024-06-10 08:41] LABS: Magnesium 1.8 mg/dl (1.6-2.3)
--- NOTE | 2024-06-10 11:26 | HMH.PTWOUND ---
Rehab Inpt Wound Evaluation Rehab IP Wound Evaluation Start: 06/10/24 02:05 Freq: ONCE Status: Active Protocol: Document 06/10/24 11:23 PHOWAYLON (Rec: 06/10/24 11:26 PHORZAHEER [id number]) Rehab PT Wound Assessment Subjective Subjective 53 yowm adm to [facility] with LUZ. Decreased Vasu Scale score upin admission triggered inpatient PT wound consult per protocols. No current wounds identified on this patient. Nsg staff is performing all appropriate pressure relief to prevent any pressure related injuries. No current inpatient PT wound care needs identified at this time. Thank you for involving the wound care team in the care fo this patient. PHYSICIAN CERTIFICATION: I certify the specified therapy services for Alejandro Craft JR are required, authorized, and reviewed every 30 days.
[2024-06-10 13:54] LABS: POC Glucose,Bedside 238 (70-110)
[2024-06-10 13:54] LABS: POC Glucose,Bedside 176 (70-110)
[2024-06-10 13:57] LABS: POC Glucose,Bedside 509 (70-110)
[2024-06-10 14:28] LABS: Glucose,Random 188 mg/dL (74-100)
--- NOTE | 2024-06-10 14:33 | PC.NURSE ---
Lab glucose resulted as [address] Hurtado notified.
[2024-06-10 15:03] LABS: POC Glucose,Bedside 196 (70-110)
--- NOTE | 2024-06-11 11:10 | SW/DCPLANNER ---
Spoke with patients mother. Patients mother stated that he is doing well. Patients mother stated that they are aware of his upcoming appointments. Patients mother stated that they were able to mixing picker tender patients medicine from clinic pharmacy. Patient stated that they have no concerns or questions at this time. Mannie Chou
--- NOTE | 2024-06-18 15:07 | P.DS_ITS ---
General Admission date:: 06/09/24 Discharge date: 06/10/24 HPI HPI HPI: Mr. 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 He states yesterday the diarrhea was almost constant. He has had some nausea. He states he has had no fever. He denies any upper respiratory symptoms. He denies shortness of breath and chest pain. His caregiver noted a low blood pressure an d thus brought him to the emergency room for evaluation. Following are the notes from the emergency room: ECG Data Tracing #1: I reviewed this ECG and interpreted as documented below: Sinus rhythm with a ventricular rate of 79 bpm. No acute STEMI. Motion artifact degrades aVR, aVL, aVF. Normal intervals ECG initial impression date: 06/09/24 ECG initial impression time: 10:08 Medical Decision Narrative: In summary, this patient is a 53-year-old male presenting to the Emergency Department for evaluation of low blood pressure, 24 hours of nausea and diar jorje. Differential diagnoses considered include but are not limited to gastroenteritis, colitis, diverticulitis, sepsis, dehydration, electrolyte derangements, LUZ. Ruling out the most morbid conditions drove assessment. It should be noted patient's history includes prior CVA, hypertension, hyperlipidemia, cardiomyopathy, carotid stenosis which may or may not be at goal therapy. This complicates all aspects of care by increasing patient's risk for morbidity. I reviewed patient's past medical records and noted previous cardiology evaluations with most recent 1 being from January for maintenance. On exam, the patient is pale, ill-appearing, dry mucous membranes. He complains of abdominal distention, nausea but no other concerns or complaints noted at this time. He is severely hypotensive with systolics in the 60s upon arrival. Heart rate normal, O2 saturation normal. Workup included broad lab evaluation to evaluate for infectious and metabolic derangements. I also obtained CT a bdomen pelvis with IV contrast. EKG obtained demonstrated no acute STEMI. Patient was given 2 L bolus of IV fluids immediately upon arrival given that he is severely hypotensive and is very dry appearing. He had good response to this with systolic improving from the 60s to the 90s. MAP greater than 65 on subsequent recheck. He was given IV Zofran for the GI upset. I independently interpreted CT scan prior to the radiologist read and noted bibasilar infiltrates as well as bowel wall thickening concerning for enteritis. Please see their read for final interpretation. Labs were obtained that demonstrated reassuring CBC with exception of mild anemia, no significant leukocytosis noted. Chemistry demonstrates LUZ with creatinine up to 1.7 from 0.7, mild hyponatremia with a sodium of 125. He also has mildly elevated lactic acid and hypomagnesemia. IV magnesium repletion was ordered. Urinalysis is not concerning for infection.. On reassessment, patient had initial improvement after administration of 2 L of IV fluids, equivalent of a sepsis bolus. He then had a abrupt drop in his blood pressure again to the 70s after fluid resuscitation had completed. He was started on maintenance IV fluids with improvement in his blood pressure again. He still very ill-appearing, pale, poor perfusion. Perfusion on exam is slightly improved. I ordered IV vancomycin and meropenem for broad-spectrum antibiotic coverage, as he has anaphylaxis to penicillins. Ultimately at this time, I feel he would benefit from admission for further evaluation and management of LUZ, enteritis, possible sepsis, hypotension, dehydration. I had an interactive discussion with Dr. Hurtado who admitted the patient in stable condition. The above as per ER note With this exam patient is comfortable. He denies any abdominal pain. He has had no further stools since admission. Hospital Course Hospital Course Hospital Course: The patient received fluid boluses in the ER and was receiving lactated Ringer's. He received a dose of meropenem and vancomycin. By 06/10/2024 he was feeling better. He was eating and drinking without any problems at night no further diarrhea. He had good urinary output. He had been able to be removed from Levop[facility]. His renal function normalized and he was stable to be discharged home. Exam Data for Last 24 hours Vital signs and Labs for Last 24 Hours: Temp Pulse Resp BP Pulse Ox O2 Del Method O2 Flow Rate 97.6 F 73 16 90/50 L 95 Room Air 2 06/10/24 12:00 06/10/24 16:00 06/10/24 15:03 06/10/24 15:03 06/10/24 15:03 06/10/24 15:03 06/10/24 06:00 Narrative: Constitutional Constitutional: no acute distress (Awakened for assessment. Appears comfortable.) *Routine HEENT Exam Head: Present normocephalic and atraumatic Eye: Present PERRL; Absent conjunctival icterus, scleral injection or conjunctivae pink ENT: Present mucous membranes moist and oropharynx clear *Routine Neck Exam Neck: Present supple; Absent carotid bruit, lymphadenopathy or thyromegaly *Routine Respiratory Exam Respiratory: Present CTA bilaterally (Anteriorly and posteriorly) *Routine Cardiovascular Exam Cardiovascular: Present RRR; Absent ectopic Comments: Monitor showing sinus rhythm *Routine Abdominal Exam Abdominal: Present soft and normoactive bowel sounds; Absent tenderness or distended Comments: He has a Godfrey catheter to bedside drainage *Routine Rectal Exam Rectal:: deferred *Routine Genitalia Exam Genitalia:: deferred *Routine Extremities Exam Extremities: Absent edema or calf tenderness Comments: Bilateral foot drop *Routine Neurological Exam Neurological: Present alert and oriented X3; Absent normal speech (Slurs his words) DS: Diagnosis Discharge Diagnosis (1) Hypotension: Status: Resolved Code(s): I95.9 - Hypotension, unspecified (2) Nausea and vomiting: Status: Resolved Code(s): R11.2 - Nausea with vomiting, unspecified (3) GERD (gastroesophageal reflux disease): Status: Acute Code(s): K21.9 - Gastro-esophageal reflux disease without esophagitis (4) Hemiparesis: Status: Chronic Code(s): G81.90 - Hemiplegia, unspecified affecting unspecified side (5) Hemiparesis affecting left side as late effect of stroke: Status: Acute Code(s): I69.354 - Hemiplegia and hemiparesis following cerebral infarction affecting left non-dominant side (6) Paranoid schizophrenia: Status: Acute Code(s): F20.0 - Paranoid schizophrenia (7) Diabetes: Status: Chronic Code(s): E11.9 - Type 2 diabetes mellitus without complications Qualifiers: Diabetes mellitus type: type 2 Diabetes mellitus assisted insulin use: with research coordinator use Diabetes mellitus complication status: with other specified complication Qualified Code(s): E11.69 - Type 2 diabetes mellitus with other specified complication (8) Hypomagnesemia: Status: Resolved Code(s): E83.42 - Hypomagnesemia Meds Home Medications and Allergies Home Medications ?Medication ?Instructions ?Recorded ?Confirmed ?Type ascorbic acid (vitamin C) 1,000 mg 1,000 mg PO DAILY Supplement 02/29/20 06/09/24 History tablet trazodone 50 mg tablet 50 mg PO HS Sleep 05/08/21 06/09/24 History fenofibrate 160 mg tablet 160 mg PO DAILY 05/09/21 06/09/24 History aspirin 81 mg tablet,delayed 81 mg PO DAILY 08/18/22 06/09/24 History release blood-glucose meter,continuous 08/18/22 06/09/24 History blood-glucose sensor (Dexcom G6 08/18/22 06/09/24 History Sensor device) clopidogrel 75 mg tablet 75 mg PO DAILY 08/18/22 06/09/24 History furosemide 20 mg tablet 20 mg PO DAILY 08/18/22 06/09/24 History linagliptin 5 mg tablet (Tradjenta) 5 mg PO DAILY 08/18/22 06/09/24 History metformin 1,000 mg tablet 1,000 mg PO BIDWMEAL 08/18/22 06/09/24 History alendronate 35 mg tablet 35 mg PO WEEKLY 12/26/22 06/09/24 History escitalopram oxalate 10 mg tablet 10 mg PO DAILY 12/26/22 06/09/24 History gabapentin 400 mg capsule 400 mg PO HS 12/26/22 06/09/24 History quetiapine 400 mg tablet 400 mg PO BID 04/23/23 06/09/24 History melatonin 5 mg tablet 5 mg PO HS 05/30/23 06/09/24 History tamsulosin 0.4 mg capsule 0.4 mg PO HS 05/30/23 06/09/24 History omeprazole 20 mg capsule,delayed 20 mg PO DAILY 07/26/23 06/09/24 History release atorvastatin 40 mg tablet See Rx Instructions .Route 10/30/23 06/09/24 Rx .COMPLEX #90 tabs magnesium oxide 400 mg (241.3 mg See Rx Instructions .Route 01/28/24 06/09/24 Rx magnesium) tablet .COMPLEX #30 tabs verapamil 180 mg 24 hr See Rx Instructions .Route 04/22/24 06/09/24 Rx capsule,extended release .COMPLEX #90 caps divalproex 500 mg tablet,extended 1,000 mg PO HS 06/09/24 06/09/24 History release 24 hr bisoprolol fumarate 5 mg tablet 5 mg PO DAILY #30 tabs 06/10/24 Rx lisinopril 10 mg tablet 10 mg PO DAILY #30 tabs 06/10/24 Rx potassium chloride 10 mEq 10 meq PO DAILY #30 tabs 06/10/24 Rx tablet,extended release(part/cryst) (Klor-Con M) New Prescriptions to Start Prescriptions: bisoprolol fumarate Ekaterina Hurtado lisinopril Ekaterina Hurtado potassium chloride [Klor-Con M10] Ekaterina Hurtado Allergies Allergy/AdvReac Type Severity Reaction Status Date / Time amoxicillin Allergy Swelling Verified 01/28/24 14:21 of Lip/Tongue/Throat Fish Containing Products AdvReac Severe Unknown Verified 01/28/24 14:21 allergy reaction Discharge Plan Disposition Patient Disposition: Home, Self-Care Condition: Fair Discharge Order Discharge Orders: Discharge Order (Routine); Ordered 06/10/24 Ordered By: Ekaterina Hurtado Follow up Plan Follow up with: Ekaterina Hurtado MD [Primary Care Provider] - 06/20/24 9:30 am Prescriptions/Medication Reconciliation: New lisinopril 10 mg Tablet 10 mg PO DAILY Qty: 30 2RF potassium chloride [Klor-Con M10] 10 mEq Tablet,Er Particles/Crystals 10 meq PO DAILY Qty: 30 3RF bisoprolol fumarate 5 mg tablet 5 mg PO DAILY Qty: 30 4RF Continued gabapentin 400 mg capsule 400 mg PO HS Patient Comments: TAKE ONE CAPSULE BY MOUTH EVERY DAY AT BEDTIME MAY CAUSE DROWSINESS alendronate 35 mg tablet 35 mg PO WEEKLY escitalopram oxalate 10 mg tablet 10 mg PO DAILY quetiapine 400 mg tablet 400 mg PO BID omeprazole 20 mg capsule,delayed release(DR/EC) 20 mg PO DAILY Patient Comments: TAKE ONE CAPSULE BY MOUTH EVERY DAY 30 minutes BEFORE morning meal atorvastatin 40 mg tablet See Rx Instructions .ROUTE .COMPLEX Qty: 90 3RF Dose Instruction: TAKE ONE TABLET BY MOUTH EVERY DAY Rx Instructions: TAKE ONE TABLET BY MOUTH EVERY DAY magnesium oxide 400 mg (241.3 mg magnesium) tablet See Rx Instructions .ROUTE .COMPLEX Qty: 30 5RF Dose Instruction: TAKE ONE TABLET BY MOUTH EVERY DAY Rx Instructions: TAKE ONE TABLET BY MOUTH EVERY DAY verapamil 180 mg capsule,ext rel. pellets 24 hr See Rx Instructions .ROUTE .COMPLEX Qty: 90 3RF Dose Instruction: TAKE ONE CAPSULE BY MOUTH EVERY DAY Rx Instructions: TAKE ONE CAPSULE BY MOUTH EVERY DAY clopidogrel 75 mg tablet 75 mg PO DAILY aspirin 81 mg tablet,delayed release (DR/EC) 81 mg PO DAILY metformin 1,000 mg tablet 1,000 mg PO BIDWMEAL furosemide 20 mg tablet 20 mg PO DAILY Tradjenta 5 mg tablet 5 mg PO DAILY tamsulosin 0.4 mg capsule 0.4 mg PO HS melatonin 5 mg tablet 5 mg PO HS ascorbic acid (vitamin C) 1,000 MG tablet 1,000 mg PO DAILY trazodone 50 MG tablet 50 mg PO HS fenofibrate 160 MG tablet 160 mg PO DAILY divalproex 500 mg tablet extended release 24 hr 1,000 mg PO HS Patient Comments: TAKE TWO TABLETS BY MOUTH EVERY DAY AT BEDTIME Discontinued lisinopril 20 mg tablet See Rx Instructions .ROUTE .COMPLEX Qty: 180 1RF Dose Instruction: TAKE ONE TABLET BY MOUTH TWICE DAILY Rx Instructions: TAKE ONE TABLET BY MOUTH TWICE DAILY bisoprolol fumarate 10 mg tablet See Rx Instructions .ROUTE .COMPLEX Qty: 60 5RF Dose Instruction: TAKE ONE TABLET BY MOUTH TWICE DAILY Rx Instructions: TAKE ONE TABLET BY MOUTH TWICE DAILY No Action (DME) Dexcom G6 Sensor Device See Rx Instructions MISCELLANEOUS Rx Instructions: As directed (DME) blood-glucose meter,continuous Misc See Rx Instructions MISCELLANEOUS Rx Instructions: As directed Problem Reconciliation Problems Reviewed?: Yes Patient Discharge Instructions ACTIVITY: Continue current activity DIET: continue same diet Print Language: Turkish Providers Primary Care Provider: Ekaterina Hurtado Admit Provider: Ekaterina Hurtado Attending Provider: Ekaterina Hurtado
== END 2024-06-10 16:10 | disposition home or self-care (01) | DRG 315 ==
LOC: ER 10:29 → 2ND 13:05 → ICU 13:07
PROVIDERS: Nurse Practitioner Family; Admitting Provider Family Medicine; Emergency Provider Emergency Medicine; PCP Family Medicine; Visit Provider Family Medicine
DX: I95.9 Hypotension, unspecified (principal); F20.0 Paranoid schizophrenia; I69.354 Hemiplegia and hemiparesis following cerebral infarction affecting left non-dominant side; I42.9 Cardiomyopathy, unspecified; N17.9 Acute kidney failure, unspecified; K21.9 Gastro-esophageal reflux disease without esophagitis; R11.2 Nausea with vomiting, unspecified; E11.69 Type 2 diabetes mellitus with other specified complication; E83.42 Hypomagnesemia; F17.210 Nicotine dependence, cigarettes, uncomplicated; I11.0 Hypertensive heart disease with heart failure; I50.9 Heart failure, unspecified; Z91.013 Allergy to seafood; Z88.0 Allergy status to penicillin; Z79.84 Long term (current) use of oral hypoglycemic drugs; Z79.82 Long term (current) use of aspirin; I65.29 Occlusion and stenosis of unspecified carotid artery; Z96.642 Presence of left artificial hip joint
CPT/HCPCS: 36415; 71045; 74177; 80048; 80053; 81001; 82947; 82962; 83605; 83690; 83735; 83880; 84145; 84436; 84443; 84484; 85007; 85014; 85018; 85048; 85049; 86803; 87040; 87081; 87389; 87636; 93005; 99291; J2185; J2405; J3372; J3475; J7120; Q9967

== ENCOUNTER 2024-07-28 15:54 | Outpatient (CLI) | payer MEDICARE, MEDICAID, SELFPAY ==
[2024-07-28 16:26] LABS: Basophils # 0.1 K/mm3 (0-0.2); Basophils % 1.1 % (0.1-2.0); Eosinophils # 0.4 Kmm3 (0.0-0.4); Eosinophils % 5.3 % (0.1-12.0); Hematocrit 40.1 % (42.0-52.0); Hemoglobin 13.4 g/dL (14.1-18.0); Immature Granulocytes # 0.21 10^3uL; Lymphocytes # 1.3 K/mm3 (0.7-4.5); Mean Corpuscular HGB Conc 33.4 g/dL (31.8-35.4); Mean Corpuscular Hemoglobin 29.6 pg (27.0-31.2); Mean Corpuscular Volume 88.7 fl (80-94); Mean Platelet Volume 9.1 fl (7.4-10.4); Monocytes # 0.7 K/mm3 (0.1-1.0); Monocytes % 9.9 % (1.7-9.3); Neutrophils # 4.4 K/mm3 (1.8-7.8); Neutrophils % 62.7 % (37.0-80.0); Nucleated Red Blood Cells # 0 10^3/uL; Nucleated Red Blood Cells % 0 %; Platelet Count 215 K/mm3 (142-424); Red Blood Count 4.52 M/mm3 (4.60-6.20); Red Cell Distribution Width 14.2 % (11.5-17.5); Red Cell Distribution Width-SD 45.9 fL
[2024-07-28 17:09] LABS: Albumin Level 4.3 g/dl (3.5-5.0); Chloride 93 mmol/L (98-107); Potassium 4.5 mmoL/L (3.5-5.1); Sodium 127 mmol/L (136-145)
[2024-07-28 17:11] LABS: Anion Gap 15.5 mEq/L (5-15); Bilirubin,Unconjugated 0.2 mg/dL (0.0-1.1); Blood Urea Nitrogen 14 mg/dl (9-20); Carbon Dioxide 23 mmol/L (22.0-30.0); Estimated Glomerular Filt Rate 118 ml/min (>60); GFR (African American) 143 ML/MIN (>60)
[2024-07-28 17:12] LABS: Alanine Aminotransferase 39 U/L (12-78); Alkaline Phosphatase 78 U/L (38-126); Aspartate Amino Transferase 34 U/L (17-59); Bilirubin,Direct 0.3 mg/dl (0.0-0.4); Bilirubin,Indirect 0.1 mg/dL (0.0-0.9); Bilirubin,Total 0.4 mg/dl (0.2-1.3); Calcium 9.5 mg/dl (8.4-10.2); Chol/HDL Ratio 4.6 (1-3.5); Cholesterol 110 mg/dl (140-200); Glucose 157 mg/dl (74-100); HDL Cholesterol 24 mg/dl (40-60); Total Protein,Serum 6.6 g/dl (6.3-8.2); Triglycerides 381 mg/dl (30-150); VLDL Cholesterol 76 mg/dL (0-40)
[2024-07-28 17:23] LABS: Direct LDL Cholesterol 46.86 mg/dL (100-129)
[2024-07-28 17:26] LABS: Free T4 (Free Thyroxine) 1.02 ng/dl (0.78-2.19)
[2024-07-28 17:41] LABS: Thyroid Stimulating Hormone 0.74 uIU/mL (0.465-4.68)
== END 2024-07-28 23:59 | disposition home or self-care (01) ==
PROVIDERS: PCP Family Medicine; Visit Provider Internal Medicine
DX: I11.0 Hypertensive heart disease with heart failure (principal); I50.22 Chronic systolic (congestive) heart failure; I25.10 Atherosclerotic heart disease of native coronary artery without angina pectoris; E78.2 Mixed hyperlipidemia
CPT/HCPCS: 36415; 80048; 80061; 80076; 84439; 84443; 85025